=== PATIENT | female | born 2000 | race Caucasian/White ===

== ENCOUNTER 2023-01-28 14:55 | Emergency (ER) | payer OTHER, SELFPAY ==
[2023-01-28 15:02] VITALS: BP 138/78; PULSE 78; RESP 18; TEMP 36.6; O2SAT 99; BMI 38.5
--- NOTE | 2023-01-28 15:10 | ED.FEMALEGU1 ---
HPI - Female Genitourinary General Chief complaint: Urogenital-Female Stated complaint: UTI Time Seen by Provider: 01/28/23 14:59 Source: patient Mode of arrival: walk-in Limitations: no limitations History of Present Illness HPI Narrative: 22-year-old female presents with a possible UTI. She states that for the past 4 days she is experienced lower abdominal pain, dysuria, urinary frequency. Denies abnormal vaginal discharge. Denies fever, back pain, dysuria, n/v/d Related Data Home Medications Medication Instructions Recorded Confirmed No Known Home Medications 01/28/23 01/28/23 Allergies Allergy/AdvReac Type Severity Reaction Status Date / Time No Known Drug Allergies Allergy Verified 01/28/23 15:01 Review of Systems ROS Status of ROS 10 or more systems reviewed and unremarkable except as noted in history and below PFSH PFS Social History Smoking status: Current every day smoker Exam Narrative Exam Narrative: General: A&Ox3, no distress, talking in full an complete sentences skin: warm, dry, intact head: normocephalic, atraumatic eyes: EOMI nose: nares patent neck: supple, trachea midline respiratory: non-labored extremities: FROM x 4, strength +5/5 abd: soft, suprapubic tenderness spine: No CVA tenderness neuro: A&Ox3 psych: appropriate mood and affect, cooperative Constitutional Vital Signs, click to edit/add: Last Vital Signs Temp 97.8 F 01/28/23 15:02 Pulse 78 01/28/23 15:02 Resp 18 01/28/23 15:02 BP 138/78 01/28/23 15:02 Pulse Ox 99 01/28/23 15:02 Course Vital Signs Vital signs: Vital Signs Temperature 97.8 F 01/28/23 15:02 Pulse Rate 78 01/28/23 15:02 Respiratory Rate 18 01/28/23 15:02 Blood Pressure 138/78 01/28/23 15:02 Pulse Oximetry 99 01/28/23 15:02 Temperature 97.8 F 01/28/23 15:02 Pulse Rate 78 01/28/23 15:02 Respiratory Rate 18 01/28/23 15:02 Blood Pressure 138/78 01/28/23 15:02 Pulse Oximetry 99 01/28/23 15:02 MDM - Female Genitourinary MDM Narrative Medical decision making narrative: UA negative. Urine hCG negative. 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 She is instructed to follow-up with family doctor. afebrile, not tachypneic, not tachycardic, not hypoxic, non toxic appearing and ambulating at baseline and hemodynamically stable to be d/c. answered all questions. pt in agreement with tx. educated when to return to ER. Lab Data Attestation: I reviewed the patient's lab results. Labs: Lab Results 01/28/23 Range/Units 15:15 Urine Color Lt. yellow (YELLOW) Urine Clarity Clear (CLEAR) Urine pH 7.5 (5.0-9.0) Ur Specific [place] 1.025 (1.005-1.025) Urine Protein Negative (NEG/TRACE) mg/dL Urine Glucose (UA) Negative (NEGATIVE) mg/dL Urine Ketones Negative (NEGATIVE) mg/dL Urine Occult Blood Negative (NEGATIVE) Urine Nitrite Negative (NEGATIVE) Urine Bilirubin Negative (NEGATIVE) Urine Urobilinogen 0.2 (0.2-1.0) EU/dL Ur Leukocyte Esterase Negative (NEGATIVE) Urine RBC None seen (0-2) #/HPF Urine WBC None seen (NONE SEEN) #/HPF Ur Squamous Epith Cells Few A (NONE/RARE) #/LPF Urine Crystals None seen (None Seen) #/HPF Urine Bacteria None seen (NONE SEEN) #/HPF Urine Casts None seen (NONE SEEN) #/LPF Urine Mucus Trace A (NONE SEEN) Ur Culture Indicated? No Urine HCG, Qual Negative (NEGATIVE) Discharge Plan Discharge Chief Complaint: Urogenital-Female Clinical Impression: Dysuria Patient Disposition: Home, Self-Care Time of Disposition Decision: 15:55 Condition: Good Mode of Transportation: Private Vehicle Prescriptions / Home Meds: No Action No Known Home Medications Instructions: Dysuria (ED) Stand Alone Forms: Portal Instructions Referrals: LAMBERT RAMEY [Primary Care Provider] - 1 week
[2023-01-28 15:24] LABS: Bilirubin Urine NEGATIVE (NEGATIVE); Blood Urine NEGATIVE (NEGATIVE); Clarity Urine CLEAR (CLEAR); Color Urine LT. YELLOW (YELLOW); Glucose Urine UA NEGATIVE (NEGATIVE); Ketones Urine NEGATIVE (NEGATIVE); Leukocyte Esterase Urine NEGATIVE (NEGATIVE); Nitrite Urine NEGATIVE (NEGATIVE); Protein Urine NEGATIVE (NEG/TRACE); Specific Gravity Urine 1.025 (1.005-1.025); Urobilinogen Urine 0.2 EU/dL (0.2-1.0); pH Urine 7.5 (5.0-9.0)
[2023-01-28 15:34] LABS: Bacteria Urine NONE SEEN #/HPF (NONE SEEN); RBC Urine NONE SEEN #/HPF (0-2); WBC Urine NONE SEEN #/HPF (NONE SEEN)
[2023-01-28 15:35] LABS: Cast Seen? NONE SEEN #/LPF (NONE SEEN); Crystals Seen? None Seen #/HPF (None Seen); Mucus Urine TRACE (NONE SEEN); Squamous Epithelial Cell Urine FEW #/LPF (NONE/RARE); Urine Culture Indicated NO
[2023-01-28 15:45] LABS: HCG Qualitative Urine* NEGATIVE (NEGATIVE)
== END 2023-01-28 16:02 | disposition home or self-care (01) ==
PROVIDERS: Physician Assistant; Emergency Provider Student in an Organized Health Care Education/Training Program; PCP Family Medicine
DX: R30.0 Dysuria (principal); F17.210 Nicotine dependence, cigarettes, uncomplicated
CPT/HCPCS: 81001; 84703; 99283

== ENCOUNTER 2023-01-30 17:58 | Emergency (ER) | payer OTHER, SELFPAY ==
[2023-01-30 18:02] VITALS: BP 136/76; PULSE 93; RESP 18; TEMP 36.6; O2SAT 99; BMI 39.6
--- NOTE | 2023-01-30 18:11 | ED.FEMALEGU1 ---
HPI - Female Genitourinary General Chief complaint: Urogenital-Female Stated complaint: UTI Time Seen by Provider: 01/30/23 18:06 Source: patient Mode of arrival: walk-in History of Present Illness HPI Narrative: patient is a 22-year-old female who returns to the emergency department for continued pelvic pain, dysuria, right flank pain. Patient was seen in this emergency department two days ago, she has a history of frequent urinary tract infection and states typically her urine specimens are normal but cultures come back positive. She was not noted to have a urine culture from two days ago. Her urine specimen in the Emergency Room was negative. She had a negative test as well. She reports pain in the pelvis as well as burning with urination and has developed right flank pain in the last day. She has no history of kidney stones. She is currently being referred to a urologist as she has such an extensive history of urinary tract infection. She has had no fevers or vomiting but states she has had hot and cold chills. No other medications taken prior to arrival, although she has been taking Azo for the last several days without improvement. Related Data Home Medications Medication Instructions Recorded Confirmed No Known Home Medications 01/28/23 01/28/23 Previous Rx's Medication Instructions Recorded ketorolac 10 mg tablet 10 mg PO TID PRN pain #10 tabs 01/30/23 levofloxacin 750 mg tablet 750 mg PO DAILY 5 days #5 tabs 01/30/23 ondansetron 4 mg disintegrating 4 mg PO Q6H PRN nausea and 01/30/23 tablet vomiting #12 tabs phenazopyridine 200 mg tablet 200 mg PO Q8H 6 doses #6 tabs 01/30/23 (Pyridium) Allergies Allergy/AdvReac Type Severity Reaction Status Date / Time No Known Drug Allergies Allergy Verified 01/28/23 15:01 Review of Systems ROS Constitutional Denies: fever or chills Ears, nose, mouth, and throat Denies: throat pain or neck pain Cardiovascular Denies: chest pain Respiratory Denies: shortness of breath Gastrointestinal Denies: nausea or vomiting Musculoskeletal Denies: back pain or neck pain Integumentary/Breast Denies: rash Neurological Denies: headache Hematologic/Lymphatic Denies: easy bruising Allergic/Immunologic Denies: hives PFSH PFSH Social History Smoking status: Current every day smoker Exam Narrative Exam Narrative: Gen.: Awake, alert, in no distress Head: Normocephalic, atraumatic ENT: Moist mucous membranes Respiratory: No respiratory distress Gastrointestinal: Abdomen is soft, nondistended and nontender to palpation; no focal areas of tenderness, no guarding or rebound Back: no CVA tenderness Extremities: Moves extremities equally Psych: Normal mood and affect Neuro: No focal neuro deficit Skin: Warm, dry, intact Constitutional Vital Signs, click to edit/add: Last Vital Signs Temp 97.9 F 01/30/23 18:02 Pulse 76 01/30/23 19:23 Resp 16 01/30/23 19:23 BP 109/55 01/30/23 19:23 Pulse Ox 100 01/30/23 19:23 O2 Del Method Room Air 01/30/23 19:23 Course Vital Signs Vital signs: Vital Signs Temperature 97.9 F 01/30/23 18:02 Pulse Rate 93 H 01/30/23 18:02 Respiratory Rate 18 01/30/23 18:02 Blood Pressure 136/76 01/30/23 18:02 Pulse Oximetry 99 01/30/23 18:02 Oxygen Delivery Method Room Air 01/30/23 18:02 Temperature 97.9 F 01/30/23 18:02 Pulse Rate 76 01/30/23 19:23 Respiratory Rate 16 01/30/23 19:23 Blood Pressure 109/55 01/30/23 19:23 Pulse Oximetry 100 01/30/23 19:23 Oxygen Delivery Method Room Air 01/30/23 19:23 MDM - Female Genitourinary MDM Narrative Medical decision making narrative: patient was treated with IV fluids, Toradol, Zofran. She is resting comfortable on reevaluation. CBC and CMP are unremarkable, patient does have a nitrite positive urinary tract infection and culture will reflux. CT does not show any evidence of other acute abnormalities. Patient treated for urinary tract infection with Levaquin, 1st dose is given in the Emergency Room she was recently on amoxicillin two weeks ago for urinary tract infection. She is referred to local urologist as she has frequent urinary tract infection and is frequently on antibiotics. She is treated with NSAIDs, Zofran, Pyridium in addition to Levaquin, return to the Emergency Room if symptoms change or worsen. Medical Records Attestation: I reviewed the patient's medical records. Lab Data Attestation: I reviewed the patient's lab results. Labs: Lab Results 01/30/23 01/30/23 Range/Units 18:23 18:30 WBC 7.5 (4.0-11.0) 10^3/uL RBC 4.73 (4.20-5.40) 10^6/uL Hgb 13.5 (12.0-16.0) g/dL Hct 40.3 (36.0-48.0) % MCV 85.2 (81.0-99.0) fL MCH 28.5 (26.7-34.0) pg MCHC 33.5 (29.9-35.2) g/dL RDW 11.9 (11.0-15.0) % Plt Count 240 (150-450) 10^3/uL MPV 10.8 (9.5-13.5) fL Neut % (Auto) 53.4 (43.0-75.0) % Lymph % (Auto) 39.1 (20.5-60.0) % [place] % (Auto) 5.6 (1.7-12.0) % Eos % (Auto) 1.1 (0.9-7.0) % Baso % (Auto) 0.4 (0.2-2.0) % Neut # (Auto) 4.0 (1.4-6.5) 10^3/uL Lymph # (Auto) 2.9 (1.2-3.8) 10^3/uL [place] # (Auto) 0.4 (0.3-0.8) 10^3/uL Eos # (Auto) 0.1 (0.0-0.7) 10^3/uL Baso # (Auto) 0.0 (0.0-0.1) 10^3/uL Abs Immat Gran (auto) 0.03 (0.00-0.03) 10^3/uL Imm/Tot Granulo (auto) 0.4 (0.0-0.5) % Sodium 135 L (136-145) mmol/L Potassium 3.8 (3.5-5.1) mmol/L Chloride 101 (98-107) mmol/L Carbon Dioxide 25.4 (21.0-32.0) mmol/L Anion Gap 12.4 BUN 12.0 (7.0-18.0) mg/dL Creatinine 0.77 (0.55-1.02) mg/dL Est GFR ( Amer) >60 (>=60) Est GFR (Non-Af Amer) >60 (>=60) BUN/Creatinine Ratio 15.6 Glucose 86 (74-106) mg/dL Calcium 8.7 (8.5-10.1) mg/dL Total Bilirubin 1.7 H (0.2-1.0) mg/dL AST 17 (15-37) U/L ALT 20 (14-59) U/L Alkaline Phosphatase 46 (46-116) U/L Total Protein 7.6 (6.4-8.2) g/dL Albumin 4.3 (3.4-5.0) g/dL Globulin 3.3 g/dL Albumin/Globulin Ratio 1.3 Urine Color Dk. orange (YELLOW) Urine Clarity Clear (CLEAR) Urine pH 7.0 (5.0-9.0) Ur Specific [place] 1.025 (1.005-1.025) Urine Protein 100 A (NEG/TRACE) mg/dL Urine Glucose (UA) Negative (NEGATIVE) mg/dL Urine Ketones Negative (NEGATIVE) mg/dL Urine Occult Blood Small A (NEGATIVE) Urine Nitrite Positive A (NEGATIVE) Urine Bilirubin Negative (NEGATIVE) Urine Urobilinogen 1.0 (0.2-1.0) EU/dL Ur Leukocyte Esterase Trace A (NEGATIVE) Urine RBC 5-10 A (0-2) #/HPF Urine WBC 2-5 A (NONE SEEN) #/HPF Ur Squamous Epith Cells Few A (NONE/RARE) #/LPF Urine Crystals None seen (None Seen) #/HPF Urine Bacteria Moderate A (NONE SEEN) #/HPF Urine Casts None seen (NONE SEEN) #/LPF Urine Mucus Small A (NONE SEEN) Ur Culture Indicated? Yes Imaging Data CT scan - abdomen: Attestation: I have reviewed the pertinent imaging results. Radiologist's impression: Procedure: CT abdomen pelvis wo con EXAM: CT scan of the abdomen and pelvis without contrast. Dose reduction technique used: Automated exposure control and/or adjustment of the mA and/or kV according to patient size and/or use of iterative reconstruction technique. REASON FOR EXAM: flank pain COMPARISON: CT scan dated 08/14/2020 FINDINGS: Cholecystectomy. No renal, ureteral or bladder calculi. No hydronephrosis. Negative appendix. No free fluid in the abdomen or pelvis. No free intraperitoneal air. No dilated or thickened loops of small bowel or colon. Liver, pancreas, spleen, bilateral kidneys, and bilateral adrenal glands are otherwise unremarkable within the limitations of noncontrast CT. No lymphadenopathy in the abdomen or pelvis. Remainder unremarkable. IMPRESSION: No acute abnormalities in the abdomen or pelvis. Electronically authenticated by: LEVON RIOS Date: 01/30/2023 19:26 Discharge Plan Discharge Chief Complaint: Urogenital-Female Clinical Impression: Urinary tract infection Patient Disposition: Home, Self-Care Time of Disposition Decision: 19:36 Condition: Good Prescriptions / Home Meds: New ketorolac 10 mg tablet 10 mg PO TID PRN (Reason: pain) Qty: 10 0RF levofloxacin 750 mg tablet 750 mg PO DAILY 5 Days Qty: 5 0RF ondansetron 4 mg tablet,disintegrating 4 mg PO Q6H PRN (Reason: nausea and vomiting) Qty: 12 0RF phenazopyridine [Pyridium] 200 mg tablet 200 mg PO Q8H Qty: 6 0RF No Action No Known Home Medications Instructions: Urinary Tract Infection in Women (ED) Stand Alone Forms: Portal Instructions Referrals: Carmelina Veliz MD [Physician] - 1 week
--- NOTE | 2023-01-30 18:22 | CT_ITS ---
The [address] [address] Patient Name: ELISABET TORRES MRN: [id number] date: 2000 Sex: F Assigned Patient Location: ER Current Patient Location: ED.MAIN Accession/Order Number: [id number] Exam Date: 01/30/2023 18:40 Report Date: 01/30/2023 19:26 At the request of: LYNN HUNT Procedure: CT abdomen pelvis wo con EXAM: CT scan of the abdomen and pelvis without contrast. Dose reduction technique used: Automated exposure control and/or adjustment of the mA and/or kV according to patient size and/or use of iterative reconstruction technique. REASON FOR EXAM: flank pain COMPARISON: CT scan dated 08/14/2020 FINDINGS: Cholecystectomy. No renal, ureteral or bladder calculi. No hydronephrosis. Negative appendix. No free fluid in the abdomen or pelvis. No free intraperitoneal air. No dilated or thickened loops of small bowel or colon. Liver, pancreas, spleen, bilateral kidneys, and bilateral adrenal glands are otherwise unremarkable within the limitations of noncontrast CT. No lymphadenopathy in the abdomen or pelvis. Remainder unremarkable. CT/CT abdomen pelvis wo con IMPRESSION: No acute abnormalities in the abdomen or pelvis. Electronically authenticated by: LEVON RIOS Date: 01/30/2023 19:26
[2023-01-30 18:29] LABS: Bilirubin Urine NEGATIVE (NEGATIVE); Blood Urine SMALL (NEGATIVE); Clarity Urine CLEAR (CLEAR); Color Urine DK. ORANGE (YELLOW); Glucose Urine UA NEGATIVE (NEGATIVE); Ketones Urine NEGATIVE (NEGATIVE); Leukocyte Esterase Urine TRACE (NEGATIVE); Nitrite Urine POSITIVE (NEGATIVE); Protein Urine 100 mg/dL (NEG/TRACE); Specific Gravity Urine 1.025 (1.005-1.025)
[2023-01-30 18:31] LABS: Urine Microscopic Indicated YES
[2023-01-30] MEDS: KETOROLAC TROMETHAMINE 30 MG/ML VIAL IVP (18:35)
[2023-01-30] MEDS: 0.9 % SODIUM CHLORIDE 1,000 ML 999 ML IV (18:35)
[2023-01-30] MEDS: ONDANSETRON PF 4 MG/2 ML VIAL IV (18:35)
[2023-01-30 18:39] LABS: Bacteria Urine MODERATE #/HPF (NONE SEEN); Cast Seen? NONE SEEN #/LPF (NONE SEEN); Crystals Seen? None Seen #/HPF (None Seen); Mucus Urine SMALL (NONE SEEN); Squamous Epithelial Cell Urine FEW #/LPF (NONE/RARE); Urine Culture Indicated YES
[2023-01-30 18:59] LABS: Basophils Percent Auto 0.4 % (0.2-2.0); Eosinophils Absolute Auto 0.1 10^3/uL (0.0-0.7); Eosinophils Percent Auto 1.1 % (0.9-7.0); Hematocrit 40.3 % (36.0-48.0); Hemoglobin 13.5 g/dL (12.0-16.0); Immature Granulocytes Abs Auto 0.03 10^3/uL (0.00-0.03); Immature Granulocytes Pct Auto 0.4 % (0.0-0.5); Lymphocytes Absolute Auto 2.9 10^3/uL (1.2-3.8); Lymphocytes Percent Auto 39.1 % (20.5-60.0); Mean Corpuscular HGB Conc 33.5 g/dL (29.9-35.2); Mean Corpuscular Hemoglobin 28.5 pg (26.7-34.0); Mean Corpuscular Volume 85.2 fL (81.0-99.0); Mean Platelet Volume 10.8 fL (9.5-13.5); Monocytes Absolute Auto 0.4 10^3/uL (0.3-0.8); Monocytes Percent Auto 5.6 % (1.7-12.0); Neutrophils Percent Auto 53.4 % (43.0-75.0); Platelet Count 240 10^3/uL (150-450); Red Blood Count 4.73 10^6/uL (4.20-5.40); Red Cell Distribution Width 11.9 % (11.0-15.0); White Blood Count 7.5 10^3/uL (4.0-11.0)
[2023-01-30 19:15] LABS: Alanine Aminotransferase 20 U/L (14-59); Albumin Globulin Ratio 1.3; Albumin Level 4.3 g/dL (3.4-5.0); Alkaline Phosphatase 46 U/L (46-116); Anion Gap 12.4; Aspartate Amino Transferase 17 U/L (15-37); BUN Creatinine Ratio 15.6; Bilirubin Total 1.7 mg/dL (0.2-1.0); Calcium 8.7 mg/dL (8.5-10.1); Carbon Dioxide 25.4 mmol/L (21.0-32.0); Chloride 101 mmol/L (98-107); Estimated GFR (African America >60 (>=60); Estimated GFR (Non-African Ame >60 (>=60); Globulin 3.3 g/dL; Glucose 86 mg/dL (74-106); Potassium 3.8 mmol/L (3.5-5.1); Sodium 135 mmol/L (136-145); Total Protein 7.6 g/dL (6.4-8.2)
[2023-01-30 19:23] VITALS: BP 109/55; PULSE 76; RESP 16; O2SAT 100
[2023-01-30] MEDS: LEVOFLOXACIN IN DEXTROSE 5 % 750 MG/150 ML IV.SOLN 100 MG IV (19:45)
== END 2023-01-30 20:51 | disposition home or self-care (01) ==
PROVIDERS: Physician Assistant; Emergency Provider Emergency Medicine; PCP Family Medicine
DX: N39.0 Urinary tract infection, site not specified (principal); F17.210 Nicotine dependence, cigarettes, uncomplicated
CPT/HCPCS: 36415; 74176; 80053; 81001; 85025; 87086; 87150; 87186; 96374; 96375; 99285

== ENCOUNTER 2023-12-29 10:57 | Outpatient (OUT) | payer OTHER, SELFPAY ==
[2023-12-29 11:31] LABS: Basophils Percent Auto 0.6 % (0.2-2.0); Eosinophils Absolute Auto 0.1 10^3/uL (0.0-0.7); Hematocrit 39.9 % (36.0-48.0); Hemoglobin 13.4 g/dL (12.0-16.0); Immature Granulocytes Abs Auto 0.02 10^3/uL (0.00-0.03); Immature Granulocytes Pct Auto 0.4 % (0.0-0.5); Lymphocytes Absolute Auto 2.1 10^3/uL (1.2-3.8); Lymphocytes Percent Auto 40.4 % (20.5-60.0); Mean Corpuscular HGB Conc 33.6 g/dL (29.9-35.2); Mean Corpuscular Hemoglobin 28.9 pg (26.7-34.0); Mean Corpuscular Volume 86.2 fL (81.0-99.0); Mean Platelet Volume 10.5 fL (9.5-13.5); Monocytes Absolute Auto 0.4 10^3/uL (0.3-0.8); Neutrophils Absolute Auto 2.7 10^3/uL (1.4-6.5); Neutrophils Percent Auto 50.6 % (43.0-75.0); Platelet Count 227 10^3/uL (150-450); Red Blood Count 4.63 10^6/uL (4.20-5.40); Red Cell Distribution Width 11.6 % (11.0-15.0); White Blood Count 5.3 10^3/uL (4.0-11.0)
[2023-12-29 11:48] LABS: Free T4 1.07 ng/dL (0.76-1.46)
[2023-12-29 11:53] LABS: Alanine Aminotransferase 15 U/L (14-59); Albumin Globulin Ratio 1.3; Albumin Level 4.1 g/dL (3.4-5.0); Alkaline Phosphatase 42 U/L (46-116); Anion Gap 15.9; Aspartate Amino Transferase 9 U/L (15-37); BUN Creatinine Ratio 18.8; Bilirubin Total 1.2 mg/dL (0.2-1.0); Calcium 9.1 mg/dL (8.5-10.1); Carbon Dioxide 23.8 mmol/L (21.0-32.0); Chloride 104 mmol/L (98-107); Estimated GFR (African America >60 (>=60); Estimated GFR (Non-African Ame >60 (>=60); Globulin 3.2 g/dL; Glucose 99 mg/dL (74-106); Potassium 3.7 mmol/L (3.5-5.1); Sodium 140 mmol/L (136-145); Thyroid Stimulating Hormone 0.887 uIU/mL (0.358-3.740); Total Protein 7.3 g/dL (6.4-8.2)
== END 2023-12-29 10:58 | disposition home or self-care (01) ==
LOC: LAB 10:58
PROVIDERS: PCP Family Medicine; Visit Provider Psychiatry & Neurology Psychiatry
DX: F31.62 Bipolar disorder, current episode mixed, moderate (principal); Z79.899 Other long term (current) drug therapy
CPT/HCPCS: 36415; 80053; 84439; 84443; 85025

== ENCOUNTER 2024-03-19 14:18 | Emergency (ER) | payer OTHER, SELFPAY ==
[2024-03-19 14:23] VITALS: BP 125/77; PULSE 70; TEMP 36.6; O2SAT 98; BMI 35.0
--- NOTE | 2024-03-19 14:36 | ED_ITS ---
HPI HPI - General Adult General Chief complaint: Urogenital-Female Stated complaint: UTI COMPLAINTS Time Seen by Provider: 03/19/24 14:23 Source: patient Mode of arrival: walk-in History of Present Illness HPI narrative: 24-year-old female to the emergency department with chief complaint of dysuria, urgency, frequency, suprapubic discomfort as well as some mild flank tenderness. Patient reports the symptoms began 3 days ago. She reports she has a history of UTIs with similar symptoms. She denies any fever, sweats, chills. Denies any nausea or vomiting. No blood in the urine. She denies . Related Data Previous Rx's ?Medication ?Instructions ?Recorded ketorolac 10 mg tablet 10 mg PO TID PRN pain #10 tabs 01/30/23 levofloxacin 750 mg tablet 750 mg PO DAILY 5 days #5 tabs 01/30/23 ondansetron 4 mg disintegrating 4 mg PO Q6H PRN nausea and 01/30/23 tablet vomiting #12 tabs phenazopyridine 200 mg tablet 200 mg PO Q8H 6 doses #6 tabs 01/30/23 (Pyridium) cephalexin 500 mg capsule 500 mg PO BID 5 days #10 caps 03/19/24 Allergies Allergy/AdvReac Type Severity Reaction Status Date / Time No Known Drug Allergies Allergy Verified 01/28/23 15:01 Opioid HPI Opioid Management Most Recent Opioid Data: No Data to Display Review of Systems ROS Status of ROS 10 or more systems reviewed and unremark able except as noted in history and below PFSH PFSH Social History Smoking status: Current every day smoker Exam Narrative Exam Narrative: VITALS: I have reviewed the triage vital signs. GENERAL: Well developed, well appearing adult in no acute distress. NEURO: Alert and oriented. Moves all extremities. Face is symmetric and expressive. EYES: PERRL. No scleral icterus or conjunctival injection. No discharge. HENT: Normocephalic, atraumatic. Hearing is grossly intact. Nares grossly patent and without discharge. Mucous membranes moist. NECK: No JVD. Patient moves neck without restriction. GI/: Abdomen is soft and non-tender. Normoactive bowel sounds. EXTREMITIES: Symmetric muscle bulk. No joint swelling. No clubbing, cyanosis, or deformity. SKIN: Warm and dry. Normal turgor. No rash or lesions appreciated. PSYCH: Mood, affect, and interaction is appropriate to the setting. Constitutional Vital Signs, click to edit/add: Last Vital Signs Temp 97.8 F 03/19/24 14:23 Pulse 70 03/19/24 14:23 Resp 16 03/19/24 14:23 BP 125/77 03/19/24 14:23 Pulse Ox 99 03/19/24 14:44 O2 Del Method Room Air 03/19/24 14:44 Course Vital Signs Vital signs: Vital Signs Temperature 97.8 F 03/19/24 14:23 Pulse Rate 70 03/19/24 14:23 Respiratory Rate 16 03/19/24 14:23 Blood Pressure 125/77 03/19/24 14:23 Pulse Oximetry 98 03/19/24 14:23 Oxygen Delivery Method Room Air 03/19/24 14:23 Temperature 97.8 F 03/19/24 14:23 Pulse Rate 70 03/19/24 14:23 Respiratory Rate 16 03/19/24 14:23 Blood Pressure 125/77 03/19/24 14:23 Pulse Oximetry 99 03/19/24 14:44 Oxygen Delivery Method Room Air 03/19/24 14:44 Medical Decision Making MDM Narrative Medical decision making narrative: 24-year-old female to the emergency department with chief complaint of UTI-like symptoms. Vital stable, the patient is afebrile. Her abdominal examination is benign. Urinalysis and urine test are ordered. Patient agrees with this plan. She declines any symptomatic medications. hCG negative. Urinalysis concerning for UTI given her symptoms. Keflex as prescribed. Return precautions were discussed. All questions were answered. The patient is discharged home. Medical Records Medical records reviewed: Yes I reviewed the patient's medical records Lab Data Lab results reviewed: Yes I reviewed the patient's lab results Labs: Lab Results 03/19/24 Range/Units 14:32 Urine Color Yellow (YELLOW) Urine Clarity Clear (CLEAR) Urine pH 6.0 (5.0-9.0) Ur Specific [place] >=1.030 A (1.005-1.025) Urine Protein Negative (NEG/TRACE) mg/dL Urine Glucose (UA) Negative (NEGATIVE) mg/dL Urine Ketones Negative (NEGATIVE) mg/dL Urine Occult Blood Moderate A (NEGATIVE) Urine Nitrite Negative (NEGATIVE) Urine Bilirubin Negative (NEGATIVE) Urine Urobilinogen 0.2 (0.2-1.0) EU/dL Ur Leukocyte Esterase Negative (NEGATIVE) Urine RBC 0-2 (0-2) #/HPF Urine WBC 5-10 A (NONE SEEN) #/HPF Ur Squamous Epith Cells Moderate A (NONE/RARE) #/LPF Urine Crystals None seen (None Seen) #/HPF Urine Bacteria Small A (NONE SEEN) #/HPF Urine Casts None seen (NONE SEEN) #/LPF Urine Mucus Small A (NONE SEEN) Ur Culture Indicated? Yes Urine HCG, Qual Negative (NEGATIVE) Discharge Plan Discharge Chief Complaint: Urogenital-Female Clinical Impression: Dysuria Patient Disposition: Home, Self-Care Time of Disposition Decision: 14:59 Condition: Good Mode of Transportation: Private Vehicle Prescriptions / Home Meds: New cephalexin 500 mg capsule 500 mg PO BID 5 Days Qty: 10 0RF No Action ketorolac 10 mg tablet 10 mg PO TID PRN (Reason: pain) Qty: 10 0RF levofloxacin 750 mg tablet 750 mg PO DAILY 5 Days Qty: 5 0RF ondansetron 4 mg tablet,disintegrating 4 mg PO Q6H PRN (Reason: nausea and vomiting) Qty: 12 0RF phenazopyridine [Pyridium] 200 mg tablet 200 mg PO Q8H Qty: 6 0RF Print Language: Serbian Instructions: Urinary Tract Infection in Women (ED) Additional Instructions: Call the office of your primary care doctor to arrange for follow-up within the above-stated timeframe. Your ED visit was focused on your acute issue and does not replace primary care. You should review your labs, imaging, and diagnoses from this ED visit with your primary care physician. There may be non-emergent/ incidental findings that need further evaluation. You should review your vital signs including blood pressure with your PCP. If you were prescribed medications you should discuss possible side-effects and drug interactions with your pharmacist. Call 911 or go to the nearest Emergency Department if you develop any new or worsening symptoms. Seek immediate medical attention if you develop: worsening abdominal pain, new or worsening nausea, new or worsening vomiting, new or worsening diarrhea, chest pain, shortness of breath, pain with urination, problems urinating, fever, chills, weakness, or any new or worsening symptoms. Referrals: LAMBERT RAMEY [Primary Care Provider] - 1 week
[2024-03-19 14:41] LABS: Bilirubin Urine NEGATIVE (NEGATIVE); Blood Urine MODERATE (NEGATIVE); Clarity Urine CLEAR (CLEAR); Color Urine YELLOW (YELLOW); Glucose Urine UA NEGATIVE (NEGATIVE); Ketones Urine NEGATIVE (NEGATIVE); Leukocyte Esterase Urine NEGATIVE (NEGATIVE); Nitrite Urine NEGATIVE (NEGATIVE); Protein Urine NEGATIVE (NEG/TRACE); Specific Gravity Urine >=1.030 (1.005-1.025); Urobilinogen Urine 0.2 EU/dL (0.2-1.0)
[2024-03-19 14:43] LABS: Urine Microscopic Indicated YES
[2024-03-19 14:44] VITALS: O2SAT 99
[2024-03-19 14:44] LABS: HCG Qualitative Urine* NEGATIVE (NEGATIVE); Internal Control Within Normal Limits
[2024-03-19 14:54] LABS: Bacteria Urine SMALL #/HPF (NONE SEEN); Cast Seen? NONE SEEN #/LPF (NONE SEEN); Crystals Seen? None Seen #/HPF (None Seen); Mucus Urine SMALL (NONE SEEN); RBC Urine 0-2 #/HPF (0-2); Squamous Epithelial Cell Urine MODERATE #/LPF (NONE/RARE); Urine Culture Indicated YES
== END 2024-03-19 15:03 | disposition home or self-care (01) ==
PROVIDERS: Emergency Provider Student in an Organized Health Care Education/Training Program; PCP Family Medicine
DX: R30.0 Dysuria (principal); Z87.440 Personal history of urinary (tract) infections; F17.200 Nicotine dependence, unspecified, uncomplicated
CPT/HCPCS: 81001; 84703; 87086; 99283

== ENCOUNTER 2024-04-21 15:17 | Emergency (ER) | payer OTHER, SELFPAY ==
[2024-04-21 15:20] VITALS: BP 118/68; PULSE 89; TEMP 36.5; O2SAT 100; BMI 35.7
[2024-04-21 15:38] LABS: Bilirubin Urine NEGATIVE (NEGATIVE); Blood Urine SMALL (NEGATIVE); Clarity Urine SL CLOUDY (CLEAR); Color Urine LT. YELLOW (YELLOW); Glucose Urine UA NEGATIVE (NEGATIVE); Ketones Urine NEGATIVE (NEGATIVE); Leukocyte Esterase Urine SMALL (NEGATIVE); Nitrite Urine NEGATIVE (NEGATIVE); Protein Urine 30 mg/dL (NEG/TRACE); Specific Gravity Urine 1.025 (1.005-1.025); Urobilinogen Urine 0.2 EU/dL (0.2-1.0)
[2024-04-21 15:41] LABS: Urine Microscopic Indicated YES
[2024-04-21 15:46] LABS: Bacteria Urine SMALL #/HPF (NONE SEEN); Mucus Urine SMALL (NONE SEEN); Squamous Epithelial Cell Urine FEW #/LPF (NONE/RARE); WBC Urine 75-100 #/HPF (NONE SEEN)
[2024-04-21 15:48] LABS: Cast Seen? NONE SEEN #/LPF (NONE SEEN); Crystals Seen? None Seen #/HPF (None Seen); Transitional Epi Cells Urine FEW #/LPF (NONE SEEN)
[2024-04-21 15:49] LABS: Urine Culture Indicated YES
--- NOTE | 2024-04-21 16:00 | ED_ITS ---
<Statement entered by Henry Cueto MD - 04/22/24 12:09> Chart was sent to my inbox for administrative and group management purposes. I was the attending physicians working during the patients hospital course. The patient was seen and managed independently by the MLP. I did not personally see or evaluate this patient, nor was I involved in the patient medical decision making process or plans of care. Pt was dispositioned by the MLP with complete independence. I was available for consultation should the MLP request during this patients ED stay. This documentation has been reviewed and approved. HPI - Female Genitourinary General Chief complaint: Urogenital-Female Stated complaint: poss uti Time Seen by Provider: 04/21/24 15:18 Source: patient Mode of arrival: walk-in Limitations: no limitations History of Present Illness HPI Narrative: Patient is a 24-year-old female who presents to the emergency department for urinary frequency and dysuria for the last 2 days. She has a history of frequent urinary tract infections. She was last treated for UTI about 1 month ago from this emergency department. She states she has seen urology before further frequent UTIs and states no one is able to tell her why she has them so often. She has had no fevers, chills, nausea, vomiting. She denies any flank or back pain. She has not had any vaginal bleeding or discharge, no concern for STD exposure. She does not have any concern for . Related Data Previous Rx's ?Medication ?Instructions ?Recorded ketorolac 10 mg tablet 10 mg PO TID PRN pain #10 tabs 01/30/23 levofloxacin 750 mg tablet 750 mg PO DAILY 5 days #5 tabs 01/30/23 ondansetron 4 mg disintegrating 4 mg PO Q6H PRN nausea and 01/30/23 tablet vomiting #12 tabs phenazopyridine 200 mg tablet 200 mg PO Q8H 6 doses #6 tabs 01/30/23 (Pyridium) cephalexin 500 mg capsule 500 mg PO BID 5 days #10 caps 03/19/24 ondansetron 4 mg disintegrating 4 mg PO Q6H PRN nausea and 04/21/24 tablet vomiting #12 tabs phenazopyridine 200 mg tablet 200 mg PO Q8H 2 days #6 tabs 04/21/24 (Pyridium) sulfamethoxazole 800 1 tab PO BID 7 days #14 tabs 04/21/24 mg-trimethoprim 160 mg tablet (Bactrim DS) Allergies Allergy/AdvReac Type Severity Reaction Status Date / Time No Known Drug Allergies Allergy Verified 04/21/24 15:24 Review of Systems ROS Constitutional Denies: fever or chills Ears, nose, mouth, and throat Denies: throat pain or nasal congestion Cardiovascular Denies: chest pain Respiratory Denies: shortness of breath Gastrointestinal Denies: abdominal pain, nausea or vomiting Genitourinary Reports: painful urination and urinary frequency Musculoskeletal Denies: back pain Integumentary/Breast Denies: rash Neurological Denies: numbness in extremities or weakness in extremities Hematologic/Lymphatic Denies: easy bruising or easy bleeding PFSH PFSH Social History Smoking status: Current every day smoker Little interest or pleasure in doing things: not at all Feeling down, depressed, or hopeless: not at all Exam Narrative Exam Narrative: Gen.: Awake, alert, in no distress Head: Normocephalic, atraumatic ENT: Moist mucous membranes Respiratory: No respiratory distress, lungs clear bilaterally Cardio: Regular rate and rhythm Gastrointestinal: Abdomen is soft, nondistended and nontender to palpation, no CVA tenderness Extremities: Moves extremities equally Psych: Normal mood and affect Neuro: No focal neuro deficit Skin: Warm, dry, intact Constitutional Vital Signs, click to edit/add: Last Vital Signs Temp 97.7 F 04/21/24 15:20 Pulse 89 04/21/24 15:20 Resp 16 04/21/24 15:20 BP 118/68 04/21/24 15:20 Pulse Ox 100 04/21/24 15:20 O2 Del Method Room Air 04/21/24 15:20 Course Vital Signs Vital signs: Vital Signs Temperature 97.7 F 04/21/24 15:20 Pulse Rate 89 04/21/24 15:20 Respiratory Rate 16 04/21/24 15:20 Blood Pressure 118/68 04/21/24 15:20 Pulse Oximetry 100 04/21/24 15:20 Oxygen Delivery Method Room Air 04/21/24 15:20 Temperature 97.7 F 04/21/24 15:20 Pulse Rate 89 04/21/24 15:20 Respiratory Rate 16 11/13/24 15:20 Blood Pressure 118/68 04/21/24 15:20 Pulse Oximetry 100 04/21/24 15:20 Oxygen Delivery Method Room Air 04/21/24 15:20 MDM - Female Genitourinary MDM Narrative Medical decision making narrative: Urine specimen shows urinary tract infection. Patient is hemodynamically stable, benign exam. Her most recent urinary culture was positive for E. coli and susceptible to all antibiotics. She was most recently on Keflex. She was given Bactrim, Pyridium, Zofran for home. Return to the ER if symptoms change or worsen SUPERVISED APC VISIT, PHYSICIAN ATTESTATION: Based on the medical record the care appears appropriate. ? Medical Records Attestation: I reviewed the patient's medical records. Lab Data Attestation: I reviewed the patient's lab results. Labs: Lab Results 04/21/24 Range/Units 15:28 Urine Color Lt. yellow (YELLOW) Urine Clarity Sl cloudy (CLEAR) Urine pH 7.0 (5.0-9.0) Ur Specific [place] 1.025 (1.005-1.025) Urine Protein 30 A (NEG/TRACE) mg/dL Urine Glucose (UA) Negative (NEGATIVE) mg/dL Urine Ketones Negative (NEGATIVE) mg/dL Urine Occult Blood Small A (NEGATIVE) Urine Nitrite Negative (NEGATIVE) Urine Bilirubin Negative (NEGATIVE) Urine Urobilinogen 0.2 (0.2-1.0) EU/dL Ur Leukocyte Esterase Small A (NEGATIVE) Urine RBC 5-10 A (0-2) #/HPF Urine WBC 75-100 A (NONE SEEN) #/HPF Ur Squamous Epith Cells Few A (NONE/RARE) #/LPF Ur Transition Epith Cell Few A (NONE SEEN) #/LPF Urine Crystals None seen (None Seen) #/HPF Urine Bacteria Small A (NONE SEEN) #/HPF Urine Casts None seen (NONE SEEN) #/LPF Urine Mucus Small A (NONE SEEN) Ur Culture Indicated? Yes Discharge Plan Discharge Chief Complaint: Urogenital-Female Clinical Impression: Urinary tract infection Patient Disposition: Home, Self-Care Time of Disposition Decision: 15:59 Condition: Good Prescriptions / Home Meds: New phenazopyridine [Pyridium] 200 mg tablet 200 mg PO Q8H 2 Days Qty: 6 0RF sulfamethoxazole-trimethoprim [Bactrim DS] 800-160 mg tablet 1 tab PO BID 7 Days Qty: 14 0RF ondansetron 4 mg tablet,disintegrating 4 mg PO Q6H PRN (Reason: nausea and vomiting) Qty: 12 0RF No Action ketorolac 10 mg tablet 10 mg PO TID PRN (Reason: pain) Qty: 10 0RF levofloxacin 750 mg tablet 750 mg PO DAILY 5 Days Qty: 5 0RF ondansetron 4 mg tablet,disintegrating 4 mg PO Q6H PRN (Reason: nausea and vomiting) Qty: 12 0RF phenazopyridine [Pyridium] 200 mg tablet 200 mg PO Q8H Qty: 6 0RF cephalexin 500 mg capsule 500 mg PO BID 5 Days Qty: 10 0RF Print Language: Yi Instructions: Urinary Tract Infection in Women (ED) Referrals: LAMBERT RAMEY [Primary Care Provider] - 1 week
== END 2024-04-21 15:55 | disposition home or self-care (01) ==
PROVIDERS: Physician Assistant; Emergency Provider Emergency Medicine; PCP Family Medicine
DX: N39.0 Urinary tract infection, site not specified (principal); F17.200 Nicotine dependence, unspecified, uncomplicated
CPT/HCPCS: 81001; 87086; 99283

== ENCOUNTER 2024-05-11 19:56 | Outpatient (REF) | payer OTHER, SELFPAY ==
--- OUTSIDE RECORDS SUMMARY | 2024-05-11 20:14 | XMS_ITS | CCD ---
Author Organization [facility] Inform ion Partnership [facility] Care Team Providers Care Ginseng Farmer Name Role Phone Gregg London Attending Provider [phone] Mook Wang Primary Care Provider MARKER, DR RED Admitting Unavailable MARKER, DR RED Attending Unavailable FURLONG, DR MOOK Ruiz Primary Care Unavailable MARKER, DR RED Consulting Unavailable ADONIS, PABLO Admitting Unavailable ADONIS, PABLO Attending Unavailable MISC, DR BARTLETT Primary Care Unavailable ADONIS, PABLO Consulting Unavailable PrestonloMook matthews DO Primary Care Provider YORDAN LOMBARDI Admitting Unavailable YORDAN LOMBARDI Attending Unavailable MOOK WANG Primary Care Unavailable NIRU THOMASON Attending Unavailable MOOK WANG Primary Care Unavailable YORDAN LOMBARDI Attending Unavailable YORDAN LOMBARDI Referring Unavailable TANVIR, MOOK Ruiz Primary Care Unavailable YORDAN LOMBARDI Attending Unavailable YORDAN LOMBARDI Referring Unavailable TANVIR, MOOK Ruiz Primary Care Unavailable MOOK WANG Referring Unavailable TANVIR, MOOK Ruiz Primary Care Unavailable ELVIRA ZUNIGA Attending Unavailable ELVIRA ZUNIGA Referring Unavailable TANVIR, MOOK Ruiz Primary Care Unavailable YORDAN LOMBARDI Referring Unavailable MOOK WANG Primary Care Unavailable DATYON RUBIN Attending Unavailable MOOK WANG Referring Unavailable TANVIR, MOOK Ruiz Primary Care Unavailable DAYTON RUBIN Referring Unavailable TANVIR, MOOK Ruiz Primary Care Unavailable DAMIAN NICHOLSON Attending Unavailable Mook Wang MD Primary Care Provider [phone] Unavailable Unavailable Unavailable Medications Current Medications Medication Drug Class(es) Dates Sig (Normalized) Sig (Original) acetaminophen 500 mg oral tablet (1 source) take 1 tablet by mouth every six hours as needed for pain acetaminophen (TYLENOL) 500 mg tablet Take 1 tablet (500 mg total) by mouth every 6 (six) hours as needed for pain (1-2 ORAL NEEDED). 0 Active ARIPiprazole 10 mg oral tablet (1 source) Atypical Antipsychotic Start: 01-24-2024 ARIPiprazole (Abilify) 10 MG tablet 01/24/2024 Active 21 day ethinyl estradiol 0.661941 mg/hr / etonogestrel 0.005 mg/hr vaginal system (1 source) Progestin, Estrogen Start: 01-26-2024 etonogestrel-ethin yl estradiol (Nuvaring) 0.12-0.015 MG/24HR vaginal ring Indications: Irregular menstrual cycle , General counseling and advice on contraceptive management Insert 1 Ring into the vagina every 28 (twenty-eight) days for 28 days Insert vaginal ring for 3 weeks, then remove for 1 week. 1 each 11 01/26/2024 Active lamoTRIgine 100 mg oral tablet (1 source) Mood Stabilizer, Anti-epileptic Agent Start: 01-24-2024 lamoTRIgine (LaMICtal) 100 MG tablet 01/24/2024 Active traZODone hydrochloride 50 mg oral tablet (1 source) Serotonin Reuptake Inhibitor Start: 12-26-2023 traZODone (Desyrel) 50 MG tablet Take 50 mg by mouth as needed at bedtime 12/26/2023 Active Problems Active Problems Problem Classification Problem Date Documented Date Episodic/Chronic Anxiety disorders (1 source) Anxiety; Translations: [Anxiety disorder, unspecified] Onset: 03-22-2020 07-05-2022 Chronic Cardiac dysrhythmias (1 source) Supraventricular tachycardia; Translations: [Supraventricular tachycardia] Onset: 03-25-2020 04-17-2021 Chronic Conditions associated with dizziness or vertigo (3 sources) Dizziness and giddiness; Translations: [Lightheadedness] Onset: 10-20-2023 Episodic Joint disorders and dislocations; trauma-related (1 source) Derangement of right knee; Translations: [Unspecified internal derangement of right knee] Onset: 03-15-2022 03-15-2022 Chronic Menstrual disorders (2 sources) Irregular menstruation, unspecified; Translations: [Irregular menstruation, unspecified] Onset: 10-20-2023 Chronic Miscellaneous mental health disorders (1 source) Bulimia nervosa; Translations: [Bulimia nervosa] Onset: 08-18-2019 04-17-2021 Chronic Mood disorders (1 source) Bipolar disorder; Translations: [Bipolar disorder, unspecified] Onset: 02-07-2021 07-05-2022 Chronic Other circulatory disease (1 source) Personal history of other diseases of the circulatory system; Translations: [Personal history of other diseases of the circulatory system] Onset: 05-30-2023 Episodic Other complications of (1 source) Maternal obesity complicating , childbirth and the puerperium, antepartum; Translations: [Obesity complicating , unspecified trimester] Onset: 04-17-2021 04-17-2021 Chronic Other complications of (1 source) Bipolar disorder; Translations: [Other mental disorders complicating , unspecified trimester] 04-17-2021 Episodic Other ear and sense organ disorders (3 sources) Otalgia, right ear; Translations: [OTALGIA RIGHT EAR] Onset: 04-12-2022 Episodic Other nervous system disorders (1 source) Chronic pain; Translations: [Other chronic pain] Onset: 03-15-2022 03-15-2022 Chronic Other nutritional; endocrine; and metabolic disorders (1 source) Body mass index (BMI) 40.0-44.9, adult; Translations: [BODY MASS INDEX BMI 40.0-44.9 ADULT] Onset: 04-15-2022 Chronic Other nutritional; endocrine; and metabolic disorders (1 source) Morbid obesity; Translations: [Morbid (severe) obesity due to excess calories] Onset: 03-17-2023 03-17-2023 Chronic Other nutritional; endocrine; and metabolic disorders (1 source) Morbid (severe) obesity due to excess calories; Translations: [Morbid (severe) obesity due to excess calories] Onset: 03-17-2023 Chronic Other nutritional; endocrine; and metabolic disorders (1 source) Overweight; Translations: [OVERWEIGHT] Onset: 04-15-2022 Episodic Other upper respiratory infections (1 source) Acute upper respiratory infection, unspecified; Translations: [ACUTE UP RESPIRATORY INFECTION UNS] Onset: 04-15-2022 Episodic Otitis media and related conditions (1 source) Otitis media, unspecified, right ear; Translations: [OTITIS MEDIA UNSPECIFIED RIGHT EAR] Onset: 04-15-2022 Episodic Substance-related disorders (1 source) Nicotine dependence, cigarettes, uncomplicated; Translations: [NICOTINE DEPEND CIGARETTES UNCOMP] Onset: 04-15-2022 Chronic Unclassified (1 source) COUGH, UNSPECIFIED; Translations: [COUGH, UNSPECIFIED] Onset: 04-15-2022 Unclassified (1 source) CONTACT W/AND (SUSP) EXPOS COVID-19; Translations: [CONTACT W/AND (SUSP) EXPOS COVID-19] Onset: 04-15-2022 Urinary tract infections (3 sources) Recurrent urinary tract infection; Translations: [Urinary tract infection, site not specified] Onset: 04-21-2023 04-23-2023 Episodic Past or Other Problems Problem Classification Problem Date Documented Date Episodic/Chronic Biliary tract disease (1 source) Gallbladder calculus with acute cholecystitis and no obstruction; Translations: [Calculus of gallbladder with acute and chronic cholecystitis without obstruction] Onset: 03-15-2022 03-15-2022 Episodic Cardiac dysrhythmias (5 sources) Palpitations; Translations: [Palpitations] Onset: 01-23-2022 Episodic Genitourinary symptoms and ill-defined conditions (1 source) Urinary symptoms ; Translations: [Unspecified symptoms and signs involving the genitourinary system] Onset: 03-15-2022 03-15-2022 Episodic Mood disorders (1 source) Mood disorders Onset: 03-17-2023 03-17-2023 Other complications of (1 source) Anxiety in ; Translations: [Other mental disorders complicating , unspecified trimester] Onset: 04-17-2021 04-17-2021 Episodic Other complications of (1 source) Finding of pattern of ; Translations: [Supervision of other high risk pregnancies, unspecified trimester] Onset: 04-17-2021 04-17-2021 Episodic Other complications of (1 source) Disorder of cardiovascular system; Translations: [Diseases of the circulatory system complicating , unspecified trimester] Onset: 04-17-2021 04-17-2021 Episodic Other complications of (1 source) RhD negative; Translations: [Other specified related conditions, unspecified trimester] Onset: 04-17-2021 04-17-2021 Episodic Other female genital disorders (1 source) Vaginal odor; Translations: [Other specified noninflammatory disorders of vagina] Onset: 03-15-2022 03-15-2022 Episodic Previous (1 source) ; Translations: [Maternal care for unspecified type scar from previous delivery] Onset: 04-17-2021 04-17-2021 Episodic Results Test Name Value Interpretation Reference Range Facility CBC AND AUTO DIFFon 10-20-19 ABSOLUTE BASOPHIL 0.1 X10E9/L Normal 0.0-0.2 [facility] Comment on above: Performed By: #### C BCA, CMP, THYR #### [facility] ([id number]) [address], [address] [place] [address] ABSOLUTE NEUTROPHIL 2.0 X10E9/L Normal 1.5-6.6 [facility] Comment on above: Performed By: #### C BCA, CMP, THYR #### [facility] ([id number]) [address], [address] [place] [address] Basophils/100 WBC (Bld) 1.0 % Normal [facility] Comment on above: Performed By: #### C BCA, CMP, THYR #### [facility] ([id number]) [address], [address] [place] [address] Eosinophils (Bld) [#/Vol] 0.1 10*3/uL Normal 0.0-0.4 [facility] Comment on above: Performed By: #### C BCA, CMP, THYR #### [facility] ([id number]) [address], [address] [place] [address] Eosinophils/100 WBC (Bld) 2.3 % Normal [facility] Comment on above: Performed By: #### C BCA, CMP, THYR #### [facility] ([id number]) [address], [address] [place] [address] Erythrocyte distribution width (RBC) [Ratio] 12.6 % Normal 11.5-15.0 [facility] Comment on above: Performed By: #### C BCA, CMP, THYR #### [facility] ([id number]) [address], [address] [place] [address] Hematocrit (Bld) [Volume fraction] 40.5 % Normal 35-47 [facility] Comment on above: Performed By: #### C BCA, CMP, THYR #### [facility] ([id number]) [address] [place] [address] Hemoglobin (Bld) [Mass/Vol] 13.5 g/dL Normal 11.7-15.5 [facility] Comment on above: Performed By: #### C BCA, CMP, THYR #### [facility] ([id number]) [address] [place] [address] Lymphocytes (Bld) [#/Vol] 2.6 10*3/uL Normal 1.0-3.5 [facility] Comment on above: Performed By: #### C BCA, CMP, THYR #### [facility] ([id number]) [address], [facility] [address] [place] [address] Lymphocytes/100 WBC (Bld) 50.5 % Normal [facility] Comment on above: Performed By: #### C BCA, CMP, THYR #### [facility] ([id number]) [address] [address] [address] [place] [address] MCH (RBC) [Entitic mass] 29.1 pg Normal 27-34 [facility] Comment on above: Performed By: #### C BCA, CMP, THYR #### [facility] ([id number]) [address] [place] [address] MCHC (RBC) [Mass/Vol] 33.5 g/dL Normal 32-36 [facility] Comment on above: Performed By: #### C BCA, CMP, THYR #### [facility] ([id number]) [address], [address] [place] [address] MCV (RBC) [Entitic vol] 87 fL Normal 80-100 [facility] Comment on above: Performed By: #### C BCA, CMP, THYR #### [facility] ([id number]) [address], [address] [place] [address] Monocytes (Bld) [#/Vol] 0.3 10*3/uL Normal 0-0.9 [facility] Comment on above: Performed By: #### C BCA, CMP, THYR #### [facility] ([id number]) [address], [address] [place] [address] Monocytes/100 WBC (Bld) 6.6 % Normal [facility] Comment on above: Performed By: #### C BCA, CMP, THYR #### [facility] ([id number]) [address], [address] [place] [address] Neutrophils/100 WBC (Bld) 39.6 % Normal [facility] Comment on above: Performed By: #### C BCA, CMP, THYR #### [facility] ([id number]) [address], [address] [place] [address] Platelet mean volume (Bld) [Entitic vol] 9.7 fL Normal 7-12 [facility] Comment on above: Performed By: #### C BCA, CMP, THYR #### [facility] ([id number]) [address], [address] [place] [address] Platelets (Bld) [#/Vol] 234 10*3/uL Normal 150-450 [facility] Comment on above: Performed By: #### C BCA, CMP, THYR #### [facility] ([id number]) [address], [address] [place] [address] RBC COUNT 4.66 X10E12/L Normal 3.80-5.[address] [facility] Comment on above: Performed By: #### C BCA, CMP, THYR #### [facility] ([id number]) [address], [address] [place] [address] WBC (Bld) [#/Vol] 5.1 10*3/uL Normal 4.0-11.0 [facility] Comment on above: Performed By: #### C BCA, CMP, THYR #### [facility] ([id number]) [address], [address] [place] [address] COMPREHENSIVE METABOLIC PANE Dov 10-20-2023 Albumin [Mass/Vol] 4.6 g/dL Normal 3.2-5.3 [facility] Comment on above: Performed By: #### C BCA, CMP, THYR #### [facility] ([id number]) [address], [address] [place] [address] ALP [Catalytic activity/Vol] 40 U/L Normal 39-130 [facility] Comment on above: Performed By: #### C BCA, CMP, THYR #### [facility] ([id number]) [address], [address] [place] [address] ALT [Catalytic activity/Vol] 13 U/L Normal 0-31 [facility] Comment on above: Performed By: #### C BCA, CMP, THYR #### [facility] ([id number]) [address], [address] [place] [address] Anion gap [Moles/Vol] 8 mmol/L Normal 5-15 [facility] Comment on above: Performed By: #### C BCA, CMP, THYR #### [facility] ([id number]) [address], [address] [place] [address] AST [Catalytic activity/Vol] 14 U/L Normal 0-41 [facility] Comment on above: Performed By: #### C BCA, CMP, THYR #### [facility] ([id number]) [address], [facility] [address] [place] [address] Bilirubin [Mass/Vol] 0.7 mg/dL Normal 0.3-1.2 [facility] Comment on above: Performed By: #### C BCA, CMP, THYR #### [facility] ([id number]) [address] [address] [place] [address] Calcium [Mass/Vol] 9.5 mg/dL Normal 8.5-10.5 [facility] Comment on above: Performed By: #### C BCA, CMP, THYR #### [facility] ([id number]) [address] [facility] [address] [place] [address] Chloride [Moles/Vol] 107 mmol/L Normal 98-109 [facility] Comment on above: Performed By: #### C BCA, CMP, THYR #### [facility] ([id number]) [address] [address] CO2 [Moles/Vol] 26 mmol/L Normal 22-32 [facility] Comment on above: Performed By: #### C BCA, CMP, THYR #### [facility] ([id number]) [address] [address] [place] [address] Creatinine [Mass/Vol] 0.82 mg/dL Normal 0.40-1.00 [facility] Comment on above: Result Comment: METH OD TRACEABLE TO IDMS STANDARD Performed By: #### C BCA, CMP, THYR #### [facility] ([id number]) [address] [address] [place] [address] eGFR (CKD-EPI) NON-RACE DEPENDENT >90 Normal >59 [facility] Comment on above: Result Comment: Reported eGFR is based on the CKD-EPI 2020 equation that does not use a race coefficient. Performed By: #### C BCA, CMP, THYR #### [facility] ([id number]) [address], [address] [place] [address] Glucose [Mass/Vol] 91 mg/dL Normal 65-99 [facility] Comment on above: Performed By: #### C BCA, CMP, THYR #### [facility] ([id number]) [address], [address] [place] [address] Potassium [Moles/Vol] 4.4 mmol/L Normal 3.5-5.0 [facility] Comment on above: Performed By: #### C BCA, CMP, THYR #### [facility] ([id number]) [address], [address] [place] [address] Protein [Mass/Vol] 7.0 g/dL Normal 6.0-8.0 [facility] Comment on above: Performed By: #### C BCA, CMP, THYR #### [facility] ([id number]) [address], [address] [place] [address] Sodium [Moles/Vol] 141 mmol/L Normal 134-146 [facility] Comment on above: Performed By: #### C BCA, CMP, THYR #### [facility] ([id number]) [address], [address] [place] [address] Urea nitrogen [Mass/Vol] 15 mg/dL Normal 5-23 [facility] Comment on above: Performed By: #### C BCA, CMP, THYR #### [facility] ([id number]) [address], [address] [place] [address] THYROID PROFILEon 10-20-2023 Free T4 [Mass/Vol] 0.83 ng/dL Normal 0.61-1.60 [facility] Comment on above: Performed By: #### C BCA, CMP, THYR #### [facility] ([id number]) [address], [address] [place] [address] TSH 0.80 uIU/mL Normal 0.49-4.67 [facility] Comment on above: Performed By: #### C BCA, CMP, THYR #### [facility] ([id number]) [address], [address] [place] [address] HCG ( test) Ql (U)o n 06-11-2023 Beta HCG ( test) Ql (U) Negative Normal NEG [facility] Comment on above: Performed By: #### 2 106-3 #### [facility] ([id number]) [address] [place] [address], [place] [address] BASIC METABOLIC PANLon 05-30 Anion gap [Moles/Vol] 8 mmol/L Normal 5-15 [facility] Comment on above: Performed By: #### B MP #### [facility] ([id number]) [address], [address] [place] [address] Calcium [Mass/Vol] 9.1 mg/dL Normal 8.5-10.5 [facility] Comment on above: Performed By: #### B MP #### [facility] ([id number]) [address], [address] [place] [address] Chloride [Moles/Vol] 105 mmol/L Normal 98-109 [facility] Comment on above: Performed By: #### B MP #### [facility] ([id number]) [address], [address] [place] [address] CO2 [Moles/Vol] 24 mmol/L Normal 22-32 [facility] Comment on above: Performed By: #### B MP #### [facility] ([id number]) [address], [address] [place] [address] Creatinine [Mass/Vol] 0.79 mg/dL Normal 0.40-1.00 [facility] Comment on above: Result Comment: METH OD TRACEABLE TO IDMS STANDARD Performed By: #### B MP #### [facility] ([id number]) [address], [address] [place] [address] eGFR (CKD-EPI) NON-RACE DEPENDENT >90 Normal >59 [facility] Comment on above: Result Comment: Reported eGFR is based on the CKD-EPI 2020 equation that does not use a race coefficient. Performed By: #### B MP #### [facility] ([id number]) [address], [address] [place] [address] Glucose [Mass/Vol] 91 mg/dL Normal 65-99 [facility] Comment on above: Performed By: #### B MP #### [facility] ([id number]) [address], [address] [place] [address] Potassium [Moles/Vol] 3.7 mmol/L Normal 3.5-5.0 [facility] Comment on above: Performed By: #### B MP #### [facility] ([id number]) [address], [address] [place] [address] Sodium [Moles/Vol] 137 mmol/L Normal 134-146 [facility] Comment on above: Performed By: #### B MP #### [facility] ([id number]) [address], [address] [place] [address] Urea nitrogen [Mass/Vol] 13 mg/dL Normal 5-23 [facility] Comment on above: Performed By: #### B MP #### [facility] ([id number]) [address], [address] [place] [address] URINALYSISon 05-30-2023 Bilirubin Ql (U) Negative Normal NEG [facility] BLOOD/HGB Negative Normal NEG [facility] Color (U) YELLOW Normal YELLOW [facility] Glucose Ql (U) Negative Normal NEG [facility] Ketones Ql (U) Negative Normal NEG [facility] Leukocyte esterase Test strip Ql (U) Negative Normal NEG [facility] Nitrite Ql (U) Negative Normal NEG [facility] pH (U) 5.5 [pH] Normal 5.0-8.5 [facility] Protein Ql (U) Negative Normal NEG [facility] Specific gravity (U) [Rel density] 1.026 Normal 1.003-1.035 [facility] TURBIDITY CLEAR Normal CLEAR [facility] Urobilinogen (U) [Mass/Vol] mg/dL Normal <1.1 [facility] URINE CULTUREon 05-30-2023 Bacteria identified Cx Nom (U) CULTURE RESULTS <10,000 ORGANISMS/ML NORMAL URO GENITAL JOEL Normal [facility] Comment on above: Performed By: #### 6 30-4 #### [facility] ([id number]) [address] [place] [address] [address] [place] [address] Covid-19 PCR (CVDTB)on SARS-CoV-2 (COVID-19) RNA ADELIA+probe Ql (Unsp spec) Not detected Normal NOT DETECTED [facility] Comment on above: Result Comment: When diagnostic testing is negative, the possibility of a false negative should be considered in the context of a patient's recent exposures and the presence of clinical signs and symptoms consistent with SARS-CoV-2. This test is not yet approved or cleared by the [place] FDA. When there are no FDA-approved or cleared tests available, and other criteria are met, FDA can make tests available under an emergency access mechanism called an Emergency Use Authorization (EUA). The EUA for this test is supported by the [place] of Health and Human Service's declaration that circumstances exist to justify the emergency use of in vitro diagnostics for the detection and/or diagnosis of the virus that causes COVID-19. This EUA will remain in effect for the duration of the COVID-19 declaration justifying emergency of IVDs, unless it is terminated or revoked by the FDA (after which the test may no longer be used). Performed By: #### C VDTB #### [facility] [address] [address] [address] Bony Kam GROUP A STREP CULTUREon S. pyogenes Ag Ql (Unsp spec) Culture Observations: Negative for Group A Streptococcus Normal [facility] Comment on above: Performed By: #### S UVALDO, GRASTCX #### [facility] [address] [address] [address] Bony Kam STREPT SCREENon 04-12-2022 STREP SCREEN A Negative Normal NEGATIVE [facility] Comment on above: Performed By: #### S UVALDO, GRASTCX #### [facility] [address] [address] [address] Bony Kam COMPREHENSIVE METABOLIC PANE Dov 01-20-2022 Albumin [Mass/Vol] 4.6 g/dL Normal 3.6-5.1 [facility] Comment on above: Performed By: #### 5 8984, [id number], 0 #### [facility] [address] [place] [address] Founder Chairman And Chief Creative Officer: Luiz Brink MD Albumin/Globulin [Mass ratio] 1.9 {ratio} Normal 1.0-2.5 [facility] Comment on above: Performed By: #### 5 8984, 09234, 0 #### [facility] [address] [place] [address] Founder Chairman And Chief Creative Officer: Luiz Brink MD ALP [Catalytic activity/Vol] 41 U/L Normal 31-125 [facility] Comment on above: Performed By: #### 5 8984, 52027, 0 #### [facility] [address] [place] [address] Founder Chairman And Chief Creative Officer: Luiz Brink MD ALT [Catalytic activity/Vol] 16 U/L Normal 6-29 [facility] Diagnostics Comment on above: Performed By: #### 5 8984, 82114, 7600 #### [facility] [place] [address] Founder Chairman And Chief Creative Officer: Luiz Brink MD AST [Catalytic activity/Vol] 12 U/L Normal 10-30 [facility] Comment on above: Performed By: #### 5 8984, 06473, 7600 #### [facility] of [address], [address] [place] [address] Founder Chairman And Chief Creative Officer: Luiz Brink MD Bilirubin [Mass/Vol] 0.9 mg/dL Normal 0.2-1.2 Ques t [facility] Comment on above: Performed By: #### 5 8984, 09808, 7600 #### [facility] of [address], [address] [place] [address] Founder Chairman And Chief Creative Officer: Luiz Brink MD BUN/CREATININE RATIO NOT APPLICABLE Normal 6-22 [facility] Comment on above: Performed By: #### 5 8984, 17107, 0 #### [facility] of [place] [address] Founder Chairman And Chief Creative Officer: Luiz Brink MD Calcium [Mass/Vol] 9.4 mg/dL Normal 8.6-10.2 [facility] Comment on above: Performed By: #### 5 8984, 65537, 7600 #### [facility] of [address], [address] [place] [address] Founder Chairman And Chief Creative Officer: Luiz Brink MD Chloride [Moles/Vol] 107 mmol/L Normal 98-110 [facility] Comment on above: Performed By: #### 5 8984, 32387, 7600 #### [facility] of [address], [address] [place] [address] Founder Chairman And Chief Creative Officer: Luiz Brink MD CO2 [Moles/Vol] 22 mmol/L Normal 20-32 [facility] Comment on above: Performed By: #### 5 8984, 70394, 7600 #### [facility] of [place] [address] Founder Chairman And Chief Creative Officer: Luiz Brink MD Creatinine [Mass/Vol] 0.87 mg/dL Normal 0.50-0.96 [facility] Comment on above: Performed By: #### 5 8984, 22638, 7600 #### [facility] of [address], [address] [place], [place] [address] Founder Chairman And Chief Creative Officer: Luiz Brink MD GFR/1.73 sq M.predicted among non-blacks MDRD (S/P/Bld) [Vol rate/Area] 97 mL/min/{1.73_m2} Normal > OR = 60 [facility] Comment on above: Result Comment: The eGFR is based on the CKD-EPI 2020 equation. To calculate the new eGFR from a previous Creatinine or Cystatin C result, go to https://www.kidney.org/professionals/ kdoqi/gfr%5Fcalculator Performed By: #### 5 8984, 59632, 7600 #### [facility] [place] [address] Founder Chairman And Chief Creative Officer: Luiz Brink MD Globulin (S) [Mass/Vol] 2.4 g/dL Normal 1.9-3.7 [facility] Comment on above: Performed By: #### 5 8984, , 0 #### [facility] [place] [address] Founder Chairman And Chief Creative Officer: Luiz Brink MD Glucose [Mass/Vol] 96 mg/dL Normal 65-99 [facility] Comment on above: Result Comment: Fasting reference interval Performed By: #### 5 89, 31597, 7600 #### [facility] [place] [address] Founder Chairman And Chief Creative Officer: Luiz Brink MD Potassium [Moles/Vol] 4.0 mmol/L Normal 3.5-5.3 [facility] Comment on above: Performed By: #### 5 8984, 49229, 7600 #### [facility] [place] [address] Founder Chairman And Chief Creative Officer: Luiz Brink MD Protein [Mass/Vol] 7.0 g/dL Normal 6.1-8.1 [facility] Comment on above: Performed By: #### 5 8984, 21133, 7600 #### [facility] [place] [address] Founder Chairman And Chief Creative Officer: Luiz Brink MD Sodium [Moles/Vol] 140 mmol/L Normal 135-146 [facility] Comment on above: Performed By: #### 5 8984, 29235, 7600 #### [facility] [address], [address] [place] [address] Founder Chairman And Chief Creative Officer: Luiz Brink MD Urea nitrogen [Mass/Vol] 14 mg/dL Normal 7-25 [facility] Comment on above: Performed By: #### 5 8984, 36308, 7600 #### [facility] [address], [address] [place] [address] Founder Chairman And Chief Creative Officer: Luiz Brink MD LIPID PANEL, [facility] 01-07 Cholesterol [Mass/Vol] 171 mg/dL Normal <200 [facility] Comment on above: Performed By: #### 5 8984, 18077, 7600 #### [facility] [address], [address] [place] [address] Founder Chairman And Chief Creative Officer: Luiz Brink MD Cholesterol in HDL [Mass/Vol] 45 mg/dL Low > OR = 50 [facility] Comment on above: Performed By: #### 5 8984, 96340, 7600 #### [facility] [place] [address] Founder Chairman And Chief Creative Officer: Luiz Brink MD Cholesterol in LDL [Mass/Vol] 104 mg/dL High [facility] Comment on above: Result Comment: Refe rence range: <100 Desirable range <100 mg/dL for primary prevention; <70 mg/dL for patients with CHD or diabetic patients with > or = 2 CHD risk factors. LDL-C is now calculated using the Elie-Luke calculation, which is a validated novel method providing better accuracy than the Friedewald equation in the estimation of LDL-C. Elie SS et al. FLORI. 2013;310(19): 6482-4363 (http://education.Parallocity.Fiksu/faq/YJL271) Performed By: #### 5 8984, 41319, 7600 #### [facility] [address], [address] [place] [address] Founder Chairman And Chief Creative Officer: Luiz Brink MD Cholesterol.total/Ch olesterol in HDL [Mass ratio] 3.8 {ratio} Normal <5.0 [facility] Comment on above: Performed By: #### 5 8984, , 0 #### [facility] [address], [address] [place] [address] Founder Chairman And Chief Creative Officer: Luiz Brink MD NON HDL CHOLESTEROL 126 mg/dL (calc) Normal <130 [facility] Comment on above: Result Comment: For patients with diabetes plus 1 major ASCVD risk factor, treating to a non-HDL-C goal of <100 mg/dL (LDL-C of <70 mg/dL) is considered a therapeutic option. Performed By: #### 5 8984, , 0 #### [facility] [place] [address] Founder Chairman And Chief Creative Officer: Luiz Brink MD Triglyceride [Mass/Vol] 121 mg/dL Normal <150 [facility] Comment on above: Performed By: #### 5 8984, , 0 #### [facility] [place] [address] Founder Chairman And Chief Creative Officer: Luiz Brink MD TSH+FREE T4on 01-20-2022 Free T4 [Mass/Vol] 1.1 ng/dL Normal 0.8-1.8 [facility] Comment on above: Performed By: #### 5 8984, , 0 #### [facility] [place] [address] Founder Chairman And Chief Creative Officer: Luiz Brink MD TSH Qn 1.05 m[IU]/L Normal [facility] Comment on above: Result Comment: Refe rence Range > or = 20 Years 0.40-4.50 Ranges First trimester 0.26-2.66 Second trimester 0.55-2.73 Third trimester 0.43-2.91 Performed By: #### 5 8984, 33607, 0 #### [facility] [place] [address] Founder Chairman And Chief Creative Officer: Luiz Brink MD Complete Blood Count Auto Di ffon 08-30-2021 Basophils (Bld) [#/Vol] 0.0 10*3/uL Normal 0.0-0.2 [facility] Comment on above: Result Comment: PERF ORMED BY: [place] [address] PATHOLOGIST DIRECTOR INSTRUMENTATION KAMLESH DENNISON M.D. Performed By: #### H H, [id number] #### [address] Basophils/100 WBC (Bld) 0.2 % Normal . [facility] Comment on above: Performed By: #### H H, [id number] #### [address] Eosinophils (Bld) [#/Vol] 0.0 10*3/uL Normal 0.0-0.45 [facility] Comment on above: Performed By: #### H H, [id number] #### [address] Eosinophils/100 WBC (Bld) 0.5 % Normal . [facility] Comment on above: Performed By: #### H H, [id number] #### [address] Erythrocyte distribution width (RBC) [Ratio] 13.1 % Normal 11.9-15.3 [facility] Comment on above: Performed By: #### H H, [id number] #### [address] Hematocrit (Bld) [Volume fraction] 28.2 % Low 34.0-46.4 [facility] Comment on above: Performed By: #### H H, [id number] #### [address] Hemoglobin (Bld) [Mass/Vol] 9.6 g/dL Low 11.8-15.4 [facility] Comment on above: Performed By: #### H H, [id number] #### [place] [address] [place] Lymphocytes (Bld) [#/Vol] 2.3 10*3/uL Normal 1.00-4.8 [facility] Comment on above: Performed By: #### H H, [id number] #### [address] Lymphocytes/100 WBC (Bld) 24.1 % Normal . [facility] Comment on above: Performed By: #### H H, [id number] #### [address] MCH (RBC) [Entitic mass] 30.1 pg Normal 24.7-34.3 [facility] Comment on above: Performed By: #### H H, [id number] #### [address] MCV (RBC) [Entitic vol] 88.8 fL Normal 80-100 [facility] Comment on above: Performed By: #### H H, [id number] #### [address] Mean Corpuscular HGB Conc 34.0 g/dL Normal 32.0-35.0 [facility] Comment on above: Performed By: #### H H, [id number] #### [address] Monocytes (Bld) [#/Vol] 0.7 10*3/uL Normal 0.0-0.8 [facility] Comment on above: Performed By: #### H H, [id number] #### [place] [address] [place] Monocytes/100 WBC (Bld) 7.2 % Normal . [facility] Comment on above: Performed By: #### H H, [id number] #### [address] Neutrophils (Bld) [#/Vol] 6.3 10*3/uL Normal 1.8-7.7 [facility] Comment on above: Performed By: #### H H, [id number] #### [address] Neutrophils/100 WBC (Bld) 68.0 % Normal . [facility] Comment on above: Performed By: #### H H, [id number] #### [address] Nucleated RBC/100 WBC (Bld) [Ratio] 0.1 % Normal 0-0.5 [facility] Comment on above: Performed By: #### H H, [id number] #### [address] Platelet mean volume (Bld) [Entitic vol] 9.5 fL Normal 6.3-10.7 [facility] Comment on above: Performed By: #### H H, [id number] #### [address] Platelets (Bld) [#/Vol] 163 10*3/uL Normal 150-450 [facility] Comment on above: Performed By: #### H H, [id number] #### [address] RBC (Bld) [#/Vol] 3.18 10*6/uL Low 3.60-5.00 [facility] Comment on above: Performed By: #### H H, [id number] #### [address] WBC (Bld) [#/Vol] 9.3 10*3/uL Normal 4.5-11.0 [facility] Comment on above: Performed By: #### H H, [id number] #### [address] COVID-19 Antigenon 2 COVID-19 Antigen Healthcare Worker?: N Isabell Reference Isabell Reference Negative SARS-CoV+SARS-CoV-2 (COVID-19) Ag [Presence] in Respiratory specimen by Rapid immunoassay Negative for SARS Antigen by CLAUDIA COVID19 Blank Space Isabell Disclaimer Negative results, from patients with symptom Isabell Disclaimer onset beyond five days, should be treated as Isabell Disclaimer presumptive and confirmation with a molecular Isabell Disclaimer assay, if necessary, for patient management, Isabell Disclaimer may be performed. Negative results do not rule Isabell Disclaimer out COVID-19 and should not be used as the sole Isabell Disclaimer basis for treatment or patient management Isabell Disclaimer decisions, including infection control decisions. Isabell Disclaimer Negative results should be considered in the Isabell Disclaimer context of a patient's recent exposures, history Isabell Disclaimer and the presence of clinical signs and symptoms Isabell Disclaimer consistent with COVID-19. COVID19 Blank Space Isabell Disclaimer The Isabell SARS Antigen CLAUDIA does not differentiate Isabell Disclaimer between SARS-CoV and SARS-CoV-2. COVID19 Blank Space Isabell Disclaimer This test was developed and its performance Isabell Disclaimer characteristic determined by [employer] and Isabell Disclaimer validated at [facility]. This Isabell Disclaimer test has not been FDA cleared or approved. This Isabell Disclaimer test has been authorized by FDA under an Emergency Use Isabell Disclaimer Authorization (EUA). This test has been validated Isabell Disclaimer in accordance with the FDA's Guidance Document (Policy Isabell Disclaimer for Diagnostics Testing in Laboratories Certified to [employer] Perform High Complexity Testing under CLIA prior to Isabell Disclaimer Emergency Use Authorization for Coronavirus Isabell Disclaimer iseas during the Public Health Emergency) Isabell Disclaimer issued on September 09, 2019. This test is only authorized Isabell Disclaimer for the duration of time the declaration that Isabell Disclaimer circumstances exist justifying the authorization of Isabell Disclaimer the emergency use of in vitro diagnostic tests for Isabell Disclaimer detection of SARS-CoV-2 virus and/or diagnosis of Isabell Disclaimer COVID-19 infection under section 564(b)(1) of the Isabell Disclaimer Act, 21 U.S.C. 360bbb-3(b)(1), unless the Isabell Disclaimer authorization is terminated or revoked sooner. PERFORMED BY: [place] [address] PATHOLOGIST DIRECTOR INSTRUMENTATION KAMLESH DENNISON M.D. Normal [facility] Comment on above: Performed By: #### C OVID-19 ISABELL, SOFIANEG #### [address] Complete Blood Count Auto Di ffon 08-29-2021 Basophils (Bld) [#/Vol] 0.0 10*3/uL Normal 0.0-0.2 [facility] Comment on above: Result Comment: PERF ORMED BY: [place] [address] PATHOLOGIST DIRECTOR INSTRUMENTATION KAMLESH DENNISON M.D. Performed By: #### C BC #### [address] Basophils/100 WBC (Bld) 0.3 % Normal . [facility] Comment on above: Performed By: #### C BC #### [place] [address] [place] Eosinophils (Bld) [#/Vol] 0.1 10*3/uL Normal 0.0-0.45 [facility] Comment on above: Performed By: #### C BC #### [address] Eosinophils/100 WBC (Bld) 0.6 % Normal . [facility] Comment on above: Performed By: #### C BC #### [facility] [address] Erythrocyte distribution width (RBC) [Ratio] 12.8 % Normal 11.9-15.3 [facility] Comment on above: Performed By: #### C BC #### [facility] [address] Hematocrit (Bld) [Volume fraction] 35.2 % Normal 34.0-46.4 [facility] Comment on above: Performed By: #### C BC #### [address] Hemoglobin (Bld) [Mass/Vol] 11.8 g/dL Normal 11.8-15.4 [facility] Comment on above: Performed By: #### C BC #### [address] Lymphocytes (Bld) [#/Vol] 2.8 10*3/uL Normal 1.00-4.8 [facility] Comment on above: Performed By: #### C BC #### [place] [address] [place] Lymphocytes/100 WBC (Bld) 27.4 % Normal . [facility] Comment on above: Performed By: #### C BC #### [address] MCH (RBC) [Entitic mass] 29.5 pg Normal 24.7-34.3 [facility] Comment on above: Performed By: #### C BC #### [address] MCV (RBC) [Entitic vol] 87.8 fL Normal 80-100 [facility] Comment on above: Performed By: #### C BC #### [address] Mean Corpuscular HGB Conc 33.6 g/dL Normal 32.0-35.0 [facility] Comment on above: Performed By: #### C BC #### [place] [address] [place] Monocytes (Bld) [#/Vol] 0.8 10*3/uL Normal 0.0-0.8 [facility] Comment on above: Performed By: #### C BC #### [facility] [address] Monocytes/100 WBC (Bld) 7.5 % Normal . [facility] Comment on above: Performed By: #### C BC #### [address] Neutrophils (Bld) [#/Vol] 6.6 10*3/uL Normal 1.8-7.7 [facility] Comment on above: Performed By: #### C BC #### [address] Neutrophils/100 WBC (Bld) 64.2 % Normal . [facility] Comment on above: Performed By: #### C BC #### [address] Nucleated RBC/100 WBC (Bld) [Ratio] 0.0 % Normal 0-0.5 [facility] Comment on above: Performed By: #### C BC #### [address] Platelet mean volume (Bld) [Entitic vol] 9.4 fL Normal 6.3-10.7 [facility] Comment on above: Performed By: #### C BC #### [place] [address] [place] Platelets (Bld) [#/Vol] 203 10*3/uL Normal 150-450 [facility] Comment on above: Performed By: #### C BC #### [place] [address] [place] RBC (Bld) [#/Vol] 4.01 10*6/uL Normal 3.60-5.00 [facility] Comment on above: Performed By: #### C BC #### [place] [address] [place] WBC (Bld) [#/Vol] 10.2 10*3/uL Normal 4.5-11.0 [facility] Comment on above: Performed By: #### C BC #### [place] [address] [place] Dipstick and Microscopicon 0 08-29-2021 Appearance (U) Clear Normal Clear [facility] Comment on above: Order Comment: Name Collection Type:: Voided Performed By: #### A DDONUAPLUS #### [address] Bacteria,Urine None Seen Normal None Seen [facility] Comment on above: Order Comment: Name Collection Type:: Voided Performed By: #### A DDONUAPLUS #### [address] Bilirubin,Urine Negative Normal Negative [facility] Comment on above: Order Comment: Name Collection Type:: Voided Performed By: #### A DDONUAPLUS #### [address] Color (U) Yellow Normal Yellow [facility] Comment on above: Order Comment: Name Collection Type:: Voided Performed By: #### A DDONUAPLUS #### [address] Glucose Ql (U) Normal Normal Normal [facility] Comment on above: Order Comment: Name Collection Type:: Voided Performed By: #### A DDONUAPLUS #### [place] [address] [place] Hyaline Casts,Urine 0-8 Normal 0-1 [facility] Comment on above: Order Comment: Name Collection Type:: Voided Result Comment: PERF ORMED BY: [place] [address] PATHOLOGIST DIRECTOR INSTRUMENTATION KAMLESH DENNISON M.D. Performed By: #### A DDONUAPLUS #### [place] [address] [place] Ketones Ql (U) Trace High Negative [facility] Comment on above: Order Comment: Name Collection Type:: Voided Performed By: #### A DDONUAPLUS #### [facility] [address] [place] [address] Leukocyte esterase Test strip Ql (U) Negative Normal Negative [facility] Comment on above: Order Comment: Name Collection Type:: Voided Performed By: #### A DDONUAPLUS #### [address] Nitrite,Urine Negative Normal Negative [facility] Comment on above: Order Comment: Name Collection Type:: Voided Performed By: #### A DDONUAPLUS #### [address] Occult Blood,Urine Negative Normal Negative [facility] Comment on above: Order Comment: Name Collection Type:: Voided Result Comment: PERF ORMED BY: [place] [address] PATHOLOGIST DIRECTOR INSTRUMENTATION KAMLESH DENNISON M.D. Performed By: #### A DDONUAPLUS #### [address] pH (U) 6.5 [pH] Normal 5.0-9.0 [facility] Comment on above: Order Comment: Name Collection Type:: Voided Performed By: #### A DDONUAPLUS #### [address] Protein,Urine Trace High Negative [facility] Comment on above: Order Comment: Name Collection Type:: Voided Performed By: #### A DDONUAPLUS #### [address] RBC LM.HPF (Urine sed) [#/Area] 0 /[HPF] Normal 0-4 [facility] Comment on above: Order Comment: Name Collection Type:: Voided Performed By: #### A DDONUAPLUS #### [address] Specificy [place],Urine 1.031 High 1.001-1.030 [facility] Comment on above: Order Comment: Name Collection Type:: Voided Performed By: #### A DDONUAPLUS #### [facility] [address] Squamous Epithelial Cell,Urine 10-19 High 0-2 [facility] Comment on above: Order Comment: Name Collection Type:: Voided Performed By: #### A DDONUAPLUS #### [address] Urobilinogen,Urine Normal Normal Normal [facility] Comment on above: Order Comment: Name Collection Type:: Voided Performed By: #### A DDONUAPLUS #### [address] WBC,Urine 5-9 High 0-4 [facility] Comment on above: Order Comment: Name Collection Type:: Voided Performed By: #### A DDONUAPLUS #### [address] OB Urine Drug Screen (NO THC )on 08-29-2021 Amphetamine Screen,Urine Negative Normal Negative [facility] Comment on above: Performed By: #### R TN W RFX #### [facility] , #### OBUDS #### [address] Barbiturate Screen,Urine Negative Normal Negative [facility] Comment on above: Performed By: #### R TN W RFX #### [facility] , #### OBUDS #### [facility] [address] [place] [address] Benzodiazepines Screen,Urine Negative Normal Negative [facility] Comment on above: Performed By: #### R TN W RFX #### [facility] , #### OBUDS #### [facility] [address] [place] [address] Cocaine Screen,Urine Negative Normal Negative [facility] Comment on above: Performed By: #### R TN W RFX #### [facility] , #### OBUDS #### [address] Opiate Screen,Urine Negative Normal Negative [facility] Comment on above: Performed By: #### R TN W RFX #### [facility] , #### OBUDS #### [address] Phencyclidine Screen, Urine Negative Normal Negative [facility] Comment on above: Result Comment: Thes e are unconfirmed results and should not be used for legal purposes. Drug Cut-Off Concentration: AMPH 1000 ng/mL NATANAEL 200 ng/mL RYLEY 200 ng/mL COCM 300 ng/mL OP 300 ng/mL PCP 25 ng/mL PERFORMED BY: [place] [address] PATHOLOGIST DIRECTOR INSTRUMENTATION KAMLESH DENNISON M.D. Performed By: #### R TN W RFX #### [facility] , #### OBUDS #### [address] RPR w/rfx to Quant TP Abson 08-29-2021 RPR, Rfx Quant RPR Non-Reactive Normal Non Reactive [facility] Comment on above: Result Comment: Perf ormed at: - [facility] [address] [id number] Enterostomal Therapy Nurse: Jose Ramon Maxwell PhD, Phone: [phone] PERFORMED BY: [place] [address] PATHOLOGIST DIRECTOR INSTRUMENTATION KAMLESH DENNISON M.D. Performed By: #### R TN W RFX #### [facility] , #### OBUDS #### [address] Isabell Ag Negativeon 08-30-19 Isabell Ag Negative Negative Normal Negative [facility] Comment on above: Result Comment: This is a duplicate Isabell SARS Antigen (CLAUDIA) result to be used for statistical tracking purpose only. PERFORMED BY: [place] [address] PATHOLOGIST DIRECTOR INSTRUMENTATION KAMLESH DENNISON M.D. Performed By: #### C OVID-19 ISABELL, SOFIANEG #### [facility] [address] [place] [address] [place] Type and Screenon 08-29-2021 ABO and Rh group Nom (Bld) Blood group A Rh(D) negative Normal [facility] Comment on above: Result Comment: PERF ORMED BY: [place] [address] PATHOLOGIST DIRECTOR INSTRUMENTATION KAMLESH DENNIOSN M.D. Strep B Cultureon 08-01-2021 Strep B Culture Reason for Exam 35 weeks gestation of ; screening for stre Vaginal/Rectal No Group B Beta Streptococcus Isolated 3 Days PERFORMED BY: [place] [address] PATHOLOGIST DIRECTOR INSTRUMENTATION KAMLESH DENNISON M.D. Normal [facility] Comment on above: Performed By: #### C USTB #### [facility] [address] [place], [place] [id number] [place] Glucose,1 Hour PP 50gm Doseo n 06-12-2021 Glucose [Mass/Vol] 102 mg/dL Normal 60-140 [facility] Comment on above: Order Comment: Reaso n for Exam 25 weeks gestation of ;Diabetes mellitus screening Comment needs rhogam Result Comment: PERF ORMED BY: [place] [address] PATHOLOGIST DIRECTOR INSTRUMENTATION KAMLESH DENNISON M.D. Performed By: #### H H, [id number] #### [facility] [address] [place], [place] [id number] [place] Hemoglobin and Hematocriton 06-12-2021 Hematocrit (Bld) [Volume fraction] 32.4 % Low 34.0-46.4 [facility] Comment on above: Order Comment: Reaso n for Exam 25 weeks gestation of ;Diabetes mellitus screening Comment needs rhogam Result Comment: PERF ORMED BY: [place] [phone] PATHOLOGIST DIRECTOR INSTRUMENTATION KAMLESH DENNISON M.D. Performed By: #### H H, [id number] #### [facility] [address] [place] [address] Hemoglobin (Bld) [Mass/Vol] 11.2 g/dL Low 11.8-15.4 [facility] Comment on above: Order Comment: Reaso n for Exam 25 weeks gestation of ;Diabetes mellitus screening Comment needs rhogam Performed By: #### H H, [id number] #### [facility] [address] [place] [address] Rhogam Workupon 06-12-2021 Rhogam Candidate Yes Normal [facility] Comment on above: Order Comment: Reaso n for Exam 25 weeks gestation of ;Blood typing encounter Comment needs rhogam Performed By: #### H H, [id number] #### [address] RHOGAM DOSE Normal [facility] Comment on above: Order Comment: Reaso n for Exam 25 weeks gestation of ;Blood typing encounter Comment needs rhogam Result Comment: 1 do se(300mcg)of RhoGAM indicated PERFORMED BY: [place] [address] PATHOLOGIST DIRECTOR INSTRUMENTATION KAMLESH DENNISON M.D. Performed By: #### H H, [id number] #### [facility] [address] [place] [address] ABO and Rh group Nom (Bld) Blood group A Rh(D) negative [facility] Comment on above: Order Comment: Reaso n for Exam 25 weeks gestation of ;Blood typing encounter Comment needs rhogam Result Comment: PERF ORMED BY: [place] [address] PATHOLOGIST DIRECTOR INSTRUMENTATION KAMLESH DENNISON M.D. Performed By: #### H H, [id number] #### [facility] [address] [place] [address] COVID-19 Positive/Negativeon 09-07-2020 COVID-19 Positive/Negative Negative Negative [facility] Comment on above: Reference: NegativeT esting for SARS-CoV-2 by RT-PCRThis test was developed and its performance characteristics determined by [employer]) and validated at the [facility]. This test has not been FDA cleared or approved. This test has been authorized by FDA under an Emergency Use Authorization (EUA). This test has been validated in accordance with the FDA's Guidance Document (Policy for Diagnostics Testing in Laboratories Certified to Perform High Complexity Testing under CLIA prior to Emergency Use Authorization for Coronavirus Disease-2019 during the Public Health Emergency) issued on September 09, 2019. This test is only authorized for the duration of time the declaration that circumstances exist justifying the authorization of the emergency use of in vitro diagnostic tests for detection of SARS-CoV-2 virus and/or diagnosis of COVID-19 infection under section 564(b)(1) of the Act, 21 U.S.C. 360bbb-3(b)(1), unless the authorization is terminated or revoked sooner. Otheron 09-07-2020 Coronavirus 2019 PCR Interp N/A [facility] Coding Summary.on 08-28-2018 Coding Summary. 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 However, the narrative phrase printed from the coding software may appear abbreviated, or result in slightly different terminology. Coded By: Martha Patel Date Saved: 08/28/2018 03:28 pm Normal [facility] Main OR Intraoperative Recor don 08-27-2018 Main OR Intraoperative Record IntraOp Document Type FTURO Summary Primary Physician: Jeff De La O Jr., MD Finalized Date/Time: 08/27/18 15:42:01 Pt. Name: ELISABET MARTINEZ Gabby/Sex: 2000 Female Med Rec #: [id number] Physician: Jeff De La O Jr., MD Financial #: [id number] Pt. Type: O Room/Bed: / Admit/Disch: 08/27/18 15:26:03 - Institution: Case Times FTURO Entry 1 Patient Times In Room 08/27/18 15:33:00 Out Room 08/27/18 15:44:00 Procedure Times Start 08/27/18 15:37:00 Stop 08/27/18 15:40:00 Anesthesia Times Last Modified By: Kandy DUFF, DAVIDOR, Rosemarie 08/27/18 15:40:25 Case Attendance FTURO Entry 1 Entry 2 Entry 3 Case Attendee Jeff De La O Jr., MD RN, CNOR, Marvin NICK, Alana Houston Role Performed Surgeon - Primary Switchbox Assembler - Primary Scrub - Primary Time In 08/27/18 15:33:00 08/27/18 15:33:00 08/27/18 15:33:00 Time Out 08/27/18 15:44:00 08/27/18 15:44:00 08/27/18 15:44:00 Procedure CYSTOSCOPY LOCAL WITH CYSTOSCOPY LOCAL WITH CYSTOSCOPY LOCAL WITH URETHRAL DILATION(.) URETHRAL DILATION(.) URETHRAL DILATION(.) Comments Last Modified By: Kandy DUFF, DAVIDOR, Kandy DUFF, DAVIDOR, Kandy DUFF, DAVIDOR, Rosemarie 08/27/18 Rosemarie 08/27/18 Rosemarie 08/27/18 15:40:27 15:40:27 15:40:27 Surgical Procedures FTURO Entry 1 Procedure Description Procedure CYSTOSCOPY LOCAL WITH Modifiers . URETHRAL DILATION Surgeon Description CYSTO UD Primary Procedure Yes Primary Surgeon Jeff De La O Jr., MD Start 08/27/18 15:37:00 Stop 08/27/18 15:40:00 Anesthesia Type Local Surgical Service Urology Wound Class 2 - Clean-Contaminated Last Modified By: Kandy DUFF, DAVIDOR, Rosemarie 08/27/18 15:40:28 General Case Data FTURO Pre-Care Text: Classifies surgical wound, implements aseptic technique, initiates traffic control Entry 1 Case Information OR URO 1 FT Case Level None Wound Class 2 - Clean-Contaminated Specialty Urology Preop Diagnosis DYSURIA , HEMATURIA Postop Same As Preop No Postop Diagnosis urethral stricture Outcomes Met? Yes Last Modified By: CLYDE Gaitan RN, Ruthann 08/27/18 15:39:53 Post-Care Text: The patient is free from signs and symptoms of infection EU IntraOp - FTURO Pre-Care Text: Implements protective measures prior to operative or invasive procedure, confirms identity before the operative or invasive procedure, verifies operative procedure, surgical site, and laterality Entry 1 EU Perioperative Protocols Procedure(s) CYSTOSCOPY LOCAL WITH Patient Identity Birthday, ID Band URETHRAL DILATION(.) Verified (select at Check, Patient least 2): Participation Consents / H and P HandP, Surgery/Procedure Operative Site N/A Verified Consent Marking Verified Surgical Site Yes Laterality Verified n/a Verified Procedure Verified Yes Correct Patient Yes Position Verified Availability Equipment, Medication Time Out Jeff De La O Jr., MD, Verified (If Participants CLYDE Gaitan RN, Applicable) Marvin Houston CIRCULAR RIPSAW OPERATOR, Alana Time Out Complete 08/27/18 15:35:00 Allergies Reviewed? Yes Allergies Reviewed Self/Patient With Body Position Frog Legged Prep Area perineal area Prep Agents Betadine Solution Skin. Condition Unable to Visualize Additional None Specimens Collected Vitals - EU Blood Pressure 115/63 Pulse 86 bpm Respirations SPO2 EBL 0 IandO - EU Total Intake 0 mL Total Output 0 mL Outcomes Met? Yes Last Modified By: CLYDE Gaitan RN, Ruthann 08/27/18 15:36:38 Post-Care Text: The patient is free from signs and symptoms of injury caused by extraneous objects Case Comments Finalized By: CLYDE Gaitan RN, Ruthann Document Signatures Signed By: CLYDE Gaitan RN, Ruthann 08/27/18 15:40 CLYDE Gaitan RN, Ruthann 08/27/18 15:42 Normal [facility] Main OR Preoperative Recordo n 08-27-2018 Main OR Preoperative Record Holding Area Document Type FTURO Summary Primary Physician: Jeff De La O Jr., MD Finalized Date/Time: 08/27/18 15:35:34 Pt. Name: ELISABET MARTINEZ /Sex: 2000 Female Med Rec #: [id number] Physician: Jeff De La O Jr., MD Financial #: [id number] Pt. Type: O Room/Bed: / Admit/Disch: 08/27/18 15:26:03 - Institution: Case Times Holding FTURO Pre-Care Text: Verifies consent for planned procedure, identifies individual values and wishes concerning care, includes family members in perioperative teaching Secures patient's records' belongings, and valuables, maintains patient's dignity and privacy, and maintains patient confidentiality Entry 1 In Holding 08/27/18 15:29:00 Outcomes Met? Yes Last Modified By: Melody Liao LPN 08/27/18 15:29:03 Post-Care Text: The patient participates in decisions affecting his or her perioperative plan of care The patient's right to privacy is maintained Surgery Checklist FTURO Entry 1 Patient Birthday, ID Band Procedure History and Physical, Identification: Check, Patient Verification: Surgical Consent, With Participation Patient NPO after Midnight: n/a Personal Items: Jewelry Personal Items earrings, lip ring, Complaints of Pain: No Comment: nose ring, belly button ring, ring Skin Integrity Intact, Virgie, Warm, & Dry Vitals - EU Blood Pressure 112/63 Pulse 85 bpm Respirations 18 br/min SPO2 RN Reviewed Yes Last Modified By: CLYDE Gaitan RN, Ruthann 08/27/18 15:35:32 Finalized By: CLYDE Gaitan RN, Ruthann Document Signatures Signed By: Melody Liao LPN 08/27/18 15:31 CLYDE Gaitan RN, Ruthann 08/27/18 15:35 Normal [facility] Operative Reporton 9 Operative Report Patient: ELISABET MARTINEZ Age: 18 years Sex: Female : 2000 Associated Diagnoses: None Author: Jeff De La O Jr., MD Procedure Operative Information Details: Date/ Time: 08/27/18 15:41:00. Pre-Op Dx: Urgency Incontinence - N39.41, Frequency - R35.0, Urgency - R39.15, Urethral Stricture - Female Post Trauma Urethral Stricture Female - N35.028. Post-Op Dx: Same. Anesthesia Type: Local. Procedure: Local Cystoscopy with Urethral Dilation. Complications: None. Risks/Benefits/Infor med Consent: Surgical risks, benefits, details of the procedure have been explained to the patient, Full informed consent has been obtained. Intraoperative Information Prepped: Patient is brought back to the endoscopy suite, Patient is placed in modified dorso/lithotomy position, Patient prepped in the usual fashion with Betadine solution, 2% Xylocaine Jelly is placed per Urethra, After waiting several minutes the Cystoscope is introduced. The Urethra is: Tight. The Bladder is: Normal, Trabeculated None (0). The ureteral orifices: Show efflux of clear urine. The Urethra was dilated to: 28 Indonesian w/ sounds. Devices Implanted: None. Removal: Cystoscope is removed, The patient tolerated it well. Postoperative Information Discharge: Patient is discharged home with antibiotic coverage, Follow up arranged. Normal [facility] Comment on above: Result Comment: Elec tronically Signed By: Jairon Rutledge MD, Jeff Bansal\.br\Date and Time Signed: 08/27/18 15:42 EDT Vital Signs Date Time Vital Sign Value Performing Clinician Faci caleb 05-30-2023 13:52-0500 Body height 172.7 cm Pmh 1 [facility] 05-30-2023 13:52-0500 Body mass index (BMI) [Ratio] 40.45 kg/m2 Pmh 1 [facility] 05-30-2023 13:52-0500 Body weight 120.66 kg Pm 1 [facility] Encounters Encounter Date Encounter Type Care Provider Facility Start: 05-11-2024 End: 05-11-2024 Bamboo flowsheet Damian Lyn DO Work Phone: [facility] Start: 05-11-2024 End: 05-11-2024 Bamboo flowsheet Damian Lyn DO Work Phone: [facility] Start: 01-26-2024 End: 01-26-2024 ambulatory DAMIAN LYN Not Available Start: 10-21-2023 End: 10-21-2023 [facility]: 10-20-2023 End: 10-20-2023 ambulatory DAYTON RUBIN [facility] Start: 06-12-2023 End: 06-12-2023 Evaluation and management of inpatient NIRU THOMASON [facility] Start: 06-11-2023 End: 06-12-2023 Evaluation and management of inpatient YORDAN LOMBARDI [facility] Start: 06-11-2023 End: 06-11-2023 Evaluation and management of inpatient YORDAN LOMBARDI [facility] Start: 05-30-2023 Encounter for other preprocedural examination ELVIRA ZUNIGA [facility] Start: 05-30-2023 End: 05-31-2023 ambulatory YORDAN LOMBARDI [facility] Start: 05-30-2023 End: 05-30-2023 Patient encounter procedure Pmh Pre-Admission Testing 1 [facility] - Pre Admit Start: 04-12-2022 End: 04-12-[address] TEOFILO KEYS Facility:[facility] Start: 01-23-2022 End: 01-24-2022 ambulatory PABLO LAMB Facility:[facility] Start: 09-07-2020 End: 09-07-2020 Patient encounter procedure Gregg [place] -Pre-Surgical Testing Procedures Date Procedure Procedure Detail Performing Clinician Start: 03-17-2023 Adult depression scr eening assessment Pmh 1 Start: 08-29-2021 Antibody screen Comment on above: Result Comment: PERF ORMED BY: [address] [id number] PATHOLOGIST DIRECTOR INSTRUMENTATION KAMLESH DENNISON M.D. Start: 06-12-2021 Antibody screen Comment on above: Order Comment: Reaso n for Exam 25 weeks gestation of ;Blood typing encounter Comment needs rhogam Result Comment: PERF ORMED BY: [address] [address] PATHOLOGIST DIRECTOR INSTRUMENTATION KAMLESH DENNISON M.D. Performed By: #### H H, [id number] #### [address] Plan of Treatment Date Care Activity Detail Author Start: 05-30-2024 Adult BMI Screening Adult BMI Screen ing [facility] Start: 05-30-2024 Tobacco Screening Tobacco Screening [facility] Start: 05-11-2024 End: 05-11-2024 Patient encounter procedure 05/11/2024 10:20 AM EST Office Visit [facility] [address] [place] [id number] Damain Nicholson DO [address] [place] [address] Arrived [facility] Comment on above: Arrived Start: 03-17-2024 Depression Screening Depression Scre ening [facility] Start: 12-24-2023 Screening for Chlamy kendrick trachomatis Chlamydia Screening [facility] Start: 06-11-2023 End: 06-11-2023 Admission to same day surgery center 06/11/2023 9:15 AM EST - 06/11/2023 10:00 AM EST Surgery [facility] [address] [place] [id number] Yordan Lombardi MD [address] [place] [address] CYSTOSCOPY RETROGRADE PYELOGRAM WITH [facility] BLADDER SOLUTION AND BLADDER IRRIGATION [10615 (CPT )] [facility] Comment on above: CYSTOSCOPY RETROGRAD E PYELOGRAM WITH [facility] BLADDER SOLUTION AND BLADDER IRRIGATION [62030 (CPT )] Start: 06-11-2023 End: 06-11-2023 Anesthesia consultation 06/11/2023 9:15 AM EST Anesthesia Event [facility] [address] [place] [phone] Niru Thomason, DO [address] [facility] [place] [address] [facility] Start: 06-11-2023 End: 06-11-2023 Cysto bladder w/ureteral catheterization CYSTOSCOPY RETROGRADE PYELOGRAM Recurrent urinary tract infection 06/11/2023 9:15 AM EST [facility] Start: 06-11-2023 Subsequent hospital visit by physician 06/11/2023 9:15 AM EST Hospital Encounter [facility] [address] [place] [id number] Yordan Lombardi MD [facility] [place] [address] [facility] Start: 02-07-2023 Influenza vaccination Influenza Vacc ine [facility] Start: 02-18-2021 DTaP,Tdap and Td Vac cines (8 - Td or Tdap) DTaP,Tdap and Td Vaccines (8 - Td or Tdap) [facility] Start: 02-09-2020 Screening for malign ant neoplasm of cervix Pap Smear [facility] Start: 2017 Adult BMI Follow Up Plan Adult BMI Follow Up Plan [facility] Immunizations Immunization Date Immunization Notes Care Provider Fa cility 09-08-2017 influenza, injectabl e, quadrivalent, preservative free Pm 1 [facility] 09-08-2017 influenza virus vacc ine, unspecified formulation Pm 1 [facility] 03-13-2016 influenza, injectabl e, quadrivalent, preservative free Pm 1 [facility] 03-13-2016 meningococcal oligosaccharide (groups A, C, Y and W-135) diphtheria toxoid conjugate vaccine (MCV4O) [facility] 1 [facility] 02-13-2016 tuberculin skin test ; purified protein derivative solution, intradermal Pmh 1 [facility] 05-12-2015 human papilloma viru s vaccine, quadrivalent Pm 1 [facility] 02-07-2015 influenza, injectabl e, madin giovanny canine kidney, preservative free Pm 1 [facility] 02-07-2015 influenza, seasonal, injectable, preservative free Pm 1 [facility] 01-13-2015 tuberculin skin test ; purified protein derivative solution, intradermal Pm 1 [facility] 11-01-2014 HPV, unspecified formulation Pmh 1 [facility] 09-01-2014 HPV, unspecified formulation Pmh 1 [facility] 02-15-2014 influenza, seasonal, injectable Pmh 1 [facility] 02-18-2011 diphtheria, tetanus toxoids and pertussis vaccine Pmh 1 [facility] 02-18-2011 meningococcal polysaccharide (groups A, C, Y and W-135) diphtheria toxoid conjugate vaccine (MCV4P) Pm 1 [facility] 02-18-2011 tetanus toxoid, redu wilton diphtheria toxoid, and acellular pertussis vaccine, adsorbed Pmh 1 [facility] 02-15-2004 diphtheria, tetanus toxoids and acellular pertussis vaccine Pmh 1 [facility] 10-31-2003 measles, mumps and r ubella virus vaccine Pmh 1 [facility] 10-31-2003 poliovirus vaccine, inactivated Pmh 1 [facility] 01-20-2002 hepatitis B vaccine, pediatric or pediatric/adolescent dosage Pmh 1 [facility] 11-04-2001 hepatitis B vaccine, pediatric or pediatric/adolescent dosage Pmh 1 [facility] 06-06-2000 diphtheria, tetanus toxoids and pertussis vaccine Pmh 1 [facility] 06-06-2000 haemophilus influenz ae type b vaccine, conjugate unspecified formulation [facility] 1 [facility] 06-06-2000 hepatitis B vaccine, pediatric or pediatric/adolescent dosage Pmh 1 [facility] 06-06-2000 measles, mumps and r ubella virus vaccine Pmh 1 [facility] 2000 diphtheria, tetanus toxoids and pertussis vaccine Pmh 1 [facility] 1999 haemophilus influenz ae type b vaccine, conjugate unspecified formulation Pmh 1 [facility] 1999 poliovirus vaccine, inactivated Pmh 1 [facility] 1999 diphtheria, tetanus toxoids and pertussis vaccine Pmh 1 [facility] 1999 haemophilus influenz ae type b vaccine, conjugate unspecified formulation Pmh 1 [facility] 1999 poliovirus vaccine, inactivated Pmh 1 [facility] 1999 diphtheria, tetanus toxoids and pertussis vaccine Pmh 1 [facility] 1999 haemophilus influenz ae type b vaccine, conjugate unspecified formulation Pm 1 [facility] 1999 poliovirus vaccine, inactivated [facility] 1 [facility] 1999 hepatitis B vaccine, adult dosage [facility] 1 [facility] Payers Date Payer Category Payer Medicaid (Managed Care) [employer] [id number] 2020 Medicaid [employer] [id number] 2020-Present [phone] [address] [place] [id number] 2000 Unknown [id number] 2.16.840.1.101549.3.579.2. 593 1999 Unknown [id number] 2.16.840.1.470084.3.579.2. 593 1999 Unknown [id number] 2.16.840.1.617422.3.579.2. 1286 1999 Unknown [id number] 2.16.840.1.072924.3.579.2. 1286 1999 Unknown [id number] 2.16.840.1.915413.3.579.2. 1286 1999 Unknown [id number] 2.16.840.1.395827.3.579.2. 1286 1999 Unknown [id number] 2.16.840.1.251419.3.579.2. 1286 1999 Unknown [id number] 2.16.840.1.954121.3.579.2. 1286 1999 Unknown [id number] 2.16.840.1.058462.3.579.2. 1286 1999 Unknown [id number] 2.16.840.1.355388.3.579.2. 1286 1999 Unknown [id number] 2.16.840.1.022991.3.579.2. 1286 1999 Unknown [id number] 2.16.840.1.167361.3.579.2. 1286 1999 Unknown [id number] 2.16.840.1.821728.3.579.2. 1259 1959 Unknown [id number] Self-pay Self Pay [id number] Unknown Self Pay [id number] Social History Date Type Detail Facility Tobacco smoking stat [facility] Unknown if ever smoked [facility] Start: 2000 Sex Assigned At Female [facility] Start: 04-08-2022 Tobacco smoking status [facility] Ex-smoker [facility] History of tobacco use Current smoker [facility] Start: 04-08-2022 Tobacco use and exposure Smokeless tobacco non-user [facility] Start: 05-30-2023 Alcohol intake Current non-drinker of [facility] (finding[facility] Start: 03-17-2023 End: 04-21-2023 History of Social function [facility] Start: 03-17-2023 End: 04-21-2023 Social connection and isolation panel [facility] Do you belong to any clubs or organizations such as congregation groups, unions, fraternal or athletic groups, or school groups? No [facility] Are you now , , , , never or living with a partner? Never [facility] Frequency of Alcohol Consumption Never [facility] How hard is it for y ou to pay for the very basics like food, housing, medical care, and heating Not very hard [facility] Do you feel stress - tense, restless, nervous, or anxious, or unable to sleep at night because your mind is troubled all the time - these days [OSQ] To some extent [facility] Start: 04-27-2021 Gender identity Identifies as female gender (finding) [facility] Start: 04-27-2021 Sexual orientation Heterosexual (finding) [facility] Tobacco smoking stat [facility] Tobacco smoking consumption unknown [facility] Start: 2000 Sex assigned at Not on file [facility] Healthcare Goals Date Patient Goal Desired Activity /State Instructions 05-30-2023 Patient Instructions Note Date & Type Note Facility 05-30-2023 Instructions Miriam Cool RN - 05/30/2023 2:15 PM EST Preoperative Education Checklist- General Surgery date: 06/11/23 Surgery time: 915a Arrival time: 715a 1. Bring a photo ID and your insurance card with you the day of surgery. You will check in at the main lobby of the [facility]- registration desk is straight ahead as soon as you walk in. Tell them you are here for surgery. 2. If you have a Living Will/Durable Power of Tube Mounter for Health Care that is not on file here, please bring a copy the day of surgery. 3. Please shower/bathe the night before surgery with the provided soap or wipes. Do not shower the morning of surgery- you will do use wipes when you arrive here at the hospital before getting into your surgical gown. Do not shave the area of your procedure for 2 days prior to your surgery. 4. NO powder, lotion, perfume/cologne, aftershave, make-up, deodorant, or hair products after you have bathed. 5. NO nail cymro/acrylic on at least one finger. If you are having a hand, wrist or foot surgery then all nail cymro and artificial/acrylic nails must be removed from that hand or foot. 6. Avoid ALL Aspirin and non-steroidal anti-inflammatory drugs and certain vitamins (Ibuprofen, Advil, Aleve, Excedrin, Meloxicam, Celebrex, fish/krill oil, etc.) for 7 days prior to surgery as instructed by your surgeon and/or your prescribing doctor. Tylenol IS ALLOWED. If you are on Ticlid, Xarelto, Eliquis, Pradaxa, Plavix or Coumadin, please check with your prescribing doctor for instructions for when to stop them. 7. If you use an inhaler, continue to use it routinely. 8. Nothing to eat or drink (not even water, gum, mints, or hard candy!) AFTER midnight prior to your surgery. 9. Take only medications that you are instructed to on the morning of surgery with a TINY SIP OF WATER. 10. Choose a responsible adult that will be able to drive you home when you are discharged from your hospital stay for your surgery and can stay with you in your home for 24 hours after your procedure. You must NOT drive any vehicle or operate any machinery for 24 hours after surgery. 11. When you dress for your appointment, please wear loose fitting clothing that is appropriate to accommodate your surgical area procedure. BRING WITH YOU ANY DEVICES YOU MAY NEED: NORMAN hose, ice machine, sling/swath, brace or special shoe, oversized zip-up or button up shirt, CPAP machine if staying overnight. 12. Do NOT wear jewelry, watches, or any piercings or metal for surgery- leave these valuables and money at home. 13. Do NOT wear contact lenses for surgery- glasses are okay if needed. 14. The anesthesiologist will talk with you the day of surgery and will ask you to sign a Consent Form. 15. Refrain from smoking or any type of tobacco use for at least 8 hours and marijuana for 24 hours prior to arrival for your surgery. 16. If a GREEN BLOOD band is given to you, please bring it with you for the day of surgery. 17. Notify your surgeon if you develop any illness before your surgery. 18. If you are staying overnight, please DO NOT BRING your home medications with you. 19. If you have any questions prior to surgery, please call the [facility] office at [phone], Mon.-Fri. 7 a.m.-3 p.m. Leave a voicemail if needed. Pre-Surgery Instructions: Medication Instructions acetaminophen (TYLENOL) 500 mg tablet Stop taking 0 days prior to procedure documented in this encounter [facility] Summary Purpose Family History No Family History Records FoundNo Family History Records FoundNo Family History Records FoundNo Family History Records FoundNo Family History Records FoundNo Family History Records FoundNo Family History Records FoundNo Family History Records Found Advance Directives No Advanced Directives Records FoundNo Advanced Directives Records FoundNo Advanced Directives Records FoundNo Advanced Directives Records FoundNo Advanced Directives Records FoundNo Advanced Directives Records FoundNo Advanced Directives Records FoundNo Advanced Directives Records Found Chief Complaint and Reason for Visit Chief Complaint Cholelithiasis Assessments No Assessments Information Available Additional Source Comments INFORMATION SOURCE (unrecogn ized section and content) DATE CREATED AUTHOR 05/14/2019 [facility] DATE CREATED AUTHOR AUTHOR'S ORGANIZ ATION 09/19/2021 [facility] DATE CREATED AUTHOR AUTHOR'S ORGANIZ ATION 01/19/2022 [facility] DATE CREATED AUTHOR AUTHOR'S ORGANIZ ATION 04/15/2022 [facility] DATE CREATED AUTHOR AUTHOR'S ORGANIZ ATION 06/15/2023 [facility] DATE CREATED AUTHOR AUTHOR'S ORGANIZ ATION 10/22/2023 [facility] DATE CREATED AUTHOR AUTHOR'S ORGANIZ ATION 10/22/2023 [facility] DATE CREATED AUTHOR AUTHOR'S ORGANIZ ATION 01/27/2024 [facility] EPIC Care Teams (unrecognized sec tion and content) Ginseng Farmer Relationship Specialty Start Date End Date Mook Wang DO [address] [address] PCP - General Family Medicine 04/17/21 Ginseng Farmer Relationship Specialty Start Date End Date Mook Wang MD [address] [place] [address] PCP - General Family Medicine 10/28/22 FOR RECORDS PERTAINING TO PATIENTS WHO ARE OR HAVE BEEN ENROLLED IN A CHEMICAL DEPENDENCY/SUBSTANCEABUSE PROGRAM, SOME INFORMATION MAY BE OMITTED. This clinical summary was aggregated from multiple sources. Caution should be exercised in using it in the provision of clinical care. This summary normalizes information from multiple sources, and as a consequence, information in this document may materially change the coding, format and clinical context of patient data. In addition, data may be omitted in some cases. CLINICAL DECISIONS SHOULD BE BASED ON THE PRIMARY CLINICAL RECORDS. [facility]. provides no warranty or guarantee of the accuracy or completeness of information in this document.
[2024-05-18 12:09] LABS: Age Gdln ACOG Testing Note (.); IGP, rfx Aptima HPV ASCU Note (.)
== END 2024-05-11 19:57 | disposition home or self-care (01) ==
LOC: LAB 19:56
PROVIDERS: PCP Family Medicine; Visit Provider Obstetrics & Gynecology
DX: Z01.419 Encounter for gynecological examination (general) (routine) without abnormal findings (principal)
CPT/HCPCS: 88175

== ENCOUNTER 2025-03-13 13:18 | Emergency (ER) | payer OTHER, SELFPAY ==
--- OUTSIDE RECORDS SUMMARY | 2024-08-23 07:00 | XMS_ITS ---
Author Organization [facility] Address [address] [place] [address] Care Team Providers Care Claims Manager Name Role Phone Maria Isabel Kilgore Primary Care Provider [phone] Ellen Parker Unavailable [phone] Martha Gillette Unavailable [phone] REASON FOR VISIT BH F/U Encounters Encounter Location Date Provider Diagnosis [facility] [address] [place] [address] 08/23/2024 Martha Gillette Plan Of Treatment No Information Progress Notes * ELISABET MARTINEZ LDOB:[birth year] (25 yo F)Acc No.[id number]:08/23/2024 BH F/U - Patient Patient: ELISABET OLMEDO Provider: Manny Baker :2000 A ge:24 Y S ex:Female Date:08/23/2024 Address:[address] [place], [place] [address] [id number] Pcp:Maria Isabel Kilgore Subjective: * Chief Complaints: * 1 . BH F/U. Objective: Therapeutic Interventions: Assessment: Plan: * Images: Care Plan Details* * Electronic signature of Maurice Gillette on 03/13/2025 at 02:00 PM EDT Sign off status: Pending * Provider: Manny Baker Date: 0 08/23/2024 Generated for Odalys matthews/Michael/Mansi on: 1 02:00 PM EDT
--- OUTSIDE RECORDS SUMMARY | 2024-09-20 05:00 | XMS_ITS ---
Author Organization [facility] Address [address] [place] [address] Care Team Providers Care Disability Representative Name Role Phone Maria Isabel Kilgore Primary Care Provider Ellen Parker [phone] REASON FOR VISIT transfer from [place]. Encounters Encounter Location Date Provider Diagnosis [facility] [address] [place] [address] 09/20/2024 Maria Isabel Kilgore Plan Of Treatment No Information Progress Notes * KAILEY TORRESHELLEN LDOB:[birth year] (25 yo F)Acc No.[id number]:09/20/2024 BH F/U - Patient Patient: ELISABET OLMEDO Provider: STEPHEN Hood :2000 A ge:24 Y S ex:Female Date:09/20/2024 Address:[address] [place] [address], [address] [place], [id number] Subjective: * Chief Complaints: * 1 . transfer from [place].. Objective: Therapeutic Interventions: Assessment: Plan: * Images: Care Plan Details* * Electronic signature of STEPHEN Brink on 03/13/2025 at 02:00 PM EDT Sign off status: Pending * Provider: STEPHEN Hood Date: 0 09/20/2024 Generated for Odalys matthews/Michael/eTransmitting on: 1 02:00 PM EDT
[2025-03-13 13:29] VITALS: BP 110/60; PULSE 71; TEMP 37.1; O2SAT 98; BMI 36.8
--- OUTSIDE RECORDS SUMMARY | 2025-03-13 14:00 | XMS_ITS | CCD ---
Author Organization [facility] Care Team Providers Care Early Childhood Lead Teacher Name Role Phone Gregg London Attending Provider Mook Wang Primary Care Provider [phone] MARKER, DR RED Admitting Unavailable MARKER, DR RED Attending Unavailable FURLONG, DR MOOK Ruiz Primary Care Unavailable MARKER, DR RED Consulting Unavailable ADONIS, PABLO Admitting Unavailable ADONIS, PABLO Attending Unavailable MISC, DR BARTLETT Primary Care Unavailable ADONIS, PABLO Consulting Unavailable YORDAN LOMBARDI Admitting Unavailable YORDAN LOMBARDI Attending Unavailable MOOK WANG Primary Care Unavailable NIRU THOMASON Attending Unavailable MOOK WANG Primary Care Unavailable YORDAN LOMBARDI Attending Unavailable YORDAN LOMBARDI Referring Unavailable TANVIR, MOOK Ruiz Primary Care Unavailable YORDAN LOMBARDI Attending Unavailable YORDAN LOMBARDI Referring Unavailable PRESTONLONG, MOOK Ruiz Primary Care Unavailable MOOK WANG Referring Unavailable PRESTONLONG, MOOK Ruiz Primary Care Unavailable ELVIRA ZUNIGA Attending Unavailable ELVIRA ZUNIGA Referring Unavailable CORANG, MOOK Ruiz Primary Care Unavailable YORDAN LOMBARDI Referring Unavailable TANVIR, MOOK Ruiz Primary Care Unavailable ROXANNA MARSH Attending Unavailable MOOK WANG Referring Unavailable PRESTONLONG, MOOK Ruiz Primary Care Unavailable ROXANNA MARSH Referring Unavailable PRESTONLOKULDEEP, MOOK Ruiz Primary Care Unavailable Mook Wang MD Primary Care Provider [phone] DAMIAN NICHOLSON Attending Unavailable DAMIAN NICHOLSON Attending Unavailable PrestonloMook matthews DO Primary Care Provider Mook Wang DO Primary Care Provider Unavailable Unavailable Unavailable Medications Current Medications Medication Drug Class(es) Dates Sig (Normalized) Sig (Original) acetaminophen 500 mg oral tablet (6 sources) take 1 tablet by mouth every six hours as needed for pain acetaminophen (TYLENOL) 500 mg tablet Take 1 tablet (500 mg total) by mouth every 6 (six) hours as needed for pain (1-2 ORAL NEEDED). Active ARIPiprazole 10 mg oral tablet (6 sources) Atypical Antipsychotic Start: 01-24-2024 ARIPiprazole (Abilify) 10 MG tablet 01/24/2024 Active doxycycline hyclate 100 mg oral capsule (3 sources) Tetracycline-class Drug Start: 05-11-2024 End: 06-10-2024 doxycycline (Vibramycin) 100 MG capsule Indications: Cervicitis and endocervicitis Take 1 capsule (100 mg) by mouth in the morning and 1 capsule (100 mg) before bedtime. Take with at least 8 ounces (large glass) of water, do not lie down for 30 minutes after. 60 capsule 05/11/2024 06/10/2024 Active 21 day ethinyl estradiol 0.102395 mg/hr / etonogestrel 0.005 mg/hr vaginal system (8 sources) Progestin, Estrogen Start: 01-26-2024 End: 05-11-2025 etonogestrel-ethinyl estradiol (Nuvaring) 0.12-0.015 MG/24HR vaginal ring Indications: Irregular menstrual cycle , General counseling and advice on contraceptive management Insert 1 Ring into the vagina every 28 (twenty-eight) days Insert vaginal ring for 3 weeks, then remove for 1 week. 1 each 05/11/2024 05/11/2025 Active lamoTRIgine 100 mg oral tablet (6 sources) Mood Stabilizer, Anti-epileptic Agent Start: 01-24-2024 lamoTRIgine (LaMICtal) 100 MG tablet 01/24/2024 Active phenazopyridine hydrochloride 100 mg oral tablet (1 source) Start: 06-11-2023 End: 06-13-2023 take 1 tablet by mouth three times daily phenazopyridine (PYRIDIUM) 100 mg tablet Take 1 tablet (100 mg total) by mouth 3 (three) times a day for 6 doses. 6 tablet 0 06/11/2023 06/13/2023 Active [id number] acid () 29 mg iron- 1 mg tablet,chewable (3 sources) [id number] acid () 29 mg iron- 1 mg tablet,chewable Chew 1 tablet and swallow in the morning. Active traZODone hydrochloride 50 mg oral tablet (6 sources) Serotonin Reuptake Inhibitor Start: 12-26-2023 traZODone (Desyrel) 50 MG tablet Take 50 mg by mouth as needed at bedtime 12/26/2023 Active Problems Active Problems Problem Classification Problem Date Documented Date Episodic/Chronic Anxiety disorders (6 sources) Anxiety; Translations: [Anxiety disorder, unspecified] Onset: 03-22-2020 07-05-2022 Chronic Cardiac dysrhythmias (6 sources) Supraventricular tachycardia; Translations: [Supraventricular tachycardia] Onset: 03-25-2020 04-17-2021 Chronic Conditions associated with dizziness or vertigo (4 sources) Dizziness and giddiness; Translations: [Lightheadedness] Onset: 10-20-2023 10-20-2023 Episodic Contraceptive and procreative management (4 sources) Patient encounter status; Translations: [Encounter for other general counseling and advice on contraception] 05-11-2024 Episodic Inflammatory diseases of female pelvic organs (2 sources) Cervicitis and endocervicitis; Translations: [Inflammatory disease of cervix uteri] 05-11-2024 Episodic Joint disorders and dislocations; trauma-related (6 sources) Derangement of right knee; Translations: [Unspecified internal derangement of right knee] Onset: 03-15-2022 03-15-2022 Chronic Menstrual disorders (7 sources) Irregular menstruation, unspecified; Translations: [Irregular periods] Onset: 10-20-2023 05-11-2024 Chronic Miscellaneous mental health disorders (6 sources) Bulimia nervosa; Translations: [Bulimia nervosa] Onset: 08-18-2019 04-17-2021 Chronic Mood disorders (6 sources) Bipolar disorder; Translations: [Bipolar disorder, unspecified] Onset: 02-07-2021 07-05-2022 Chronic Other circulatory disease (1 source) Personal history of other diseases of the circulatory system; Translations: [Personal history of other diseases of the circulatory system] Onset: 05-30-2023 Episodic Other complications of (6 sources) Maternal obesity complicating , childbirth and the puerperium, antepartum; Translations: [Obesity complicating , unspecified trimester] Onset: 04-17-2021 04-17-2021 Chronic Other complications of (6 sources) Bipolar disorder; Translations: [Other mental disorders complicating , unspecified trimester] 04-17-2021 Episodic Other ear and sense organ disorders (3 sources) Otalgia, right ear; Translations: [OTALGIA RIGHT EAR] Onset: 04-12-2022 Episodic Other nervous system disorders (6 sources) Chronic pain; Translations: [Other chronic pain] Onset: [...] Chronic Other nutritional; endocrine; and metabolic disorders (6 sources) Morbid obesity; Translations: [Morbid (severe) obesity due [...] [CONTACT W/AND (SUSP) EXPOS COVID-19] Onset: 04-15-2022 Past or Other Problems Problem Classification Problem Date Documented Date Episodic/Chronic Biliary tract disease (6 sources) Gallbladder calculus with acute cholecystitis and no obstruction; Translations: [Calculus of gallbladder with acute and chronic cholecystitis without obstruction] Onset: 03-15-2022 03-15-2022 Episodic Cardiac dysrhythmias (10 sources) Palpitations; Translations: [Palpitations] Onset: 01-23-2022 Episodic Genitourinary symptoms and ill-defined conditions (6 sources) Urinary symptoms ; Translations: [Unspecified symptoms and signs involving the genitourinary system] Onset: 03-15-2022 03-15-2022 Episodic Mood disorders (6 sources) Mood disorders Onset: 03-17-2023 03-17-2023 Other complications of (5 sources) Anxiety in ; Translations: [Other mental disorders complicating , unspecified trimester] Onset: 04-17-2021 04-17-2021 Episodic Other complications of (6 sources) Finding of pattern of ; Translations: [Supervision of other high risk pregnancies, unspecified trimester] Onset: 04-17-2021 04-17-2021 Episodic Other complications of (6 sources) Disorder of cardiovascular system; Translations: [Diseases of the circulatory system complicating , unspecified trimester] Onset: 04-17-2021 04-17-2021 Episodic Other complications of (6 sources) RhD negative; Translations: [Other specified related conditions, unspecified trimester] Onset: 04-17-2021 04-17-2021 Episodic Other complications of (1 source) Other mental disorders complicating , unspecified trimester; Translations: [Mental disorders of mother, antepartum condition or complication] Onset: 04-17-2021 04-17-2021 Episodic Other female genital disorders (6 sources) Vaginal odor; Translations: [Other specified noninflammatory disorders of vagina] Onset: 03-15-2022 Resolved: 10-20-2023 03-15-2022 Episodic Previous (6 sources) ; Translations: [Maternal care for unspecified type scar from previous delivery] Onset: 04-17-2021 04-17-2021 Episodic Urinary tract infections (8 sources) Recurrent urinary tract infection; Translations: [Urinary tract infection, site not specified] Onset: 04-21-2023 04-23-2023 Episodic Results Test Name Value Interpretation Reference Range Facility IGP,APTIMA HPV,AGE GDLNon AGE GDLN ACOG TESTING Note . [facility] Comment on above: TESTS RESULT FLAG [facility] REF RANGE LAB Clinician Provided Cytology Information Source.............Cervix;Endocervix No. of containers..01 ThinPrep Vial Age Algo ACOG Ni... FLAG LEGEND: L-Low Normal,H-High Normal,LL-Alert Low,HH-Alert High <-Panic Low,>-Panic High,A-Abnormal,AA-Critical Abnormal Performed at: 01 =G [address] [address] Billie Hearn MD, IGP, RFX APTIMA HPV ASCU Note . [facility] Comment on above: TESTS RESULT FLAG [facility] REF RANGE LAB DIAGNOSIS: 02 NEGATIVE FOR INTRAEPITHELIAL LESION OR MALIGNANCY. Specimen adequacy: 02 Satisfactory for evaluation. Endocervical and/or squamous metaplastic cells (endocervical component) are present. Performed by: 02 Darcy West, Plant Inspector (ASCP) . 02 Note: Note 02 The Pap smear is a screening test designed to aid in the detection of premalignant and malignant conditions of the uterine cervix. It is not a diagnostic procedure and should not be used as the sole means of detecting cervical cancer. Both false-positive and false-negative reports do occur. Test Methodology: Note 02 This liquid based ThinPrep(R) pap test was screened with the use of an image guided system. . 02 The HPV DNA reflex criteria were not met with this specimen result therefore, no HPV testing was performed. FLAG LEGEND: L-Low Normal,H-High Normal,LL-Alert Low,HH-Alert High <-Panic Low,>-Panic High,A-Abnormal,AA-Critical Abnormal Performed at: [address] [address] Billie Hearn MD, Performed at: = - [address] [id number] Home Health Specialist: Billie Hearn MD, Phone: [phone] Performed at: [address] [id number] Home Health Specialist: Billie Hearn MD, Phone: [phone] [facility] No Panel Informationon 01-25 Alma Dominique LPN 01/28/2024 11:07 AM Insertion/Removal of Contraceptive Capsule Date/Time: 01/26/2024 2:48 PM Performed by: Damian Nicholson DO Authorized by: Damian Nicholson DO Consent: Consent obtained: Written Consent given by: Patient Patient questions answered: yes Patient agrees, verbalizes understanding, and wants to proceed: yes Educational handouts given: yes Instructions and paperwork completed: yes Indication: Indication: Presence of non-biodegradable drug delivery implant Pre-procedure: Pre-procedure timeout performed: yes Prepped with: alcohol 70% Local anesthetic: Lidocaine without epinephrine The site was cleaned and prepped in a sterile fashion: yes Procedure: Procedure: Removal Small stab incision was made in arm: yes Left/right: Left Preloaded contraceptive capsule trocar was placed subdermally: no Visualization of implant was obtained: yes Contraceptive capsule was inserted and trocar removed: no Visualization of notch in stylet and palpation of device: no Palpation confirms placement by provider and patient: no Site was closed with steri-strips and pressure bandage applied: no [facility] auto differentialon 10-07 Basophils (Bld) [#/Vol] 0.1 10*3/uL [facility] Basophils/100 WBC (Bld) 1.0 % [facility] Eosinophils (Bld) [#/Vol] 0.1 10*3/uL [facility] Eosinophils/100 WBC (Bld) 2.3 % [facility] Erythrocyte distribution width (RBC) [Ratio] 12.6 % 11.5 - 15.0 % [facility] Hematocrit (Bld) [Volume fraction] 40.5 % 35 - 47 % [facility] Hemoglobin (Bld) [Mass/Vol] 13.5 g/dL 11.7 - 15.5 g/dL [facility] Lymphocytes (Bld) [#/Vol] 2.6 10*3/uL [facility] Lymphocytes/100 WBC (Bld) 50.5 % [facility] MCH (RBC) [Entitic mass] 29.1 pg 27 - 34 pg [facility] MCHC (RBC) [Mass/Vol] 33.5 g/dL 32 - 36 g/dL [facility] MCV (RBC) [Entitic vol] 87 fL 80 - 100 fL [facility] Monocytes (Bld) [#/Vol] 0.3 10*3/uL [facility] Monocytes/100 WBC (Bld) 6.6 % [facility] Neutrophils (Bld) [#/Vol] 2.0 10*3/uL [facility] Neutrophils/100 WBC (Bld) 39.6 % [facility] Platelet mean volume (Bld) [Entitic vol] 9.7 fL 7 - 12 fL [facility] Platelets (Bld) [#/Vol] 234 10*3/uL [facility] RBC (Bld) [#/Vol] 4.66 10*6/uL [facility] WBC corrected for nucl RBC Auto (Bld) [#/Vol] 5.1 [facility] Comprehensive metabolic pane dov 10-21-2023 Albumin [Mass/Vol] 4.6 g/dL 3.2 - 5.3 g/dL [facility] ALP [Catalytic activity/Vol] 40 U/L 39 - 130 U/L [facility] ALT No additional P-5'-P [Catalytic activity/Vol] 13 U/L 0 - 31 U/L [facility] Anion gap [Moles/Vol] 8 mmol/L 5 - 15 mmol/L [facility] AST [Catalytic activity/Vol] 14 U/L 0 - 41 U/L [facility] Bilirubin [Mass/Vol] 0.7 mg/dL 0.3 - 1 .2 mg/dL [facility] Calcium [Mass/Vol] 9.5 mg/dL 8.5 - 10. 5 mg/dL [facility] Chloride [Moles/Vol] 107 mmol/L 98 - 10 9 mmol/L [facility] CO2 [Moles/Vol] 26 mmol/L 22 - 32 mmol/L [facility] Creatinine [Mass/Vol] 0.82 mg/dL 0.40 - 1.00 mg/dL [facility] Comment on above: METHOD TRACEABLE TO IDMS STANDARD eGFR (CKD-EPI)non-race dependent - PINF [facility] Comment on above: Reported eGFR is based on the CKD-EPI 2020 equation that does not use a race coefficient. Glucose [Mass/Vol] 91 mg/dL 65 - 99 mg/dL [facility] Potassium [Moles/Vol] 4.4 mmol/L 3.5 - 5.0 mmol/L [facility] Protein [Mass/Vol] 7.0 g/dL 6.0 - 8.0 g/dL [facility] Sodium [Moles/Vol] 141 mmol/L 134 - 146 mmol/L [facility] Urea nitrogen [Mass/Vol] 15 mg/dL 5 - 23 mg/dL [facility] Thyroid profile includes TSH FT4on 10-21-2023 Free T4 [Mass/Vol] 0.83 ng/dL 0.61 - 1. 60 ng/dL [facility] TSH Qn 0.80 m[IU]/L [facility] CBC AND AUTO DIFFon 10-20-19 ABSOLUTE BASOPHIL 0.1 X10E9/L Normal 0.0-0.2 [facility] Comment on above: Performed By: #### C BCA, CMP, THYR #### [facility] ([id number]) [address] [place] [address] ABSOLUTE NEUTROPHIL 2.0 X10E9/L Normal 1.5-6.6 [facility] Comment on above: Performed By: #### C BCA, CMP, THYR #### [facility] ([id number]) [address], [address] [place] [address] Basophils/100 WBC (Bld) 1.0 % Normal [facility] Comment on above: Performed By: #### C BCA, CMP, THYR #### [facility] ([id number]) [address] [place] [address] Eosinophils (Bld) [#/Vol] 0.1 10*3/uL Normal 0.0-0.4 [facility] Comment on above: Performed By: #### C BCA, CMP, THYR #### [facility] ([id number]) [address], [address] [place] [address] Eosinophils/100 WBC (Bld) 2.3 % Normal [facility] Comment on above: Performed By: #### C BCA, CMP, THYR #### [facility] ([id number]) [address] [address] [place] [address] Erythrocyte distribution width (RBC) [Ratio] 12.6 % Normal 11.5-15.0 [facility] Comment on above: Performed By: #### C BCA, CMP, THYR #### [facility] ([id number]) [address] [address] [place] [address] Hematocrit (Bld) [Volume fraction] 40.5 % Normal 35-47 [facility] Comment on above: Performed By: #### C BCA, CMP, THYR #### [facility] ([id number]) [address] [address] Hemoglobin (Bld) [Mass/Vol] 13.5 g/dL Normal 11.7-15.5 [facility] Comment on above: Performed By: #### C BCA, CMP, THYR #### [facility] ([id number]) [address] [address] Lymphocytes (Bld) [#/Vol] 2.6 10*3/uL Normal 1.0-3.5 [facility] Comment on above: Performed By: #### C BCA, CMP, THYR #### [facility] ([id number]) [address] [address] Lymphocytes/100 WBC (Bld) 50.5 % Normal [facility] Comment on above: Performed By: #### C BCA, CMP, THYR #### [facility] ([id number]) [address] [address] MCH (RBC) [Entitic mass] 29.1 pg Normal 27-34 [facility] Comment on above: Performed By: #### C BCA, CMP, THYR #### [facility] ([id number]) [address] [place] [address] MCHC (RBC) [Mass/Vol] 33.5 g/dL Normal 32-36 [facility] Comment on above: Performed By: #### C BCA, CMP, THYR #### [facility] ([id number]) [address] [place] [address] MCV (RBC) [Entitic vol] 87 fL Normal 80-100 [facility] Comment on above: Performed By: #### C BCA, CMP, THYR #### [facility] ([id number]) [address] [place] [address] Monocytes (Bld) [#/Vol] 0.3 10*3/uL Normal 0-0.9 [facility] Comment on above: Performed By: #### C BCA, CMP, THYR #### [facility] ([id number]) [address] [place] [address] Monocytes/100 WBC (Bld) 6.6 % Normal [facility] Comment on above: Performed By: #### C BCA, CMP, THYR #### [facility] ([id number]) [address] [place] [address] Neutrophils/100 WBC (Bld) 39.6 % Normal [facility] Comment on above: Performed By: #### C BCA, CMP, THYR #### [facility] ([id number]) [address] [place] [address] Platelet mean volume (Bld) [Entitic vol] 9.7 fL Normal 7-12 [facility] Comment on above: Performed By: #### C BCA, CMP, THYR #### [facility] ([id number]) [address] [place] [address] Platelets (Bld) [#/Vol] 234 10*3/uL Normal 150-450 [facility] Comment on above: Performed By: #### C BCA, CMP, THYR #### [facility] ([id number]) [address] [place] [address] RBC COUNT 4.66 X10E12/L Normal 3.80-5.20 [facility] Comment on above: Performed By: #### C BCA, CMP, THYR #### [facility] ([id number]) [address] [place] [address] WBC (Bld) [#/Vol] 5.1 10*3/uL Normal 4.0-11.0 [facility] Comment on above: Performed By: #### C BCA, CMP, THYR #### [facility] ([id number]) [address] [place] [address] COMPREHENSIVE METABOLIC PANE Dov 10-20-2023 Albumin [Mass/Vol] 4.6 g/dL Normal 3.2-5.3 [facility] Comment on above: Performed By: #### C BCA, CMP, THYR #### [facility] ([id number]) [address] [place] [address] ALP [Catalytic activity/Vol] 40 U/L Normal 39-130 [facility] Comment on above: Performed By: #### C BCA, CMP, THYR #### [facility] ([id number]) [address] [place] [address] ALT [Catalytic activity/Vol] 13 U/L Normal 0-31 [facility] Comment on above: Performed By: #### C BCA, CMP, THYR #### [facility] ([id number]) [address] [place] [address] Anion gap [Moles/Vol] 8 mmol/L Normal 5-15 [facility] Comment on above: Performed By: #### C BCA, CMP, THYR #### [facility] ([id number]) [address] [place] [address] AST [Catalytic activity/Vol] 14 U/L Normal 0-41 [facility] Comment on above: Performed By: #### C BCA, CMP, THYR #### [facility] ([id number]) [address] [place] [address] Bilirubin [Mass/Vol] 0.7 mg/dL Normal 0.3-1.2 [facility] Comment on above: Performed By: #### C BCA, CMP, THYR #### [facility] ([id number]) [address] [place] [address] Calcium [Mass/Vol] 9.5 mg/dL Normal 8.5-10.5 [facility] Comment on above: Performed By: #### C BCA, CMP, THYR #### [facility] ([id number]) [address] [place] [address] Chloride [Moles/Vol] 107 mmol/L Normal 98-109 [facility] Comment on above: Performed By: #### C BCA, CMP, THYR #### [facility] ([id number]) [address] [place] [address] CO2 [Moles/Vol] 26 mmol/L Normal 22-32 [facility] Comment on above: Performed By: #### C BCA, CMP, THYR #### [facility] ([id number]) [address] [place] [address] Creatinine [Mass/Vol] 0.82 mg/dL Normal 0.40-1.00 [facility] Comment on above: Result Comment: METH OD TRACEABLE TO IDMS STANDARD Performed By: #### C BCA, CMP, THYR #### [facility] ([id number]) [address] [place] [address] eGFR (CKD-EPI) NON-RACE DEPENDENT >90 Normal >59 [facility] Comment on above: Result Comment: Reported eGFR is based on the CKD-EPI 2020 equation that does not use a race coefficient. Performed By: #### C BCA, CMP, THYR #### [facility] ([id number]) [address] [place] [address] Glucose [Mass/Vol] 91 mg/dL Normal 65-99 [facility] Comment on above: Performed By: #### C BCA, CMP, THYR #### [facility] ([id number]) [address] [address] [place] [address] Potassium [Moles/Vol] 4.4 mmol/L Normal 3.5-5.0 [facility] Comment on above: Performed By: #### C BCA, CMP, THYR #### [facility] ([id number]) [address] [place] [address] Protein [Mass/Vol] 7.0 g/dL Normal 6.0-8.0 [facility] Comment on above: Performed By: #### C BCA, CMP, THYR #### [facility] ([id number]) [address] [place] [address] Sodium [Moles/Vol] 141 mmol/L Normal 134-146 [facility] Comment on above: Performed By: #### C BCA, CMP, THYR #### [facility] ([id number]) [address] [address] [place] [address] Urea nitrogen [Mass/Vol] 15 mg/dL Normal 5-23 [facility] Comment on above: Performed By: #### C BCA, CMP, THYR #### [facility] ([id number]) [address] [place] [address] THYROID PROFILEon 10-20-2023 Free T4 [Mass/Vol] 0.83 ng/dL Normal 0.61-1.60 [facility] Comment on above: Performed By: #### C BCA, CMP, THYR #### [facility] ([id number]) [address] [place] [address] TSH 0.80 uIU/mL Normal 0.49-4.67 [facility] Comment on above: Performed By: #### C BCA, CMP, THYR #### [facility] ([id number]) [address] [place] [address] HCG ( test) Ql (U)o n 06-11-2023 Beta HCG ( test) Ql (U) Negative Normal NEG [facility] Comment on above: Performed By: #### 2 106-3 #### [facility] ([id number]) [address] [place] [address], [place] [address] BASIC METABOLIC PANLon 05-30 Anion gap [Moles/Vol] 8 mmol/L Normal 5-15 [facility] Comment on above: Performed By: #### B MP #### [facility] ([id number]) [address] [place] [address] Calcium [Mass/Vol] 9.1 mg/dL Normal 8.5-10.5 [facility] [place] Comment on above: Performed By: #### B MP #### [facility] ([id number]) [address], [address] [place] [address] Chloride [Moles/Vol] 105 mmol/L Normal 98-109 [facility] Comment on above: Performed By: #### B MP #### [facility] ([id number]) [address], [address] [place] [address] CO2 [Moles/Vol] 24 mmol/L Normal 22-32 [facility] Comment on above: Performed By: #### B MP #### [facility] ([id number]) [address], [address] [place] [address] Creatinine [Mass/Vol] 0.79 mg/dL Normal 0.40-1.00 [facility] Comment on above: Result Comment: METH OD TRACEABLE TO IDMS STANDARD Performed By: #### B MP #### [facility] ([id number]) [address], [address] [place] [address] eGFR (CKD-EPI) NON-RACE DEPENDENT >90 Normal >59 [facility] Comment on above: Result Comment: Reported eGFR is based on the CKD-EPI 2020 equation that does not use a race coefficient. Performed By: #### B MP #### [facility] ([id number]) [address], [address] [place] [address] Glucose [Mass/Vol] 91 mg/dL Normal 65-99 [facility] [place] Comment on above: Performed By: #### B MP #### [facility] ([id number]) [address] [address] [place] [address] Potassium [Moles/Vol] 3.7 mmol/L Normal 3.5-5.0 [facility] Comment on above: Performed By: #### B MP #### [facility] ([id number]) [address], [address] [place] [address] Sodium [Moles/Vol] 137 mmol/L Normal 134-146 [facility] [place] Comment on above: Performed By: #### B MP #### [facility] ([id number]) [address] [address] [place] [address] Urea nitrogen [Mass/Vol] 13 mg/dL Normal 5-23 [facility] Comment on above: Performed By: #### B MP #### [facility] ([id number]) [address] [place] [address] URINALYSISon 05-30-2023 Bilirubin Ql (U) Negative Normal NEG [facility] BLOOD/HGB Negative Normal NEG [facility] Color (U) YELLOW Normal YELLOW [facility] Glucose Ql (U) Negative Normal NEG [facility] Ketones Ql (U) Negative Normal NEG [facility] Leukocyte esterase Test strip Ql (U) Negative Normal NEG [facility] Nitrite Ql (U) Negative Normal NEG [facility] pH (U) 5.5 [pH] Normal 5.0-8.5 [facility] Protein Ql (U) Negative Normal NEG [facility] Specific gravity (U) [Rel density] 1.026 Normal 1.003-1.035 [facility] TURBIDITY CLEAR Normal CLEAR [facility] Urobilinogen (U) [Mass/Vol] mg/dL Normal <1.1 [facility] URINE CULTUREon 05-30-2023 Bacteria identified Cx Nom (U) CULTURE RESULTS <10,000 ORGANISMS/ML NORMAL URO GENITAL JOEL Normal [facility] Comment on above: Performed By: #### 6 30-4 #### [facility] ([id number]) [address] [place] [address], [address] [place] [address] Covid-19 PCR ([facility])on SARS-CoV-2 (COVID-19) RNA ADELIA+probe Ql (Unsp spec) Not detected Normal NOT DETECTED [facility] Comment on above: Result Comment: [...] for this test is supported by the [employer] Demonstrator of Health and Human Service's declaration that [...] used). Performed By: #### C VDTB #### [facility] [address] [place] [address] Dr. Bony Kam GROUP A STREP CULTUREon S. pyogenes Ag Ql (Unsp spec) Culture Observations: Negative for Group A Streptococcus Normal [facility] Comment on above: Performed By: #### S SCRN, GRASTCX #### [facility] [address] [place] [address] Dr. Bony Kam STREPT SCREENon 04-12-2022 STREP SCREEN A Negative Normal NEGATIVE [facility] Comment on above: Performed By: #### S SCRN, GRASTCX #### [facility] [address] [place] [address] Dr. Bony Kam COMPREHENSIVE METABOLIC PANE Dov 01-20-2022 Albumin [Mass/Vol] 4.6 g/dL Normal 3.6-5.1 [facility] Comment on above: Performed By: #### 5 8984, 01247, 7600 #### [facility] [place] [address] Casing Tier: Luiz Brink MD Albumin/Globulin [Mass ratio] 1.9 {ratio} Normal 1.0-2.5 [facility] Comment on above: Performed By: #### 5 8984, 06090, 7600 #### [facility] [place] [address] Casing Tier: Luiz Brink MD ALP [Catalytic activity/Vol] 41 U/L Normal 31-125 [facility] Comment on above: Performed By: #### 5 8984, 86672, 7600 #### [facility] [place] [address] Casing Tier: Luiz Brink MD ALT [Catalytic activity/Vol] 16 U/L Normal 6-29 [facility] Comment on above: Performed By: #### 5 8984, 22604, 7600 #### [facility] [place] [address] [place] [address] Casing Tier: Luiz Brink MD AST [Catalytic activity/Vol] 12 U/L Normal 10-30 [facility] Comment on above: Performed By: #### 5 8984, 47346, 7600 #### [facility] of [address], [address] [place] [address] Casing Tier: Luiz Brink MD Bilirubin [Mass/Vol] 0.9 mg/dL Normal 0.2-1.2 [facility] Comment on above: Performed By: #### 5 8984, , 0 #### [facility] of [address], [address] [place] [address] Casing Tier: Luiz Brink MD BUN/CREATININE RATIO NOT APPLICABLE Normal 6-22 [facility] Comment on above: Performed By: #### 5 8984, , 0 #### [facility] of [address], [address] [place] [address] Casing Tier: Luiz Brink MD Calcium [Mass/Vol] 9.4 mg/dL Normal 8.6-10.2 [facility] Comment on above: Performed By: #### 5 8984, 94665, 0 #### [facility] of [address], [address] [place] [address] Casing Tier: Luiz Brink MD Chloride [Moles/Vol] 107 mmol/L Normal 98-110 [facility] Comment on above: Performed By: #### 5 8984, 27160, 0 #### [facility] of [address], [address] [place] [address] Casing Tier: Luiz Brink MD CO2 [Moles/Vol] 22 mmol/L Normal 20-32 [facility] Comment on above: Performed By: #### 5 8984, 84301, 7600 #### [facility] of [address], [address] [place] [address] Casing Tier: Luiz Brink MD Creatinine [Mass/Vol] 0.87 mg/dL Normal 0.50-0.96 [facility] Comment on above: Performed By: #### 5 8984, 08622, 0 #### [facility] [place] [address] Casing Tier: Luiz Brink MD GFR/1.73 sq M.predicted among non-blacks MDRD (S/P/Bld) [Vol rate/Area] 97 mL/min/{1.73_m2} Normal > OR = 60 [facility] Comment on above: Result Comment: The eGFR is based on the CKD-EPI 2020 equation. To calculate the new eGFR from a previous Creatinine or Cystatin C result, go to https://www.kidney.org/professionals/ kdoqi/gfr%5Fcalculator Performed By: #### 5 8984, 49468, 0 #### [facility] [place] [address] Casing Tier: Luiz Brink MD Globulin (S) [Mass/Vol] 2.4 g/dL Normal 1.9-3.7 [facility] Comment on above: Performed By: #### 5 8984, 49880, 0 #### [facility] [place] [address] Casing Tier: Luiz Brink MD Glucose [Mass/Vol] 96 mg/dL Normal 65-99 [facility] Comment on above: Result Comment: Fasting reference interval Performed By: #### 5 8984, 57455, 0 #### [facility] [place] [address] Casing Tier: Luiz Brink MD Potassium [Moles/Vol] 4.0 mmol/L Normal 3.5-5.3 [facility] Comment on above: Performed By: #### 5 8984, 61618, 7600 #### [facility] [place] [address] Casing Tier: Luiz Brink MD Protein [Mass/Vol] 7.0 g/dL Normal 6.1-8.1 [facility] Comment on above: Performed By: #### 5 8984, 57291, 7600 #### [facility] of [address], [address] [place] [address] Casing Tier: Luiz Brink MD Sodium [Moles/Vol] 140 mmol/L Normal 135-146 [facility] Comment on above: Performed By: #### 5 8984, 57881, 7600 #### [facility] of [address], [address] [place] [address] Casing Tier: Luiz Brink MD Urea nitrogen [Mass/Vol] 14 mg/dL Normal 7-25 [facility] Comment on above: Performed By: #### 5 8984, 59012, 7600 #### [facility] [place] [address] Casing Tier: Luiz Brink MD LIPID PANEL, [facility] [place] 08- Cholesterol [Mass/Vol] 171 mg/dL Normal <200 [facility] Comment on above: Performed By: #### 5 8984, 18889, 7600 #### [facility] of [address], [address] [place] [address] Casing Tier: Luiz Brink MD Cholesterol in HDL [Mass/Vol] 45 mg/dL Low > OR = 50 [facility] Comment on above: Performed By: #### 5 8984, 04063, 7600 #### [facility] [place] [address] Casing Tier: Luiz Brink MD Cholesterol in LDL [Mass/Vol] 104 mg/dL High [facility] Comment on above: Result Comment: Refe rence range: <100 Desirable range <100 mg/dL for primary prevention; <70 mg/dL for patients with CHD or diabetic patients with > or = 2 CHD risk factors. LDL-C is now calculated using the Sherley calculation, which is a validated novel method providing better accuracy than the Friedewald equation in the estimation of LDL-C. Elie PANCHAL et al. FLORI. 2013;310(19): 4927-8473 (http://education.ScheduleSoft.cloud.IQ/faq/RAK198) Performed By: #### 5 8984, , 0 #### [facility] [place] [address] Casing Tier: Luiz Brink MD Cholesterol.total/Ch olesterol in HDL [Mass ratio] 3.8 {ratio} Normal <5.0 [facility] Comment on above: Performed By: #### 5 8984, , 0 #### [facility] [place] [address] Casing Tier: Luiz Brink MD NON HDL CHOLESTEROL 126 mg/dL (calc) Normal <130 [facility] Comment on above: Result Comment: For patients with diabetes plus 1 major ASCVD risk factor, treating to a non-HDL-C goal of <100 mg/dL (LDL-C of <70 mg/dL) is considered a therapeutic option. Performed By: #### 5 8984, , 0 #### [facility] [place] [address] Casing Tier: Luiz Brink MD Triglyceride [Mass/Vol] 121 mg/dL Normal <150 [facility] Comment on above: Performed By: #### 5 8984, , 0 #### [facility] [place] [address] Casing Tier: Luiz Brink MD TSH+FREE T4on 01-20-2022 Free T4 [Mass/Vol] 1.1 ng/dL Normal 0.8-1.8 [facility] Comment on above: Performed By: #### 5 8984, , 0 #### [facility] [place] [address] Casing Tier: Luiz Brink MD TSH Qn 1.05 m[IU]/L Normal [facility] Comment on above: Result Comment: Refe rence Range > or = 20 Years 0.40-4.50 Ranges First trimester 0.26-2.66 Second trimester 0.55-2.73 Third trimester 0.43-2.91 Performed By: #### 5 3784, 87830, 3590 #### [facility] [address], [address] [place] [address] Casing Tier: Luiz Brink MD Complete Blood Count Auto Di ffon 08-30-2021 Basophils (Bld) [#/Vol] 0.0 10*3/uL Normal 0.0-0.2 [facility] Comment on above: Result Comment: PERF ORMED BY: [place] [address] PATHOLOGIST BELT CHANGER KAMLESH DENNISON M.D. Performed By: #### H H, [id number] #### [address] Basophils/100 WBC (Bld) 0.2 % Normal . [facility] Comment on above: Performed By: #### H H, [id number] #### [address] Eosinophils (Bld) [#/Vol] 0.0 10*3/uL Normal 0.0-0.45 [facility] Comment on above: Performed By: #### H H, [id number] #### [address] Eosinophils/100 WBC (Bld) 0.5 % Normal . [facility] Comment on above: Performed By: #### H H, [id number] #### [address] Erythrocyte distribution width (RBC) [Ratio] 13.1 % Normal 11.9-15.3 [facility] Comment on above: Performed By: #### H H, [id number] #### [facility] [address] [place] [address] Hematocrit (Bld) [Volume fraction] 28.2 % Low 34.0-46.4 [facility] Comment on above: Performed By: #### H H, [id number] #### [address] Hemoglobin (Bld) [Mass/Vol] 9.6 g/dL Low 11.8-15.4 [facility] Comment on above: Performed By: #### H H, [id number] #### [address] Lymphocytes (Bld) [#/Vol] 2.3 10*3/uL Normal 1.00-4.8 [facility] Comment on above: Performed By: #### H H, [id number] #### [address] Lymphocytes/100 WBC (Bld) 24.1 % Normal . [facility] Comment on above: Performed By: #### H H, [id number] #### [address] MCH (RBC) [Entitic mass] 30.1 pg Normal 24.7-34.3 [facility] Comment on above: Performed By: #### H H, [id number] #### [address] MCV (RBC) [Entitic vol] 88.8 fL Normal 80-100 [facility] Comment on above: Performed By: #### H H, [id number] #### [address] Mean Corpuscular HGB Conc 34.0 g/dL Normal 32.0-35.0 [facility] Comment on above: Performed By: #### H H, [id number] #### [address] Monocytes (Bld) [#/Vol] 0.7 10*3/uL Normal 0.0-0.8 [facility] Comment on above: Performed By: #### H H, [id number] #### [address] Monocytes/100 WBC (Bld) 7.2 % Normal . [facility] Comment on above: Performed By: #### H H, [id number] #### [place] [address] [place] Neutrophils (Bld) [#/Vol] 6.3 10*3/uL Normal 1.8-7.7 [facility] Comment on above: Performed By: #### H H, [id number] #### [address] Neutrophils/100 WBC (Bld) 68.0 % Normal . [facility] Comment on above: Performed By: #### H H, [id number] #### [address] Nucleated RBC/100 WBC (Bld) [Ratio] 0.1 % Normal 0-0.5 [facility] Comment on above: Performed By: #### H H, [id number] #### [address] Platelet mean volume (Bld) [Entitic vol] 9.5 fL Normal 6.3-10.7 [facility] Comment on above: Performed By: #### H H, [id number] #### [address] Platelets (Bld) [#/Vol] 163 10*3/uL Normal 150-450 [facility] Comment on above: Performed By: #### H H, [id number] #### [address] RBC (Bld) [#/Vol] 3.18 10*6/uL Low 3.60-5.[address] [facility] Comment on above: Performed By: #### H H, [id number] #### [address] WBC (Bld) [#/Vol] 9.3 10*3/uL Normal 4.5-11.0 [facility] Comment on above: Performed By: #### H H, [id number] #### [address] COVID-19 Antigenon 2 COVID-19 Antigen Healthcare [...] its performance Isabell Disclaimer characteristic determined by [employer] and Isabell Disclaimer validated at [facility]. This Isabell Disclaimer test has not been FDA cleared or approved. This Isabell Disclaimer test has been authorized by FDA under an Emergency Use Isabell Disclaimer Authorization (EUA). This test has been validated Isabell Disclaimer in accordance with the FDA's Guidance Document (Policy Isabell Disclaimer for Diagnostics Testing in Laboratories Certified to Isabell Disclaimer Perform High Complexity Testing under CLIA prior [...] detection of SARS-CoV-2 virus and/or diagnosis of Siabell Disclaimer COVID-19 infection under section 564(b)(1) of the Isabell Disclaimer Act, 21 U.S.C. 360bbb-3(b)(1), unless the Isabell Disclaimer authorization is terminated or revoked sooner. PERFORMED BY: [place] [address] PATHOLOGIST BELT CHANGER KAMLESH DENNISON M.D. Normal [facility] Comment on above: Performed By: #### C OVID-19 ISABELL, SOFIANEG #### [address] Complete Blood Count Auto Di ffon 08-29-2021 Basophils (Bld) [#/Vol] 0.0 10*3/uL Normal 0.0-0.2 [facility] Comment on above: Result Comment: PERF ORMED BY: [place] [address] PATHOLOGIST BELT CHANGER KAMLESH DENNISON M.D. Performed By: #### C BC #### [address] Basophils/100 WBC (Bld) 0.3 % Normal . [facility] Comment on above: Performed By: #### C BC #### [address] Eosinophils (Bld) [#/Vol] 0.1 10*3/uL Normal 0.0-0.45 [facility] Comment on above: Performed By: #### C BC #### [address] Eosinophils/100 WBC (Bld) 0.6 % Normal . [facility] Comment on above: Performed By: #### C BC #### [address] Erythrocyte distribution width (RBC) [Ratio] 12.8 % Normal 11.9-15.3 [facility] Comment on above: Performed By: #### C BC #### [address] Hematocrit (Bld) [Volume fraction] 35.2 % Normal 34.0-46.4 [facility] Comment on above: Performed By: #### C BC #### [address] Hemoglobin (Bld) [Mass/Vol] 11.8 g/dL Normal 11.8-15.4 [facility] Comment on above: Performed By: #### C BC #### [address] Lymphocytes (Bld) [#/Vol] 2.8 10*3/uL Normal 1.00-4.8 [facility] Comment on above: Performed By: #### C BC #### [address] Lymphocytes/100 WBC (Bld) 27.4 % Normal . [facility] Comment on above: Performed By: #### C BC #### [address] MCH (RBC) [Entitic mass] 29.5 pg Normal 24.7-34.3 [facility] Comment on above: Performed By: #### C BC #### [address] MCV (RBC) [Entitic vol] 87.8 fL Normal 80-100 [facility] Comment on above: Performed By: #### C BC #### [address] Mean Corpuscular HGB Conc 33.6 g/dL Normal 32.0-35.0 [facility] Comment on above: Performed By: #### C BC #### [facility] [address] Monocytes (Bld) [#/Vol] 0.8 10*3/uL Normal 0.0-0.8 [facility] Comment on above: Performed By: #### C BC #### [facility] [address] Monocytes/100 WBC (Bld) 7.5 % Normal . [facility] Comment on above: Performed By: #### C BC #### [facility] [address] Neutrophils (Bld) [#/Vol] 6.6 10*3/uL Normal 1.8-7.7 [facility] Comment on above: Performed By: #### C BC #### [address] Neutrophils/100 WBC (Bld) 64.2 % Normal . [facility] Comment on above: Performed By: #### C BC #### [place] [address] [place] Nucleated RBC/100 WBC (Bld) [Ratio] 0.0 % Normal 0-0.5 [facility] Comment on above: Performed By: #### C BC #### [address] Platelet mean volume (Bld) [Entitic vol] 9.4 fL Normal 6.3-10.7 [facility] Comment on above: Performed By: #### C BC #### [facility] [address] [place] [address] [place] Platelets (Bld) [#/Vol] 203 10*3/uL Normal 150-450 [facility] Comment on above: Performed By: #### C BC #### [place] [address] [place] RBC (Bld) [#/Vol] 4.01 10*6/uL Normal 3.60-5.[address] [facility] Comment on above: Performed By: #### C BC #### [facility] [address] [place] [address] WBC (Bld) [#/Vol] 10.2 10*3/uL Normal 4.5-11.[address] [facility] Comment on above: Performed By: #### C BC #### [place] [address] [place] Dipstick and Microscopicon 0 08-29-2021 Appearance (U) Clear Normal Clear [facility] Comment on above: Order Comment: Name Collection Type:: Voided Performed By: #### A DDONUAPLUS #### [address] Bacteria,Urine None Seen Normal None Seen [facility] Comment on above: Order Comment: Name Collection Type:: Voided Performed By: #### A DDONUAPLUS #### [address] Bilirubin,Urine Negative Normal Negative [facility] Comment on above: Order Comment: Name Collection Type:: Voided Performed By: #### A DDONUAPLUS #### [address] Color (U) Yellow Normal Yellow [facility] Comment on above: Order Comment: Name Collection Type:: Voided Performed By: #### A DDONUAPLUS #### [facility] [address] [place] [address] Glucose Ql (U) Normal Normal Normal [facility] Comment on above: Order Comment: Name Collection Type:: Voided Performed By: #### A DDONUAPLUS #### [facility] [address] [place] [address] [place] Hyaline Casts,Urine 0-8 Normal 0-[address] [facility] Comment on above: Order Comment: Name Collection Type:: Voided Result Comment: PERF ORMED BY: [place] [address] PATHOLOGIST BELT CHANGER KAMLESH DENNISON M.D. Performed By: #### A DDONUAPLUS #### [address] Ketones Ql (U) Trace High Negative [facility] Comment on above: Order Comment: Name Collection Type:: Voided Performed By: #### A DDONUAPLUS #### [address] Leukocyte esterase Test strip Ql (U) Negative Normal Negative [facility] Comment on above: Order Comment: Name Collection Type:: Voided Performed By: #### A DDONUAPLUS #### [address] Nitrite,Urine Negative Normal Negative [facility] Comment on above: Order Comment: Name Collection Type:: Voided Performed By: #### A DDONUAPLUS #### [address] Occult Blood,Urine Negative Normal Negative [facility] Comment on above: Order Comment: Name Collection Type:: Voided Result Comment: PERF ORMED BY: [place] [address] PATHOLOGIST BELT CHANGER KAMLESH DENNISON M.D. Performed By: #### A DDONUAPLUS #### [address] pH (U) 6.5 [pH] Normal 5.0-9.0 [facility] Comment on above: Order Comment: Name Collection Type:: Voided Performed By: #### A DDONUAPLUS #### [address] Protein,Urine Trace High Negative [facility] Comment on above: Order Comment: Name Collection Type:: Voided Performed By: #### A DDONUAPLUS #### [address] RBC LM.HPF (Urine sed) [#/Area] 0 /[HPF] Normal 0-4 [facility] Comment on above: Order Comment: Name Collection Type:: Voided Performed By: #### A DDONUAPLUS #### [facility] [address] [place] [address] Specificy Kyle,Urine 1.031 High 1.001-1.030 [facility] Comment on above: Order Comment: Name Collection Type:: Voided Performed By: #### A DDONUAPLUS #### [address] Squamous Epithelial Cell,Urine 10-19 High 0-2 [facility] Comment on above: Order Comment: Name Collection Type:: Voided Performed By: #### A DDONUAPLUS #### [address] Urobilinogen,Urine Normal Normal Normal [facility] Comment on above: Order Comment: Name Collection Type:: Voided Performed By: #### A DDONUAPLUS #### [address] WBC,Urine 5-9 High 0-4 [facility] Comment on above: Order Comment: Name Collection Type:: Voided Performed By: #### A DDONUAPLUS #### [address] OB Urine Drug Screen (NO THC )on 08-29-2021 Amphetamine Screen,Urine Negative Normal Negative [facility] Comment on above: Performed By: #### R ND W RFX #### [facility] , #### OBUDS #### [address] Barbiturate Screen,Urine Negative Normal Negative [facility] Comment on above: Performed By: #### R ND W RFX #### [facility] , #### OBUDS #### [place] [address] [place] Benzodiazepines Screen,Urine Negative Normal Negative [facility] Comment on above: Performed By: #### R ND W RFX #### [facility] , #### OBUDS #### [address] Cocaine Screen,Urine Negative Normal Negative [facility] Comment on above: Performed By: #### R ND W RFX #### [facility] , #### OBUDS #### [address] Opiate Screen,Urine Negative Normal Negative [facility] Comment on above: Performed By: #### R ND W RFX #### [facility] , #### OBUDS #### [address] Phencyclidine Screen, Urine Negative Normal Negative [facility] Comment on above: Result Comment: Thes e are unconfirmed results and should not be used for legal purposes. Drug Cut-Off Concentration: AMPH 1000 ng/mL NATANAEL 200 ng/mL RYLEY 200 ng/mL COCM 300 ng/mL OP 300 ng/mL PCP 25 ng/mL PERFORMED BY: [place] [address] PATHOLOGIST BELT CHANGER KAMLESH DENNISON M.D. Performed By: #### R ND W RFX #### [facility] , #### OBUDS #### [address] RPR w/rfx to Quant TP [place]son 08-29-2021 RPR, Rfx Quant RPR Non-Reactive Normal Non Reactive [facility] Comment on above: Result Comment: Perf ormed at: CB - [facility] [address] [id number] Home Health Specialist: Jose Ramon Maxwell PhD, Phone: [phone] PERFORMED BY: [place] [address] PATHOLOGIST BELT CHANGER KAMLESH DENNISON M.D. Performed By: #### R ND W RFX #### [facility] , #### OBUDS #### [address] Isabell Ag Negativeon 08-30-19 22 Isabell Ag Negative Negative Normal Negative [facility] Comment on above: Result Comment: This is a duplicate Isabell SARS Antigen (CLAUDIA) result to be used for statistical tracking purpose only. PERFORMED BY: [place] [address] PATHOLOGIST BELT CHANGER KAMLESH DENNISON M.D. Performed By: #### C OVID-19 ISABELL, SOFIANEG #### [facility] [address] [place] [address] Type and Screenon 08-29-2021 ABO and Rh group Nom (Bld) Blood group A Rh(D) negative Normal [facility] Comment on above: Result Comment: PERF ORMED BY: [place] [address] PATHOLOGIST BELT CHANGER KAMLESH DENNISON M.D. Strep B Cultureon 08-01-2021 Strep B Culture Reason for Exam 35 weeks gestation of ; screening for stre Vaginal/Rectal No Group B Beta Streptococcus Isolated 3 Days PERFORMED BY: [place] [address] PATHOLOGIST BELT CHANGER KAMLESH DENNISON M.D. Normal [facility] Comment on above: Performed By: #### C USTB #### [address] Glucose,1 Hour PP 50gm Doseo n 06-12-2021 Glucose [Mass/Vol] 102 mg/dL Normal 60-140 [facility] Comment on above: Order Comment: Reaso n for Exam 25 weeks gestation of ;Diabetes mellitus screening Comment needs rhogam Result Comment: PERF ORMED BY: [place] [address] PATHOLOGIST BELT CHANGER KAMLESH DENNISON M.D. Performed By: #### H H, [id number] #### [facility] [address] [place] [address] Hemoglobin and Hematocriton 06-12-2021 Hematocrit (Bld) [Volume fraction] 32.4 % Low 34.0-46.4 [facility] Comment on above: Order Comment: Reaso n for Exam 25 weeks gestation of ;Diabetes mellitus screening Comment needs rhogam Result Comment: PERF ORMED BY: [place] [address] PATHOLOGIST BELT CHANGER KAMLESH DENNISON M.D. Performed By: #### H H, [id number] #### [facility] [address] [place] [address] Hemoglobin (Bld) [Mass/Vol] 11.2 g/dL Low 11.8-15.4 [facility] Comment on above: Order Comment: Reaso n for Exam 25 weeks gestation of ;Diabetes mellitus screening Comment needs rhogam Performed By: #### H H, [id number] #### [facility] [address] [place] [address] Rhogam Workupon 06-12-2021 Rhogam Candidate Yes Normal [facility] Comment on above: Order Comment: Reaso n for Exam 25 weeks gestation of ;Blood typing encounter Comment needs rhogam Performed By: #### H H, [id number] #### [address] RHOGAM DOSE Normal [facility] Comment on above: Order Comment: Reaso n for Exam 25 weeks gestation of ;Blood typing encounter Comment needs rhogam Result Comment: 1 do se(300mcg)of RhoGAM indicated PERFORMED BY: [place] [address] PATHOLOGIST BELT CHANGER KAMLESH DENNISON M.D. Performed By: #### H H, [id number] #### [facility] [address] [place] [address] ABO and Rh group Nom (Bld) Blood group A Rh(D) negative Normal [facility] Comment on above: Order Comment: Reaso n for Exam 25 weeks gestation of ;Blood typing encounter Comment needs rhogam Result Comment: PERF ORMED BY: [place] [address] PATHOLOGIST BELT CHANGER KAMLESH DENNISON M.D. Performed By: #### H H, [id number] #### [facility] [address] [id number] [facility] COVID-19 Positive/Negativeon 09-07-2020 COVID-19 Positive/Negative Negative Negative [facility] Comment on above: Reference: NegativeT esting for SARS-CoV-2 by RT-PCRThis test was developed and its performance characteristics determined by [employer] and validated at the [facility]. This test has not been FDA cleared [...] Otheron 09-07-2020 Coronavirus 2019 PCR Interp N/A [facility] Coding Summary.on 08-28-2018 Coding Summary. CODING DATE: 08/28/2018 FINAL [facility] STATUS: Home (Routine DC) PAYOR: Commercial Insurance [...] Patel Date Saved: 08/28/2018 03:28 pm Normal [facility] Main OR Intraoperative Recor anika 08-27-2018 Main OR Intraoperative Record IntraOp Document Type FTURO Summary Primary Physician: Jeff De La O Jr., MD Finalized Date/Time: 08/27/18 15:42:01 Pt. Name: ELISABET MARTINEZ /Sex: 2000 Female Med Rec #: [id number] Physician: Jeff De La O Jr., MD Financial #: [id number] Pt. Type: O Room/Bed: / Admit/Disch: 08/27/18 [...] La O Jr., MD RN, CNOR, Marvin NIKC, Alana Houston Role Performed Surgeon - Primary Block Press Operator - Primary Scrub - Primary Time In 08/27/18 15:33:00 08/27/18 15:33:00 08/27/18 15:33:00 Time Out 08/27/18 15:44:00 08/27/18 15:44:00 08/27/18 15:44:00 Procedure CYSTOSCOPY LOCAL WITH CYSTOSCOPY LOCAL WITH CYSTOSCOPY LOCAL WITH URETHRAL DILATION(.) URETHRAL DILATION(.) URETHRAL DILATION(.) Comments Last Modified By: Kandy RN, CNOR, Kandy RN, DAVIDOR, Kandy DUFF, DAVIDOR, Rosemarie 08/27/18 Rosemarie 08/27/18 Rosemarie 08/27/18 15:40:27 15:40:27 15:40:27 Surgical Procedures FTURO Entry 1 Procedure Description Procedure CYSTOSCOPY LOCAL WITH Modifiers . URETHRAL DILATION Surgeon Description CYSTO UD Primary Procedure Yes Primary Surgeon Jeff De La O Jr., MD Start 08/27/18 15:37:00 Stop 08/27/18 15:40:00 Anesthesia Type Local Surgical Service Urology Wound Class 2 - Clean-Contaminated Last Modified By: CLYDE Gaitan RN, Ruthann 08/27/18 15:40:28 General Case Data FTURO Pre-Care [...] Position Verified Availability Equipment, Medication Time Out Jairon Rutledge MD, Jeff Bansal, Verified (If Participants CLYDE Gaitan RN, Applicable) Marvin Houston CST, Alana Time Out Complete 08/27/18 15:35:00 Allergies [...] CLYDE Gaitan RN, Ruthann 08/27/18 15:42 Normal [facility] Main OR Preoperative Recordo n 08-27-2018 Main OR Preoperative Record Holding Area Document Type FTURO Summary Primary Physician: Jeff De La O Jr., MD Finalized Date/Time: 08/27/18 15:35:34 Pt. Name: ELISABET MARTINEZ /Sex: 2000 Female Med Rec #: [id number] Physician: Jeff De La O Jr., MD Financial #: [id number] Pt. Type: O Room/Bed: / Admit/Disch: 08/27/18 [...] belly button ring, ring Skin Integrity Intact, [place], Warm, & Dry Vitals - EU Blood Pressure 112/63 Pulse 85 bpm Respirations 18 br/min SPO2 RN Reviewed Yes Last Modified By: CLYDE Gaitan RN, Ruthann 08/27/18 15:35:32 Finalized By: CLYDE Gaitan RN, Ruthann Document Signatures Signed By: Melody Liao LPN 08/27/18 15:31 CLYDE Gatian RN, Ruthann 08/27/18 15:35 Normal [facility] Operative Reporton 9 Operative Report Patient: ELISABET [...] Local Cystoscopy with Urethral Dilation. Complications: None. Risks/Benefits/Inform ed Consent: Surgical risks, benefits, details of the [...] urine. The Urethra was dilated to: 28 Spanish w/ sounds. Devices Implanted: None. Removal: Cystoscope is removed, The patient tolerated it well. Postoperative Information Discharge: Patient is discharged home with antibiotic coverage, Follow up arranged. Normal [facility] Comment on above: Result Comment: Elec tronically Signed By: Jairon Rutledge MD, Jeff Bansal\.br\Date and Time Signed: 08/27/18 15:42 EDT Vital Signs Date Time Vital Sign Value Performing Clinician Facility 05-11-2024 10:40-0500 Body mass index (BMI) [Ratio] 36.81 kg/m2 [employer] Work Phone: [facility] 05-11-2024 10:40-0500 Body weight 109.83 kg [employer] Work Phone: [facility] 05-11-2024 10:40-0500 Diastolic blood pressure 58 mm[Hg] [employer] Work Phone: [facility] 05-11-2024 10:40-0500 Systolic blood pressure 100 mm[Hg] [employer] Work Phone: [facility] 01-26-2024 14:34-0400 Body height 172.7 cm Damian Lyn DO Work Phone: [facility] 01-26-2024 14:34-0400 Body mass index (BMI) [Ratio] 36.95 kg/m2 Damian Lyn DO Work Phone: [facility] 01-26-2024 14:34-0400 Body weight 110.22 kg Damian Lyn DO Work Phone: [facility] 01-26-2024 14:34-0400 Diastolic blood pressure 72 mm[Hg] Damian Lyn DO Work Phone: [facility] 01-26-2024 14:34-0400 Systolic blood pressure 116 mm[Hg] Damian Lyn DO Work Phone: [facility] 10-20-2023 13:43-0400 Body height 170.2 cm Roxanna Marsh [employer] FABRICATOR-CORRUGATED SHEET MATERIAL SHEETER Work Phone: [facility] 10-20-2023 13:43-0400 Body mass index (BMI) [Ratio] 37.81 kg/m2 Roxanna Marsh [employer] FABRICATOR-CORRUGATED SHEET MATERIAL SHEETER Work Phone: [facility] 10-20-2023 13:43-0400 Body temperature 97.81 [degF] Roxanna Marsh APRN-CORRUGATED SHEET MATERIAL SHEETER Work Phone: [facility] 10-20-2023 13:43-0400 Body weight 109.5 kg Roxanna Marsh [employer] FABRICATOR-CORRUGATED SHEET MATERIAL SHEETER Work Phone: [facility] 10-20-2023 13:43-0400 Diastolic blood pressure 70 mm[Hg] Roxanna Marsh [employer] FABRICATOR-CORRUGATED SHEET MATERIAL SHEETER Work Phone: [facility] 10-20-2023 13:43-0400 Heart rate 81 /min Roxanna Marsh [employer] FABRICATOR-CORRUGATED SHEET MATERIAL SHEETER Work Phone: [facility] 10-20-2023 13:43-0400 SaO2% (BldA) [Mass fraction] 98 % Roxanna Marsh [employer] FABRICATOR-CORRUGATED SHEET MATERIAL SHEETER Work Phone: [facility] 10-20-2023 13:43-0400 Systolic blood pressure 122 mm[Hg] Roxanna Marsh [employer] FABRICATOR-CORRUGATED SHEET MATERIAL SHEETER Work Phone: [facility] 05-30-2023 13:52-0500 Body height 172.7 cm [facility] 1 [facility] 05-30-2023 13:52-0500 Body mass index (BMI) [Ratio] 40.45 kg/m2 [facility] 1 [facility] 05-30-2023 13:52-0500 Body weight 120.66 kg [facility] 1 [facility] Encounters Encounter Date Encounter Type Care Provider Facility Start: 03-03-2025 End: 03-03-2025 Telephone encounter Tish Regan CMA [facility] Comment on above: Appointment Start: 05-11-2024 End: 05-11-2024 Bamboo flowsheet Damian Lyn DO Work Phone: [facility] Start: 05-11-2024 End: 05-18-2024 Bamboo flowsheet Damian Lyn DO Work Phone: [facility] Start: 05-11-2024 End: 05-18-2024 Clinisync Result Encounter Damian Lyn DO Work Phone: [facility] Unsolicited Start: 05-11-2024 End: 05-11-2024 Patient encounter procedure Damian Lyn DO Work Phone: [facility] Work Phone: Start: 05-11-2024 End: 05-11-2024 Periodic preventive med est patient 18-39 yrs Damian Lyn DO Work Phone: [facility] Comment on above: Well woman exam with routine gynecological exam; Irregular menstrual cycle; General counseling and advice on contraceptive management; Cervicitis and endocervicitis Start: 05-11-2024 End: 05-11-2024 ambulatory DAMIAN LYN Not Available Start: 01-26-2024 End: 01-26-2024 Patient encounter procedure Damian Lyn DO Work Phone: [facility] Comment on above: Irregular menstrual cycle; General counseling and advice on contraceptive management Start: 01-26-2024 End: 01-26-2024 ambulatory DAMIAN NICHOLSON Not Available Start: 10-21-2023 End: 10-24-2023 Telephone encounter Lena Horta [facility] Start: 10-21-2023 End: 10-21-2023 ambulatory [facility] Start: 10-20-2023 End: 10-20-2023 ambulatory [facility] Start: 10-20-2023 End: 10-20-2023 Office outpatient visit 15 minutes [facility] T[employer] FABRICATOR-CORRUGATED SHEET MATERIAL SHEETER Work Phone: [facility] Comment on above: Episodic lightheaded ness (Primary Dx); Irregular bleeding Start: 10-01-2023 End: 10-01-2023 Telephone encounter Tish Regan [facility] Comment on above: Appointment Due Start: 06-12-2023 End: 06-12-2023 Evaluation and management of inpatient NIRU THOMASON [facility] Start: 06-11-2023 Telephone encounter Yordan Lombardi MD Work Phone: [facility] Start: 06-11-2023 End: 06-12-2023 Evaluation and management of inpatient YORDAN LOMBARDI [facility] Start: 06-11-2023 End: 06-11-2023 Evaluation and management of inpatient YORDAN LOMBARDI [facility] Start: 05-30-2023 Encounter for other preprocedural examination ELVIRA ZUNIGA [facility] Start: 05-30-2023 End: 05-31-[address] [facility] Start: 05-30-2023 End: 05-30-2023 Patient encounter procedure [facility] Pre-Admission Testing 1 [facility] - Pre Admit Start: 04-12-2022 End: 04-12-[address] TEOFILO KEYS Facility:[facility] Start: 01-23-2022 End: 01-24-2022 ambulatory PABLO LAMB Facility: Start: 09-07-2020 End: 09-07-2020 Patient encounter procedure Gregg [place] -Pre-Surgical Testing Procedures Date Procedure Procedure Detail Performing Clinician Start: 05-11-2024 IGP,APTIMA HPV,AGE GDLN Damian Nicholson DO Work Phone: Start: 01-26-2024 STRESS ENGINEER INSERTION/REMOVA L OF CONTRACEPTIVE CAPSULE Damian Nicholson DO Work Phone: Start: 03-17-2023 Adult depression scr eening assessment [facility] 1 Start: 08-29-2021 Antibody screen Comment on above: Result Comment: PERF ORMED BY: [place] [address] PATHOLOGIST BELT CHANGER KAMLESH DENNISON M.D. Start: 06-12-2021 Antibody screen Comment on above: Order Comment: Reaso n for Exam 25 weeks gestation of ;Blood typing encounter Comment needs rhogam Result Comment: PERF ORMED BY: [place] [address] PATHOLOGIST BELT CHANGER KAMLESH DENNISON M.D. Performed By: #### H H, [id number] #### [address] Plan of Treatment Date Care Activity Detail Author Start: 05-24-2025 End: 05-24-2025 Patient encounter procedure 05/24/2025 11:00 AM EST Office Visit [facility] [address] [place] [id number] Damian Nicholson, [address] [place] [address] [facility] Start: 04-11-2025 End: 04-11-2025 Patient encounter procedure 04/11/2025 11:15 AM EST Office Visit [facility] [address] [place] [id number] Mook Wang, DO [address] [place] [address] [facility] Start: 02-07-2025 Influenza vaccination Influenza Vacc ine [facility] Start: 10-19-2024 Adult BMI Screening Adult BMI Screen ing [facility] Start: 10-19-2024 Tobacco Screening Tobacco Screening [facility] Start: 06-11-2024 Adult BMI Screening Adult BMI Screen ing [facility] Start: 06-11-2024 Tobacco Screening Tobacco Screening [facility] Start: 05-30-2024 Adult BMI Screening Adult BMI Screen ing [facility] Start: 05-30-2024 Tobacco Screening Tobacco Screening [facility] Start: 05-11-2024 End: 05-11-2024 Patient encounter procedure [facility] Comment on above: Arrived Start: 03-17-2024 Depression Screening Depression Scre ening [facility] Start: 2024 Influenza vaccination Influenza Vacc ine [facility] Start: 12-24-2023 Screening for Chlamy kendrick trachomatis Chlamydia Screening [facility] Start: 06-11-2023 End: 06-11-2023 Admission to same day surgery center 06/11/2023 9:15 AM EST - 06/11/2023 10:00 AM EST Surgery [facility] - Surgery [address] [place] [phone] Yordan Lombardi MD [address] [place] [id number] CYSTOSCOPY RETROGRADE PYELOGRAM WITH [facility] BLADDER SOLUTION AND BLADDER IRRIGATION [91545 (CPT )] [facility] Surgery Comment on above: CYSTOSCOPY RETROGRAD E PYELOGRAM WITH [facility] BLADDER SOLUTION AND BLADDER IRRIGATION [39525 (CPT )] Start: 06-11-2023 End: 06-11-2023 Anesthesia consultation 06/11/2023 9:15 AM EST Anesthesia Event [facility] - Surgery [address] [place] [phone] Niru Thomason, DO [address] [place] [address] [facility] Start: 06-11-2023 End: 06-11-2023 Cysto bladder w/ureteral catheterization [facility] Start: 06-11-2023 Subsequent hospital visit by physician 06/11/2023 9:15 AM EST Hospital Encounter [facility] Surgery [address] [place] [address] Yordan Lombardi MD [address] [place] [address] [facility] Start: 02-07-2023 Influenza vaccination Influenza Vacc ine [facility] Start: 02-18-2021 DTaP,Tdap and Td Vac cines (8 - Td or Tdap) DTaP,Tdap and Td Vaccines (8 - Td or Tdap) [facility] Start: 02-09-2020 Screening for malign ant neoplasm of cervix Pap Smear [facility] Start: 2017 Adult BMI Follow Up Plan Adult BMI Follow Up Plan [facility] Cytology Cervical or vaginal smear or scraping study Pap Smear Pathology and Cytology Routine Well woman exam with routine gynecological exam Ordered: 05/11/2024 [facility] Work Phone: Comment on above: Ordered: 05/11/2024 Immunizations Immunization Date Immunization Notes Care Provider Colton jacob 09-08-2017 influenza, injectabl e, quadrivalent, preservative free [facility] 1 [facility] 09-08-2017 influenza virus vacc ine, unspecified formulation [facility] 1 [facility] 03-13-2016 influenza, injectabl e, quadrivalent, preservative free Pm 1 [facility] 03-13-2016 meningococcal oligosaccharide (groups A, C, Y and W-135) diphtheria toxoid conjugate vaccine (MCV4O) Pm 1 [facility] 02-13-2016 tuberculin skin test ; purified protein derivative solution, intradermal Pm 1 [facility] 05-12-2015 human papilloma viru s vaccine, quadrivalent Pm 1 [facility] 02-07-2015 influenza, injectabl e, madin giovanny canine kidney, preservative free Pmh 1 [facility] 02-07-2015 influenza, seasonal, injectable, preservative free P[facility] 1 [facility] 01-13-2015 tuberculin skin test ; purified protein derivative solution, intradermal Pmh 1 [facility] 11-01-2014 HPV, unspecified formulation P[facility] 1 [facility] 09-01-2014 HPV, unspecified formulation [facility] 1 [facility] 02-15-2014 influenza, seasonal, injectable P[facility] 1 [facility] 02-18-2011 diphtheria, tetanus toxoids and pertussis vaccine P[facility] 1 [facility] 02-18-2011 meningococcal polysaccharide (groups A, C, Y and W-135) diphtheria toxoid conjugate vaccine (MCV4P) [facility] 1 [facility] 02-18-2011 tetanus toxoid, redu wilton diphtheria toxoid, and acellular pertussis vaccine, adsorbed [facility] 1 [facility] 02-15-2004 diphtheria, tetanus toxoids and acellular pertussis vaccine P[facility] 1 [facility] 10-31-2003 measles, mumps and r ubella virus vaccine P[facility] 1 [facility] 10-31-2003 poliovirus vaccine, inactivated Pmh 1 [facility] 01-20-2002 hepatitis B vaccine, pediatric or pediatric/adolescent dosage Pmh 1 [facility] 11-04-2001 hepatitis B vaccine, pediatric or pediatric/adolescent dosage Pmh 1 [facility] 06-06-2000 diphtheria, tetanus toxoids and pertussis vaccine Pmh 1 [facility] 06-06-2000 haemophilus influenz ae type b vaccine, conjugate unspecified formulation P[facility] 1 [facility] 06-06-2000 hepatitis B vaccine, pediatric or pediatric/adolescent dosage Pmh 1 [facility] 06-06-2000 measles, mumps and r ubella virus vaccine P[facility] 1 [facility] 1999 diphtheria, tetanus toxoids and pertussis vaccine P[facility] 1 [facility] 1999 haemophilus influenz ae type b vaccine, conjugate unspecified formulation Pmh 1 [facility] 1999 poliovirus vaccine, inactivated Pmh 1 [facility] 1999 diphtheria, tetanus toxoids and pertussis vaccine [facility] 1 [facility] 1999 haemophilus influenz ae type b vaccine, conjugate unspecified formulation [facility] 1 [facility] 1999 poliovirus vaccine, inactivated [facility] 1 [facility] 1999 diphtheria, tetanus toxoids and pertussis vaccine [facility] 1 [facility] 1999 haemophilus influenz ae type b vaccine, conjugate unspecified formulation [facility] 1 [facility] 1999 poliovirus vaccine, inactivated [facility] 1 [facility] 1999 hepatitis B vaccine, adult dosage Pm 1 [facility] Payers Date Payer Category Payer Medicaid (Managed Care) [employer] [id number] 2020 Medicaid [id number] 2020 Medicaid HMO [employer] [id number] 1999 Unknown [id number] 2.16.840.1.903763.3.579.2. 593 1999 Unknown [id number] 2.16.840.1.554760.3.579.2. 593 1999 Unknown [id number] 2.16.840.1.818664.3.579.2. 1286 1999 Unknown [id number] 2.16.840.1.974688.3.579.2. 1286 1999 Unknown [id number] 2.16.840.1.827163.3.579.2. 1286 1999 Unknown [id number] 2.16.840.1.064083.3.579.2. 1286 1999 Unknown [id number] 2.16.840.1.384093.3.579.2. 1286 1999 Unknown [id number] 2.16.840.1.519526.3.579.2. 1286 1999 Unknown [id number] 2.16.840.1.092802.3.579.2. 1286 1999 Unknown [id number] 2.16.840.1.749929.3.579.2. 1286 1999 Unknown [id number] 2.16.840.1.636698.3.579.2. 1286 1999 Unknown [id number] 2.16.840.1.331062.3.579.2. 1286 1999 Unknown [id number] 2.16.840.1.203124.3.579.2. 9 1999 Unknown [id number] 2.16.840.1.540977.3.579.2. 1259 1959 Unknown [id number] Self-pay Self Pay [id number] Unknown Self Pay [id number] Social History Date Type Detail Facility Tobacco smoking stat [facility] Unknown if ever smoked [facility] Start: 2000 Sex Assigned At Female [facility] Tobacco smoking stat [facility] Tobacco smoking consumption unknown [facility] Start: 2000 Sex assigned at Not on file [facility] Start: 03-17-2023 End: 10-20-2023 Gender identity Not on file [facility] Start: 04-08-2022 Tobacco smoking status NHIS Ex-smoker [facility] History of tobacco use Current smoker [facility] Start: 04-08-2022 Tobacco use and exposure Smokeless tobacco non-user [facility] Start: 05-30-2023 End: 10-20-2023 Alcohol intake Current non-drinker of alcohol (finding) [facility] Start: 03-17-2023 End: 10-20-2023 History of Social function [facility] Do you belong to any clubs or organizations such as roman catholic groups, unions, fraternal or athletic groups, or school groups? No [facility] Are you now , , , , never or living with a partner? Never [facility] Frequency of Alcohol Consumption Never [facility] How hard is it for y ou to pay for the very basics like food, housing, medical care, and heating Not very hard [facility] Do you feel stress - tense, restless, nervous, or anxious, or unable to sleep at night because your mind is troubled all the time - these days [OSQ] To some extent [facility] Start: 04-27-2021 Gender identity Identifies as female gender (finding) [facility] Start: 04-27-2021 Sexual orientation Heterosexual (finding) [facility] [facility] Start: 01-10-2015 Sex Female (finding) [facility] Goals Date Patient Goal Desired Activity /State Clinical Notes 05-30-2023 to 03-03-2025 Telephone Encounter - Tish Regan CMA - 03/03/2025 9:17 AM EDTTelephone Encounter - Tish Regan CMA - 03/03/2025 9:17 AM Victoria Mcknight LPN - 05/11/2024 10:20 AM ESTPatient Instructions Note Date & Type Note Facility 03-03-2025 Miscellaneous Notes Care Coordination Outreach performed to coordinate overdue appointments, testing, and/or follow-up care: Yes Audit/Outreach Date: March 03, 2025 Reason: Well Person Method: Telephone and MyChart Outreach Attempt: First Outcome: Left Message and Letter Sent Next PCP Appointment: N/A Tests/Referrals Pended: N/A Resources/Education Provided: Additional Comments: Left message for patient to contact office to schedule yearly wellness visit. Letter sent. documented in this encounter [facility] 03-03-2025 Telephone encounter Note Care Coordination Outreach performed to coordinate overdue appointments, testing, and/or follow-up care: Yes Audit/Outreach Date: March 03, 2025 Reason: Well Person Method: Telephone and MyChart Outreach Attempt: First Outcome: Left Message and Letter Sent Next PCP Appointment: N/A Tests/Referrals Pended: N/A Resources/Education Provided: Additional Comments: Left message for patient to contact office to schedule yearly wellness visit. Letter sent. [facility] 05-11-2024 History of Presen t illness Narrative Reason for Appointment: Patient ID: Elisabet Martinez is a 24 y.o. female who presents for [facility] Visit Patient presents today for Annual Exam. MEDICATIONS Current Outpatient Medications Medication Instructions ARIPiprazole (Abilify) 10 MG tablet etonogestrel-ethinyl estradiol (Nuvaring) 0.12-0.015 MG/24HR vaginal ring 1 Ring, Vaginal, Every 28 days, Insert vaginal ring for 3 weeks, then remove for 1 week. lamoTRIgine (LaMICtal) 100 MG tablet traZODone (DESYREL) 50 mg, Nightly PRN ALLERGIES No Known Allergies PROBLEMS Active Ambulatory Problems Diagnosis Date Noted No Active Ambulatory Problems Resolved Ambulatory Problems Diagnosis Date Noted No Resolved Ambulatory Problems No Additional Past Medical History HISTORY PAST MEDICAL HISTORY SOCIAL HISTORY History reviewed. No pertinent past medical history. Social History Tobacco Use Smoking status: Not on file Smokeless tobacco: Not on file Substance Use Topics Alcohol use: Not on file Drug use: Not on file FAMILY HISTORY No family history on file. SURGICAL HISTORY Past Surgical History: Procedure Laterality Date SECTION, LOW TRANSVERSE CHOLECYSTECTOMY KNEE CARTILAGE SURGERY REVIEW OF SYSTEMS Review of Systems: Review of Systems Constitutional: Negative. HENT: Negative. Eyes: Negative. Respiratory: Negative. Cardiovascular: Negative. Gastrointestinal: Negative. Genitourinary: Negative. Musculoskeletal: Negative. Skin: Negative. Neurological: Negative. All other systems reviewed and are negative. Hematological: Negative. Endocrine: Negative. Allergic/Immunologic: Negative. OBJECTIVE Objective: Physical Exam Constitutional: Appearance: Normal appearance. She is well-developed. Genitourinary: Vulva normal. Breasts: Breasts are soft. Right: Normal. Left: Normal. Cardiovascular: Rate and Rhythm: Normal rate and regular rhythm. Pulmonary: Effort: Pulmonary effort is normal. Breath sounds: Normal breath sounds. Abdominal: General: Bowel sounds are normal. There is no distension. Palpations: Abdomen is soft. Tenderness: There is no abdominal tenderness. There is no guarding or rebound. Musculoskeletal: General: No swelling. Normal range of motion. Right lower leg: No edema. Left lower leg: No edema. Neurological: Mental Status: She is alert and oriented to person, place, and time. Skin: General: Skin is warm and dry. Psychiatric: Mood and Affect: Mood normal. Behavior: Behavior normal. Vitals and nursing note reviewed. Exam conducted with a forging roll operator present. Vitals: Estimated body mass index is 36.81 kg/m as calculated from the following: Height as of 01/26/24: 5' 8 . Weight as of this encounter: 242 lb 1.9 oz. BP: 100/58 Patient's last menstrual period was 04/14/2024. ASSESSMENT & PLAN ICD-10-CM 1. Well woman exam with routine gynecological exam Z01.419 Pap Smear Annual Exam: Patient presents today for an annual exam. Patient states she is doing well and has complaints of painful intercourse - rx for doxy faxed to pharmacy. . Pap was obtained without difficulty. No orders of the defined types were placed in this encounter. Follow Up: Patient is to return in one year for annual unless needed otherwise. Documented by Graciela Mcknight LPN on behalf of: Damian Nicholson DO documented in this encounter [facility] 01-26-2024 History of Presen t illness Narrative Associated Order(s): Insertion/Removal of Contraceptive Capsule Post-Procedure Diagnose(s): Irregular menstrual cycle; General counseling and advice on contraceptive management Reason for Appointment: Patient ID: Elisabet Martinez is a 23 y.o. female who presents for Contraception Patient presents today for a Nexplanon Removal appointment. MEDICATIONS Current Outpatient Medications Medication Instructions ARIPiprazole (Abilify) 10 MG tablet lamoTRIgine (LaMICtal) 100 MG tablet traZODone (DESYREL) 50 mg, Oral, Nightly PRN ALLERGIES No Known Allergies SURGICAL HISTORY Past Surgical History: Procedure Laterality Date SECTION, LOW TRANSVERSE CHOLECYSTECTOMY KNEE CARTILAGE SURGERY REVIEW OF SYSTEMS Review of Systems: Review of Systems All other systems reviewed and are negative. OBJECTIVE Objective: Physical Exam Constitutional: Appearance: Normal appearance. She is well-developed. Cardiovascular: Rate and Rhythm: Normal rate and regular rhythm. Pulmonary: Effort: Pulmonary effort is normal. Breath sounds: Normal breath sounds. Abdominal: General: Bowel sounds are normal. There is no distension. Palpations: Abdomen is soft. Tenderness: There is no abdominal tenderness. There is no guarding or rebound. Musculoskeletal: General: No swelling. Normal range of motion. Right lower leg: No edema. Left lower leg: No edema. Neurological: Mental Status: She is alert and oriented to person, place, and time. Skin: General: Skin is warm and dry. Psychiatric: Mood and Affect: Mood normal. Behavior: Behavior normal. Vitals and nursing note reviewed. Exam conducted with a forging roll operator present. Vitals: Estimated body mass index is 36.95 kg/m as calculated from the following: Height as of this encounter: 5' 8 . Weight as of this encounter: 243 lb. BP: 116/72 Patient's last menstrual period was 12/08/2023. ASSESSMENT & PLAN Assessment/Plan Encounter Diagnosis: No diagnosis found. Insertion/Removal of Contraceptive Capsule Date/Time: 01/26/2024 2:48 PM Performed by: Damian Nicholson DO Authorized by: Damian Nicholson DO Consent: Consent obtained: Written Consent given by: Patient Patient questions answered: yes Patient agrees, verbalizes understanding, and wants to proceed: yes Educational handouts given: yes Instructions and paperwork completed: yes Indication: Indication: Presence of non-biodegradable drug delivery implant Pre-procedure: Pre-procedure timeout performed: yes Prepped with: alcohol 70% Local anesthetic: Lidocaine without epinephrine The site was cleaned and prepped in a sterile fashion: yes Procedure: Procedure: Removal Small stab incision was made in arm: yes Left/right: Left Preloaded contraceptive capsule trocar was placed subdermally: no Visualization of implant was obtained: yes Contraceptive capsule was inserted and trocar removed: no Visualization of notch in stylet and palpation of device: no Palpation confirms placement by provider and patient: no Site was closed with steri-strips and pressure bandage applied: no Nexplanon Removal: Patient presents today for removal of Nexplanon. Written consent for procedure was obtained and patient was placed in supine position with left arm flexed at elbow. Skin was cleansed with alcohol/Betadine and 2cc of Lidocaine was injected underneath palpated Nexplanon at distal end. After allowing for sufficient time for numbing agent to take effect, the skin overlying the end of Nexplanon was incised with an 11inch blade scalpel. A 7.5in hemostat was inserted in the incision site to grab device and Nexplanon was released from tissue. Nexplanon implant was removed in its entirety and visualized by myself and patient. The skin was cleansed with alcohol and the incision was covered with gauze. Post-procedure care was reviewed and patient will continue with proposed plan of care. Patient was advised to call office with any questions or concerns. Follow Up: Patient is to return to the office as needed for any routine appointments. Documented by Alma Dominique LPN on behalf of: Damian Nicholson DO documented in this encounter [facility] 10-21-2023 Miscellaneous Notes ----- Message from ANDREA Scott sent at 10/21/2023 7:52 AM EDT ----- All your blood work looked good, blood sugar, kidney, liver function, thyroid function and no anemia. Let's work on hydration Left a message for the patient to call back Spoke with the patient and she understands documented in this encounter [facility] 10-21-2023 Telephone encounter Note ----- Message from ANDREA Scott sent at 10/21/2023 7:52 AM EDT ----- All your blood work looked good, blood sugar, kidney, liver function, thyroid function and no anemia. Let's work on hydration [facility] 10-21-2023 Telephone encounter Note Left a message for the patient to call back [facility] 10-21-2023 Telephone encounter Note Spoke with the patient and she understands [facility] 10-20-2023 History of Presen t illness Narrative Subjective Patient ID: Elisabet Martinez is a 23 y.o. female. She feels like she is getting a lot of migraines but she is getting a lightheadedness when she bends over that lasts for a few seconds It also occurs when she gets up too fast She is also feeling some racing heart with this and her face is really flushed Episodes last about 30 seconds She hasn't passed out but feels like she could She has the nexplanon for control - she is having irregular bleeding with it She has lost 50 lbs in the past 8 months - this has been thru diet and exercise At times she will have some heavy bleeding for 3-4 days The following portions of the patient's history were reviewed and updated as appropriate: allergies, current medications, past family history, past medical history, past social history, past surgical history, problem list, and medication reconciliation was completed including current medication and post discharge medication. Review of Systems Constitutional: Negative. HENT: Negative. Eyes: Negative. Respiratory: Negative. Cardiovascular: Positive for palpitations. Genitourinary: Positive for menstrual problem. Musculoskeletal: Negative. Skin: Negative. Neurological: Positive for dizziness. Hematological: Negative. Psychiatric/Behavioral: Negative. Objective Physical Exam Vitals and nursing note reviewed. Constitutional: General: She is not in acute distress. Appearance: She is obese. She is not ill-appearing. HENT: Head: Normocephalic. Eyes: Conjunctiva/sclera: Conjunctivae normal. Cardiovascular: Rate and Rhythm: Normal rate and regular rhythm. Pulses: Normal pulses. Heart sounds: Normal heart sounds. No murmur heard. Pulmonary: Effort: Pulmonary effort is normal. No respiratory distress. Breath sounds: Normal breath sounds. Musculoskeletal: Cervical back: Neck supple. No tenderness. Right lower leg: No edema. Left lower leg: No edema. Lymphadenopathy: Cervical: No cervical adenopathy. Skin: General: Skin is warm and dry. Capillary Refill: Capillary refill takes less than 2 seconds. Neurological: Mental Status: She is alert and oriented to person, place, and time. Psychiatric: Mood and Affect: Mood normal. Behavior: Behavior normal. Thought Content: Thought content normal. Judgment: Judgment normal. Assessment/Plan Elisabet was seen today for light headedness. Diagnoses and all orders for this visit: Episodic lightheadedness - Comprehensive metabolic panel; Future Irregular bleeding - Thyroid profile includes TSH FT4; Future - CBC auto differential; Future Lightheadedness could be multifactorial Discussed hydration status, her irregular bleeding could be problematic and cbc will be checked today, there is possibly a metabolic component and her cmp and thyroid are checked She has had steady and impressive weight loss over the past 8 months (50 lbs) so this may have affected nutritional status, again hydration Discussed appropriate water, protein intake Await labs for review ANDREA Scott 10/20/23 [id number] documented in this encounter [facility] 10-01-2023 Miscellaneous Notes Care Coordination Outreach performed to coordinate overdue appointments, testing, and/or follow-up care: Yes Audit/Outreach Date: October 01, 2023 Reason: Well Person Method: Telephone and MyChart Outreach Attempt: First Outcome: Left Message and letter sent Next PCP Appointment: N/A Tests/Referrals Pended: N/A Resources/Education Provided: Additional Comments: Unable to reach patient by telephone to schedule appointment. Letter sent. documented in this encounter [facility] 10-01-2023 Telephone encounter Note Care Coordination Outreach performed to coordinate overdue appointments, testing, and/or follow-up care: Yes Audit/Outreach Date: October 01, 2023 Reason: Well Person Method: Telephone and MyChart Outreach Attempt: First Outcome: Left Message and letter sent Next PCP Appointment: N/A Tests/Referrals Pended: N/A Resources/Education Provided: Additional Comments: Unable to reach patient by telephone to schedule appointment. Letter sent. [facility] 06-11-2023 Miscellaneous Notes Return the office [place] 4-6 weeks documented in this encounter [facility] 06-11-2023 Telephone encounter Note Return the office [place] 4-6 weeks [facility] 05-30-2023 Instructions Miriam Cool RN - 05/30/2023 2:15 PM EST Preoperative Education Checklist- General Surgery date: 06/11/23 Surgery time: 915a Arrival time: 715a 1. Bring a photo ID and your insurance card with you the day of surgery. You will check in at the main lobby of the [facility]- registration desk is straight ahead as soon as you walk in. Tell them you are here for surgery. 2. If you have a Living Will/Durable Power of Tool Worker for Health Care that is not on [...] after you have bathed. 5. NO nail citizen of [place]/acrylic on at least one finger. If you are having a hand, wrist or foot surgery then all nail citizen of [place] and artificial/acrylic nails must be removed from [...] please call the Preadmission Testing office at [phone], Mon.-Fri. 7 a.m.-3 p.m. Leave a voicemail if needed. Pre-Surgery Instructions: Medication Instructions acetaminophen (TYLENOL) 500 mg tablet Stop taking 0 days prior to procedure documented in this encounter [facility] Evaluation note Diagnosis Well woman exam with routine gynecological exam Routine gynecological examination Irregular menstrual cycle General counseling and advice on contraceptive management Other general counseling and advice for contraceptive management Cervicitis and endocervicitis [facility] Diagnosis Irregular menstrual cycle General counseling and advice on contraceptive management Other general counseling and advice for contraceptive management [facility] Diagnosis Episodic lightheadedness- Primary Irregular bleeding Irregular menstrual cycle documented in this encounter [facility] filedocumented in this encounter [facility]ructions[facility] on filedocumented in this encounter [facility] on filedocumented [facility] filed[facility] Summary Purpose Family History No Family [...] section and content) DATE CREATED AUTHOR 05/14/2019 [facility] DATE CREATED AUTHOR AUTHOR'S ORGANIZ ATION 09/19/2021 [facility] DATE CREATED AUTHOR AUTHOR'S ORGANIZ ATION 01/19/2022 [facility] DATE CREATED AUTHOR AUTHOR'S ORGANIZ ATION 04/15/2022 [facility] DATE CREATED AUTHOR AUTHOR'S ORGANIZ ATION 06/15/2023 [facility] DATE CREATED AUTHOR AUTHOR'S ORGANIZ ATION 10/22/2023 [facility] DATE CREATED AUTHOR AUTHOR'S ORGANIZ ATION 10/22/2023 [facility] DATE CREATED AUTHOR AUTHOR'S ORGANIZ ATION 05/13/2024 [facility] Care Teams (unrecognized sec tion and content) Early Childhood Lead Teacher Relationship Specialty Start Date End Date Mook Wang MD [address] [place] [address] PCP - General Family Medicine 10/28/22 Early Childhood Lead Teacher Relationship Specialty Start Date End Date Mook Wang MD [address], [place] [address] PCP - General Family Medicine 10/28/22 Early Childhood Lead Teacher Relationship Specialty Start Date End Date Mook Wang MD [address] [place] [address] PCP - General Family Medicine 10/28/22 Early Childhood Lead Teacher Relationship Specialty Start Date End Date Mook Wang MD [address] [place] [address] PCP - General Family Medicine 10/28/22 Early Childhood Lead Teacher Relationship Specialty Start Date End Date Mook Wang DO [address] [place] [address] PCP - General Family Medicine 04/17/21 Early Childhood Lead Teacher Relationship Specialty Start Date End Date Mook Wang DO [address] [place] [address] PCP - General Family Medicine 04/17/21 Early Childhood Lead Teacher Relationship Specialty Start Date End Date Mook Wang DO [address] [place] [address] PCP - General Family Medicine 04/17/21 Early Childhood Lead Teacher Relationship Specialty Start Date End Date Mook Wang DO [address] [place] [address] PCP - General Family Medicine 04/17/21 Reason for Visit (unrecogniz ed section and content) Reason Comments Well Women Visit Reason Comments Contraception Reason Onset Date Comments Appointment Due 10/01/2023 Reason Comments light headedness Reason Onset Date Comments Appointment 03/03/2025 FOR RECORDS PERTAINING TO PATIENTS WHO ARE [...] BE BASED ON THE PRIMARY CLINICAL RECORDS. [facility] [employer] [facility]. provides no warranty or guarantee of the accuracy or completeness of information in this document.
--- OUTSIDE RECORDS SUMMARY | 2025-03-13 14:00 | XMS_ITS | Patient Health Record ---
Author Organization [employer] [facility] Address [address] [place] [address] Care Team Providers Care Rehabilitation Liaison Name Role Phone Maria Isabel Kilgore Primary Care Provider Ellen Parker Unavailable [phone] Rk Matthews Unavailable Liliana Molina Unavailable [phone] Magy Sun Unavailable [phone] Zee Lemus Unavailable [phone] Martha Gillette Unavailable [phone] Allergies No Known Allergies Reason For Referral No Information Medications Medication SIG (Take, Route, Fr equency, Duration) Notes Start Date End Date Status lamoTRIgine 150 mg TAKE 1 TABLET orally daily Active Lurasidone HCl 40 MG 1 tablet in the moreno naomy with food Orally Once a day 06/10/2024 Active traZODone HCl 50 MG 1 tablet at bedtime as needed Orally Once a day 12/26/2023 Active Social History Tobacco Use: Social History Observation Description Date Details (start date - stop date) Never Smoker NA - NA DAST-10 (2020 Edition) Question Answer Notes 1. Have you used drugs other than those required for medical reasons? No 2. Do you abuse more than one drug at a time? No 3. Are you always able to stop using drugs when you want to? No 4. Have you had blackouts or flashbacks as a result of drug use? No 5. Do you ever feel bad or guilty about your perico g use? No 6. Does your spouse (or pare nts) ever complain about your involvement with drugs? No 7. Have you neglected your family because of you r use of drugs? No 8. Have you engaged in illegal activities in ord er to obtain drugs? No 9. Have you ever experienced withdrawal symptoms (felt sick) when you stopped taking drugs? No 10. Have you had medical pro blems as a result of your drug use (e.g., memory loss, hepatitis, convulsions, bleeding etc.)? No Results: 1 Interpretation of Score: Low level AUDIT-C (Standard) Question Answer Notes Did you have a drink contain ing alcohol in the past year? Yes How often did you have six o r more drinks on one occasion in the past year? Less than monthly (1 point) How many drinks did you have on a typical day when you were drinking in the past year? 1 or 2 drinks (0 point) How often did you have a dri nk containing alcohol in the past year? Monthly or less (1 point) Points 2 Interpretation Negative Tobacco Control (Standard) Question Answer Notes Tobacco use: Nonsmoker Additional Findings: Tobacco user e-cigarette Problems Problem Type SNOMED Code ICD Code Onset Dates Problem Status W/U Status Risk Notes Problem Posttraumatic stress disorder (91462454) PTSD (post-traumat ic stress disorder) (F43.10) Active confirmed Problem Mixed bipolar affective disorder, moderate (862159979) Bipolar mixed affective disorder, moderate (F31.62) Active confirmed Vital Signs Heart Rate 82 /min 05/12/2024 Blood pressure diastolic 80 mm Hg 05/12/2024 Oximetry 98 % 05/12/2024 Height 5'8'' in 05/12/2024 Blood pressure systolic 126 mm Hg 05/12/2024 Weight 242.0 lbs 05/12/2024 BMI 36.79 kg/m2 05/12/2024 Encounters Encounter Location Date Provider Diagnosis [facility] [address] [place] [address] 05/18/2024 Rk Matthews [facility] [address] [place] [address] 06/10/2024 Magy Sun [facility] [address] [place] [address] 07/06/2024 Ellen Parker Bipolar mixed affective disorder, moderate F31.62 [facility] [address] [place] [address] 08/09/2024 Martha Leta [facility] [address] [place] [address] 09/23/2024 Maria Isabel Kilgore [facility] [address] [place] [address] 03/22/2024 Rk Matthews Bipolar mixed affective disorder, moderate F31.62 [facility] [address] [place] [address] 04/19/2024 Rk Cassie Bipolar mixed affective disorder, moderate F31.62 [facility] [address] [place] [address] 06/07/2024 Martha Gillette Bipolar mixed affective disorder, moderate F31.62 [facility] [address] [place] [address] 07/19/2024 Martha Leta PTSD (post-traumatic stress disorder) F43.10 and Bipolar mixed affective disorder, moderate F31.62 [facility] [address] [place] [address] 03/22/2024 Zee Saric Dental caries on pit and fissure surface penetrating into dentin K02.52 [facility] [address] [place] [address] 08/16/2024 Zee Saric Dental caries on pit and fissure surface penetrating into dentin K02.52 [facility] [address] [place] [address] 05/12/2024 Ellen Parker Bipolar mixed affective disorder, moderate F31.62 and PTSD (post-traumatic stress disorder) F43.10 [facility] [address] [place] [address] 06/10/2024 Ellen Parker Bipolar mixed affective disorder, moderate F31.62 [facility] [address] [place] [address] 07/12/2024 Ellen Parker Bipolar mixed affective disorder, moderate F31.62 and PTSD (post-traumatic stress disorder) F43.10 [facility] [address] [place] [address] 04/13/2024 Ellen Parker Bipolar mixed affective disorder, moderate F31.62 Assessments Encounter Date Diagnosis (ICD Code) Assessment Notes Treatment Notes Treatment Clinical Notes Section Notes 04/13/2024 Bipolar mixed affective disorder, moderate (ICD-10 - F31.62) Recommended treatment for Bipolar disorder includes FDA approved and OFF label medications: second generation antipsychotics and mood stabilizers. Discussed life threatening side effect of Lamotrigine. Pt is to monitor for new skin rashes or sensation of a sunburn or itchiness or redness, mouth sores or sores in mucus membranes, and call provider immediately and or go to ER, and stop the medication. Second generation antipsychotic medications can cause headache, drowsiness, agitation, dizziness, nausea, or extrapyramidal symptoms such as tremors, muscle spasms, slowness of movement or jerking of muscles. The patient verbalizes understanding with all questions answered thoroughly and is in agreement with treatment plan. Continue current treatment. Patient encouraged to take medication as ordered. . Call for problems . GOALS: . Maintain medication regimen _Improve mood stability _Improve anxiety control _Improve social and interpersonal functioning Patient/Guardian will call sooner if symptoms worsen. Patient understands to go to ER if needed if symptoms become severe. Crisis Intervention plan was discussed and agreed upon. Patient/Guardian will call 911 in case of emergency. Emergency contact information was provided to the patient/guardian. follow up 1 month. Pharmacological management: . Alternative medication plans were discussed with the patient/guardian. All relevant side effects and potential adverse effects were discussed with the patient/guardian. Standard cautions and potential benefits were discussed. Patient/Guardian consented to the start/continuation of the treatment. 05/12/2024 Bipolar mixed affective disorder, moderate (ICD-10 - F31.62) Recommended treatment for Bipolar disorder includes FDA approved and OFF label medications: second generation antipsychotics and mood stabilizers. Discussed life threatening side effect of Lamotrigine. Pt is to monitor for new skin rashes or sensation of a sunburn or itchiness or redness, mouth sores or sores in mucus membranes, and call provider immediately and or go to ER, and stop the medication. Second generation antipsychotic medications can cause headache, drowsiness, agitation, dizziness, nausea, or extrapyramidal symptoms such as tremors, muscle spasms, slowness of movement or jerking of muscles. The patient verbalizes understanding with all questions answered thoroughly and is in agreement with treatment plan. Continue current treatment. Call for problems . GOALS: . Maintain medication regimen _Improve mood stability _Improve anxiety control _Improve social and interpersonal functioning Patient/Guardian will call sooner if symptoms worsen. Patient understands to go to ER if needed if symptoms become severe. Crisis Intervention plan was discussed and agreed upon. Patient/Guardian will call 911 in case of emergency. Emergency contact information was provided to the patient/guardian. follow up 3 months Pharmacological management: . Alternative medication plans were discussed with the patient/guardian. All relevant side effects and potential adverse effects were discussed with the patient/guardian. Standard cautions and potential benefits were discussed. Patient/Guardian consented to the start/continuation of the treatment. 07/12/2024 Bipolar mixed affective disorder, moderate (ICD-10 - F31.62) Recommended treatment for Bipolar disorder includes FDA approved and OFF label medications: second generation antipsychotics and mood stabilizers. Discussed life threatening side effect of Lamotrigine. Pt is to monitor for new skin rashes or sensation of a sunburn or itchiness or redness, mouth sores or sores in mucus membranes, and call provider immediately and or go to ER, and stop the medication. Second generation antipsychotic medications can cause headache, drowsiness, agitation, dizziness, nausea, or extrapyramidal symptoms such as tremors, muscle spasms, slowness of movement or jerking of muscles. The patient verbalizes understanding with all questions answered thoroughly and is in agreement with treatment plan. Continue current treatment. . Call for problems . GOALS: . Maintain medication regimen _Improve mood stability _Improve anxiety control _Improve social and interpersonal functioning Patient/Guardian will call sooner if symptoms worsen. Patient understands to go to ER if needed if symptoms become severe. Crisis Intervention plan was discussed and agreed upon. Patient/Guardian will call 911 in case of emergency. Emergency contact information was provided to the patient/guardian. follow up 2 months Pharmacological management: . Alternative medication plans were discussed with the patient/guardian. All relevant side effects and potential adverse effects were discussed with the patient/guardian. Standard cautions and potential benefits were discussed. Patient/Guardian consented to the start/continuation of the treatment. 06/10/2024 Bipolar mixed affective disorder, moderate (ICD-10 - F31.62) Recommended treatment for Bipolar disorder includes FDA approved and OFF label medications: second generation antipsychotics and mood stabilizers. Discussed life threatening side effect of Lamotrigine. Pt is to monitor for new skin rashes or sensation of a sunburn or itchiness or redness, mouth sores or sores in mucus membranes, and call provider immediately and or go to ER, and stop the medication. Second generation antipsychotic medications can cause headache, drowsiness, agitation, dizziness, nausea, or extrapyramidal symptoms such as tremors, muscle spasms, slowness of movement or jerking of muscles. The patient verbalizes understanding with all questions answered thoroughly and is in agreement with treatment plan. Continue current treatment. Call for problems . GOALS: . Maintain medication regimen _Improve mood stability _Improve anxiety control _Improve social and interpersonal functioning Patient/Guardian will call sooner if symptoms worsen. Patient understands to go to ER if needed if symptoms become severe. Crisis Intervention plan was discussed and agreed upon. Patient/Guardian will call 911 in case of emergency. Emergency contact information was provided to the patient/guardian. follow up 1 month Pharmacological management: . Alternative medication plans were discussed with the patient/guardian. All relevant side effects and potential adverse effects were discussed with the patient/guardian. Standard cautions and potential benefits were discussed. Patient/Guardian consented to the start/continuation of the treatment. 07/12/2024 PTSD (post-traumatic stress disorder) (ICD-10 - F43.10) 05/12/2024 PTSD (post-traumatic stress disorder) (ICD-10 - F43.10) 03/22/2024 Bipolar mixed affective disorder, moderate (ICD-10 - F31.62) 03/22/2024 Dental caries on pit and fissure surface penetrating into dentin (ICD-10 - K02.52) 08/16/2024 Dental caries on pit and fissure surface penetrating into dentin (ICD-10 - K02.52) 04/19/2024 Bipolar mixed affective disorder, moderate (ICD-10 - F31.62) 06/07/2024 Bipolar mixed affective disorder, moderate (ICD-10 - F31.62) 07/06/2024 Bipolar mixed affective disorder, moderate (ICD-10 - F31.62) 07/19/2024 PTSD (post-traumatic stress disorder) (ICD-10 - F43.10) 07/19/2024 Bipolar mixed affective disorder, moderate (ICD-10 - F31.62) Plan Of Treatment No Information Insurance Providers Payer Name Payer Address Payer Phone Subscriber Number Group Number Insured Name Patient Relationship to Insured Coverage Start Date Coverage End Date [employer] [place] [employer] [address] [place] [address] [id number] ELISABET TORRES Self - patient is the insured 2 [employer] [facility] [address] [place] [address] [phone] [id number] ELISABET TORRES Self - patient is the insured 2 [employer] [address] [address] [place] [address] [id number] ELISABET TORRES Self - patient is the insured 3 [employer] [facility] [address] [place] [address] [id number] ELISABET TORRES Self - patient is the insured 3 Medical (General) History Medical History History ICD Code Anxiety disorder chronic depression panic disorder PTSD Bipolar 1 Disorder Surgical History Surgery Date(Month/Year) 07/2020 tonsillectomy and adenoidectomy 2002 08/2021 Hospitalization History Reason Date(Month/Year) childbirth 07/2020 childbirth 07/2021
[2025-03-13 14:05] LABS: SARS-CoV-2 Ag NEGATIVE (NEGATIVE)
--- NOTE | 2025-03-13 14:41 | ED_ITS ---
HPI - URI/Sore Throat General Chief Complaint: Upper Respiratory Infection Stated Complaint: SORE THROAT, COUGH Time Seen by Provider: 03/13/25 14:05 Source: patient Limitations: no limitations History of Present Illness HPI Narrative: Patient presented to hospital 4 days with her daughter presenting with similar symptoms she is coming to us with sore throat as well as change in her voice and she also have right ear pain, the patient denies any difficulty breathing or other concerns she does have a history of smoking cigarettes but she quit few months ago Related Data Previous Rx's ?Medication ?Instructions ?Recorded ketorolac 10 mg tablet 10 mg PO TID PRN pain #10 ta bs 01/30/23 levofloxacin 750 mg tablet 750 mg PO DAILY 5 days #5 t abs 01/30/23 ondansetron 4 mg disintegrating 4 mg PO Q6H PRN nausea and 01/30/23 tablet vomiting #12 tabs phenazopyridine 200 mg tablet 200 mg PO Q8H 6 doses #6 tabs 01/30/23 (Pyridium) cephalexin 500 mg capsule 500 mg PO BID 5 days #10 cap s 03/19/24 ondansetron 4 mg disintegrating 4 mg PO Q6H PRN nausea and 04/21/24 tablet vomiting #12 tabs phenazopyridine 200 mg tablet 200 mg PO Q8H 2 days #6 tabs 04/21/24 (Pyridium) sulfamethoxazole 800 1 tab PO BID 7 days #14 tabs 04/21/24 mg-trimethoprim 160 mg tablet (Bactrim DS) amoxicillin 500 mg capsule 500 mg PO Q8H 5 days #15 ca ps 03/13/25 prednisone 20 mg tablet 40 mg (2 x 20 mg) PO DAILY 3 days 03/13/25 #6 tabs Allergies Allergy/AdvReac Type Severity Reaction Status Date / Time No Known Drug Allergies Allergy Verified 03/13/25 13:29 Review of Systems ROS Status of ROS 10 or more systems reviewed and unremark able except as noted in history and below [facility] Social History Smoking status: Current every day smoker Little interest or pleasure in doing things: not at all Feeling down, depressed, or hopeless: not at all Exam Narrative Exam Narrative: Nurses notes and vital signs reviewed and patient is not hypoxic. General: Well-appearing and in no apparent distress. Skin: Warm, dry, no pallor noted. No rash. Head: Normocephalic, atraumatic. Neck: Supple, non-tender. Eye: Pupils are equal, round and EOMI. No scleral icterus. Ears, Nose, Mouth, and Throat: Congestion of the right tympanic membrane as well as erythema behind i, oral mucosa is moist, no enlargement of the tonsils no erythema .uvula is mid-line Cardiovascular: Regular Rate and Rhythm without murmur, gallop or rub. Respiratory: No accessory muscle use or respiratory distress. Lungs are clear to auscultation, no wheezing, rales or rhonchi Chest Wall: no tenderness Back: No midline thoracic or lumbar vertebral tenderness. No CVA tenderness Musculoskeletal: normal ROM, no calf or popliteal tenderness, no lower extremity edema/swelling GI: Abdomen is soft, non-distended. Normal bowel sounds. No masses appreciated. No tenderness to palpation. No rebound, guarding, or rigidity noted. Neurological: A&O x4. No cranial nerve dysfunction observed. No truncal ataxia. Moves all extremities. Sensation intact. Psychiatric: Cooperative and interactive. Normal mood and affect. Constitutional Vital Signs, click to edit/add: Last Vital Signs Temp 98.7 F 03/13/25 13:29 Pulse 71 03/13/25 13:29 Resp 16 03/13/25 13:29 BP 110/60 03/13/25 13:29 Pulse Ox 98 03/13/25 13:29 O2 Del Method Room Air 03/13/25 13:29 Course Vital Signs Vital signs: Vital Signs Temperature 98.7 F 03/13/25 13:29 Pulse Rate 71 03/13/25 13:29 Respiratory Rate 16 03/13/25 13:29 Blood Pressure 110/60 03/13/25 13:29 Pulse Oximetry 98 03/13/25 13:29 Oxygen Delivery Method Room Air 03/13/25 13:29 Temperature 98.7 F 03/13/25 13:29 Pulse Rate 71 03/13/25 13:29 Respiratory Rate 16 03/13/25 13:29 Blood Pressure 110/60 03/13/25 13:29 Pulse Oximetry 98 03/13/25 13:29 Oxygen Delivery Method Room Air 03/13/25 13:29 MDM - URI/Sore Throat MDM Narrative Medical decision making narrative: The patient presents to us with picture of otitis media on the right ear that will be treated with amoxicillin In addition to laryngitis with change in her voice with no difficulty swallowing or any significant enlargement of the tonsils Patient will discharge home to continue supportive care The patient is to follow up with primary care physician in next 2-3 days or to return to the emergency department should any of the signs or symptoms worsen or new symptoms develop. The patient agrees with the following Diagnosis and Treatment plan and the patient will be discharged home. Lab Data Labs: Lab Results 03/13/25 Range/Units 13:38 SARS-CoV-2 Ag (CV2AG) Negative (NEGATIVE) Streptococcus Screen Negative Discharge Plan Discharge Chief Complaint: Upper Respiratory Infection Clinical Impression: Otitis media, Laryngitis Patient Disposition: Home, Self-Care Time of Disposition Decision: 14:42 Condition: Good Prescriptions / Home Meds: New amoxicillin 500 mg capsule 500 mg PO Q8H 5 Days Qty: 15 0RF prednisone 20 mg tablet 40 mg PO DAILY 3 Days Qty: 6 0RF No Action ketorolac 10 mg tablet 10 mg PO TID PRN (Reason: pain) Qty: 10 0RF levofloxacin 750 mg tablet 750 mg PO DAILY 5 Days Qty: 5 0RF ondansetron 4 mg tablet,disintegrating 4 mg PO Q6H PRN (Reason: nausea and vomiting) Qty: 12 0RF phenazopyridine [Pyridium] 200 mg tablet 200 mg PO Q8H Qty: 6 0RF cephalexin 500 mg capsule 500 mg PO BID 5 Days Qty: 10 0RF phenazopyridine [Pyridium] 200 mg tablet 200 mg PO Q8H 2 Days Qty: 6 0RF sulfamethoxazole-trimethoprim [Bactrim DS] 800-160 mg tablet 1 tab PO BID 7 Days Qty: 14 0RF ondansetron 4 mg tablet,disintegrating 4 mg PO Q6H PRN (Reason: nausea and vomiting) Qty: 12 0RF Print Language: Estonian Instructions: Laryngitis (ED), Ear Infection (ED) Referrals: LAMBERT RAMEY [Primary Care Provider, Family Practice] - 1 week Discharge Date/Time: 03/13/25 15:21
[2025-03-13] MEDS: PREDNISONE 20 MG TABLET 40 MG PO (15:14)
== END 2025-03-13 15:21 | disposition home or self-care (01) ==
PROVIDERS: Emergency Provider Emergency Medicine; PCP Family Medicine
DX: J04.0 Acute laryngitis (principal); H66.91 Otitis media, unspecified, right ear; Z87.891 Personal history of nicotine dependence
CPT/HCPCS: 87070; 87811; 87880; 99283; J7512

== ENCOUNTER 2025-05-14 15:57 | Emergency (ER) | payer OTHER, SELFPAY ==
--- OUTSIDE RECORDS SUMMARY | 2024-05-24 08:00 | XMS_ITS ---
Author Organization [facility] Address [address] [place] [address] Care Team Providers Care Mechanical Applications Engineer Name Role Phone MS. Maria Isabel Kilgore Primary Care Provider Ellen Parker Unavailable [phone] Zee Lemus Unavailable [phone] REASON FOR VISIT FILLING Encounters Encounter Location Date Provider Diagnosis [facility] [address] [place] [address] 05/24/2024 Zee Lemus Plan Of Treatment No Information Progress Notes * KAILEY TORRESDAINImmanuel LDOB:[birth year] (25 yo F)Acc No.[id number]:05/24/2024 Patient:?KAILEY TORRESDAINImmanuel Nimisha :?Zee LemusDOB:2000???Age:24 Y???Sex: FemaleDate:05/24/2024hone:[phone]:[address], [address] [place] [id number]:MS. Maria Isabel Kilgore Subjective: * Chief Complaints: * F ILLING * Electronic signature of Zee Lemus DMD on 05/14/2025 at 04:37 PM ESTSign off status: Pending * Provider: Denise Lemus Date: 1 07/25/2023 Generated for Printing/Faxing/eTransmitting on:?05/14/2025 04:37 PM EST
--- OUTSIDE RECORDS SUMMARY | 2024-06-21 08:00 | XMS_ITS ---
Author Organization [facility] Address [address] [place] [address] Care Team Providers Care Solutions Operator Name Role Phone MS. Maria Isabel Kilgore Primary Care Provider Ellen Parker Unavailable [phone] Martha Gillette Unavailable [phone] REASON FOR VISIT BH F/U Encounters Encounter Location Date Provider Diagnosis [facility] [address] [place] [address] 06/21/2024 Martha Gillette Plan Of Treatment No Information Progress Notes * KAILEY TORRESDAINImmanuel LDOB:[birth year] (25 yo F)Acc No.[id number]:06/21/2024 BH F/U - Patient Patient: ELISABET OLMEDO :?Martha CorteDOB:2000???Age:24 Y???Sex: FemaleDate:06/21/2024Phone:[phone]:[facility] [address] [place] [id number]:MS. Maria Isabel Kilgore Subjective: * Chief Complaints: * B H F/U Care Plan Details* * Electronic signature of Martha Gillette on 05/14/2025 at 04:37 PM ESTSign off status: Pending * Provider: Manny Baker Date: 0 06/21/2024 Generated for Printing/Faxing/eTransmitting on:?05/14/2025 04:37 PM EST
--- OUTSIDE RECORDS SUMMARY | 2024-08-23 06:00 | XMS_ITS ---
Author Organization [facility] Address [address] [place] [address] Care Team Providers Care Teacher Industrial Arts Name Role Phone MS. Maria Isabel Kilgore Primary Care Provider [phone] Ellen Parker Unavailable [phone] Martha Gillette Unavailable [phone] REASON FOR VISIT BH F/U Encounters Encounter Location Date Provider Diagnosis [facility] [address] [place] [address] 08/23/2024 Martha Gillette Plan Of Treatment No Information Progress Notes * KAILEY TORRESDAINImmanuel LDOB:[birth year] (25 yo F)Acc No.[id number]:08/23/2024 BH F/U - Patient Patient: ELISABET OLMEDO :?Martha CorteDOB:2000???Age:24 Y???Sex: FemaleDate:08/23/2024Phone:[phone]:[facility] [address] [place] [id number]:MS. Maria Isabel Kilgore Subjective: * Chief Complaints: * B H F/U Care Plan Details* * Electronic signature of Martha Gillette on 05/14/2025 at 04:36 PM ESTSign off status: Pending * Provider: Manny Baker Date: 0 08/23/2024 Generated for Printing/Faxing/eTransmitting on:?05/14/2025 04:36 PM EST
--- OUTSIDE RECORDS SUMMARY | 2024-09-20 04:00 | XMS_ITS ---
Author Organization [facility] Address [address] [place] [address] Care Team Providers Care Fish Filleter Name Role Phone MS. Maria Isabel Kilgore Primary Care Provider [phone] Ellen Parker [phone] REASON FOR VISIT transfer from [place]. Encounters Encounter Location Date Provider Diagnosis [facility] [address] [place] [address] 09/20/2024 Maria Isabel Kilgore Plan Of Treatment No Information Progress Notes * ELISABET TORRES LDOB:[birth year] (25 yo F)Acc No.[id number]:09/20/2024 F/U - Patient Patient: ELISABET OLMEDO :?Maria Isabel KilgoreCYNTHIAWDOB:2000???Age:24 Y ???Sex:FemaleDate:09/20/2024Phone:[phone]:[address], [address] [place], [id number] Subjective: * Chief Complaints: * t inder from [place]. Care Plan Details* * Electronic signature of MS. Maria Isabel Kilgore STEPHEN on 05/14/2025 at 04:37 PM EST Sign off status: Pending * Provider: STEPHEN Hood Date: 0 09/20/2024 Generated for Printing/Faxing/eTransmitting on:?05/14/2025 04:37 PM EST
--- OUTSIDE RECORDS SUMMARY | 2025-05-03 11:30 | XMS_ITS | Encounter Summary ---
Author Organization [facility] Address [address] [place] [address] Care Team Providers Care Technology Support Analyst Name Role Phone Mook Wang MD Primary Care Provider + [phone] Reason for Visit * ReasonCommentsGynecologic Exam Encounter Details DateTypeDepartmentCare Team (Latest Contact Info)Umaapqegttw49/25/2025 11:30 AM ESTOffice Visit [facility] [address] [place] [address] Keshawn Nicholson DO [address] [place], [facility] Abnormal uterine bleeding (AUB); Pelvic cramping Social History Tobacco UseTypesPacks/DayYears UsedDateSmoking Tobacco: Never Assessed CommentsNoSex and Gender InformationValueDate RecordedSex Assigned at BirthNot on fileLegal WknFbzczq90/15/2023 7:14 PM EDTGender IdentityNot on fileSexual OrientationNot on filedocumented as of this encounter Last Filed Vital Signs Vital SignReadingTime TakenCommentsBlood Vqggrzrf016/8405/03/2025 11:48 AM EST Pulse--Temperature--Respiratory Rate--Oxygen Saturation--Inhaled Oxygen Concentration--Atjeje528 kg (242 lb)05/03/2025 11:48 AM ESTHeight--Body Mass Index36.808 2:34 PM EDTdocumented in this encounter Progress Notes * Graciela Mcknight LPN - 05/03/2025 11:30 AM EST Reason for Appointment: Patient ID: Cesar Martinez is a 25 y.o. female who presents for Gynecologic Exam Patient presents today for Consult appointment. MEDICATIONS Current Outpatient Medications Medication Instructions amphetamine-dextroamphetamine (Adderall) 5 MG tablet Adderall ARIPiprazole (Abilify) 10 MG tablet etonogestrel-ethinyl estradiol (Nuvaring) 0.12-0.015 MG/24HR vaginal ring Insert vaginally and leave in place for 21 consecutive days (3 weeks), then remove. Wait for 7 days before inserting new ring. lamoTRIgine (LaMICtal) 100 MG tablet traZODone (DESYREL) 50 mg, Nightly PRN ALLERGIES No Known Allergies PROBLEMS Active Ambulatory Problems Diagnosis Date Noted No Active Ambulatory Problems Resolved Ambulatory Problems Diagnosis Date Noted No Resolved Ambulatory Problems No Additional Past Medical History HISTORY PAST MEDICAL HISTORY SOCIAL HISTORY No past medical history on file. Social History Tobacco Use Smoking status: Not [...] Respiratory: Negative. Cardiovascular: Negative. Gastrointestinal: Negative. Genitourinary: Positive for menstrual problem and pelvic pain. Musculoskeletal: Negative. Skin: Negative. Neurological: Negative. All other systems reviewed and are negative. Hematological: Negative. Endocrine: Negative. Allergic/Immunologic: Negative. OBJECTIVE Objective: Physical Exam Constitutional: Appearance: Normal appearance. She is well-developed. Genitourinary: Vulva normal. Cardiovascular: Rate and Rhythm: Normal rate [...] nursing note reviewed. Exam conducted with a senior ssis developer present. Vitals: Estimated body mass index is 36.8 kg/m?? as calculated from the following: Height as of 01/26/24: 5' 8 . Weight as of this encounter: 242 lb. BP: 128/84 No LMP recorded. Patient has had an implant. Assessment/Plan ICD-10-CM 1. Abnormal uterine bleeding (AUB) N93.9 Assessment/Plan Pt presents with hard lumps on cervix noticed when removing control. Pt has complaints of AUBand continuous cramping and pain. Pelvic exam performed small tiny nabothian cyst noted. Pt has cramping really bad one week prior to period and during period. Discussed ultrasound or dx lap with juanita box. Pt to return for preop exam/ annual. Documented by Graciela Mcknight LPN on behalf of: Keshawn Nicholson DO documented in this encounter Plan of Treatment DateTypeDepartmentCare Team (Latest Contact Info)Rngzxpfeyfr55/16/2025 11:00 AM ESTOffice Visit [facility] [address] [place] [phone] Keshawn Nicholson DO [address] [place] [address] 06/13/2025 10:00 AM ESTAncillary Procedure [facility] [address] [place] [address] [place] [phone] 06/13/2025 11:10 AM ESTConsult [facility] [address] [place] [phone] Keshawn Nicholson DO [address] [place] [address] NameTypePriorityAssociated DiagnosesOrder ScheduleUS Pelvis w/ TVImagingRoutine Abnormal uterine bleeding (AUB) Pelvic cramping Expected: 05/03/2025, Expires: 10/31/2025documented as of this encounter Visit Diagnoses Diagnosis Abnormal uterine bleeding (AUB) Pelvic cramping documented in this encounter Care Teams Team MemberRelationshipSpecialtyStart DateEnd Date Mook Wang MD [address] [facility], [place] [address] PCP - GeneralFamily Medicine10/28/22documented as of this encounter
--- OUTSIDE RECORDS SUMMARY | 2025-05-09 14:15 | XMS_ITS | Encounter Summary ---
Author Organization [facility] Address [id number] [address] [place] [address] Care Team Providers Care Archives Director Name Role Phone Mook Wang DO Primary Care Provider [phone] Reason for Referral * Medication Prior Authorization - ClosedSpecialtyDiagnoses / ProceduresReferred By ContactReferred To Contact Diagnoses Class 2 severe obesity due to excess calories with serious comorbidity and body mass index (BMI) of38.0 to 38.9 in adult Mook Wang DO [address], [facility] [address] Phone: tel: fax: Referral IDStatusReasonStart DateExpiration DateVisits RequestedVisits [id number] Reason for Visit * ReasonCommentsweight loss Encounter Details DateTypeDepartmentCare Team (Latest Contact Info)Dsqibxpljid67/01/2025 2:15 PM ESTOffice Visit [facility] [address] [place] [phone] Mook Wang DO [address], [facility] [place] [address] Class 2 severe obesity due to excess calories with serious comorbidity and body mass index (BMI) of38.0 to 38.9 in adult Social History Tobacco UseTypesPacks/DayYears UsedDateSmoking Tobacco: FormerSmokeless Tobacco: NeverAlcohol UseStandard Drinks/WeekCommentsNo0 (1 standard drink = 0.6 oz pure alcohol)Social Connection and Isolation PanelAnswerDate RecordedIn a typical week, how many times do you talk on the phone with family, friends, or neighbors?More than three times a week03/17/2023How often do you get together with friends or relatives?More than three times a week03/17/2023How often do you attend hinduism or episcopal services?Never03/17/2023o you belong to any clubs or organizations such as hinduism groups, unions, fraternal or athletic groups, or school groups?No03/17/2023How often do you attend meetings of the clubs or organizations you belong to?Never03/17/2023re you , , , , never , or living with a partner?Never yvukohn8103/17/2023HQ-2 AnswerDate RecordedTotal Erpji71106/11/2024[facility] [place] of Occupational Health - Occupational Stress QuestionnaireAnswerDate RecordedDo you feel stress - tense, restless, nervous, or anxious, or unable to sleep at night because your mind is troubled all the time - these days?To some lwfelv5803/17/2023UDIT-CAnswer Date RecordedQ1: How often do you have a drink containing alcohol?Monthly or less05/09/2025Q2: How many drinks containing alcohol do you have on a typical day when you are drinking?3 or Q3: How often do you have six or more drinks on one occasion?Never05/09/2025Overall Financial Resource Strain (CARDIA) AnswerDate RecordedHow hard is it for you to pay for the very basics like food, housing, medical care, and heating?Hard04/11/2025Exercise Vital SignAnswerDate RecordedOn average, how many days per week do you engage in moderate to strenuous exercise (like a brisk walk)?5 days05/09/2025On average, how many minutes do you engage in exercise at this level?20 min05/09/2025PRAPARE - TransportationAnswerDate RecordedIn the past 12 months, has lack of transportation kept you from medical appointments or from getting medications?No 04/11/2025In the past 12 months, has lack of transportation kept you from meetings, work, or from getting things needed for daily living?No04/11/2025HC UtilitiesAnswerDate RecordedIn the past 12 months has the electric, gas, oil, or water company threatened to shut off services in your home?No05/09/2025Housing InstabilityAnswerDate RecordedAre you worried or concerned that in the next two months you may not have stable housing that you own, rent or stay in as a part of a household?No04/11/2025hildcareAnswerDate RecordedDo problems getting child support specialist make it difficult for you to work or study?Yes03/17/2023EmploymentAnswer Date RecordedDo you need help finding a local career center and/or a training program?No03/17/2023Hunger ScreeningAnswerDate RecordedWithin the past 12 months we worried whether our food would run out before we got money to buy more.Never True04/11/2025Within the past 12 months the food we bought just didn't last and we didn't have money to get more.Never True04/11/2025Purpose - LifeAnswerDate RecordedI have a purpose and direction in my life.Strongly Agree03/17/2023 CommentsNoSex and Gender InformationValueDate RecordedSex Assigned at HclqvUeccko70/19/2021 2:12 AM ESTLegal JlaQifikm58/04/2015 12:01 PM EDTGender ThgdfkkuNfhaqf54/19/2021 2:12 AM ESTSexual EqfiytjmubqIkykbiwg64/19/2021 2:12 AM ESTdocumented as of this encounter Last Filed Vital Signs Vital SignReadingTime TakenCommentsBlood Mnsihleq087/6805/09/2025 2:11 PM EST Jqmjf06928/01/2025 2:11 PM STJSjtijexvjhi37.3 ??C (99.1 ??F)05/09/2025 2:11 PM ESTRespiratory Jbju930707/10/2024 2:11 PM ESTOxygen Lyygflgext55%05/09/2025 2:11 PM ESTInhaled Oxygen Concentration--Nqqxmk697.1 kg (240 lb 9.6 oz)05/09/2025 2:11 PM WHPCykzds077.2 cm (5' 7.01 )05/09/2025 2:11 PM ESTBody Mass Index37.67 05/09/2025 2:11 PM ESTdocumented in this encounter Functional Status * AUDIT-C ScoreAnswerDate of LogellrtbzVhkcja240/01/2025 2:29 PM Mook Padilla DO * QuestionAnswerDate of AssessmentAuthorQ1: How often do you have a drink containing alcohol?Monthly or less05/09/2025 2:29 PM Mook Padilla DO Q2: How many drinks containing alcohol do you have on a typical day when you are drinking?3 or 2:29 PM Mook Padilla DOQ3: How often do you have six or more drinks on one occasion?Never05/09/2025 2:29 PM EST Mook Wang DO documented as of this encounter Progress Notes * Mook Wang DO - 05/09/2025 2:15 PM EST Subjective Patient ID: Cesar Martinez is a 25 y.o. female. Cesar presents today for a weight recheck. She is taking the medication. She does not have any side effects. No palpitations or chest pain. She is exercising more. She does aerobic exercise 5 days aweek for 15-20 minutes. She is trying to get her children to exercise with her. It is helping to curb her appetite. The following portions of the patient's history were reviewed and updated as appropriate: allergies, current medications, past family history, past medical history, past social history, past surgicalhistory, problem list, and medication reconciliation was completed including current medication andpost discharge medication. Review of Systems Constitutional: Positive for activity change and appetite change. Respiratory: Negative. Cardiovascular: Negative. Psychiatric/Behavioral: Negative. Objective Physical Exam Vitals reviewed. Constitutional: General: She is not in acute distress. Appearance: She is obese. She is not ill-appearing. Cardiovascular: Rate and Rhythm: Normal rate and regular rhythm. Heart sounds: Normal heart sounds. No murmur heard. Pulmonary: Effort: Pulmonary effort is normal. No respiratory distress. Breath sounds: Normal breath sounds. No wheezing, rhonchi or rales. Neurological: General: No focal deficit present. Mental Status: She is alert and oriented to person, place, and time. Psychiatric: Attention and Perception: Attention normal. Mood and Affect: Mood and affect normal. Behavior: Behavior normal. Behavior is cooperative. Thought Content: Thought content normal. Judgment: Judgment normal. Assessment/Plan Cesar was seen today for weight loss. Diagnoses and all orders for this visit: Class 2 severe obesity due to excess calories with serious comorbidity and body mass index (BMI) of38.0 to 38.9 in adult - phentermine 15 MG capsule; Take 1 capsule (15 mg total) by mouth every morning. Cesar is using high risk medication with benefit. It is low-dose phentermine. She is losing weightwith it. She had a good start to her 1st 3 month regimen. We will continue it for another month stan. The OARRS/MAPPS database was reviewed today and found to be appropriate. No indication of medication diversion, or non compliance. documented in this encounter Plan of Treatment DateTypeDepartmentCare Team (Latest Contact Info)Lehfghrtjln28/05/2026 11:30 AM ESTOffice Visit [facility] [address] [place] [address] Mook Wang DO [address], [facility] [place] [address] documented as of this encounter Visit Diagnoses Diagnosis Class 2 severe obesity due to excess calories with serious comorbidity and body mass index (BMI) of38.0 to 38.9 in adult documented in this encounter Additional Health Concerns AssessmentNoted TimePHQ-9 Depression Total Score: 7106/11/2024 11:15 AM EST documented as of this encounter Care Teams Team MemberRelationshipSpecialtyStart DateEnd Date Mook Wang DO [address] [place] [address] PCP - GeneralFamily Fxyopfmm15/9/21documented as of this encounter
[2025-05-14 16:03] VITALS: BP 99/68; PULSE 92; TEMP 36.3; O2SAT 98; BMI 36.5
[2025-05-14 16:15] LABS: Glucose Urine UA NEGATIVE (NEGATIVE)
--- NOTE | 2025-05-14 16:15 | ED.FEMALEGU1 ---
HPI - Female Genitourinary General Chief complaint: Urogenital-Female Stated complaint: UTI Time Seen by Provider: 05/14/25 15:58 Source: patient Mode of arrival: walk-in Limitations: no limitations History of Present Illness HPI Narrative: Patient is a 25-year-old female presents to the ER with concerns of UTI symptoms for the past 4 days she has been trying to take Cystex for symptoms without relief. She reports some mild low back pain but no obvious fever she denies any nausea or vomiting. She reports a history of chronic UTIs and has seen urology her last UTI was approximately 2 months ago. She denies any abnormal vaginal discharge or pelvic pain she has 2 small children with her that she has occupying at the bedside. Patient appears in no distress. States she still been able to eat and drink. Patient cannot recall the last antibiotic she was treated with but prior urine cultures here at our facility have demonstrated E. coli with laguerre sensitivity. Patient appears nontoxic. + sexual activity with possibility of . MD elicited complaint: Reports UTI Pertinent past history: Reports recurrent UTIs; Denies pyelonephritis Severity: mild Consistency: Reports constant Exacerbating factors: Reports none Relieving factors: Reports none Associated symptoms: Reports denies other symptoms Treatment prior to arrival: Reports other (OTC meds. denies Vaginal discharge. ) Sexual activity: Reports Yes Possible : Reports unsure if Related Data Previous Rx's ?Medication ?Instructions ?Recorded ketorolac 10 mg tablet 10 mg PO TID PRN pain #10 tabs 01/30/23 levofloxacin 750 mg tablet 750 mg PO DAILY 5 days #5 tabs 01/30/23 ondansetron 4 mg disintegrating 4 mg PO Q6H PRN nausea and 01/30/23 tablet vomiting #12 tabs phenazopyridine 200 mg tablet 200 mg PO Q8H 6 doses #6 tabs 01/30/23 (Pyridium) cephalexin 500 mg capsule 500 mg PO BID 5 days #10 caps 03/19/24 ondansetron 4 mg disintegrating 4 mg PO Q6H PRN nausea and 04/21/24 tablet vomiting #12 tabs phenazopyridine 200 mg tablet 200 mg PO Q8H 2 days #6 tabs 04/21/24 (Pyridium) sulfamethoxazole 800 1 tab PO BID 7 days #14 tabs 04/21/24 mg-trimethoprim 160 mg tablet (Bactrim DS) amoxicillin 500 mg capsule 500 mg PO Q8H 5 days #15 caps 03/13/25 prednisone 20 mg tablet 40 mg (2 x 20 mg) PO DAILY 3 days 03/13/25 #6 tabs cephalexin 500 mg capsule 500 mg PO BID 5 days #10 caps 05/14/25 phenazopyridine 200 mg tablet 200 mg PO TID PRN pain 6 doses #6 05/14/25 (Pyridium) tabs Allergies Allergy/AdvReac Type Severity Reaction Status Date / Time No Known Drug Allergies Allergy Verified 05/14/25 16:09 Review of Systems ROS Constitutional Denies: fever or chills Eyes Denies: change in vision Ears, nose, mouth, and throat Denies: throat pain or neck pain Cardiovascular Denies: chest pain, palpitations or edema Respiratory Denies: shortness of breath or cough Gastrointestinal Denies: abdominal pain, nausea, vomiting or diarrhea Genitourinary Reports: painful urination, urinary frequency and urinary urgency Integumentary/Breast Denies: rash Neurological Denies: headache PFSH PFSH Social History Smoking status: Current every day smoker Little interest or pleasure in doing things: not at all Feeling down, depressed, or hopeless: not at all Exam Narrative Exam Narrative: Nurse's notes and vital signs reviewed and patient is not hypoxic. General: The patient appears well and in no apparent distress. Patient is resting comfortably in cart. Skin: Warm, dry, no pallor noted. Head: Normocephalic, atraumatic Neck: Supple, trachea midline, no tenderness, no lymphadenopathy Ears, nose, mouth, and throat: TMs are clear, normal light reflex, oral mucosa is moist, no posterior oropharynx erythema or hypertrophy, uvula is midline Cardiovascular: Regular rate and rhythm Respiratory: Patient is in no distress, no accessory muscle use, lungs are clear to auscultation, no wheezing, rales, or rhonchi. Back: Mild low back pain but no CVA tenderness on palpation, denies any radicular symptoms. Musculoskeletal: Normal ROM, no tenderness, no swelling GI: Normal bowel sounds, no tenderness to palpation, no masses appreciated. No rebound, guarding, or rigidity noted. Abdomen nonsurgical no suprapubic tenderness Neurological: Alert and oriented ?4 Psychiatric: Cooperative Constitutional Vital Signs, click to edit/add: Last Vital Signs Temp 97.4 F L 05/14/25 16:03 Pulse 92 H 05/14/25 16:03 Resp 18 05/14/25 16:03 BP 99/68 05/14/25 16:03 Pulse Ox 98 05/14/25 16:03 O2 Del Method Room Air 05/14/25 16:03 Course Vital Signs Vital signs: Vital Signs Temperature 97.4 F L 05/14/25 16:03 Pulse Rate 92 H 05/14/25 16:03 Respiratory Rate 18 05/14/25 16:03 Blood Pressure 99/68 05/14/25 16:03 Pulse Oximetry 98 05/14/25 16:03 Oxygen Delivery Method Room Air 05/14/25 16:03 Temperature 97.4 F L 05/14/25 16:03 Pulse Rate 92 H 05/14/25 16:03 Respiratory Rate 18 05/14/25 16:03 Blood Pressure 99/68 05/14/25 16:03 Pulse Oximetry 98 05/14/25 16:03 Oxygen Delivery Method Room Air 05/14/25 16:03 MDM - Female Genitourinary MDM Narrative Medical decision making narrative: Patient presents with history of recurrent UTI, she has had several visits to our ER with similar complaints over the past couple of years, urine cultures reviewed noted for E. coli. Patient states she has met with urology to discuss preventative measures given his frequency. She has not been on antibiotic in 2 months. She is agreeable to oral Keflex. Urine culture will be pending. We discussed the importance of p.o. fluids and Pyridium for discomfort. Common side effects reviewed. Should symptoms worsen or new symptoms develop she should return to the ER for reevaluation. Negative in and urinalysis discussed with the patient The patient is to followup with primary care physician in next 2-3 days or to return to the emergency department should any of the signs or symptoms worsen or new symptoms develop. Patient had questions answered. The patient agrees with the following Diagnosis and Treatment plan and the patient will be discharged home. Lab Data Labs: Lab Results 05/14/25 Range/Units 16:00 Urine Color Dk yellow (YELLOW) Urine Clarity Slightly cloudy A (CLEAR) Urine pH 5.5 (5.0-9.0) Ur Specific [place] >=1.030 A (1.005-1.025) Urine Protein 30 A (NEG/TRACE) mg/dL Urine Glucose (UA) Negative (NEGATIVE) mg/dL Urine Ketones Trace A (NEGATIVE) mg/dL Urine Occult Blood Trace-i (NEGATIVE) Urine Nitrite Negative (NEGATIVE) Urine Bilirubin Small A (NEGATIVE) Urine Urobilinogen 1.0 (0.2-1.0) EU/dL Ur Leukocyte Esterase Moderate A (NEGATIVE) Urine RBC 2-5 A (0-2) #/HPF Urine WBC 50-75 A (NONE SEEN) #/HPF Ur Squamous Epith Cells Few A (NONE/RARE) #/LPF Urine Crystals None seen (None Seen) #/HPF Urine Bacteria Trace A (NONE SEEN) #/HPF Urine Casts None seen (NONE SEEN) #/LPF Urine Mucus Small A (NONE SEEN) Ur Culture Indicated? Yes-[facility] Urine HCG, Qual Negative (NEGATIVE) Discharge Plan Discharge Chief Complaint: Urogenital-Female Clinical Impression: Dysuria, Urinary tract infection Patient Disposition: Home, Self-Care Time of Disposition Decision: 16:21 Condition: Good Prescriptions / Home Meds: New cephalexin 500 mg capsule 500 mg PO BID 5 Days Qty: 10 1RF phenazopyridine [Pyridium] 200 mg tablet 200 mg PO TID PRN (Reason: pain) Qty: 6 0RF No Action ketorolac 10 mg tablet 10 mg PO TID PRN (Reason: pain) Qty: 10 0RF levofloxacin 750 mg tablet 750 mg PO DAILY 5 Days Qty: 5 0RF ondansetron 4 mg tablet,disintegrating 4 mg PO Q6H PRN (Reason: nausea and vomiting) Qty: 12 0RF phenazopyridine [Pyridium] 200 mg tablet 200 mg PO Q8H Qty: 6 0RF cephalexin 500 mg capsule 500 mg PO BID 5 Days Qty: 10 0RF phenazopyridine [Pyridium] 200 mg tablet 200 mg PO Q8H 2 Days Qty: 6 0RF sulfamethoxazole-trimethoprim [Bactrim DS] 800-160 mg tablet 1 tab PO BID 7 Days Qty: 14 0RF ondansetron 4 mg tablet,disintegrating 4 mg PO Q6H PRN (Reason: nausea and vomiting) Qty: 12 0RF amoxicillin 500 mg capsule 500 mg PO Q8H 5 Days Qty: 15 0RF prednisone 20 mg tablet 40 mg PO DAILY 3 Days Qty: 6 0RF Print Language: Iranian Instructions: Urinary Tract Infection in Women (ED) Additional Instructions: Urine cult pending Refill on Keflex if needed. - Recommend follow up to Urology with recurrence. Return to ER if symptoms worsen or new symptoms develop Referrals: LAMBERT RAMEY [Primary Care Provider, Family Practice] - 1 week
[2025-05-14 16:17] LABS: HCG Qualitative Urine* NEGATIVE (NEGATIVE)
[2025-05-14 16:22] LABS: Cast Seen? NONE SEEN #/LPF (NONE SEEN); Crystals Seen? None Seen #/HPF (None Seen); Urine Culture Indicated YES-FRMC
[2025-05-14] MEDS: CEPHALEXIN 500 MG CAPSULE PO (16:29)
--- OUTSIDE RECORDS SUMMARY | 2025-05-14 16:36 | XMS_ITS | CCD ---
Author Organization [facility] Inform ion [facility] Care Team Providers Care Home Care Giver Name Role Phone Gregg London Attending Provider Mook Wang Primary Care Provider MARKER, DR RDE Admitting Unavailable MARKER, DR RED Attending Unavailable FURLONG, DR MOOK Ruiz Primary Care Unavailable MARKER, DR RED Consulting Unavailable ADONIS, PABLO Admitting Unavailable ADONIS, PABLO Attending Unavailable MISC, DR BARTLETT Primary Care Unavailable ADONIS, PABLO Consulting Unavailable YORDAN LOMBARDI Admitting Unavailable YORDAN LOMBARDI Attending Unavailable PRESTONLOCASSIE, MOOK Ruiz Primary Care Unavailable NIRU THOMASON Attending Unavailable MOOK WANG Primary Care Unavailable YORDAN LOMBARDI Attending Unavailable YORDAN LOMBARDI Referring Unavailable PRESTONLONG, MOOK Ruiz Primary Care Unavailable YORDAN LOMBARDI Attending Unavailable YORDAN LOMBARDI Referring Unavailable FURLONG, MOOK Ruiz Primary Care Unavailable PRESTONLONG, MOOK Ruiz Referring Unavailable FURLONG, MOOK Ruiz Primary Care Unavailable ELVIRA ZUNIGA Attending Unavailable ELVIRA ZUNIGA Referring Unavailable FURLONG, MOOK Ruiz Primary Care Unavailable YORDAN LOMBARDI Referring Unavailable FURLONG, MOOK Ruiz Primary Care Unavailable ROXANNA MARSH Referring Unavailable FURLONG, MOOK Ruiz Primary Care Unavailable Furlong Mook WHITLEY Primary Care Provider KESHAWN NICHOLSON Attending Unavailable KESHAWN NICHOLSON Attending Unavailable Prestonlong Mook HAMEED Primary Care Provider Mook Wang DO Primary Care Provider MOOK WANG Attending Unavailable MOOK WANG Referring Unavailable PRESTONLONGMOOK Primary Care Unavailable Furlong DO, Mook Ruiz Primary Care Provider [phone] Unavailable Unavailable Unavailable Medications Current Medications MedicationDrug Class(es)DatesSig (Normalized)Sig (Original)acetaminophen 500 mg oral tablet (7 sources)take 1 tablet by mouth every six hours as needed for pain acetaminophen (TYLENOL) 500 mg tablet Take 1 tablet (500 mg total) by mouth every 6 (six) hours as needed for pain (1-2 ORAL NEEDED). ActiveARIPiprazole 10 mg oral tablet (6 sources)Atypical AntipsychoticStart: 66-93-6096LREWmmpcscdz (Abilify) 10 MG tablet 01/24/2024 Activedoxycycline hyclate 100 mg oral capsule (3 sources)Tetracycline-class DrugStart: 05-11-2024 End: 48-53-0024gvecotvzire (Vibramycin) 100 MG capsule Indications: Cervicitis and endocervicitis Take 1 capsule (100 mg) by mouth in the morning and 1 capsule (100 mg) before bedtime. Take with at least 8 ounces (large glass) of water, do not lie down for 30 minutes after. 60 capsule 05/11/2024 06/10/2024 Jedjst52 day ethinyl estradiol 0.336160 mg/hr / etonogestrel 0.005 mg/hr vaginal system (9 sources)Progestin, EstrogenStart: 23-03-9364yavltpinmdxY-ethinyl estradioL (NUVARING) 0.12-0.015 mg/24 hr vaginal ring Insert vaginally and leave in place for 21 consecutive days (3 weeks), then remove. Wait for 7 days before inserting new ring. 04/06/2025 ActiveStart: 01-26-2024 End: 06-54-0087ilxucotigzdp-ethinyl estradiol (Nuvaring) 0.12-0.015 MG/24HR vaginal ring Indications: Irregular menstrual cycle , General counseling and advice on contraceptive management Insert 1 Ring into the vagina every 28 (twenty-eight) days Insert vaginal ring for 3 weeks, then remove for 1 week. 1 each 05/11/2024 05/11/2025 ActivelamoTRIgine 100 mg oral tablet (6 sources)Mood Stabilizer, Anti-epileptic AgentStart: 82-49-7859ykbsUZVtuhh (LaMICtal) 100 MG tablet 01/24/2024 Activephenazopyridine hydrochloride 100 mg oral tablet (1 source)Start: 06-11-2023 End: 98-39-6649uxvk 1 tablet by mouth three times dailyphenazopyridine (PYRIDIUM) 100 mg tablet Take 1 tablet (100 mg total) by mouth 3 (three) times a day for 6 doses. 6 tablet 0 06/11/2023 06/13/2023 Activephentermine hydrochloride 15 mg oral capsule (1 source)Sympathomimetic Amine AnorecticStart: 00-11-5290vqdp 38-38.9 capsules by mouth once daily in the morningphentermine 15 MG capsule Indications: Class 2 severe obesity due to excess calories with serious comorbidity and body mass index (BMI) of 38.0 to 38.9 in adult Take 1 capsule (15 mg total) by mouth every morning. 30 capsule 04/11/2025 Activeprenatal yg926-asgn-dzlgl acid () 29 mg iron- 1 mg tablet,chewable (4 sources) dn007-ukpn-swewr acid () 29 mg iron- 1 mg tablet,chewable Chew 1 tablet and swallow in the morning. ActivetraZODone hydrochloride 50 mg oral tablet (6 sources)Serotonin Reuptake InhibitorStart: 14-04-5989nymKFQmzu (Desyrel) 50 MG tablet Take 50 mg by mouth as needed at bedtime 12/26/2023 Active Problems Active Problems Problem ClassificationProblemDateDocumented DateEpisodic/ChronicAnxiety disorders (7 sources)Anxiety; Translations: [Anxiety disorder, unspecified]Onset: 455946-65-3925TiimbnlRuuxbbd dysrhythmias (7 sources)Supraventricular tachycardia; Translations: [Supraventricular tachycardia]Onset: 523283-68-2313AskqdiyYnsxtwikwi associated with dizziness or vertigo (2 sources)Dizziness and giddiness; Translations: [Lightheadedness]Onset: 909362-94-6879AlvkdzauSwhncypwvegaf and procreative management (4 sources)Patient encounter status; Translations: [Encounter for other general counseling and advice on contraception]87-90-8205WyielnnhTsdhhdxxnckv diseases of female pelvic organs (2 sources)Cervicitis and endocervicitis; Translations: [Inflammatory disease of cervix uteri]83-66-4190GpwmqkrgJrlkc disorders and dislocations; trauma-related (7 sources)Derangement of right knee; Translations: [Unspecified internal derangement of right knee]Onset: 595455-07-5140HnsbhknEotluvdqi disorders (6 sources)Irregular menstruation, unspecified; Translations: [Irregular periods]Onset: 771004-18-0194FefjuysKvsameinnoxnz mental health disorders (7 sources)Bulimia nervosa; Translations: [Bulimia nervosa]Onset: 08-18-2019 82-80-6226DbghdkpEhwb disorders (7 sources)Bipolar disorder; Translations: [Bipolar disorder, unspecified]Onset: 974330-69-3589IytffwpTrftz circulatory disease (1 source)Personal history of other diseases of the circulatory system; Translations: [Personal history of other diseases of the circulatory system] Onset: 40-37-1849RtmmwvtyVffxk ear and sense organ disorders (3 sources)Otalgia, right ear; Translations: [OTALGIA RIGHT EAR]Onset: 96-05-4414YulcbuxdYfijx nervous system disorders (7 sources)Chronic pain; Translations: [Other chronic pain]Onset: 03-15-2022 78-01-9414VxfxvksBbjjx nutritional; endocrine; and metabolic disorders (1 source)Body mass index (BMI) 40.0-44.9, adult; Translations: [BODY MASS INDEX BMI 40.0-44.9 ADULT]Onset: 32-98-9050CamwpdySbxmu nutritional; endocrine; and metabolic disorders (1 source)Morbid (severe) obesity due to excess calories; Translations: [Morbid (severe) obesity due to excess calories]Onset: 14-75-6742CtdqvdtMlzad nutritional; endocrine; and metabolic disorders (1 source)Body mass index (BMI) 38.0-38.9, adult; Translations: [Body mass index (BMI) 38.0-38.9, adult]Onset: 62-35-1552WusihxuIoqna nutritional; endocrine; and metabolic disorders (2 sources)Severe obesity; Translations: [Class 2 severe obesity due to excess calories with serious comorbidity and body mass index (BMI) of 38.0 to 38.9 in adult]76-25-6943VrzcywnKciyw nutritional; endocrine; and metabolic disorders (1 source)Overweight; Translations: [OVERWEIGHT]Onset: 98-04-7520MqtcobuoFnxfw upper respiratory infections (1 source)Acute upper respiratory infection, unspecified; Translations: [ACUTE UP RESPIRATORY INFECTION UNS]Onset: 24-36-3036MddvzlygHunfwr media and related conditions (1 source)Otitis media, unspecified, right ear; Translations: [OTITIS MEDIA UNSPECIFIED RIGHT EAR]Onset: 11-32-9173FgyqpymxFqyhjsapq-related disorders (1 source)Nicotine dependence, cigarettes, uncomplicated; Translations: [NICOTINE DEPEND CIGARETTES UNCOMP]Onset: 33-73-0984UhoteriIicxsvisieew (1 source)COUGH, UNSPECIFIED; Translations: [COUGH, UNSPECIFIED]Onset: 57-36-9934Bbgpilepqbez (1 source)CONTACT W/AND (SUSP) EXPOS COVID-19; Translations: [CONTACT W/AND (SUSP) EXPOS COVID-19]Onset: 47-30-5222Ummssjzgjjmm (1 source)Obesity, class 2; Translations: [Obesity, class 2]Onset: 04-11-2025 Unclassified (1 source)Annual ExamOnset: 04-11-2025 Past or Other Problems Problem ClassificationProblemDateDocumented DateEpisodic/ChronicBiliary tract disease (7 sources)Gallbladder calculus with acute cholecystitis and no obstruction; Translations: [Calculus of gallbladder with acute and chronic cholecystitis without obstruction]Onset: 701612-22-7564VlmuyaifSpuhzws dysrhythmias (11 sources)Palpitations; Translations: [Palpitations]Onset: 21-83-0587Xvpiykog Genitourinary symptoms and ill-defined conditions (7 sources)Urinary symptoms ; Translations: [Unspecified symptoms and signs involving the genitourinary system]Onset: 603995-86-4264GmcctdfpXpao disorders (7 sources)Mood disordersOnset: 03-17-2023 Resolved: Other complications of (7 sources)Maternal obesity complicating , childbirth and the puerperium, antepartum; Translations: [Obesity complicating , unspecified trimester]Onset: 04-17-2021 Resolved: 040012-94-8387MegteezCyfos complications of (7 sources)Bipolar disorder; Translations: [Other mental disorders complicating , unspecified trimester] Resolved: 442248-49-8514VwhfgaarHxapb complications of (5 sources)Anxiety in ; Translations: [Other mental disorders complicating , unspecified trimester]Onset: EpisodicOther complications of (7 sources)Finding of pattern of ; Translations: [Supervision of other high risk pregnancies, unspecified trimester]Onset: 04-17-2021 Resolved: 234389-04-3996JjvfzmqpSasfc complications of (7 sources)Disorder of cardiovascular system; Translations: [Diseases of the circulatory system complicating , unspecified trimester]Onset: 04-17-2021 Resolved: 408592-92-5401YjcnwrbwTxklj complications of (7 sources)RhD negative; Translations: [Other specified related conditions, unspecified trimester]Onset: 04-17-2021 Resolved: 488274-12-7345YxupcvfiSrutm complications of (2 sources)Other mental disorders complicating , unspecified trimester; Translations: [Mental disorders of mother, antepartum condition or complication] Onset: 04-17-2021 Resolved: 446221-07-3810DjvzfgevCktno female genital disorders (7 sources)Vaginal odor; Translations: [Other specified noninflammatory disorders of vagina]Onset: 03-15-2022 Resolved: 454395-48-6295XhvgstcePerbp nutritional; endocrine; and metabolic disorders (7 sources)Morbid obesity; Translations: [Morbid (severe) obesity due to excess calories]Onset: 03-17-2023 Resolved: 355367-47-8323FyridhmXklowwmq (7 sources); Translations: [Maternal care for unspecified type scar from previous delivery]Onset: 04-17-2021 Resolved: 117532-18-7920GlgzgzbjLcnnscw tract infections (9 sources)Recurrent urinary tract infection; Translations: [Urinary tract infection, site not specified]Onset: 515159-61-2242Zltmwqrm Results Test NameValueInterpretationReference RangeFacilityCOMPREHENSIVE METABOLIC PANEL on 66-77-4953Nqwkbut [Mass/Vol]4.2 g/dLNormal3.2-5.3PRegency Hospital Company Ambulatory PPGComment on above:Performed By: #### CMP #### [facility] ([facility]) [address] [place] [address] VIRALP [Catalytic activity/Vol]33 U/YMmr96-989YflCcffyq Hospital Ambulatory PPGComment on above:Performed By: #### CMP #### [facility] ([facility]) [address] [place] [address] VIRALT [Catalytic activity/Vol]13 U/LNormal<=31PRegency Hospital Company Ambulatory PPGComment on above:Performed By: #### CMP #### [facility] ([facility]) [address] [place] [address] VIRAnion gap [Moles/Vol]9 mmol/LNormal5-15[facility] Ambulatory PPGComment on above:Performed By: #### CMP #### [facility] ([facility]) [address] [place] [address] VIRAST [Catalytic activity/Vol]12 U/LNormal<=41[facility] Ambulatory PPGComment on above:Performed By: #### CMP #### [facility] ([facility]) [address] [place] [address] VIRBilirubin [Mass/Vol]0.6 mg/dLNormal0.3-1.2PRegency Hospital Company Ambulatory PPGComment on above:Performed By: #### CMP #### [facility] ([facility]) [address] [place] [address] VIRCalcium [Mass/Vol]9.0 mg/dLNormal8.5-10.5PRegency Hospital Company Ambulatory PPGComment on above:Performed By: #### CMP #### [facility] ([facility]) [address] [place] [address] VIRChloride [Moles/Vol]108 mmol/AQrhcnb68-198XwbSozjyn Hospital Ambulatory PPGComment on above:Performed By: #### CMP #### [facility] ([facility]) [address] [place] [address] VIRCO2 [Moles/Vol]23 mmol/ZZzfrba74-24RpaUyfqgp Hospital Ambulatory PPGComment on above:Performed By: #### CMP #### [facility] ([facility]) [address] [place] [address] VIRCreatinine [Mass/Vol]0.72 mg/dLNormal0.40-1.00[facility] Ambulatory PPGComment on above:Result Comment: METHOD TRACEABLE TO IDMS STANDARDPerformed By: #### CMP #### [facility] ([facility]) [address] [place] [address] VIREGFR (CKD-EPI) NON-RACE DEPENDENT>^90Normal>=60[facility] Ambulatory PPGComment on above:Result Comment: Reported eGFR is based on the CKD-EPI 2020 equation that does not use a race coefficient.Performed By: #### CMP #### [facility] ([facility]) [address] [place] [address] VIRGlucose [Mass/Vol]91 mg/zAZelysu83-15FdsCjizwn Hospital Ambulatory PPGComment on above:Performed By: #### CMP #### [facility] ([facility]) [address] [place] [address] VIRPotassium [Moles/Vol]4.1 mmol/LNormal3.5-5.0[facility] Ambulatory PPGComment on above:Performed By: #### CMP #### [facility] ([facility]) [address] [place] [address] VIRProtein [Mass/Vol]6.8 g/dLNormal6.0-8.0[facility] Ambulatory PPGComment on above:Performed By: #### CMP #### [facility] ([facility]) [address] [place] [address] VIRSodium [Moles/Vol]140 mmol/SCwraar907-129DmzZosdde Hospital Ambulatory PPGComment on above:Performed By: #### CMP #### [facility] ([facility]) [address] [place] [address] VIRUrea nitrogen [Mass/Vol]14 mg/dLNormal5-23[facility] Ambulatory PPGComment on above:Performed By: #### CMP #### [facility] ([facility]) [address] [place] [address] VIRLIPID PROFILEon 75-79-4303Afukrgeafoj [Mass/Vol]192 mg/dL Bpukow056-684JwgTqvdju Hospital Ambulatory PPGComment on above:Performed By: #### LIPR #### [facility] ([facility]) [address] [place] [address] VIRCholesterol in HDL [Mass/Vol]53 mg/dLNormal>39[facility] Ambulatory PPGComment on above:Result Comment: HDL <40 mg/dL - High Risk HDL > or = 40mg/dL- Desirable HDL >60 mg/dL - Negative RiskPerformed By: #### LIPR #### [facility] ([facility]) [address] [place] [address] VIRCholesterol in LDL [Mass/Vol]125 mg/dLNormal<130[facility] Ambulatory PPGComment on above:Result Comment: LDL <100 mg/dL - Desirable LDL >160 mg/dL - High RiskPerformed By: #### LIPR #### [facility] ([facility]) [address] [place] [address] VIRCHOLESTEROL:HDL3.2Vdgkvw4.0-5.0[facility] Ambulatory PPGComment on above:Performed By: #### LIPR #### [facility] ([facility]) [address] [place] [address] VIRTriglyceride [Mass/Vol]70 mg/zXGvlylw44-584IgnXrmtle Hospital Ambulatory PPGComment on above:Performed By: #### LIPR #### [facility] ([facility]) [address] [place] [address] VIRVERY LOW UHCLKJAFOXT40 mg/dLNormal0-30[facility] Ambulatory PPGComment on above:Performed By: #### LIPR #### [facility] ([facility]) [address] [place] [address] VIRIGP,APTIMA HPV,AGE GDLNon 37-79-3181LHV GDLN ACOG TESTING Note.NOMS HealthcareComment on above:TESTS RESULT FLAG UNITS REF RANGE LAB Clinician Provided Cytology Information Source.............Cervix;Endocervix No. of containers..01 ThinPrep Vial Age Algo ACOG Ni... -07 07 FLAG LEGEND: L-Low Normal,H-High Normal,LL-Alert Low,HH-Alert High <-Panic Low,>-Panic High,A-Abnormal,AA-Critical Abnormal Performed at: 01 =[facility] [address] [place] [address] Billie Hearn MD, IGP, RFX APTIMA HPV ASCUNote.NOMS HealthcareComment on above:TESTS RESULT FLAG UNITS REF RANGE LAB DIAGNOSIS: 02 NEGATIVE FOR INTRAEPITHELIAL LESION OR MALIGNANCY. Specimen adequacy: 02 Satisfactory for evaluation. Endocervical and/or squamous metaplastic cells (endocervical component) are present. Performed by: 02 Darcy Zafar General Expeditor (ASC) . 02 Note: Note 02 The Pap [...] <-Panic Low,>-Panic High,A-Abnormal,AA-Critical Abnormal Performed at: 02 [facility] [address] [place] [address] Billie Hearn MD, Performed at: =G - [facility] [address], [place] [id number] Business Mail Entry Clerk: Billie Hearn MD, Phone: [phone] Performed at: [address] [id number] Business Mail Entry Clerk: iBllie Hearn MD, Phone: [phone] BRUSH-SPATULA CERVIX ENDOCERVIX [facility] Informationon 67-72-6383Qalsl Spitler, NUCLEAR CONTROL OPERATOR 01/28/2024 11:07 AM Insertion/Removal of Contraceptive Capsule Date/Time: 01/26/2024 2:48 PM Performed by: Keshawn Nicholson DO Authorized by: Keshawn Nicholson DO Consent: Consent obtained: Written Consent [...] closed with steri-strips and pressure bandage applied: [facility] auto differentialon 95-45-8589Zxujlyyed (Bld) [#/Vol]0.1 10*3/[facility] CenterBasophils/100 WBC (Bld)1.0 %[facility] HospitalEosinophils (Bld) [#/Vol]0.1 10*3/[facility] Eosinophils/100 WBC (Bld)2.3 %[facility] HospitalErythrocyte distribution width (RBC) [Ratio]12.6 %11.5 - 15.0 %[facility] HospitalHematocrit (Bld) [Volume fraction]40.5 %35 - 47 %[facility] HospitalHemoglobin (Bld) [Mass/Vol]13.5 g/dL11.7 - 15.5 g/dLGenesis HospitalLymphocytes (Bld) [#/Vol]2.6 10*3/uLGenesis HospitalLymphocytes/100 WBC (Bld)50.5 % [facility] HospitalH (RBC) [Entitic mass]29.1 pg27 - 34 pgPChillicothe HospitalMCHC (RBC) [Mass/Vol]33.5 g/dL32 - 36 g/dLGenesis HospitalMCV (RBC) [Entitic vol]87 fL80 - 100 [facility] Medical CenterMonocytes (Bld) [#/Vol]0.3 10*3/uLGenesis HospitalMonocytes/100 WBC (Bld)6.6 %[facility] HospitalNeutrophils (Bld) [#/Vol]2.0 10*3/uLGenesis HospitalNeutrophils/100 WBC (Bld)39.6 %[facility] HospitalPlatelet mean volume (Bld) [Entitic vol] 9.7 fL7 - 12 fLPChillicothe HospitalPlatelets (Bld) [#/Vol]234 10*3/uL [facility] HospitalRBC (Bld) [#/Vol]4.66 10*6/uLGenesis HospitalWBC corrected for nucl RBC Auto (Bld) [#/Vol]5.1PForbes HospitalComprehensive metabolic panelon 10-27-5713Sfndpsl [Mass/Vol]4.6 g/dL3.2 - 5.3 g/dLKettering Health Washington Township SystemALP [Catalytic activity/Vol]40 U/L39 - 130 U/[facility] SystemALT No additional P-5'-P [Catalytic activity/Vol] 13 U/L0 - 31 U/[facility] SystemAnion gap [Moles/Vol]8 mmol/L5 - 15 mmol/LProMedica Health SystemAST [Catalytic activity/Vol]14 U/L0 - 41 U/L [facility] HospitalBilirubin [Mass/Vol]0.7 mg/dL0.3 - 1.2 mg/dLKettering Health Washington Township SystemCalcium [Mass/Vol]9.5 mg/dL8.5 - 10.5 mg/dLGenesis Hospital Chloride [Moles/Vol]107 mmol/L98 - 109 mmol/[facility] SystemCO2 [Moles/Vol]26 mmol/L22 - 32 mmol/[facility] HospitalCreatinine [Mass/Vol] 0.82 mg/dL0.40 - 1.00 mg/dLGenesis HospitalComment on above:METHOD TRACEABLE TO IDIN STANDARDeGFR (CKD-EPI)non-race dependent- Cumberland HospitalComment on above: Reported eGFR is based on the CKD-EPI 2020 equation that does not use a race coefficient. Glucose [Mass/Vol]91 mg/dL65 - 99 mg/dLGenesis HospitalPotassium [Moles/Vol]4.4 mmol/L3.5 - 5.0 mmol/[facility] HospitalProtein [Mass/Vol] 7.0 g/dL6.0 - 8.0 g/dLCape Fear Valley Hoke Hospitalodium [Moles/Vol]141 mmol/L134 - 146 mmol/[facility] Private HospitalUrea nitrogen [Mass/Vol]15 mg/dL5 - 23 mg/dL [facility] PittsburghThyroid profile includes TSH FT4on 52-63-9399Kbko T4 [Mass/Vol]0.83 ng/dL0.61 - 1.60 ng/dLGenesis Hospital TSH Qn0.80 m[IU]/[facility] HospitalCBC AND AUTO DIFFon 32-59-1822KYPRUNQA BASOPHIL0.1 X10E9/LNormal0.0-0.2PVan Wert County HospitalComment on above:Performed By: #### CBCA, CMP, THYR #### [facility] ([id number]) [address] [place], [place] [address]SFTQOMBU NEUTROPHIL2.0 X10E9/LNormal1.5-6.6Ohio [facility] Harding HospitalComment on above:Performed By: #### CBCA, CMP, THYR #### [facility] ([id number]) [address] [place], [place] [address]Zatobhspw/100 WBC (Bld)1.0 %NormalOhio State Harding Hospital Comment on above:Performed By: #### CBCA, CMP, THYR #### [facility] ([id number]) [address] [address] [place], [place] [address]Isuybevazyy (Bld) [#/Vol]0.1 10*3/uLNormal0.0-0.4ProMiddletown Hospital HospitalComment on above:Performed By: #### CBCA, CMP, THYR #### [facility] ([id number]) [address] [address] [place], [place] [address]Xirnqnmuers/100 WBC (Bld)2.3 %NormalOhio State Harding Hospital Comment on above:Performed By: #### CBCA, CMP, THYR #### [facility] ([id number]) [address] [address] [place], [place] [address]Qkbwvxbkewn distribution width (RBC) [Ratio]12.6 %Normal 11.5-15.0ProMiddletown Hospital HospitalComment on above:Performed By: #### CBCA, CMP, THYR #### [facility] ([id number]) [address] [address]Cpekxykrrc (Bld) [Volume fraction]40.5 %Ufctec23-74EtcHawknv Toledo HospitalComment on above:Performed By: #### CBCA, CMP, THYR #### [facility] ([id number]) [address] [address] [place], [place] [address]Mqrgxhjczx (Bld) [Mass/Vol]13.5 g/xYIzyrbs22.7-15.5PLake Charles Memorial Hospitalica Las Vegas HospitalComment on above:Performed By: #### CBCA, CMP, THYR #### [facility] ([id number]) [address] [address] [place], [place] [address]Xkbtdxohune (Bld) [#/Vol]2.6 10*3/uLNormal1.0-3.5ProMedica Las Vegas HospitalComment on above:Performed By: #### CBCA, CMP, THYR #### [facility] ([id number]) [address], [address] [place], [place] [address]Cegyxecgaks/100 WBC (Bld)50.5 %NormalOhio State Harding Hospital Comment on above:Performed By: #### CBCA, CMP, THYR #### [facility] ([id number]) [address], [address] [place], [place] [address]SMS (RBC) [Entitic mass]29.1 cuNirwmk24-80NwfXvoeag [place] HospitalComment on above:Performed By: #### CBCA, CMP, THYR #### [facility] ([id number]) [address], [address] [place], [place] [address]KNVN (RBC) [Mass/Vol]33.5 g/fGZzplmf12-48TivHnsdud [place] HospitalComment on above:Performed By: #### CBCA, CMP, THYR #### [facility] ([id number]) [address], [address] [place], [place] [address]MQG (RBC) [Entitic vol]87 gPLhsvuv58-759QvrXqtfrw [place] HospitalComment on above:Performed By: #### CBCA, CMP, THYR #### [facility] ([id number]) [address], [address] [place], [place] [address]Masohuycr (Bld) [#/Vol]0.3 10*3/uLNormal0-0.9ProMiddletown Hospital HospitalComment on above:Performed By: #### CBCA, CMP, THYR #### [facility] ([id number]) [address], [address] [place], [place] [address]Rgjyzftfu/100 WBC (Bld)6.6 %NormalOhio State Harding Hospital Comment on above:Performed By: #### CBCA, CMP, THYR #### [facility] ([id number]) [address], [address] [place], [place] [address]Bihgjjudgzf/100 WBC (Bld)39.6 %NormalOhio State Harding Hospital Comment on above:Performed By: #### CBCA, CMP, THYR #### [facility] ([id number]) [address], [address] [place], [place] [address]Drzylhmp mean volume (Bld) [Entitic vol]9.7 fLNormal7-[address] Mary HospitalComment on above:Performed By: #### CBCA, CMP, THYR #### [facility] ([id number]) [address], [address] [place], [place] [address]Kfyovxkua (Bld) [#/Vol]234 10*3/lCHqehnc029-695EayUwifrk [place] HospitalComment on above:Performed By: #### CBCA, CMP, THYR #### [facility] ([id number]) [address], [address] [place], [place] [address]EOU COUNT4.66 X10E12/LNormal3.80-5.20[facility] Comment on above:Performed By: #### CBCA, CMP, THYR #### [facility] ([id number]) [address], [address] [place], [place] [address]BMK (Bld) [#/Vol]5.1 10*3/uLNormal4.0-11.0[facility] State Harding HospitalComment on above:Performed By: #### CBCA, CMP, THYR #### [facility] ([id number]) [address], [address] [place], [place] [address]KCVDMWKPTQBUX METABOLIC PANELon 42-28-1289Svrdibm [Mass/Vol]4.6 g/dLNormal3.2-5.3Pro[facility] HospitalComment on above:Performed By: #### CBCA, CMP, THYR #### [facility] ([id number]) [address], [address] [place], [place] [address]YMI [Catalytic activity/Vol]40 U/HDreouf55-709VxwSqvofy [place] HospitalComment on above:Performed By: #### CBCA, CMP, THYR #### [facility] ([id number]) [address], [address] [place], [place] [address]CCE [Catalytic activity/Vol]13 U/LNormal0-31Pro[facility] [place] HospitalComment on above:Performed By: #### CBCA, CMP, THYR #### [facility] ([id number]) [address], [address] [place], [place] [address]Jbsfr gap [Moles/Vol]8 mmol/LNormal5-15[facility] Comment on above:Performed By: #### CBCA, CMP, THYR #### [facility] ([id number]) [address], [address] [place], [place] [address]XDU [Catalytic activity/Vol]14 U/LNormal0-41Pro[facility]ica [place] HospitalComment on above:Performed By: #### CBCA, CMP, THYR #### [facility] ([id number]) [address], [address] [place], [place] [address]Xqxeqrveh [Mass/Vol]0.7 mg/dLNormal0.3-1.2Pro[facility]ica [place] HospitalComment on above:Performed By: #### CBCA, CMP, THYR #### [facility] ([id number]) [address], [address] [place], [place] [address]Bzjgjpu [Mass/Vol]9.5 mg/dLNormal8.5-10.5ProMedica [place] HospitalComment on above:Performed By: #### CBCA, CMP, THYR #### [facility] ([id number]) [address], [address] [place], [place] [address]Gffnyckp [Moles/Vol]107 mmol/OTtusqv91-586DvkRpjdpn [place] HospitalComment on above:Performed By: #### THOMPSON TAN, THYR #### [facility] ([id number]) [address], [address] [place], [place] [address]QW4 [Moles/Vol]26 mmol/TTpgjyr27-06OjcKxixsz [facility] Comment on above:Performed By: #### THOMPSON TAN, THYR #### [facility] ([id number]) [address], [address] [place], [place] [address]Vzcsmruxrb [Mass/Vol]0.82 mg/dLNormal0.40-1.00ProTrinity Health System Twin City Medical CenterComment on above:Result Comment: METHOD TRACEABLE TO IDMS STANDARD Performed By: #### THOMPSON TAN, THYR #### [facility] ([id number]) [address], [address] [place], [place] [address]fVPL (CKD-EPI) NON-RACE DEPENDENT>90Normal>59ProTrinity Health System Twin City Medical CenterComment on above:Result Comment: Reported eGFR is based on the CKD-EPI 1 equation that does not use a race coefficient.Performed By: #### THOMPSON TAN, THYR #### [facility] ([id number]) [address], [address] [place], [place] [address]Wakjybx [Mass/Vol]91 mg/gZWdadxh82-13HvuYyeivt [facility] Comment on above:Performed By: #### THOMPSON TAN, THYR #### [facility] ([id number]) [address] [address] [place], [place] [address]Znglzerbj [Moles/Vol]4.4 mmol/LNormal3.5-5.0ProTrinity Health System Twin City Medical CenterComment on above:Performed By: #### THOMPSON TAN, THYR #### [facility] ([id number]) [address], [address] [place], [place] [address]Qhoznlz [Mass/Vol]7.0 g/dLNormal6.0-8.0ProMiddletown Hospital Hospital Comment on above:Performed By: #### CBCA, CMP, THYR #### [facility] ([id number]) [address], [address] [place], [place] [address]Oqikcx [Moles/Vol]141 mmol/FEounej981-160WgmMcfjwl [place] HospitalComment on above:Performed By: #### CBCA, CMP, THYR #### [facility] ([id number]) [address], [address] [place], [place] [address]Hrix nitrogen [Mass/Vol]15 mg/dLNormal5-23ProMiddletown Hospital HospitalComment on above:Performed By: #### CBCA, CMP, THYR #### [facility] ([id number]) [address], [address] [place], [place] [address]PPYFRPA PROFILEon 10-69-7440Dxix T4 [Mass/Vol]0.83 ng/dLNormal 0.61-1.60ProMiddletown Hospital HospitalComment on above:Performed By: #### CBCA, CMP, THYR #### [facility] ([id number]) [address], [facility] [address] [place], [place] [address]LLW5.80 uIU/mLNormal0.49-4.67ProMiddletown Hospital HospitalComment on above:Performed By: #### CBCA, CMP, THYR #### [facility] ([id number]) [address], [address] [place], [place] [address]TPA ( test) Ql (U)on 52-66-4474Bdmd HCG ( test) Ql (U)NegativeNormalNEGProSt. Joseph Medical CenterComment on above: Performed By: #### 2106-3 #### [facility] ([id number]) [address] [place], [place] [address], [place] [address]KGNEM METABOLIC PANLon 44-98-7567Tpaat gap [Moles/Vol]8 mmol/L Normal5-15J.[facility] Ruby Memorial HospitalComment on above:Performed By: #### BMP #### [facility] ([id number]) [address], [address] [place] [address]Bfwnvqt [Mass/Vol]9.1 mg/dLNormal8.5-10.5POhio Valley HospitalComment on above:Performed By: #### BMP #### [facility] ([id number]) [address], [address] [place], [place] [address]Zfhopmnd [Moles/Vol]105 mmol/NAvkhoi10-882FbwEcmrnsSt. Joseph Medical CenterComment on above:Performed By: #### BMP #### [facility] ([id number]) [address], [address] [place], [place] [address]YR8 [Moles/Vol]24 mmol/KGukqya58-07HbmHbauqjOhio Valley Hospital Comment on above:Performed By: #### BMP #### [facility] ([id number]) [address], [address] [place], [place] [address]Gudxnajqhx [Mass/Vol]0.79 mg/dLNormal0.40-1.00J.W. Ruby Memorial HospitalComment on above:Result Comment: METHOD TRACEABLE TO IDMS STANDARD Performed By: #### BMP #### [facility] ([id number]) [address], [address] [place], [place] [address]sXHM (CKD-EPI) NON-RACE DEPENDENT>90Normal>59ProSt. Joseph Medical CenterComment on above:Result Comment: Reported eGFR is based on the CKD-EPI 2020 equation that does not use a race coefficient.Performed By: #### BMP #### [facility] ([id number]) [address], [address] [place], [place] [address]Wdhnyal [Mass/Vol]91 mg/eQPihhhp06-16GyiBkdsegJ.W. Ruby Memorial Hospital Comment on above:Performed By: #### BMP #### [facility] ([id number]) [address], [address] [place], [place] [address]Uyzcbhbit [Moles/Vol]3.7 mmol/LNormal3.5-5.0J.W. Ruby Memorial HospitalComment on above:Performed By: #### BMP #### [facility] ([id number]) [address] [place], [place] [address]Uambdc [Moles/Vol]137 mmol/WGyjnot233-075PmmYswsta [place] HospitalComment on above:Performed By: #### BMP #### [facility] ([id number]) [address], [address] [place], [place] [address]Bfjh nitrogen [Mass/Vol]13 mg/dLNormal5-23ProSt. Joseph Medical CenterComment on above:Performed By: #### BMP #### [facility] ([id number]) [address], [address] [place], [place] [address]CNZCDOPDFUtn 23-34-6369Xdpbvbata Ql (U)NegativeNormalNEG [facility] HospitalBLOOD/HGBNegativeNormalNEGJ.W. Ruby Memorial Hospital Color (U)YELLOWNormalYELLOWJ.W. Ruby Memorial HospitalGlucose Ql (U)Negative NormalNEGProSt. Joseph Medical CenterKetones Ql (U)NegativeNormalNEGJ.W. Ruby Memorial HospitalLeukocyte esterase Test strip Ql (U)NegativeNormalNEGJ.W. Ruby Memorial HospitalNitrite Ql (U)NegativeNormalNEGJ.W. Ruby Memorial HospitalpH (U) 5.5 [pH]Normal5.0-8.5ProMedica [facility] Medical CenterProtein Ql (U)NegativeNormalNEG [facility] Hospital - Westpecific gravity (U) [Rel density]1.026Normal 1.003-1.035J.[facility]. [facility] Memorial HospitalTURBIDITYCLEARNormalCLEARProSt. Joseph Medical CenterUrobilinogen (U) [Mass/Vol]mg/dLNormal<1.1POhio Valley Hospital URINE CULTUREon 36-69-8990Fvsijffm identified Cx Nom (U)CULTURE RESULTS <10,000 ORGANISMS/ML NORMAL URO GENITAL FLORANoalJ.W. Ruby Memorial Hospital Comment on above:Performed By: #### 630-4 #### [facility] ([id number]) [address] [place] [address], [address] [place], [place] [address]Ujxcn-53 PCR (CVDTB)on 35-75-2394FVDD-CoV-2 (COVID-19) RNA ADELIA+probe Ql (Unsp spec)Not detectedNormalNOT DETECTEDLake County Memorial Hospital - West Comment on above:Result Comment: When diagnostic testing is negative, the [...] for this test is supported by the [place] of Health and Human Service's declaration that circumstances exist to justify the emergency use of in vitro diagnostics for the detection and/or diagnosis of the virus that causes COVID-19. This EUA will remain in effect for the duration of the COVID-19 declaration justifying emergency of IVDs, unless it is terminated or revoked by the FDA (after which the test may no longer be used).Performed By: #### CVDTBH #### [facility] [address] [place] [address] Dr. Bony KamGROUP A STREP CULTUREon 04-12-2022. pyogenes Ag Ql (Unsp spec) Culture Observations: Negative for Group A StreptococcusNoOhioHealth Berger HospitalComment on above: Performed By: #### SSCRN, GRASTCX #### [facility] [address] [place], [place] [address] Dr[address] Bony KamSTREPT SCREENon 71-18-4838KHAKM SCREEN ANegativeNormalNEGATIVELake County Memorial Hospital - WestComment on above:Performed By: #### SSCRN, GRASTCX #### [facility] [address] [place] [address] [address] Bony KamCOMPREHENSIVE METABOLIC PANELon 75-94-8575Ffixmjw [Mass/Vol]4.6 g/dLNormal3.6-5.1Quest DiagnosticsComment on above:Performed By: #### 46603, 39678, 7600 #### [facility] of [place] [address] Fitness Coordinator: Luiz Brink MDAlbumin/Globulin [Mass ratio]1.9 {ratio}Normal 1.0-2.5Quest DiagnosticsComment on above:Performed By: #### 66267, 20940, 7600 #### [facility] [place] [address] Fitness Coordinator: Luiz Brink MDALP [Catalytic activity/Vol]41 U/HTdwzih26-926 Quest DiagnosticsComment on above:Performed By: #### 14015, 99516, 7600 #### [facility] [place] [address] Fitness Coordinator: Luiz Brink MDALT [Catalytic activity/Vol]16 U/LNormal6-29 Quest DiagnosticsComment on above:Performed By: #### 20068, 56643, 7600 #### [facility] [place] [address] Fitness Coordinator: Luiz Brink MDAST [Catalytic activity/Vol]12 U/QTesyyh46-65 Quest DiagnosticsComment on above:Performed By: #### 46225, 04629, 7600 #### [facility] of [place] [address] Fitness Coordinator: Luiz Brink MDBilirubin [Mass/Vol]0.9 mg/dLNormal0.2-1.2 Quest DiagnosticsComment on above:Performed By: #### 63179, 19788, 7600 #### [facility] of [address], [address] [place] [address] Fitness Coordinator: Luiz Brink MDBUN/CREATININE RATIONOT APPLICABLENormal6-22 Quest DiagnosticsComment on above:Performed By: #### 01597, 15130, 7600 #### [facility] of [address], [address] [place] [address] Fitness Coordinator: Luiz Brink MDCalcium [Mass/Vol]9.4 mg/dLNormal8.6-10.2Quest DiagnosticsComment on above:Performed By: #### 32620, 09459, 7600 #### [facility] of [address], [address] [place] [address] Fitness Coordinator: Luiz Brink MDChloride [Moles/Vol]107 mmol/QGgyxse67-591 Quest DiagnosticsComment on above:Performed By: #### 19976, 15390, 7600 #### [facility] of [address], [address] [place] [address] Fitness Coordinator: Luiz Brink MDCO2 [Moles/Vol]22 mmol/SOgglpt93-12Oqoor DiagnosticsComment on above:Performed By: #### 02553, 63271, 7600 #### [facility] of [address], [address] [place] [address] Fitness Coordinator: Luiz Brink MDCreatinine [Mass/Vol]0.87 mg/dLNormal0.50-0.96 Quest DiagnosticsComment on above:Performed By: #### 14404, 99526, 7600 #### [facility] [place] [address] Fitness Coordinator: Luiz Brink MDGFR/1.73 sq M.predicted among non-blacks MDRD (S/P/Bld) [Vol rate/Area]97 mL/min/{1.73_m2}Normal> OR = 60[facility] Comment on above:Result Comment: The eGFR is based on the CKD-EPI 2020 equation. To calculate the new eGFR from a previous Creatinine or Cystatin C result, go to https://www.kidney.org/professionals/ kdoqi/gfr%5FcalculatorPerformed By: #### 26902, 22802, 7600 #### [facility] [address], [address] [place] [address] Fitness Coordinator: Luiz Brink MDGlobulin (S) [Mass/Vol]2.4 g/dLNormal1.9-3.7 Quest DiagnosticsComment on above:Performed By: #### 78046, 87646, 7600 #### [facility] [place] [address] Fitness Coordinator: Luiz Brink MDGlucose [Mass/Vol]96 mg/fJRcuctv35-47Nfgcf DiagnosticsComment on above:Result Comment: Fasting reference intervalPerformed By: #### 92101, 61623, 7600 #### [facility] [address], [address] [place] [address] Fitness Coordinator: Luiz Brink MDPotassium [Moles/Vol]4.0 mmol/LNormal3.5-5.3 Quest DiagnosticsComment on above:Performed By: #### 50624, 19175, 7600 #### [facility] [place] [address] Fitness Coordinator: Luiz Brink MDProtein [Mass/Vol]7.0 g/dLNormal6.1-8.1Quest DiagnosticsComment on above:Performed By: #### 07738, 43502, 7600 #### [facility] [place] [address] Fitness Coordinator: Luiz Brink MDSodium [Moles/Vol]140 mmol/MFajult259-863Wwojb DiagnosticsComment on above:Performed By: #### 44734, 39302, 7600 #### [facility] [address], [address] [place] [address] Fitness Coordinator: Luiz Brink MDUrea nitrogen [Mass/Vol]14 mg/dLNormal7-25 Quest DiagnosticsComment on above:Performed By: #### 51307, 65959, 7600 #### [facility] [address], [address] [place] [address] Fitness Coordinator: Luiz Brink MDLIPID PANEL, STANDARD 33-56-3663Ifzoqaicuuq [Mass/Vol]171 mg/dLNormal<200Quest DiagnosticsComment on above:Performed By: #### 92419, 78095, 7600 #### [facility] [address], [address] [place] [address] Fitness Coordinator: Luiz Brink MDCholesterol in HDL [Mass/Vol]45 mg/dLLow> OR = 50Quest DiagnosticsComment on above:Performed By: #### 46466, 61559, 0 #### [facility] [address], [address] [place] [address] Fitness Coordinator: Luiz Brink MDCholesterol in LDL [Mass/Vol]104 mg/dLHigh Quest DiagnosticsComment on above:Result Comment: Reference range: <100 Desirable range <100 mg/dL for primary prevention; <70 mg/dL for patients with CHD or diabetic patients with > or = 2 CHD risk factors. LDL-C is now calculated using the Sherley calculation, which is a validated novel method providing better accuracy than the Friedewald equation in the estimation of LDL-C. Elie PANCHAL et al. FLORI. 2013;310(19): 5001-0061 (http://education.Liveclubs.SeekSherpa/faq/QCT536)Performed By: #### 84694, 48031, 7600 #### [facility] [address], [address] [place] [address] Fitness Coordinator: Luiz Brink MDCholesteroparag.total/Cholesterol in HDL [Mass ratio]3.8 {ratio}Normal<5.0Quest DiagnosticsComment on above:Performed By: #### 81935, 54369, 7600 #### [facility] [address], [address] [place] [address] Fitness Coordinator: Luiz PINK HDL RHUDKBBSHZO425 mg/dL (calc)Normal<130 Quest DiagnosticsComment on above:Result Comment: For patients with diabetes plus 1 major ASCVD risk factor, treating to a non-HDL-C goal of <100 mg/dL (LDL-C of <70 mg/dL) is considered a therapeutic option.Performed By: #### 95708, 88083, 0 #### [facility] [address], [address] [place] [address] Fitness Coordinator: Luiz Brink MDTriglyceride [Mass/Vol]121 mg/dLNormal<150 Quest DiagnosticsComment on above:Performed By: #### 17391, 68561, 0 #### [facility] [place] [address] Fitness Coordinator: Luiz LEONE+FREE T4on 43-29-2552Wohe T4 [Mass/Vol]1.1 ng/dLNormal0.8-1.8Quest DiagnosticsComment on above:Performed By: #### 09658, 62751, 0 #### [facility] of [place] [address] Fitness Coordinator: Luiz LEONE Qn1.05 m[IU]/LNormalQuest [facility] Comment on above:Result Comment: Reference Range > or = 20 Years 0.40-4.50 Ranges First trimester 0.26-2.66 Second trimester 0.55-2.73 Third trimester 0.43-2.91Performed By: #### 73731, 09680, 0 #### [facility] [place] [address] Fitness Coordinator: Luiz Brink MDComplete Blood Count Auto Diffon 08-30-2021 Basophils (Bld) [#/Vol]0.0 10*3/uLNormal0.0-0.2[facility] Comment on above:Result Comment: PERFORMED BY: [place] [address] PATHOLOGIST HARM REDUCTION WORKER KAMLESH DENNISON M.D.Performed By: #### HH, [id number] #### [place] [address] USABasophils/100 WBC (Bld)0.2 %Normal.[facility] County HospitalComment on above:Performed By: #### HH, [id number] #### [place] [address] USAEosinophils (Bld) [#/Vol]0.0 10*3/uLNormal0.0-0.45 [facility] HospitalComment on above:Performed By: #### HH, [id number] #### [place] [address] USAEosinophils/100 WBC (Bld)0.5 %Normal.[facility] County HospitalComment on above:Performed By: #### HH, [id number] #### [place] [address] USAErythrocyte distribution width (RBC) [Ratio]13.1 %Normal 11.9-15.3FCleveland Clinic Hillcrest HospitalComment on above:Performed By: #### HH, [id number] #### [place] [address] USAHematocrit (Bld) [Volume fraction]28.2 %Low34.0-46.4 [facility] HospitalComment on above:Performed By: #### HH, [id number] #### [place] [address] USAHemoglobin (Bld) [Mass/Vol]9.6 g/dLLow11.8-15.4FCleveland Clinic Hillcrest HospitalComment on above:Performed By: #### HH, [id number] #### [place] [address] USALymphocytes (Bld) [#/Vol]2.3 10*3/uLNormal1.00-4.8 [facility] HospitalComment on above:Performed By: #### RADHA, [id number] #### [facility] [address] [place] [address] USALymphocytes/100 WBC (Bld)24.1 %Normal.[facility] County HospitalComment on above:Performed By: #### RADHA, [id number] #### [facility] [address] [place], [place] [address]H (RBC) [Entitic mass]30.1 wsOynflc92.7-34.3FCleveland Clinic Hillcrest HospitalComment on above:Performed By: #### RADHA, [id number] #### [facility] [address] [place] [address] USAV (RBC) [Entitic vol]88.8 wHSrcrfq43-555KvdkjrhexAdams County HospitalComment on above:Performed By: #### RADHA, [id number] #### [facility] [address] [place] [address] USAMean Corpuscular HGB Conc34.0 g/gJDjwfhe20.0-35.0[facility] HospitalComment on above:Performed By: #### RADHA, [id number] #### [place] [address] USAMonocytes (Bld) [#/Vol]0.7 10*3/uLNormal0.0-0.8[facility] HospitalComment on above:Performed By: #### RADHA, [id number] #### [facility] [address] [place] [address] USAMonocytes/100 WBC (Bld)7.2 %Normal.[facility] HospitalComment on above:Performed By: #### HH, [id number] #### [place] [address] USANeutrophils (Bld) [#/Vol]6.3 10*3/uLNormal1.8-7.7FCleveland Clinic Hillcrest HospitalComment on above:Performed By: #### HH, [id number] #### [facility] [address] [place] [address] USANeutrophils/100 WBC (Bld)68.0 %Normal.[facility] HospitalComment on above:Performed By: #### RADHA, [id number] #### [facility] [address] [place] [address] USANucleated RBC/100 WBC (Bld) [Ratio]0.1 %Normal0-0.5 [facility] HospitalComment on above:Performed By: #### RADHA, [id number] #### [place] [address] USAPlatelet mean volume (Bld) [Entitic vol]9.5 fLNormal 6.3-10.7FCleveland Clinic Hillcrest HospitalComment on above:Performed By: #### RADHA, [id number] #### [place] [address] USAPlatelets (Bld) [#/Vol]163 10*3/vYTtedxy223-929IrjaqfbhqAdams County HospitalComment on above:Performed By: #### RADHA, [id number] #### [facility] [address] [place] [address] USARBC (Bld) [#/Vol]3.18 10*6/uLLow3.60-5.00[facility] HospitalComment on above:Performed By: #### RADHA, [id number] #### [place] [address] USAWBC (Bld) [#/Vol]9.3 10*3/uLNormal4.5-11.0Ad[facility] HospitalComment on above:Performed By: #### RADHA, [id number] #### [place] [address] USACOVID-19 Antigenon [id number]- AntigenHealthcare Worker?: Jared Bourgeois Reference Isabell Reference Negative SARS-CoV+SARS-CoV-2 (COVID-19) Ag [...] its performance Isabell Disclaimer characteristic determined by [employer] and Isabell Disclaimer validated at [facility]. This Isabell Disclaimer test has not [...] is terminated or revoked sooner. PERFORMED BY: [place] [address] PATHOLOGIST HARM REDUCTION WORKER KAMLESH DENNISON M.D.[facility] HospitalComment on above: Performed By: #### COVID-19 ISABELL, [id number] #### [place] [address] USAComplete Blood Count Auto Diffon 06-04-1337Wsparkhsw (Bld) [#/Vol]0.0 10*3/uLNormal0.0-0.2FCleveland Clinic Hill[facility]st HospitalComment on above:Result Comment: PERFORMED BY: [place] [address] PATHOLOGIST HARM REDUCTION WORKER KAMLESH DENNISON M.D.Performed By: #### CBC #### [place] [address] USABasophils/100 WBC (Bld)0.3 %Normal.[facility] HospitalComment on above:Performed By: #### CBC #### [place] [address] USAEosinophils (Bld) [#/Vol]0.1 10*3/uLNormal0.0-0.45 [facility] HospitalComment on above:Performed By: #### CBC #### [address] [place] [address] USAEosinophils/100 WBC (Bld)0.6 %Normal.[facility] County HospitalComment on above:Performed By: #### CBC #### [facility] [address] [place] [address] USAErythrocyte distribution width (RBC) [Ratio]12.8 %Normal 11.9-15.3FCleveland Clinic Hillcrest HospitalComment on above:Performed By: #### CBC #### [facility] [address] [place] [address] USAHematocrit (Bld) [Volume fraction]35.2 %Nbaipw96.0-46.4 [facility] HospitalComment on above:Performed By: #### CBC #### [place] [address] USAHemoglobin (Bld) [Mass/Vol]11.8 g/iPKjvmkk91.8-15.4 [facility] HospitalComment on above:Performed By: #### CBC #### [place] [address] USALymphocytes (Bld) [#/Vol]2.8 10*3/uLNormal1.00-4.8 [facility] HospitalComment on above:Performed By: #### CBC #### [place] [address] USALymphocytes/100 WBC (Bld)27.4 %Normal.[facility] County HospitalComment on above:Performed By: #### CBC #### [place] [address] USAMCH (RBC) [Entitic mass]29.5 lsUhpksg37.7-34.3FCleveland Clinic Hillcrest HospitalComment on above:Performed By: #### CBC #### [place] [address] USAMCV (RBC) [Entitic vol]87.8 kIRaotvf36-898WavwvcwwiAdams County HospitalComment on above:Performed By: #### CBC #### [address] [place] [address] USAMean Corpuscular HGB Conc33.6 g/rUAuahoi08.0-35.0Ad[facility] County HospitalComment on above:Performed By: #### CBC #### [facility] [address] [place] [address] USAMonocytes (Bld) [#/Vol]0.8 10*3/uLNormal0.0-0.8Ad[facility] County HospitalComment on above:Performed By: #### CBC #### [facility] [address] [place] [address] USAMonocytes/100 WBC (Bld)7.5 %Normal.[facility] County HospitalComment on above:Performed By: #### CBC #### [facility] [address] [place] [address] USANeutrophils (Bld) [#/Vol]6.6 10*3/uLNormal1.8-7.7FCleveland Clinic Hillcrest HospitalComment on above:Performed By: #### CBC #### [facility] [address] [place] [address] USANeutrophils/100 WBC (Bld)64.2 %Normal.[facility] County HospitalComment on above:Performed By: #### CBC #### [facility] [address] [place] [address] USANucleated RBC/100 WBC (Bld) [Ratio]0.0 %Normal0-0.5 [facility] HospitalComment on above:Performed By: #### CBC #### [facility] [address] [place] [address] USAPlatelet mean volume (Bld) [Entitic vol]9.4 fLNormal 6.3-10.7FCleveland Clinic Hillcrest HospitalComment on above:Performed By: #### CBC #### [facility] [address] [place] [id number] USAPlatelets (Bld) [#/Vol]203 10*3/eHCuukte901-818OtadzcyesAdams County HospitalComment on above:Performed By: #### CBC #### [facility] [address] [place] [id number] USARBC (Bld) [#/Vol]4.01 10*6/uLNormal3.60-5.00Ad[facility] County HospitalComment on above:Performed By: #### CBC #### [facility] [address] [place] [address] USAWBC (Bld) [#/Vol]10.2 10*3/uLNormal4.5-11.0Ad[facility] County HospitalComment on above:Performed By: #### CBC #### [facility] [address] [place] [address] USADipstick and Microscopicon 20-85-2257Ozhgypnvxt (U)Clear NormalCleUC West Chester HospitalComment on above:Order Comment: Name Collection Type:: VoidedPerformed By: #### ADDONUAPLUS #### [place] [address] USABacteria,UrineNone SeenNormalNone SeenAdams County HospitalComment on above:Order Comment: Name Collection Type:: Voided Performed By: #### ADDONUAPLUS #### [place] [address] USABilirubin,UrineNegativeNormalNegativeAdams County HospitalComment on above:Order Comment: Name Collection Type:: Voided Performed By: #### ADDONUAPLUS #### [place] [address] USAColor (U)YellowNormalYellowAdams County HospitalComment on above:Order Comment: Name Collection Type:: VoidedPerformed By: #### ADDONUAPLUS #### [place] [address] USAGlucose Ql (U)NormalNormalNormGenesis HospitalComment on above:Order Comment: Name Collection Type:: VoidedPerformed By: #### ADDONUAPLUS #### [place] [address] USAHyaline Casts,Tnrap4-3Jslvsf4-5ZhpwqvcwkCleveland Clinic Hillcrest HospitalComment on above:Order Comment: Name Collection Type:: VoidedResult Comment: PERFORMED BY: [place] [address] PATHOLOGIST HARM REDUCTION WORKER KAMLESH DENNISON M.D.Performed By: #### ADDONUAPLUS #### [facility] [address] [place] [address] USAKetones Ql (U)TraceHighNegZanesville City HospitalComment on above:Order Comment: Name Collection Type:: VoidedPerformed By: #### ADDONUAPLUS #### [place] [address] USALeukocyte esterase Test strip Ql (U)NegativeNormalWhite HospitalComhawthorn center on above:Order Comment: Name Collection Type:: VoidedPerformed By: #### ADDONUAPLUS #### [place] [address] USANitrite,UrineNegativeNormalNegZanesville City HospitalComment on above:Order Comment: Name Collection Type:: Voided Performed By: #### ADDONUAPLUS #### [place] [address] USAOccult Blood,UrineNegativeNormalNegZanesville City HospitalComment on above:Order Comment: Name Collection Type:: Voided Result Comment: PERFORMED BY: [place] [address] PATHOLOGIST HARM REDUCTION WORKER KAMLESH DENNISON M.D.Performed By: #### ADDONUAPLUS #### [place] [address] USApH (U)6.5 [pH]Normal5.0-9.0Ad[facility] HospitalComhawthorn center on above:Order Comment: Name Collection Type:: VoidedPerformed By: #### ADDONUAPLUS #### [place] [address] USAProtein,UrineTraceHighNegZanesville City HospitalComment on above:Order Comment: Name Collection Type:: VoidedPerformed By: #### ADDONUAPLUS #### [place] [address] USARBC LM.HPF (Urine sed) [#/Area]0 /[HPF]Normal0-4FCleveland Clinic Hillcrest HospitalComment on above:Order Comment: Name Collection Type:: VoidedPerformed By: #### ADDONUAPLUS #### [place] [address] USASpecificy Logan,Urine1.364Rdwk3.001-1.030Ad[facility] County HospitalComment on above:Order Comment: Name Collection Type:: VoidedPerformed By: #### ADDONUAPLUS #### [place] [address] USASquamous Epithelial Cell,Wbwxx38-03Uerm8-3AkoetwtrxCleveland Clinic Hillcrest HospitalComment on above:Order Comment: Name Collection Type:: VoidedPerformed By: #### ADDONUAPLUS #### [place] [address] USAUrobilinogen,UrineNormalNormalNormGenesis HospitalComment on above:Order Comment: Name Collection Type:: Voided Performed By: #### ADDONUAPLUS #### [place] [address] USAWBC,Hxznk5-6Gxbt3-9DuqceglmzCleveland Clinic Hillcrest Hospital Comment on above:Order Comment: Name Collection Type:: VoidedPerformed By: #### ADDONUAPLUS #### [place] [address] USAOB Urine Drug Screen (NO THC)on 74-02-8320Yntyawidkwo Screen,UrineNegativeNormalNegativeAdams County HospitalComment on above:Performed By: #### RPR W RFX #### [facility] , #### OBUDS #### [place] [address] USABarbiturate Screen,UrineNegativeNormalNegativeFirelands Regional Medical CenterComment on above:Performed By: #### RPR W RFX #### [facility] , #### OBUDS #### [facility] [address] [place] [address] USABenzodiazepines Screen,UrineNegativeNormalNegative [facility] HospitalComment on above:Performed By: #### RPR W RFX #### [facility] , #### OBUDS #### [facility] [address] [place] [address] USACocaine Screen,UrineNegativeNormalNegativeAdams County HospitalComment on above:Performed By: #### RPR W RFX #### [facility] , #### OBUDS #### [place] [address] USAOpiate Screen,UrineNegativeNormalNegativeAdams County HospitalComment on above:Performed By: #### RPR W RFX #### [facility] , #### OBUDS #### [facility] [address] [place] [address] USAPhencyclidine Screen, UrineNegativeNormalNegativeAdams County HospitalComment on above:Result Comment: These are unconfirmed results and should not be used for legal purposes. Drug Cut-Off Concentration: AMPH 1000 ng/mL NATANAEL 200 ng/mL RYLEY 200 ng/mL COCM 300 ng/mL OP 300 ng/mL PCP 25 ng/mL PERFORMED BY: [place] [address] PATHOLOGIST HARM REDUCTION WORKER KAMLESH DENNISON M.D.Performed By: #### RPR W RFX #### [facility] , #### OBUDS #### [facility] [address] [place] [address] USARPR w/rfx to Quant TP Abson 42-43-3577LWX, Rfx Quant RPR Non-ReactiveNormalNon ReactiveAdams County HospitalComment on above: Result Comment: Performed at: - [facility] [address], [place], [place] [id number] Business Mail Entry Clerk: Jose Ramon Maxwell PhD, Phone: [phone] PERFORMED BY: [place] [address] PATHOLOGIST HARM REDUCTION WORKER KAMLESH DENNISON M.D.Performed By: #### RPR W RFX #### [facility] , #### OBUDS #### [place] [address] USASofia Ag Negativeon 30-06-8114Lhbsn Ag NegativeNegative NormalNegativeAdams County HospitalComment on above:Result Comment: This is a duplicate Isabell SARS Antigen (CLAUDIA) result to be used for statistical tracking purpose only. PERFORMED BY: [place] [address] PATHOLOGIST HARM REDUCTION WORKER KAMLESH DENNISON M.D.Performed By: #### COVID-19 ISABELL, SOFIANEG #### [place] [address] USAType and Screenon 24-74-8948UWL and Rh group Nom (Bld) Blood group A Rh(D) negativeNormalAdams County HospitalComment on above:Result Comment: PERFORMED BY: [place] [address] PATHOLOGIST HARM REDUCTION WORKER KAMLESH DENNISON M.D.Strep B Cultureon 15-49-7288Klrlx B CultureReason for Exam 35 weeks gestation of ; screening for stre Vaginal/Rectal No Group B Beta Streptococcus Isolated 3 Days PERFORMED BY: [place] [address] PATHOLOGIST HARM REDUCTION WORKER KAMLESH DENNISON M.D.[facility] HospitalComment on above: Performed By: #### CUSTB #### [place] [address] USAGlucose,1 Hour PP 50gm Doseon 30-97-0026Zxsvajb [Mass/Vol] 102 mg/lTIkdflp67-149VtgfsnbdgAdams County HospitalComment on above:Order Comment: Reason for Exam 25 weeks gestation of ;Diabetes mellitus screening Comment needs rhogamResult Comment: PERFORMED BY: [place] [address] PATHOLOGIST HARM REDUCTION WORKER KAMLESH DENNISON M.D.Performed By: #### HH, [id number] #### [facility] [address] [place], [place] [address] USAHemoglobin and Hematocriton 02-57-2683Gwnbjevkmb (Bld) [Volume fraction]32.4 %Low34.0-46.4FCleveland Clinic Hillcrest HospitalComment on above:Order Comment: Reason for Exam 25 weeks gestation of ;Diabetes mellitus screening Comment needs rhogamResult Comment: PERFORMED BY: [place] [address] PATHOLOGIST HARM REDUCTION WORKER KAMLESH DENNISON M.D.Performed By: #### HH, [id number] #### [place] [id number] USAHemoglobin (Bld) [Mass/Vol]11.2 g/dLLow11.8-15.4FCleveland Clinic Hillcrest HospitalComment on above:Order Comment: Reason for Exam 25 weeks gestation of ;Diabetes mellitus screening Comment needs rhogamPerformed By: #### HH, [id number] #### [facility] [address] [place], [place] [address] USARhogam Workupon 97-26-8193Ocmgak CandidateYesSelect Medical Ohiohealth Rehabilitation HospitalComment on above:Order Comment: Reason for Exam 25 weeks gestation of ;Blood typing encounter Comment needs rhogamPerformed By: #### HH, [id number] #### [facility] [address] [place], [place] [address] USARHOGAM DOSEANTENATALMiddletown HospitalComment on above:Order Comment: Reason for Exam 25 weeks gestation of ;Blood typing encounter Comment needs rhogamResult Comment: 1 dose(300mcg)of RhoGAM indicated PERFORMED BY: [place] [address] PATHOLOGIST HARM REDUCTION WORKER KAMLESH DENNISON M.D.Performed By: #### RADHA, [id number] #### [facility] [address] [place] [address] USAABO and Rh group Nom (Bld)Blood group A Rh(D) negative NormalAdams County HospitalComment on above:Order Comment: Reason for Exam 25 weeks gestation of ;Blood typing encounter Comment needs rhogamResult Comment: PERFORMED BY: [facility] [address] [place] [id number] PATHOLOGIST HARM REDUCTION WORKER KAMLESH DENNISON M.D.Performed By: #### RADHA, [id number] #### [place] [id number] USACOVID-19 Positive/Negativeon 89-90-3853PVMFB-19 Positive/NegativeNegativeNegativeUniversity Hospitals Health System CtrComment on above: Reference: NegativeTesting for SARS-CoV-2 by RT-PCRThis test was developed and its performance characteristics determined by [employer] ([employer]) and validated at the [facility]. This test has not been FDA cleared or approved. This test has been authorized by FDA under an Emergency Use Authorization (EUA). This test has been validated in accordance with the [facility]'s Guidance Document (Policy for Diagnostics Testing in Laboratories Certified to Perform High Complexity Testing under CLIA prior to Emergency Use Authorization for Coronavirus Disease-2019 duringthe Public Health Emergency) issued on September 09, 2019. This test is only authorized for the durationof time the declaration that circumstances exist justifying the authorization of the emergency use of in vitro diagnostic tests for detection of SARS-CoV-2 virus and/or diagnosis of COVID-19 infection under section 564(b)(1) of the Act, 21 U.S.C. 360bbb-3(b)(1), unless the authorization is terminated or revoked sooner. Otheron 94-46-6890Mazoiounhco 2019 PCR Inter/[facility] Coding Summary.on 84-38-8748Mkvmue Summary.CODING DATE: 08/28/2018 [facility] STATUS: Home (Routine DC) PAYOR: Commercial Insurance [...] By: Martha Patel Date Saved: 08/28/2018 03:28 pmNJoint Township District Memorial HospitalMain OR Intraoperative Recordon [id number] OR Intraoperative RecordIntraOp Document Type FTURO Summary Primary Physician: Jeff De La O Jr., MD Finalized Date/Time: 08/27/18 15:42:01 Pt. Name: ELISABET MARTINEZ/Sex: 2000 Female Med Rec #: [id number] Physician: Jeff De La O Jr., MD Financial #: [id number] Pt. Type: O Room/Bed: / Admit/Disch: 08/27/18 15:26:03 - Institution: Case Times FTURO Entry 1 Patient Times In Room 08/27/18 15:33:00 Out Room 08/27/18 15:44:00 Procedure Times Start 08/27/18 15:37:00 Stop 08/27/18 15:40:00 Anesthesia Times Last Modified By: Kandy DUFF, Rosemarie TANG 08/27/18 15:40:25 Case Attendance FTURO Entry 1 Entry 2 Entry 3 Case Attendee Jairon Rutledge MD, Jeff Gaitan RN, DAVIDOR, Marvin NICK, Alana Houston Role Performed Surgeon - Primary It Security Specialist - Primary Scrub - Primary Time In 08/27/18 15:33:00 08/27/18 15:33:00 08/27/18 15:33:00 Time Out 08/27/18 15:44:00 08/27/18 15:44:00 08/27/18 15:44:00 Procedure CYSTOSCOPY LOCAL WITH CYSTOSCOPY LOCAL WITH CYSTOSCOPY LOCAL WITH URETHRAL DILATION(.) URETHRAL DILATION(.) URETHRAL DILATION(.) Comments Last Modified By: Kandy DUFF, CNOR, Kandy DUFF, DAVIDOR, Kandy DUFF, DAVIDOR, Rosemarie 08/27/18 Rosemarie 08/27/18 Rosemarie 08/27/18 15:40:27 15:40:27 15:40:27 Surgical Procedures FTURO Entry 1 Procedure Description Procedure CYSTOSCOPY LOCAL WITH Modifiers . URETHRAL DILATION Surgeon Description CYSTO UD Primary Procedure Yes Primary Surgeon Jairon Rutledge MD, Jeff Bansal Start 08/27/18 15:37:00 Stop 08/27/18 15:40:00 Anesthesia [...] stricture Outcomes Met? Yes Last Modified By: Kandy DUFF, DAVIDOR, Rosemarie 08/27/18 15:39:53 Post-Care Text: The patient is [...] Rutledge MD, Jeff Bansal, Verified (If Participants Kandy DUFF, CNOR, Applicable) Marvin Houston BEHAVIORAL HEALTH THERAPIST, Alana Time Out Complete 08/27/18 15:35:00 Allergies [...] 08/27/18 15:40 CLYDE Gaitan RN, Ruthann 08/27/18 15:42[facility] HospitalMain OR Preoperative Recordon [id number] OR Preoperative RecordHolding Area Document Type FTURO Summary Primary Physician: Jeff De La O Jr., MD Finalized Date/Time: 08/27/18 15:35:34 Pt. Name: ELISABET MARTINEZ/Sex: 2000 Female Med Rec #: [id number] Physician: Jeff De La O Jr., MD Financial #: [id number] Pt. Type: O Room/Bed: / Admit/Disch: 08/27/18 [...] or her perioperative plan of care The patient'sright to privacy is maintained Surgery Checklist FTURO Entry 1 Patient Birthday, ID Band Procedure History and Physical, Identification: Check, Patient Verification: Surgical Consent, With Participation Patient NPO after Midnight: n/a Personal Items: Jewelry Personal Items earrings, lip ring, Complaints of Pain: No Comment: nose ring, belly button ring, ring Skin Integrity Intact, [place], Warm, & Dry Vitals - EU Blood Pressure 112/63 Pulse 85 bpm Respirations 18 br/min SPO2 RN Reviewed Yes Last Modified By: CLYDE Gaitan RN, Ruthann 08/27/18 15:35:32 Finalized By: CLYDE Gaitan RN, Ruthann Document Signatures Signed By: Keshawn RHOADESMelody 08/27/18 15:31 CLYDE Gaitan RN, Ruthann 08/27/18 15:35NormUniversity [facility] Operative Reporton [id number] ReportPatient: ELISABET MARTINEZ Age: 18 years Sex: Female : 2000 Associated Diagnoses: None Author: Jeff De La O Jr., MD Procedure Operative Information Details: Date/ Time: 08/27/18 15:41:00. Pre-Op Dx: Urgency Incontinence - N39.41, Frequency - R35.0, Urgency - R39.15, Urethral Stricture -Female Post Trauma Urethral Stricture Female - N35.028. Post-Op Dx: Same. Anesthesia Type: Local. Procedure: Local Cystoscopy with Urethral Dilation. Complications: None. Risks/Benefits/Informed Consent: Surgical risks, benefits, details of the [...] urine. The Urethra was dilated to: 28 Venezuelan w/ sounds. Devices Implanted: None. Removal: Cystoscope is removed, The patient tolerated it well. Postoperative Information Discharge: Patient is discharged home with antibiotic coverage, Follow up arranged.[facility] HospitalComment on above:Result Comment: Electronically Signed By: Jeff De La O Jr., MD\.br\Date and Time Signed: 08/27/1914:42 EDT Vital Signs Date TimeVital SignValuePerforming SnyegzjohImtwbpgn73-74-6949 11:17-0500Body hygnph874.2 cmMook Johnstonlong DO Work Phone: [facility]11-03-2025 11:17-0500Body mass index (BMI) [Ratio]38.65 kg/i9Uyngkc Furlong DO Work Phone: [facility]11-03-2025 11:17-0500Body tuwxysjfhie16.81 [degF]Mook Johnstonlong DO Work Phone: [facility]11-03-2025 11:17-0500Body .95 kgDenrani Johnstonlong DO Work Phone: [facility]11-03-2025 11:17-0500Diastolic blood exuyzerk50 mm[Hg]Mook Johnstonlong DO Work Phone: [facility]11-03-2025 11:17-0500Heart rate 94 /Arielleis Prestonlong DO Work Phone: [facility]11-03-2025 11:17-0500 Respiratory rate18 /minDanaliliais Furlong DO Work Phone: [facility]11-03-2025 11:17-0500Systolic blood mm[Hg]Mook Johnstonlong DO Work Phone: [facility]12-03-2024 10:40-0500Body mass index (BMI) [Ratio]36.81 kg/v1Dizql Lyn DO Work Phone: [facility] CenterEweebtrebb24-51-7288 10:40-0500Body gabdgu209.83 kgAtify Lyn DO Work Phone: [facility] CenterZjobwynsit73-85-8517 10:40-0500Diastolic blood edejthex00 mm[Hg]Keshawn Lyn DO Work Phone: [facility] CenterNyfvreogkv79-54-9906 10:40-0500Systolic blood mm[Hg]Keshawn Lyn DO Work Phone: [facility] CenterJwoeajlivy35-79-3894 14:34-0400Body oifoej631.7 cmCorey Lyn DO Work Phone: [phone] [place], [place] [address]Xqewnrarwf64-44-2669 14:34-0400Body mass index (BMI) [Ratio]36.95 kg/i1Asnnj Lyn DO Work Phone: [phone] Health CenterTbowibospc22-14-9079 14:34-0400Body .22 kgCorey Lyn DO Work Phone: [phone])[facility] [place] [address]-19-2024 14:34-0400Diastolic blood hvunkuwe33 mm[Hg]Keshawn Lyn DO Work Phone: [phone] [place] [address]-19-2024 14:34-0400Systolic blood mm[Hg]Keshawn Luceroo DO Work Phone: [phone] [place], [place] [address]Zmkgtwnipb16-64-8845 13:43-0400Body .2 cmRoxanna Marsh LEADED GLASS INSTALLER-PSYCHIATRIC SECURITY NURSE Work Phone: [facility]05-13-2024 13:43-0400Body mass index (BMI) [Ratio]37.81 kg/m2Roxanna Marsh LEADED GLASS INSTALLER-PSYCHIATRIC SECURITY NURSE Work Phone: [facility]05-13-2024 13:43-0400Body pwruvsgqcbe06.81 [degF]Roxanna Marsh LEADED GLASS INSTALLER-PSYCHIATRIC SECURITY NURSE Work Phone: [facility]05-13-2024 13:43-0400Body zgkxol187.5 kgRoxanna Marsh LEADED GLASS INSTALLER-PSYCHIATRIC SECURITY NURSE Work Phone: [facility]05-13-2024 13:43-0400Diastolic blood mm[Hg]Roxanna Marsh APRN-PSYCHIATRIC SECURITY NURSE Work Phone: [facility]05-13-2024 13:43-0400Heart rate 81 /minRoxanna Marsh LEADED GLASS INSTALLER-PSYCHIATRIC SECURITY NURSE Work Phone: [facility]05-13-2024 13:43-4048ZyX8% (BldA) [Mass fraction]98 %Roxanna Marsh LEADED GLASS INSTALLER-PSYCHIATRIC SECURITY NURSE Work Phone: [facility]05-13-2024 13:43-0400Systolic blood xseddxvr294 mm[Hg]Roxanna Marsh LEADED GLASS INSTALLER-PSYCHIATRIC SECURITY NURSE Work Phone: [facility]12-22-2023 13:52-0500Body qfyjjo172.[address]12-22-2023 13:52-0500Body mass index (BMI) [Ratio]40.45 kg/m2Pmh [address] [place], [place] [address]12-22-2023 13:52-0500Body rjpaol377.[address] [place] [address] Encounters Encounter DateEncounter TypeCare ProviderFacilityStart: 04-11-2025 End: 81-67-8486Nwjqpmu encounter statusAspen Valley Hospitalrani Johnstoncassie 72xuan Work Phone: [facility] SystemStart: 04-11-2025 End: 50-86-1357Vehlxgyn preventive med est patient 18-39 yrsDenrani Wang DO Work Phone: [facility] - Family MedicineComment on above:Well adult exam (Primary Dx); Class 2 severe obesity due to excess calories with serious comorbidity and body mass index (BMI) of38.0 to 38.9 in adultStart: 04-11-2025 End: 89-93-0231baccgbbvcpIRQGDDParkview Medical Center Ambulatory PPGStart: 43-12-0253Dzrkkijkc for general adult medical examination without abnormal findingsParkview Medical Center Ambulatory PPGStart: 03-03-2025 End: 52-45-9408Hcdjcxvew encounterTish Regan CMAProMediwi Physicians Internal Medicine - Family MedicineComment on above:AppointmentStart: 05-11-2024 End: 91-29-7162Ryhdug flowsheetCorey Lyn DO Work Phone: [facility] BCP OBStart: 05-11-2024 End: 71-59-6775Evzkml flowsheetCorey Lyn DO Work Phone: [facility] BCP OBStart: 05-11-2024 End: 60-67-3685Icyqprmer Result EncounterCorey Lyn DO Work Phone: [facility] External Department UnsolicitedStart: 05-11-2024 End: 38-09-9729Dxqcvrf encounter procedureCorey Lyn DO Work Phone: [facility] Work Phone: Start: 05-11-2024 End: 91-06-0951Ndohtnrs preventive med est patient 18-39 yrsCorey Lyn DO Work Phone: [facility] BCP OBComment on above:Well woman exam with routine gynecological exam; Irregular menstrual cycle; General counseling and advice on contraceptive management; Cervicitis and endocervicitisStart: 05-11-2024 End: 74-24-3918pitmczyglmSAOTZ FAZIONot AvailableStart: 01-26-2024 End: 61-71-5939Tqxkouk encounter procedureCorey Lyn DO Work Phone: [facility] BCP OBComment on above:Irregular menstrual cycle; General counseling and advice on contraceptive managementStart: 01-26-2024 End: 77-47-9466srefrxouufECVAB FAZIONot AvailableStart: 10-21-2023 End: 65-68-4371Lynmatzrl encounterLena Horta [facility]ITALProMedica [facility]icians Internal Medicine - Family MedicineStart: 10-21-2023 End: 07-01-7940qictpvdebvABDJ ROSE KUNCommunity Regional Medical Centertart: 10-20-2023 End: 35-81-7549Cgoref outpatient visit 15 minutesRoxanna Marsh LEADED GLASS INSTALLER-PSYCHIATRIC SECURITY NURSE Work Phone: [facility] Medicine - Family MedicineComment on above:Episodic lightheadedness (Primary Dx); Irregular bleedingStart: 10-01-2023 End: 24-71-4887Mctvtyvdz encounterTish Regan [facility]PITALProMedica [facility]icians Internal Medicine - Family MedicineComment on above:Appointment DueStart: 06-12-2023 End: 20-45-2831Tuedwgvcdu and management of inpatientVERN D REYNOLDSProMedica Turner HospitalStart: 96-69-7230Rwsspjdxk encounterYordan Lombardi MD Work Phone: [facility] Genito-Urinary SurgeonsStart: 06-11-2023 End: 72-85-8493Rlltftutyn and management of inpatientYORDAN LOMBARDILake County Memorial Hospital - Westtart: 06-11-2023 End: 45-18-7240Qzgdplckij and management of inpatientYORDAN LOMBARDIFisher-Titus Medical Center HospitalStart: 63-74-3270Somvtdggp for other preprocedural examination ELVIRA ZUNIGALake [facility]: 05-30-2023 End: 24-23-8747pjztfwjtymHOPVEDG G. RASHIDLake County [facility] Westtart: 05-30-2023 End: 73-17-2474Rsjnsyj encounter procedurePm Pre-Admission Testing [facility] - Pre AdmitStart: 04-12-2022 End: 11-87-7245fkfqdeunlsXX TEOFILO MARKERFacility:C1Nqcod: 01-23-2022 End: 21-48-6865ehonatqwhhHQTNTR RAUCHFacility:U6Nvtqn: 09-07-2020 End: 05-29-4241Ywzuufc encounter procedurePaul Qdkrku-Hbr-Hnihwifo Testing Procedures DateProcedureProcedure DetailPerforming ClinicianStart: 31-07-5823Arade depression screening assessmentDennis Furlong DO Work Phone: Start: 63-04-6768UKW,APTIMA HPV,AGE GDLNCorey Lyn DO Work Phone: Start: 28-55-4805SWD INSERTION/REMOVAL OF CONTRACEPTIVE CAPSULECorey Lyn DO Work Phone: Start: 38-85-4548Kymqj depression screening assessment [facility] 1Start: 33-80-0166Xpgkjoic screenComment on above:Result Comment: PERFORMED BY: [facility] [address] PATHOLOGIST HARM REDUCTION WORKER KAMLESH DENNISON M.D.Start: 89-24-2840Crzhoqqa screenComment on above:Order Comment: Reason for Exam 25 weeks gestation of ;Blood typing encounter Comment needs rhogamResult Comment: PERFORMED BY: [address]RAYMONKAT[address] [place] [id number] PATHOLOGIST HARM REDUCTION WORKER KAMLESH DENNISON M.D.Performed By: #### HH, [id number] #### [place] [id number] [facility] Plan of Treatment DateCare ActivityDetailAuthorStart: 87-28-9689Twqed BMI ScreeningAdult BMI ScreeningProBaptist Medical Center East Health SystemStart: 93-17-6683Acznkcanea ScreeningDepression ScreeningProDiley Ridge Medical Center SystemStart: 11-52-3777Hiumhrh ScreeningTobacco ScreeningProDiley Ridge Medical Center SystemStart: 94-52-7590Puyowsepj vaccinationInfluenza VaccineKettering Health Washington Township SystemComment on above:Postponed from 02/07/2025 (Patient Refused)Start: 05-24-2025 End: 62-44-1343Nkmgbgt encounter fduwzkykc18/16/2025 11:00 AM EST Office Visit [facility] [address] [place] [phone] Keshawn Nicholson DO [address] [place] [address] [facility] OBStart: 05-09-2025 End: 77-67-3691Lltfbxb encounter zozlbkrwo94/01/2025 2:15 PM EST Office Visit [facility] [address] [place] [address] Mook Wang, DO [address] [place] [address] [facility] MedicineStart: 04-11-2025 End: 43-34-1408Xvpvzxr encounter pzaubgcvd37/03/2025 11:15 AM EST Office Visit [facility] [address] [place] [address] Mook Wang, DO [address] [facility] [place] [address] [facility] Family MedicineStart: 45-00-7057Nfmrgullg vaccinationInfluenza VaccineKettering Health Washington Township SystemStart: 71-65-7854Pakxm BMI ScreeningAdult BMI ScreeningKettering Health Washington Township SystemStart: 50-33-5134Otnzrfe ScreeningTobacco ScreeningKettering Health Washington Township SystemStart: 93-38-9986Iunfo BMI ScreeningAdult BMI ScreeningKettering Health Washington Township SystemStart: 63-01-2713Yziawha ScreeningTobacco ScreeningKettering Health Washington Township SystemStart: 73-88-3002Bcjgp BMI ScreeningAdult BMI ScreeningKettering Health Washington Township SystemStart: 58-32-2245Yylgrvl ScreeningTobacco ScreeningKettering Health Washington Township SystemStart: 05-11-2024 End: 73-16-6988Foknlud encounter procedureNOMS BCP OBComment on above:Arrived Start: 74-05-5809Qrjcpqepup ScreeningDepression ScreeningKettering Health Washington Township System Start: 37-98-4943Mkaztyhzi vaccinationInfluenza VaccineKettering Health Washington Township System Start: 78-06-7892Mepmqmfsj for Chlamydia trachomatisChlamydia ScreeningKettering Health Washington Township SystemStart: 06-11-2023 End: 50-92-8238Eledlastl to same day surgery eafims9306/11/2023 9:15 AM EST - 06/11/2023 10:00 AM EST Surgery [facility] [address] [place] [address] Yordan Lombardi MD [address] [place] [address] CYSTOSCOPY RETROGRADE PYELOGRAM WITH [facility] BLADDER SOLUTION AND BLADDER IRRIGATION [27863 ([facility] )][facility] - SurgeryComment on above:CYSTOSCOPY RETROGRADE PYELOGRAM WITH [facility] BLADDER SOLUTION AND BLADDER IRRIGATION [82600 ([facility] )]Start: 06-11-2023 End: 30-34-5365Qtadxgjqal nqunujbjlkfo97/03/2024 9:15 AM EST Anesthesia Event [facility] [address] [place] [address] Niru Thomason, DO [address] [place], [place] [id number] [facility] - SurgeryStart: 06-11-2023 End: 14-19-6456Ujjwx bladder w/ureteral catheterizationFREMONT SURGERYStart: 34-45-9749Xxjhgiynyv hospital visit by xlimwrckr89/03/2024 9:15 AM EST Hospital Encounter [facility] [address] [place] [address] Yordan Lombardi MD [address] [place] [address] [phone] (Work) [facility] HospitalStart: 86-53-4710Yppogibkf vaccinationInfluenza Vaccine [facility] Hospitaltart: 62-38-6999FAhL,Tdap and Td Vaccines (8 - Td or Tdap)DTaP,Tdap and Td Vaccines (8 - Td or Tdap)[facility] SystemStart: 51-47-6868Eolstzktg for malignant neoplasm of cervixPap SmearKettering Health Washington Township SystemStart: 68-12-1788Xfuje BMI Follow Up PlanAdult BMI Follow Up PlanKettering Health Washington Township System End: 38-55-4786Ofqygptejyarb metabolic 2000 panel - Serum or PlasmaComprehensive metabolic panel Lab Routine Well adult exam 1 Occurrences starting 04/11/2025 until 04/11/2026[facility] Work Phone: Comment on above:1 Occurrences starting 04/11/2025 until 04/11/2026omprehensive metabolic 2000 panel - Serum or Plasma Comprehensive metabolic panel Lab Routine Well adult exam 04/11/2025 11:57 AM [facility] Cervical or vaginal smear or scraping study Pap Smear Pathology and Cytology Routine Well woman exam with routine gynecological exam Ordered: 05/11/2024[facility] Work Phone: comment on above:Ordered: 05/11/2024 End: 88-16-7429Yatbo 1995 panel - Serum or PlasmaLipid profile Lab Routine Well adult exam 1 Occurrences starting 04/11/2025 until 04/11/2026Gen[facility] HospitalComment on above:1 Occurrences starting 04/11/2025 until 04/11/2026Lipid 1995 panel - Serum or PlasmaLipid profile Lab Routine Well adult exam 04/11/2025 11:57 AM [facility] Immunizations Immunization DateImmunizationNotesCare WdhznlayKsbwzvzd35-27-3748livqlzgrx, injectable, quadrivalent, preservative free[address] 03-01-4064zvhvwnvzj virus vaccine, unspecified formulation[address]10-05-2016influenza, injectable, quadrivalent, preservative freeSt. [facility] Hospital 1 Genesis HospitalJshmeo85-37-9292jiuaerirsevxv oligosaccharide (groups A, C, Y and W-135) diphtheria toxoid conjugate vaccine (MCV4O)[address]09-06-2016tuberculin skin test; purified protein derivative solution, intradermal[address]12-04-2015human papilloma virus vaccine, quadrivalent[address]09-01-2015influenza, injectable, madin giovanny canine kidney, preservative free[address]09-01-2015 influenza, seasonal, injectable, preservative free[address] 08-27-8746crfthvkbav skin test; purified protein derivative solution, intradermal[address]05-26-2015HPV, unspecified formulation[address]03-26-2015HPV, unspecified formulation[address]09-09-2014influenza, seasonal, injectable[address]09-12-2011diphtheria, tetanus toxoids and pertussis vaccine06 [address] StreetWxgwon83-63-3374kxuxealdeuvmd polysaccharide (groups A, C, Y and W-135) diphtheria toxoid conjugate vaccine (MCV4P)[address] 20-08-5399tzqwuwv toxoid, reduced diphtheria toxoid, and acellular pertussis vaccine, adsorbed[address]09-08-2004diphtheria, tetanus toxoids and acellular pertussis vaccine[address]05-24-2004 measles, mumps and rubella virus vaccine[address]05-24-2004 poliovirus vaccine, inactivated[address]08-14-2002hepatitis B vaccine, pediatric or pediatric/adolescent dosage[address] 09-37-1651kyxkxklql B vaccine, pediatric or pediatric/adolescent dosage[address]12-29-2000diphtheria, tetanus toxoids and pertussis vaccine[address]12-29-2000haemophilus influenzae type b vaccine, conjugate unspecified formulation[address]12-29-2000 hepatitis B vaccine, pediatric or pediatric/adolescent dosage[address]12-29-2000measles, mumps and rubella virus vaccine[address]07-13-2000diphtheria, tetanus toxoids and pertussis vaccine[address]07-13-2000haemophilus influenzae type b vaccine, conjugate unspecified formulation[address]07-13-2000 poliovirus vaccine, inactivated[address]02-29-2000diphtheria, tetanus toxoids and pertussis vaccine[address]02-29-2000 haemophilus influenzae type b vaccine, conjugate unspecified formulation[address]02-29-2000poliovirus vaccine, inactivated[address]1999diphtheria, tetanus toxoids and pertussis vaccine[address]1999haemophilus influenzae type b vaccine, conjugate unspecified formulation[address] poliovirus vaccine, inactivated[address]1999hepatitis B vaccine, adult dosage[address] Payers DatePayer CategoryPayerPolicy [id number] (Managed Care)[facility] MEDICAID [id number] 2020Medicaid [id number] 2020Medicaid [place] [id number] 2..1.844641.3.57[id number] 2.0.1.032459.3.57[id number] 2.0.1.879191.3.57[id number] 2.0.1.816634.3.57[id number] 2.0.1.996134.3.57[id number] 2.16.840.1.647874.3.57[id number] 2.16.840.1.563696.3.57[id number] 2.16.840.1.004416.3.57[id number] 2.16.840.1.108264.3.57[id number] 2.16.840.1.552950.3.57[id number] 2.16840.1.516743.3.57[id number] 2.0.1.248735.3.57[id number] 2.16840.1.732897.3.57[id number] 2.16840.1.532951.3.57[id number]-lugUlpi Pay [id number]-[id number]-[id number] [id number] Social History DateTypeDetailFacilityTobacco smoking status NHISUnknown if ever smokedUniversity Hospitals Health System CtrStart: 76-06-7195Lng Assigned At BirthFeSelect Medical OhioHealth Rehabilitation HospitalTobacco smoking status NHISTobacco smoking consumption unknownINTERMOUNTAIN [facility]ALTHCARE HealthcareStart: 18-35-3062Xnn assigned at birthNot on fileNOMS HealthcareStart: 03-17-2023 End: 26-54-7536Tbicnz identityNot on fileKettering Health Washington Township SystemStart: 83-68-2486Uxltlcg smoking status NHISEx-smokerKettering Health Washington Township SystemHistory of tobacco useCurrent smokerCape Fear Valley Hoke Hospitaltart: 96-77-5178Dehaitx use and exposureSmokeless tobacco non-userKettering Health Washington Township SystemStart: 05-30-2023 End: 94-77-4932Cmzeywb intakeCurrent non-drinker of alcohol (finding)[facility] SystemStart: 03-17-2023 End: 90-97-5938Fxzbupk of Social functionKettering Health Washington Township SystemDo you belong to any clubs or organizations such as alevism groups, unions, fraToywheel or athletic groups, or school groups?NoProMeddekalb regional medical center Health SystemAre you now , , , , never or living with a partner?Never Genesis HospitalFrequency of Alcohol ConsumptionNeverKettering Health Washington Township SystemHow hard is it for you to pay for the very basics like food, housing, medical care, and heatingNot very hardKettering Health Washington Township SystemDo you feel stress - tense, restless, nervous, or anxious, or unable to sleep at night because your mind is troubled all the time - these days [OSQ]To some extentCape Fear Valley Hoke Hospitaltart: 15-39-4982Xnwdoc identityIdentifies as female gender (finding) [facility] Hospitaltart: 29-58-7924Bauzfh orientationHeterosexual (finding) [facility] SystemStart: 47-35-9426NdjKiepjn (finding)Gen[facility] HospitalHow often do you have a drink containing alcohol?NeverGenesis HospitalHow hard is it for you to pay for the very basics like food, housing, medical care, and heatingHardKettering Health Washington Township System Goals DatePatient GoalDesired Activity/State Clinical Notes 05-30-2023 to 04-11-2025 Note Date & ZzpeBgotGnbmsliz26-06-1131 History of Present illness Narrative* Mook Wang, DO - 04/11/2025 11:15 AM EST Subjective Patient ID: Elisabet Martinez is a 25 y.o. female. Elisabet presents for her annual wellness exam. She has no new problems to report. She did not try compounded semaglutide for weight loss but it did not work. Did cause constipation though. She used phentermine in the past but it was at the higher dose and it caused her to zone out. She did not have any palpitations or other side effects with the medication. The following portions of the patient's history were reviewed and updated as appropriate: allergies, current medications, past family history, past medical history, past social history, past surgicalhistory, problem list, and medication reconciliation was completed including current medication andpost discharge medication. Review of Systems Constitutional: Negative. HENT: Negative. Eyes: Negative. Respiratory: Negative. Cardiovascular: Negative. Gastrointestinal: Negative. Endocrine: Negative. Genitourinary: Negative. Musculoskeletal: Negative. Skin: Negative. Allergic/Immunologic: Negative. Neurological: Negative. Hematological: Negative. Psychiatric/Behavioral: Negative. Objective Physical Exam Vitals reviewed. Constitutional: General: She is not in acute distress. Appearance: She is obese. She is not ill-appearing. HENT: Head: Normocephalic. Right Ear: Tympanic membrane, ear canal and external ear normal. Left Ear: Tympanic membrane, ear canal and external ear normal. Nose: Nose normal. Mouth/Throat: Lips: [place]. Mouth: Mucous membranes are moist. Pharynx: Oropharynx is clear. Eyes: General: No scleral icterus. Extraocular Movements: Extraocular movements intact. Conjunctiva/sclera: Conjunctivae normal. Cardiovascular: Rate and Rhythm: Normal rate and regular rhythm. Heart sounds: Normal heart sounds. No murmur heard. No friction rub. Pulmonary: Effort: Pulmonary effort is normal. No respiratory distress. Breath sounds: Normal breath sounds. No wheezing, rhonchi or rales. Abdominal: General: Bowel sounds are normal. Tenderness: There is no abdominal tenderness. Musculoskeletal: Cervical back: Neck supple. Lymphadenopathy: Cervical: No cervical adenopathy. Skin: General: Skin is warm and dry. Findings: No lesion or rash. Neurological: General: No focal deficit present. Mental Status: She is alert and oriented to person, place, and time. Cranial Nerves: Cranial nerves 2-12 are intact. Gait: Gait is intact. Psychiatric: Attention and Perception: Attention normal. Mood and Affect: Mood and affect normal. Speech: Speech normal. Behavior: Behavior normal. Behavior is cooperative. Thought Content: Thought content normal. Cognition and Memory: Cognition normal. Judgment: Judgment normal. Assessment/Plan Elisabet was seen today for annual exam. Diagnoses and all orders for this visit: Well adult exam - Comprehensive metabolic panel; Future - Lipid profile; Future - Lipid profile - Comprehensive metabolic panel Health maintenance discussed. Check CMP and lipids. She declined vaccines. Class 2 severe obesity due to excess calories with serious comorbidity and body mass index (BMI) of38.0 to 38.9 in adult - phentermine 15 MG capsule; Take 1 capsule (15 mg total) by mouth every morning. She is obese. She would benefit from weight loss. Diet, exercise and weight loss discussed and encouraged. We will try weight loss medication. Try low-dose of phentermine 15 mg daily. documented in this encounterGenesis Hospital09-25-2025 Miscellaneous Notes* Telephone Encounter - Tish Regan CMA - 03/03/2025 9:17 AM EDT Care Coordination Outreach performed to coordinate overdue appointments, testing, and/or follow-up care: Yes Audit/Outreach Date: March 03, 2025 Reason: Well Person Method: Telephone and MyChart Outreach Attempt: First Outcome: Left Message and Letter Sent Next PCP Appointment: N/A Tests/Referrals Pended: N/A Resources/Education Provided: Additional Comments: Left message for patient to contact office to schedule yearly wellness visit. Letter sent. documented in this [facility]09-25-2025 Telephone encounter Note* Telephone Encounter - Tish Regan CMA - 03/03/2025 9:17 AM EDT Care Coordination Outreach performed to coordinate overdue appointments, testing, and/or follow-up care: Yes Audit/Outreach Date: March 03, 2025 Reason: Well Person Method: Telephone and MyChart Outreach Attempt: First Outcome: Left Message and Letter Sent Next PCP Appointment: N/A Tests/Referrals Pended: N/A Resources/Education Provided: Additional Comments: Left message for patient to contact office to schedule yearly wellness visit. Letter sent. [facility] [employer] Pkjucl35-29-1511 History of Present illness Narrative* Graciela Mcknight, JF - 05/11/2024 10:20 AM EST Reason for Appointment: Patient ID: Elisabet Martinez is a 24 y.o. female who presents for Well Women Visit Patient presents today for Annual Exam. MEDICATIONS Current Outpatient Medications Medication Instructions ARIPiprazole (Abilify) 10 MG tablet etonogestrel-ethinyl estradiol (Nuvaring) 0.12-0.015 MG/24HR vaginal ring 1 Ring, Vaginal, Every 28days, Insert vaginal ring for 3 weeks, then [...] note reviewed. Exam conducted with a senior media buyer present. Vitals: Estimated body mass index is [...] of: Keshawn Nicholson DO documented in this encounterLafayette Regional Health CenterIkligbjnrq56-89-7761 History of Present illness Narrative* Alma Dominique LPN - 01/26/2024 2:30 PM EDTAssociated Order(s): Insertion/Removal of Contraceptive Capsule Post-Procedure Diagnose(s): [...] note reviewed. Exam conducted with a senior media buyer present. Vitals: Estimated body mass index is 36.95 kg/m as calculated from the following: Height as of this encounter: 5' 8 . Weight as of this encounter: 243 lb. BP: 116/72 Patient's last menstrual period was 12/08/2023. ASSESSMENT & PLAN Assessment/Plan Encounter Diagnosis: No diagnosis found. Insertion/Removal of Contraceptive Capsule Date/Time: 01/26/2024 2:48 PM Performed by: Keshawn Nicholson DO Authorized by: Keshawn Nicholson DO Consent: Consent obtained: Written Consent [...] and the incision was covered with gauze. Post- procedure care was reviewed and patient will continue with proposed plan of care. Patient wasadvised to call office with any questions or concerns. Follow Up: Patient is to return to the office as needed for any routine appointments. Documented by Alma Dominique LPN on behalf of: Keshawn Nicholson DO documented in this encounterLafayette Regional Health CenterIgayoyguvn52-42-7045 Miscellaneous Notes* Telephone Encounter - Lena Horta CMA - 10/21/2023 8:52 AM EDT ----- Message from ANDREA Scott sent at 10/21/2023 7:52 AM EDT ----- All your blood work looked good, blood sugar, kidney, liver function, thyroid function and no anemia. Let's work on hydration * Telephone Encounter - Lena Horta CMA - 10/21/2023 8:52 AM EDT Left a message for the patient to call back * Telephone Encounter - Lena Horta CMA - 10/21/2023 8:52 AM EDT Spoke with the patient and she understands documented in this encounterGenesis Hospital05-14-2024 Telephone encounter Note* Telephone Encounter - Lena Horta CMA - 10/21/2023 8:52 AM EDT ----- Message from ANDREA Scott sent at 10/21/2023 7:52 AM EDT ----- All your blood work looked good, blood sugar, kidney, liver function, thyroid function and no anemia. Let's work on hydration [facility]05-14-2024 Telephone encounter Note* Telephone Encounter - Lena Horta CMA - 10/21/2023 8:52 AM EDT Left a message for the patient to call back [facility]05-14-2024 Telephone encounter Note* Telephone Encounter - Lena Horta CMA - 10/21/2023 8:52 AM EDT Spoke with the patient and she understands [facility]05-13-2024 History of Present illness Narrative* ANDREA Scott - 10/20/2023 1:40 PM EDT Subjective Patient ID: Elisabet Martinez is a [...] andpost discharge medication. Review of Systems Constitutional: Negative. [...] Await labs for review ANDREA Scott 10/20/23 6668 documented in this [facility]04-24-2024 Miscellaneous Notes* Telephone Encounter - Tish Regan CMA - 10/01/2023 11:25 AM EDT Care Coordination Outreach performed to coordinate overdue appointments, testing, and/or follow-up care: Yes Audit/Outreach Date: October 01, 2023 Reason: Well Person Method: Telephone and MyChart Outreach Attempt: First Outcome: Left Message and letter sent Next PCP Appointment: N/A Tests/Referrals Pended: N/A Resources/Education Provided: Additional Comments: Unable to reach patient by telephone to schedule appointment. Letter sent. documented in this [facility]04-24-2024 Telephone encounter Note* Telephone Encounter - Tish Regan CMA - 10/01/2023 11:25 AM EDT Care Coordination Outreach performed to coordinate overdue appointments, testing, and/or follow-up care: Yes Audit/Outreach Date: October 01, 2023 Reason: Well Person Method: Telephone and MyChart Outreach Attempt: First Outcome: Left Message and letter sent Next PCP Appointment: N/A Tests/Referrals Pended: N/A Resources/Education Provided: Additional Comments: Unable to reach patient by telephone to schedule appointment. Letter sent. [facility]01-03-2024 Miscellaneous Notes* Telephone Encounter - Yordan Lombardi MD - 06/11/2023 10:03 AM EST Return the office Turner 4-6 weeks documented in this [facility]01-03-2024 Telephone encounter Note* Telephone Encounter - Yordan Lombardi MD - 06/11/2023 10:03 AM EST Return the office Turner 4-6 weeks Narrative Nmqods35-10-1930 Instructions* Patient Instructions* Miriam Cool RN - 05/30/2023 2:15 PM EST Preoperative Education Checklist- General Surgery date: 06/11/23 Surgery time: 915a Arrival time: 715a 1. Bring a photo ID and your insurance card with you the day of surgery. You will check in at the main lobby of the [facility]- registration desk is straight ahead as soon as you walk in. Tell them you are here for surgery. 2. If you have a Living Will/Durable Power of Procedures Rn for Health Care that is not on [...] after you have bathed. 5. NO nail turkish/acrylic on at least one finger. If you are having a hand, wrist or foot surgery then all nail turkish and artificial/acrylic nails must be removed from [...] least 8 hours and marijuana for 24 hoursprior to arrival for your surgery. 16. If [...] please call the Preadmission Testing office at [phone], Mon.-Fri. 7 a.m.-3 p.m. Leave a voicemail if needed. Pre-Surgery Instructions: Medication Instructions acetaminophen (TYLENOL) 500 mg tablet Stop taking 0 days prior to procedure documented in this encounterKettering Health Washington Township SystemEvaluation note* Diagnosis Well woman exam with routine gynecological exam Routine gynecological examination Irregular menstrual cycle General counseling and advice on contraceptive management Other general counseling and advice for contraceptive management Cervicitis and endocervicitis documented in this encounter [facility] HealthcareEvaluation note* Diagnosis Irregular menstrual cycle General counseling and advice on contraceptive management Other general counseling and advice for contraceptive management documented in this encounter [facility] HealthcareEvaluation note* Diagnosis Episodic lightheadedness- Primary Irregular bleeding Irregular menstrual cycle [facility]* Diagnosis Urinary tract infection symptoms- Primary Dysuria Recurrent urinary tract infection Urinary tract infection, site not specified Well adult exam- Primary Routine general medical examination at a health care facility Class 2 severe obesity due to excess calories with serious comorbidity and body mass index (BMI) of38.0 to 38.9 in adult documented [facility] this [facility]ructions[facility] on filedocumented in this encounter [facility]ructionsNot on filedocumented in this encounter [facility] on filedocumented in this encounter [facility] on filedocumented in this encounter [facility]ructionsNot on filedocumented in this encounter [facility]Not on filedocumented in this encounter [facility] Summary Purpose Family History No [...] section and content) DATE CREATED AUTHOR 05/14/2019 [facility] DATE CREATED AUTHOR AUTHOR'S ORGANIZ ATION 09/19/2021 [facility] DATE CREATED AUTHOR AUTHOR'S ORGANIZ ATION 01/19/2022 [facility] DATE CREATED AUTHOR AUTHOR'S ORGANIZ ATION 04/15/2022 [facility] DATE CREATED AUTHOR AUTHOR'S ORGANIZ ATION 06/15/2023 [facility] DATE CREATED AUTHOR AUTHOR'S ORGANIZ ATION 10/22/2023 [facility] DATE CREATED AUTHOR AUTHOR'S ORGANIZ ATION 05/13/2024 [facility] DATE CREATED AUTHOR AUTHOR'S ORGANIZ ATION 04/12/2025 [facility] Care Teams (unrecognized sec tion and content) Team MemberRelationshipSpecialtyStart DateEnd Date Mook Wang MD [address], [place] [address] PCP - GeneralFamily Medicine10/28/22Team MemberRelationshipSpecialtyStart DateEnd Date Mook Wang MD [address], [place] [address] PCP - GeneralFamily Medicine10/28/22Team MemberRelationshipSpecialtyStart DateEnd Date Mook Wang MD [address], [place] [address] PCP - GeneralFamily Medicine10/28/22Team MemberRelationshipSpecialtyStart DateEnd Date Mook Wang MD [address], [place] [address] PCP - GeneralFamily Medicine10/28/22Team MemberRelationshipSpecialtyStart DateEnd Date Mook Wang DO [address], [place] [address] PCP - GeneralFamily Xasmbkbb81/9/21Team MemberRelationshipSpecialtyStart DateEnd Date Mook Wang DO [address], [place] [address] PCP - GeneralFamily Rrwbpyos40/9/21Team MemberRelationshipSpecialtyStart DateEnd Date Mook Wang DO [address], [place] [address] PCP - GeneralFamily Gndccsew13/9/21Team MemberRelationshipSpecialtyStart DateEnd Date Mook Wang DO [address], [place] [address] PCP - Generalmi Tjlnigtr15/9/21Team MemberRelationshipSpecialtyStart DateEnd Date Mook Wang DO [address], [place] [address] PCP - [facility] Xbgkicwa68/9/21 Reason for Visit (unrecogniz ed section and content) ReasonCommentsWell Women VisitReasonCommentsContraceptionReasonOnset Date CommentsAppointment Due4ReasonCommentslight headednessReasonOnset Date RjbwegasKsgtpzdqrtm21/25/2025ReasonCommentsAnnual Exam FOR RECORDS PERTAINING TO PATIENTS WHO ARE [...] BE BASED ON THE PRIMARY CLINICAL RECORDS. [facility]. provides no warranty or guarantee of the accuracy or completeness of information in this document.
--- OUTSIDE RECORDS SUMMARY | 2025-05-14 16:37 | XMS_ITS | Encounter Summary ---
Author Organization [employer] s tem Address [id number] [address] [place] [address] Care Team Providers Care Blow Machine Tender Starch Spraying Name Role Phone Felipe Mook Ruiz DO Primary Care Provider + [phone] Encounter Details DateTypeDepartmentCare Team (Latest Contact Info)Vfxqtyyzfck70/01/2025Travel Social History Tobacco UseTypesPacks/DayYears UsedDateSmoking Tobacco: FormerSmokeless [...] times a week03/17/2023How often do you attend taoism or religion services?Never3Do you belong to any clubs or organizations such as taoism groups, unions, fraternal or athletic groups, or school groups?No03/17/2023How often do you attend meetings of the clubs or organizations you belong to?Never03/17/2023re you , , , , never , or living with a partner?Never osxvwsc7203/17/2023HQ-2 AnswerDate RecordedTotal Ylmwc73406/11/2024[facility] of Occupational Health - Occupational Stress QuestionnaireAnswerDate RecordedDo you feel stress - tense, restless, nervous, or anxious, or unable to sleep at night because your mind is troubled all the time - these days?To some uqtnut3703/17/2023UDIT-CAnswer Date RecordedQ1: How often do you have [...] RecordedIn the past 12 months has the [employer], gas, oil, or water [employer] threatened to shut off services in your home?No05/09/2025Housing InstabilityAnswerDate RecordedAre you worried or concerned that in the next two months you may not have stable housing that you own, rent or stay in as a part of a household?No04/11/2025hildcareAnswerDate RecordedDo problems getting director maternal child make it difficult for you to work [...] CommentsNoSex and Gender InformationValueDate RecordedSex Assigned at YzkfjCamsln79/19/2021 2:12 AM ESTLegal MxeXiyfij25/04/2015 12:01 PM EDTGender FqdqernyYrmryk09/19/2021 2:12 AM ESTSexual MqbtmcfgiovJutnjmli06/19/2021 2:12 AM ESTdocumented as of this encounter Functional Status * AUDIT-C ScoreAnswerDate of PodfsmwcytZgezrw722/01/2025 2:29 PM Mook Padilla, * QuestionAnswerDate of AssessmentAuthorQ1: How often do you have a drink containing alcohol?Monthly or less05/09/2025 2:29 PM Mook Padilla, Q2: How many drinks containing alcohol do you have on a typical day when you are drinking?3 or 412 2:29 PM Mook Padilla, Q3: How often do you have six or more drinks on one occasion?Never05/09/2025 2:29 PM EST Mook Wang DO documented as of this encounter Plan of Treatment DateTypeDepartmentCare Team (Latest Contact Info)Iswuqfphafc69/05/2026 11:30 AM ESTOffice Visit [facility] [address] [place] [address] Mook Wang DO [address] [place] [address] documented as of this encounter Visit Diagnoses Not on filedocumented in this encounter Additional Health Concerns AssessmentNoted TimePHQ-9 Depression Total Score: 7106/11/2024 11:15 AM EST documented as of this encounter Care Teams Team MemberRelationshipSpecialtyStart DateEnd Date Mook Wang DO [address] [place] [address] PCP - GeneralFalaly Hguztfws13/9/21documented as of this encounter
--- OUTSIDE RECORDS SUMMARY | 2025-05-14 16:37 | XMS_ITS | Clinical Summary ---
Author Organization [employer] tem Address [id number] [address] [place] [address] Care Team Providers Care Citrix Engineer Name Role Phone Mook Wang DO Primary Care Provider + [phone] Allergies No known active allergies Medications MedicationSigDispense QuantityRefillsLast FilledStart DateEnd DateStatus acetaminophen (TYLENOL) 500 mg tablet Take 1 tablet (500 mg total) by mouth every 6 (six) hours as needed for pain (1- 2 ORAL NEEDED).Active pt284-fplw-gbqdo acid () 29 mg iron- 1 mg tablet,chewable Chew 1 tablet and swallow in the morning.Active etonogestreL-ethinyl estradioL (NUVARING) 0.12-0.015 mg/24 hr vaginal ring Insert vaginally and leave in place for 21 consecutive days (3 weeks), then remove. Wait for 7 daysbefore inserting new ring.5Active lamoTRIgine (LaMICtal) 150 mg tablet Take 1 tablet (150 mg total) by mouth in the morning.Active phentermine 15 MG capsule Indications:Class 2 severe obesity due to excess calories with serious comorbidity and body mass index (BMI) of38.0 to 38.9 in adultTake 1 capsule (15 mg total) by mouth every morning. 30 capsule 5Active phentermine 15 MG capsule Indications:Class 2 severe obesity due to excess calories with serious comorbidity and body mass index (BMI) of38.0 to 38.9 in adultTake 1 capsule (15 mg total) by mouth every morning. 30 capsule Discontinued(Reorder) Active Problems ProblemNoted DateDiagnosed DateRecurrent urinary tract xsjjlwlme10/13/2023 Overview (04/21/2023): ==== 04/21/2023 ==== history over many years including apparently childhood of lower urinary tract symptomatology. UTI. Uncomplicated. No fever no hospitalization. Has had prior workup per report last workup more than 5 years ago. She had a CT scan done outside institution have the report availablefor review. No hydronephrosis no stones. Plan: Standing order urine culture cystoscopy [facility] bladder solution. Assessment & Plan (04/21/2023 2:04 PM EST): Mac anesthesia per patient preference. Ncphkrvpuqxa74/01/2022alculus of gallbladder with acute on chronic cholecystitis without kqzgmexvoxh90/07/2022hronic pain03/15/2022Internal derangement of right knee03/15/2022Urinary tract infection kchdyrbq85/07/2022 Bipolar ezpxjhiz43/01/2021upraventricular aqqycuzoniz37/17/2020Anxiety 03/22/2020Bulimia ezeibhs7708/18/2019 Resolved Problems ProblemNoted DateDiagnosed DateResolved DateMorbid hgztgub10/08/2024 Vaginal odor/4Anxiety disorder affecting , antepartum /08/2024Short interval between pregnancies complicating , /09/202111/08/2024Maternal cardiovascular disease affecting , rtlqkcqeib75/09/202111/08/2024 Overview (04/17/2021): Palpitations- see media- eval by [facility] Cardiology- not felt to be POTS. ECG and echo wnl. Holter (2020) with one episode of 30 sec of AF and otherwise rare random ectopy with history of section, ccipygeapi98/09/202111/08/2024 Obesity affecting jwalijden70/08/2024Rh negative status during zfhokgnto62/5Bipolar disease during vogkoyjfu01/03/2025 Encounters DateTypeDepartmentCare QdehVafbbfvewhv80/06/2024 2:15 PM ESTOffice Visit [facility] [address] [place] [address] Mook Wang, DO Class 2 severe obesity due to excess calories with serious comorbidity and body mass index (BMI) of38.0 to 38.9 in adult05/09/20258969Okusbi33/04/2025Results Follow-Up [facility] [address] [place] [address] Mook Wang, DO Lipid profile, Comprehensive metabolic panel04/11/2025 11:15 AM ESTOffice Visit [facility] [address] [place] [address] Mook Wang, DO Well adult exam (Primary Dx); Class 2 severe obesity due to excess calories with serious comorbidity and body mass index (BMI) of38.0 to 38.9 in adult04/11/20251625Bideyb71/25/2025Telephone [facility] [address] [place] [address] Tish Regan, [facility] Appointmentfrom Last 3 Months Immunizations ImmunizationAdministration DatesNext HedHIW0002/18/2011,06/06/2000,1999, 1999,1999DTaP02/15/2004HPV Ggsqkvhrioym81/04/2015HPV, Unspecified 11/01/2014,09/01/2014Hep B, Adolescent or Enywthmzl88/14/2002,11/04/2001, 06/06/2000Hepatitis B002/09/1999HiB06/06/2000,1999,1999,1999IPV 10/31/2003,1999,1999,1999Influenza (IM) Preservative Free 02/07/2015Influenza, Im Flucelvax (Pf)02/07/2015Influenza, Im Trivalent Eywfgpsotbaf81/09/2014Influenza, Injectable, quadrivalent (PF)09/08/2017, 03/13/2016MMR10/31/2003,06/06/2000Meningococcal Zpkghryiy68/05/2016Meningococcal IZW5E3102/18/2011PPD Test02/13/2016,01/13/2015Tdap02/18/2011 Family History Medical HistoryRelationNameCommentsADD / ADHDBrotherXavierAsthmaBrotherXavier Congenital heart diseaseBrotherXavierDepressionBrotherXavierHeart defectBrother XavierMental illnessBrotherXavierSupraventricular tachycardiaBrotherXavier CholecystitisFatherBrentDepressionFatherBrentDiabetesFatherBrentHeart disease FatherBrentHypertensionFatherBrentMental illnessFatherBrentMigrainesFatherBrent ObesityFatherBrentAlcohol abuseMaternal GrandfatherFloydDrug abuseMaternal GrandfatherFloydLung cancerMaternal GrandfatherFloydMental illnessMaternal GrandfatherFloydArthritisMaternal GrandmotherKathy longDepressionMaternal GrandmotherKathy longHyperlipidemiaMaternal GrandmotherKathy longMental illness Maternal GrandmotherKathy longRheum arthritisMaternal GrandmotherKathy long Alcohol abuseMaternal UncleJoeDrug abuseMaternal UncleJoeAnemiaMotherJaime corbinArthritisMotherJaime corbinDegenerative discAsthmaMotherJaime marita Congenital heart diseaseMotherJaime corbinDepressionMotherJaime corbinDrug abuse MotherJaime corbinRecovered 20+ yearsHeart defectMotherJaime corbinMental illnessMotherJaime corbinMiscarriages / StillbirthsMotherJaime marita Supraventricular tachycardiaMotherJaime corbinThyroid IssuesMotherJaime marita Early deathPaternal GrandfatherJamesDads biological. Failed heart transplant Kidney diseasePaternal GrandfatherJamesDiabetesPaternal GrandmotherMary HypertensionPaternal GrandmotherMaryOvarian cancerPaternal GrandmotherMary Uterine cancerPaternal GrandmotherMaryDepressionSisterAdriannaMental illness SisterAdriannaRelationNameStatusCommentsBrotherXavierFatherBrentMaternal GrandfatherFloydMaternal GrandmotherKathy longMaternal UncleJoeMotherJaime corbinPaternal GrandfatherJamesPaternal GrandmotherMarySisterAdrianna Social History Tobacco UseTypesPacks/DayYears UsedDateSmoking Tobacco: FormerSmokeless Tobacco: Never Tobacco Cessation:Counseling Given: Not Answered Alcohol UseStandard Drinks/WeekCommentsNo0 (1 standard drink = 0.6 oz pure alcohol)Social Connection and Isolation PanelAnswerDate RecordedIn a typical week, how many times do you talk on the phone with family, friends, or neighbors?More than three times a week03/17/2023How often do you get together with friends or relatives?More than three times a week03/17/2023How often do you attend holiness or caodaism services?Never03/17/2023o you belong to any clubs or organizations such as holiness groups, unions, fraternal or athletic groups, or school groups?No03/17/2023How often do you attend meetings of the clubs or organizations you belong to?Never03/17/2023re you , , , , never , or living with a partner?Never curxkbi2503/17/2023HQ-2 AnswerDate RecordedTotal Frezo64906/11/2024[facility] [place] of Occupational Health - Occupational Stress QuestionnaireAnswerDate RecordedDo you feel stress - tense, restless, nervous, or anxious, or unable to sleep at night because your mind is troubled all the time - these days?To some nlfxpv7403/17/2023UDIT-CAnswer Date RecordedQ1: How often do you have [...] of a household?No04/11/2025hildcareAnswerDate RecordedDo problems getting child protection specialist make it difficult for you to [...] CommentsNoSex and Gender InformationValueDate RecordedSex Assigned at GudfuOebkzc95/19/2021 2:12 AM ESTLegal UfcEhjpmw50/04/2015 12:01 PM EDTGender SpumppqtWsqwmp40/19/2021 2:12 AM ESTSexual SffssbhngcmNjufbiik44/19/2021 2:12 AM EST Last Filed Vital Signs Vital SignReadingTime TakenCommentsBlood Wlbwgovi893/6805/09/2025 2:11 PM EST Hhnwe73021/01/2025 2:11 PM SZSLpcqjqomrjn36.3 ??C (99.1 ??F)05/09/2025 2:11 PM ESTRespiratory Cfya152207/10/2024 2:11 PM ESTOxygen Kbjvilfoxq45%05/09/2025 2:11 PM ESTInhaled Oxygen Concentration--Upfruy348.1 kg (240 lb 9.6 oz)05/09/2025 2:11 PM ZZVKcoswa119.2 cm (5' 7.01 )05/09/2025 2:11 PM ESTBody Mass Index37.67 05/09/2025 2:11 PM EST Plan of Treatment DateTypeDepartmentCare Team (Latest Contact Info)Bqcygbighnd59/05/2026 11:30 AM ESTOffice Visit [facility] [address] [place] [address] Mook Wang DO [address], [facility] [place] [address] Health MaintenanceDue DateLast DoneCommentsAdult BMI Follow Up Plan2017Pap Smear02/09/2020DTaP,Tdap and Td Vaccines (8 - Td or Tdap), 02/18/2011, 02/15/2004, Additional history existsInfluenza Ttowcms1109/06/2025 09/08/2017, 03/13/2016, 02/07/2015, Additional history existsPostponed from 02/07/2025 (Patient Refused)Depression Jcomabylh37/dult BMI Gjtqcwstl57Tobacco Auqxblggi00 Medical Devices Not on file Procedures Procedure NamePriorityDate/TimeAssociated DiagnosisCommentsCOMPREHENSIVE METABOLIC UHZJZJeleedw53/03/2025 11:57 AM EST Well adult exam LIPID ERYGROCOgulzrr18/03/2025 11:57 AM EST Well adult exam from Last 3 Months Results * Lipid profile (04/11/2025 11:57 AM EST)ComponentValueRef RangeTest Method Analysis TimePerformed AtPathologist CnbgaazjzOCLCZINMXXT090041 - 200 mg/dL 04/11/2025 6:33 PM [facility] TQOYKERYTCOVUFLZSDQLIY7898 - 150 mg/dL04/11/2025 6:33 PM [facility] LABORATORYHDL FFVOJTUUWAF93>39 mg/dL04/11/2025 6:33 PM [facility] LABORATORYComment: HDL <40 mg/dL - High Risk HDL > or = 40mg/dL- Desirable HDL >60 mg/dL - Negative Risk LDL (CALC)125<130 mg/dL04/11/2025 6:33 PM [facility] Comment: LDL <100 mg/dL - Desirable LDL >160 mg/dL - High Risk CHOLESTEROL:HDL3.61.0 - 5.011 6:33 PM [facility] LABORATORYVERY LOW RNTHCMGUWAN395 - 30 mg/dL04/11/2025 6:33 PM [facility] LABORATORYSpecimen (Source)Anatomical Location / Laterality Collection Method / VolumeCollection TimeReceived TimeBloodVenous blood / Svmvtzj0304/11/2025 11:57 AM EST04/11/2025 11:57 AM EST Narrative Authorizing ProviderResult TypeResult StatusDennis G Furlong DOLAB BLOOD ORDERABLESFinal ResultPerforming OrganizationAddressCity/State/ZIP CodePhone Number [facility] [address] [place] [id number], * (ABNORMAL) Comprehensive metabolic panel (04/11/2025 11:57 AM EST)Component ValueRef RangeTest MethodAnalysis TimePerformed AtPathologist SignatureSODIUM 917589 - 146 mmol/L106/11/2024 6:33 PM [facility] POTASSIUM4.13.5 - 5.0 mmol/L106/11/2024 6:33 PM [facility] SYNKMUOTFKCHPHTICW63261 - 109 mmol/L106/11/2024 6:33 PM [facility] LABORATORYCARBON UVKBEPK8162 - 32 mmol/L106/11/2024 6:33 PM [facility] LABORATORYANION GAP95 - 15 mmol/L106/11/2024 6:33 PM [facility] LABORATORYBLOOD UREA ARZFRJIM649 - 23 mg/dL04/11/2025 6:33 PM [facility] LABORATORYCREATININE0.720.40 - 1.00 mg/dL 04/11/2025 6:33 PM [facility] LABORATORYComment:METHOD TRACEABLE TO [facility] ABOPWGHTPJAXLND0654 - 99 mg/dL04/11/2025 6:33 PM [facility] LABORATORYCALCIUM9.08.5 - 10.5 mg/dL04/11/2025 6:33 PM [facility] LABORATORYTOTAL PROTEIN6.86.0 - 8.0 g/dL04/11/2025 6:33 PM [facility] LABORATORYALBUMIN4.23.2 - 5.3 g/dL 04/11/2025 6:33 PM [facility] LABORATORYALKALINE PHOSPHATASE 33(L)39 - 130 U/L106/11/2024 6:33 PM [facility] LABORATORYAST 12<=41 U/L106/11/2024 6:33 PM [facility] WWSKABZQYOHDB52<=31 U/L106/11/2024 6:33 PM [facility] LABORATORYBILIRUBIN,TOTAL0.6 0.3 - 1.2 mg/dL04/11/2025 6:33 PM [facility] LABOR[facility]ORYEGFR Non-Race Dependent>90>=60 ml/min/1.73sq.m106/11/2024 6:33 PM [facility] LABORATORYComment: Reported eGFR is based on the CKD-EPI 2020 equation that does not use a race coefficient. Specimen (Source)Anatomical Location / LateralityCollection Method / Volume Collection TimeReceived TimeBloodVenous blood / Ztacqdt2504/11/2025 11:57 AM EST 04/11/2025 11:57 AM EST Narrative Authorizing ProviderResult TypeResult StatusDennis G Furlong DOLAB BLOOD ORDERABLESFinal ResultPerforming OrganizationAddressCity/State/ZIP CodePhone Number [facility] [address] [place] [address], [place] [phone] from Last 3 Months Insurance Care Teams Team MemberRelationshipSpecialtyStart DateEnd Date Mook Wang DO [address], [place] [address] PCP - GeneralFamily Fegtgsvj51/9/21
--- OUTSIDE RECORDS SUMMARY | 2025-05-14 16:37 | XMS_ITS | Clinical Summary ---
Author Organization [facility] Address [address] [place] [address] Care Team Providers Care Champion Of Sustainable Design Name Role Phone Mook Wang MD Primary Care Provider + [phone] Allergies No known active allergies Medications MedicationSigDispense QuantityRefillsLast FilledStart DateEnd DateStatus ARIPiprazole (Abilify) 10 MG tablet 01/24/2024ctive lamoTRIgine (LaMICtal) 100 MG tablet 01/24/2024ctive traZODone (Desyrel) 50 MG tablet Take 50 mg by mouth as needed at dwnhtkx0712/26/2023ctive etonogestrel-ethinyl estradiol (Nuvaring) 0.12-0.015 MG/24HR vaginal ring Indications:Irregular menstrual cycle,General counseling and advice on contraceptive managementInsert vaginally and leave in place for 21 consecutive days (3 weeks), then remove. Wait for 7 daysbefore inserting new ring. 1 each 5Active amphetamine-dextroamphetamine (Adderall) 5 MG tablet AdderallActive Encounters DateTypeDepartmentCare JucjTlbhyqwupae90/25/2025 11:30 AM ESTOffice Visit [facility] [address] [place] [address] Keshawn Nicholson DO Abnormal uterine bleeding (AUB); Pelvic xqsuvelg16/25/2025amboo flowsheet [facility] [address] [address] [place] [address] Keshawn Nicholson DO 04/06/2025Refill [facility] [address] [place] [id number] Jenelle Morales LPN Irregular menstrual cycle; General counseling and advice on contraceptive managementfrom Last 3 Months Social History Tobacco UseTypesPacks/DayYears UsedDateSmoking Tobacco: Never Assessed CommentsNoSex and Gender InformationValueDate RecordedSex Assigned at BirthNot on fileLegal AurNgxyti37/15/2023 7:14 PM EDTGender IdentityNot on fileSexual OrientationNot on file Last Filed Vital Signs Vital SignReadingTime TakenCommentsBlood Qhvekxpj652/8405/03/2025 11:48 AM EST Pulse--Temperature--Respiratory Rate--Oxygen Saturation--Inhaled Oxygen Concentration--Jnlhfq205 kg (242 lb)05/03/2025 11:48 AM FBTGdpdoy391.7 cm (5' 8 )01/26/2024 2:34 PM EDTBody Mass Index36.808 2:34 PM EDT Plan of Treatment DateTypeDepartmentCare Team (Latest Contact Info)Erxmstfhbmg25/16/2025 11:00 AM ESTOffice Visit [facility] [address] [place] [address] [place] [phone] Keshawn Nicholson DO [address] [place] [address] [place] [address] 06/13/2025 10:00 AM ESTAncillary Procedure [facility] [address] [place] [address] [place] [phone] 06/13/2025 11:10 AM ESTConsult [facility] [address] [place] [address] [place] [address] Keshawn Nicholson DO [address] [place] [address] [address] [place], [place] [id number] Insurance Care Teams Team MemberRelationshipSpecialtyStart DateEnd Date Mook Wang MD [address], [place] [address] PCP - GeneralFamily Medicine10/28/22
--- OUTSIDE RECORDS SUMMARY | 2025-05-14 16:37 | XMS_ITS | Clinical Summary ---
Author Organization [facility] Address [address] [place] [address] Care Team Providers Care Field Education Coordinator Name Role Phone Unavailable Primary Care Provider Unavailabl e Social History Tobacco UseTypesPacks/DayYears UsedDateSmoking Tobacco: Never Assessed CommentsUnknownSex and Gender InformationValueDate RecordedSex Assigned at Not on fileLegal KgbIwskzs38/30/2022 12:31 AM EDTGender IdentityNot on file Sexual OrientationNot on file Last Filed Vital Signs Vital SignReadingTime TakenCommentsBlood Ukybpicb863/6108 2:05 PM EDT Pulse--Temperature--Respiratory Rate--Oxygen Kkfjkezctk51%01/19/2021 11:25 AM EDTInhaled Oxygen Concentration--Fkbtlb180 kg (240 lb)02/07/2021 11:07 AM EDT Gewkjr208.7 cm (5' 8 )02/07/2021 11:07 AM EDTBody Mass Index36.4909 11:07 AM EDT Plan of Treatment Not on file
--- OUTSIDE RECORDS SUMMARY | 2025-05-14 16:37 | XMS_ITS | Patient Health Record ---
Author Organization [employer] [facility] iDoneThis es Address [address] [place] [address] Care Team Providers Care Manager Strategic Alliances Name Role Phone MS. Maria Isabel Kilgore Primary Care Provider Ellen Parker Unavailable [phone] Rk Matthews Unavailable [phone] Magy Sun Unavailable [phone] Zee Lemus Unavailable [phone] Martha Gillette Unavailable [phone] Allergies No Known Allergies Reason For Referral No Information Medications Medication SIG (Take, Route, Frequency, Duration) Notes Start Date End Date Status lamoTRIgine 150 mg Tablet TAKE 1 TABLET orally d aily ActiveLurasidone HCl 40 MG Tablet1 tablet in the evening with food Orally Once a day5ActivetraZODone HCl 50 MG Tablet1 tablet at bedtime as needed Orally Once a day4Active Social History Tobacco Use: Social History Observation Description Date Details (start date - stop date) Never Smoker NA - NA Social History Sexual HistorySocial InfoQuestionAnswerNotesSexual HistoryWhat is your gender identity?FemaleDrug/Alcohol:Social InfoQuestionAnswerNotesAUDIT-C (Standard)Did you have a drink containing alcohol in the past year?Yes? How often did you have six or more drinks on one occasion in the past year?Less than monthly (1 point)? How many drinks did you have on a typical day when you were drinking in the past year?1 or 2 drinks (0 point)? How often did you have a drink containing alcohol in the past year?Monthly or less (1 point)Ytatbo3QaseemcuvhvqimYimextzcVLTI-20 (2020 Edition)1. Have you used drugs other than those required for medical reasons?No2. Do you abuse more than one drug at a time?No3. Are you always able to stop using drugs when you want to?No4. Have you had blackouts or flashbacks as a result of drug use?No5. Do you ever feel bad or guilty about your drug use?No6. Does your spouse (or parents) ever complain about your involvement with drugs?No7. Have you neglected your family because of your use of drugs?No8. Have you engaged in illegal activities in order to obtain drugs?No 9. Have you ever experienced withdrawal symptoms (felt sick) when you stopped taking drugs?No10. Have you had medical problems as a result of your drug use (e.g., memory loss, hepatitis, convulsions, bleeding etc.)?NoResults:1 Interpretation of Score:Low levelTobacco Use:Social InfoQuestionAnswerNotes Tobacco Control (Standard)Tobacco use:NonsmokerAdditional Findings: Tobacco user e-cigarette Problems Problem Type SNOMED Code ICD Code Onset Dates Problem Status W/U Status Risk Notes Problem Posttraumatic stress disorder (48754612) PTSD (post-traumatic stress disorder) (F43.10) ActiveconfirmedProblemMixed bipolar affective disorder, moderate (245756984) Bipolar mixed affective disorder, moderate (F31.62)Activeconfirmed Encounters Encounter Location Date Provider Diagnosis [facility] [address] [place] [address] 05/18/[address] [facility] [address] [place] [address]/07/[facility] [facility] [address] [place] [address]/hristy CoxBipolar mixed affective disorder, moderate F31.62 [facility] [address] [place] [address]/08/2024 [facility] [address] [place] [address]/suri KilgoreSt[facility] [address] [place] [address]/lexandra zzzCorteBipolar mixed affective disorder, moderate F31.62[facility] [place] [address]/lexandra zzzCortePTSD (post-traumatic stress disorder) F43.10 and Bipolar mixed affective disorder, moderate F31.62[facility] [place] [address]/03/2025Tellymesfin Durándebbie Dental caries on pit and fissure surface penetrating into dentin [address] [place] [address]/hristy CoxBipolar mixed affective disorder, moderate F31.62[facility] [place] [address]/hristy CoxBipolar mixed affective disorder, moderate F31.62 and PTSD (post-traumatic stress disorder) F43.10 Assessments Encounter Date Diagnosis (ICD Code) Assessment Notes Treatment Notes Treatment Clinical Notes Section Notes 06/10/2024 Bipolar mixed affective disorder , moderate (ICD-10 - F31.62) Recommended treatment for [...] tremors, muscle spasms, slowness of movement or jerkingof muscles. The patient verbalizes understanding with all [...] consented to the start/continuation of the treatment. 07/12/2024ipolar mixed affective disorder, moderate (ICD-10 - F31.62) [...] tremors, muscle spasms, slowness of movement or jerkingof muscles. The patient verbalizes understanding with all [...] consented to the start/continuation of the treatment. 07/19/2024PTSD (post-traumatic stress disorder) (ICD-10 - F43.10)08/16/2024 Dental caries on pit and fissure surface penetrating into dentin (ICD-10 - K02.52)01/28/2025Bipolar mixed affective disorder, moderate (ICD-10 - F31.62) 07/12/2024PTSD (post-traumatic stress disorder) (ICD-10 - F43.10)06/07/2024 Bipolar mixed affective disorder, moderate (ICD-10 - F31.62)07/19/2024ipolar mixed affective disorder, moderate (ICD-10 - F31.62) Plan Of Treatment No Information Insurance Providers Payer Name Payer Address Payer Phone Subscriber Number Group Number Insured Name Patient Relationship to Insured Coverage Start Date Coverage End Date [employer] [place] [place] [employer] [address] [facility] [place] [address] [id number] Shai TORRES - patient is the uymxbgk68/21/2022[employer] [facility] [address] [place] [id number], LAYNEESelf - patient is the pzuomwz41/21/20[facility] EnvolvePO [address] [address] [place] [id number], LAYNEESelf - patient is the insured [employer] [facility] [address] [place] [phone] [id number], LAYDAINESeparagf - patient is the xlqocyd42 2022 Medical (General) History Medical History History ICD Code Anxiety disorder chronic depressionpanic disorderPTSDBipolar 1 DisorderSurgical History Surgery Date(Month/Year) 07/2020 tonsillectomy and adenoidectomy 2002 08/2021 Hospitalization History Reason Date(Month/Year) childbirth 07/2020 childbirth 07/2021
--- OUTSIDE RECORDS SUMMARY | 2025-05-14 16:38 | XMS_ITS | Encounter Summary ---
Author Organization [facility] Address [address] [facility] [place] [address] Care Team Providers Care Gate Attendant Name Role Phone Mook Wang MD Primary Care Provider + [phone] Encounter Details DateTypeDepartmentCare Team (Latest Contact Info)Aytzafznadl31/25/2025amboo flowsheet [facility] Janett PALAFOX [address] [facility] [place] [address] Keshawn Nicholson DO [address] [place] [address] Alondra [place], [facility]11 Social History Tobacco UseTypesPacks/DayYears UsedDateSmoking Tobacco: Never Assessed CommentsNoSex and Gender InformationValueDate RecordedSex Assigned at BirthNot on fileLegal EroHwpbpn38/15/2023 7:14 PM EDTGender IdentityNot on fileSexual OrientationNot on filedocumented as of this encounter Plan of Treatment DateTypeDepartmentCare Team (Latest Contact Info)Jmnksrgfgdj86/16/2025 11:00 AM ESTOffice Visit [facility] Janett PALAFOX [address] [facility] [place] [address] Keshawn Nicholson DO [address] [place] [address] 06/13/2025 10:00 AM ESTAncillary Procedure [facility] Janett [address]X [address] [place] [address] 06/13/2025 11:10 AM ESTConsult [facility] Janett PALAFOX [address] [facility] [place] [address] Keshawn Nicholson DO [address] [facility] [place] [address] documented as of this encounter Visit Diagnoses Not on filedocumented in this encounter Care Teams Team MemberRelationshipSpecialtyStart DateEnd Date Mook Wang MD [address] [place] [address] PCP - GeneralFamily Medicine10/28/22documented as of this encounter
== END 2025-05-14 16:43 | disposition home or self-care (01) ==
PROVIDERS: Personal Emergency Response Attendant; Emergency Provider Emergency Medicine; PCP Family Medicine
DX: N39.0 Urinary tract infection, site not specified (principal); R30.0 Dysuria; Z87.440 Personal history of urinary (tract) infections; F17.200 Nicotine dependence, unspecified, uncomplicated
CPT/HCPCS: 81001; 84703; 87086; 87088; 87186; 99283

== ENCOUNTER 2025-05-24 18:52 | Outpatient (REF) | payer OTHER, SELFPAY ==
--- OUTSIDE RECORDS SUMMARY | 2024-05-24 08:00 | XMS_ITS ---
Author Organization [facility] Address [address] [place] [address] Care Team Providers Care Application Technician Name Role Phone MS. Maria Isabel Kilgore Primary Care Provider Ellen Parker Unavailable [phone] Zee Lemus Unavailable [phone] REASON FOR VISIT FILLING Encounters Encounter Location Date Provider Diagnosis [facility] [address] [place] [address] 05/24/2024 Zee Lemus Plan Of Treatment No Information Progress Notes * KAILEY TORRESDAINImmanuel LDOB:[birth year] (25 yo F)Acc No.[id number]:05/24/2024 Patient:?KAILEY TORRESDAINImmanuel Nimisha :?Zee LemusDOB:2000???Age:24 Y???Sex: FemaleDate:05/24/2024hone:[phone]:[address], [address] [place] [id number]:MS. Maria Isabel Kilgore Subjective: * Chief Complaints: * F ILLING * Electronic signature of Zee Lemus DMD on 05/24/2025 at 10:55 AM ESTSign off status: Pending * Provider: Denise Lemus Date: 1 07/25/2023 Generated for Printing/Faxing/eTransmitting on:?05/24/2025 10:55 AM EST
--- OUTSIDE RECORDS SUMMARY | 2024-06-21 08:00 | XMS_ITS ---
Author Organization [facility] Address [address] [place] [address] Care Team Providers Care Mix Mill Tender Name Role Phone MS. Maria Isabel Kilgore Primary Care Provider Ellen Parker Unavailable [phone] Martha Gillette Unavailable [phone] REASON FOR VISIT BH F/U Encounters Encounter Location Date Provider Diagnosis [facility] [address] [place] [address] 06/21/2024 Martha Gillette Plan Of Treatment No Information Progress Notes * KAILEY TORRESDAINImmanuel LDOB:[birth year] (25 yo F)Acc No.[id number]:06/21/2024 BH F/U - Patient Patient: ELISABET OLMEDO :?Martha CorteDOB:2000???Age:24 Y???Sex: FemaleDate:06/21/2024Phone:[phone]:[facility] [place] [place] [place] [id number]:MS. Maria Isabel Kilgore Subjective: * Chief Complaints: * B H F/U Care Plan Details* * Electronic signature of Martha Gillette on 05/24/2025 at 10:55 AM ESTSign off status: Pending * Provider: Manny Baker Date: 0 06/21/2024 Generated for Printing/Faxing/eTransmitting on:?05/24/2025 10:55 AM EST
--- OUTSIDE RECORDS SUMMARY | 2024-08-23 06:00 | XMS_ITS ---
Author Organization [facility] Address [address] [place] [address] Care Team Providers Care Business Applications Manager Name Role Phone MS. Maria Isabel Kilgore Primary Care Provider [phone] Ellen Parker Unavailable [phone] Martha Gillette Unavailable [phone] REASON FOR VISIT BH F/U Encounters Encounter Location Date Provider Diagnosis [facility] [address] [place] [address] 08/23/2024 Martha Gillette Plan Of Treatment No Information Progress Notes * KAILEY TORRESDAINImmanuel LDOB:[birth year] (25 yo F)Acc No.[id number]:08/23/2024 BH F/U - Patient Patient: ELISABET OLMEDO :?Martha CorteDOB:2000???Age:24 Y???Sex: FemaleDate:08/23/2024Phone:[phone]:[facility] [place] [address] [place] [id number]:MS. Maria Isabel Kilgore Subjective: * Chief Complaints: * B H F/U Care Plan Details* * Electronic signature of Martha Gillette on 05/24/2025 at 10:55 AM ESTSign off status: Pending * Provider: Manny Baker Date: 0 08/23/2024 Generated for Printing/Faxing/eTransmitting on:?05/24/2025 10:55 AM EST
--- OUTSIDE RECORDS SUMMARY | 2024-09-20 04:00 | XMS_ITS ---
Author Organization [facility] Address [address] [place] [address] Care Team Providers Care Metal Buildings Assembler Name Role Phone MS. Maria Isabel Kilgore Primary Care Provider Ellen Parker [phone] REASON FOR VISIT transfer from [place]. Encounters Encounter Location Date Provider Diagnosis [facility] [address] [place] [address] 09/20/2024 Maria Isabel Kilgore Plan Of Treatment No Information Progress Notes * ELISABET TORRES LDOB:[birth year] (25 yo F)Acc No.[id number]:09/20/2024 F/U - Patient Patient: ELISABET OLMEDO :?Maria Isabel KilgoreCYNTHIAWDOB:2000???Age:24 Y ???Sex:FemaleDate:09/20/2024Phone:[phone]:[address], [address] [place], [id number] Subjective: * Chief Complaints: * t inder from [place]. Care Plan Details* * Electronic signature of MS. Maria Isabel Kilgore STEPHEN on 05/24/2025 at 10:55 AM EST Sign off status: Pending * Provider: STEPHNE Hood Date: 0 09/20/2024 Generated for Printing/Faxing/eTransmitting on:?05/24/2025 10:55 AM EST
--- OUTSIDE RECORDS SUMMARY | 2024-09-20 05:30 | XMS_ITS ---
Author Organization [facility] Address [address] [place] [address] Care Team Providers Care Automatic Embroidery Machine Tender Name Role Phone MS. Maria Isabel Kilgore Primary Care Provider Ellen Parker [phone] REASON FOR VISIT 1 month f/u Encounters Encounter Location Date Provider Diagnosis [facility] [address] [place] [address] 09/20/2024 Ellen Parker Plan Of Treatment No Information Progress Notes * ELISABET MARTINEZ LDOB:[birth year] (25 yo F)Acc No.[id number]:09/20/2024 Behavioral Health Patient: ELISABET OLMEDO :Catie ParkerDOB:2000???Age:24 Y???Sex:Female Date:09/20/2024Phone:[phone]:[address], [place], [id number]:Davis Rockie Manny Kilgore Subjective: * Chief Complaints: * 1 month f/u Billing Information: * Procedure Codes: * Electronic signature of OLGA Peters on 05/24/2025 at 10:55 AM ESTSign off status: Pending * Provider: Mario Parker Date: 0 09/20/2024 Generated for Printing/Faxing/eTransmitting on:?05/24/2025 10:55 AM EST
--- OUTSIDE RECORDS SUMMARY | 2025-05-14 19:12 | XMS_ITS | Continuity of Care Document ---
Author Organization [facility] Address [address] [place] [address] Phone Care Team Providers Care Mirror Polisher Name Role Phone Erich Decker PA-C Attending Provider Care Teams Patient Care Team Team Status: Active Member Role/Relationship Status Dates Mook Wang DO Primary Care Provider Active Patient Care Team Team Status: Inactive Member Role/Relationship Status Dates Erich Decker PA-C Attending Provider Active Start: May 14, 2025 End: May 14, 2025 Allergies, Adverse Reactions, Alerts Allergen Type Severity Reaction Last Updated Verified Status No Known Allergies Allergy Unknown September 11, 2020 7:19amYesActive Social History Smoking Status Status Start Date End Date Date of Observa tion Never smoked tobacco (finding) August 29, 2021 6:23pm Observation Status Observation Response Date of Response Legal Sex Female (finding) Sex [facility]igned [facility] 1999 Family History Relationship Condition Age at Onset Recorded Date/T sonia father Diabetes mellitus Unknown HypertensionUnknown Problems Active Problems Problem Diagnosis/Recorded Date Onset Date Stat us delivery delivered September 11, 2020 7:30am Unk nown Active Calculus of gallbladder with cholecystitis September 11, 2020 9:25am Unknown Active Medications Medication Status Dose Units Route Directions Qty Days Refills S tart Date Stop Date End Date Reason(s) Instructions Adherence Oxycodone-Acetaminophen (Percocet) 5-325 mg tablet Discontinued 2 TAB PO Q 6H as needed for pain 30 7 0 September 11, 2020 August 31, 2021 12:42pmCalculus of gallbladder with cholecystitis Calculus of gallbladder with chronic cholecystitis without obstruction1-2 tabs po q 6 hours prn painDocusate Sodium (Colace) 100 mg oioxqvwThrnkp399DPYOWdqcj52 0March 2021 11:00pmUnknownIbuprofen 800 mg szbkdcValwmv243NPJZakytw 6 to 8 hours as needed for oeix383Morzs 2021 11:00pmUnknownHydrocodone- Acetaminophen 5-325 mg oqgovnOigmqx8LLACFM5R as needed for zjiu8587Naxht esarean delivery delivered Encounter for delivery without indicationUnknown Procedures Procedure Date Performed Status Urine Culture May 14, 2025 active Advance Directives Advance Directive Response Recorded Date/ Time Advance Directives No June 12, 2021 12:16pm Insurance Providers Guarantor Cesar Martinez Address [address] [phone] Info.Home Phone: Payer Group Member ID Coverage Type Subscriber Relationship to Subscriber Effective Date Expiration Date [place] [employer] ECI Id: [id number] K L Corbin Id: [id number] [address] [facility] [address] Home Phone: Email: [email or web address] [facility] [place] Medicaid ECI Id: [id number] K L Corbin Id: [id number] [address] [facility] [address] Home Phone: Email: [email or web address] Encounters Encounter Location(s) Arrival/Admit Date Discharge/Departure Date Discharge/Departure Disposition Provider(s) Departed Referred -[facility] May 14, 2025 4:00pm May 14, 2025 4:01pm Discharged to home care or self care (routine discharge) Erich Decker PA-C Plan of Treatment Future Tests Future scheduled test information is unavailable Pending Tests Test Name Ordered Date Scheduled Date Urine Culture May 14, 2025 4:00pm Future Visits Future appointment information is unavailable Future Procedures Procedure Name Ordered Date Scheduled Date Urine Culture May 14, 2025 8:46pm Dece er 2024 4:00pm Future Medications Future medication information is unavailable Patient Instructions Patient instructions are unavailable
--- OUTSIDE RECORDS SUMMARY | 2025-05-24 11:00 | XMS_ITS | Encounter Summary ---
Author Organization [facility] Address [address] [place] [address] Care Team Providers Care Mohel Name Role Phone Mook Wang MD Primary Care Provider + [phone] Reason for Visit * ReasonCommentsGynecologic Exam Encounter Details DateTypeDepartmentCare Team (Latest Contact Info)Roibosnqgga75/16/2025 11:00 AM ESTOffice Visit [facility] Janett OBGYN [address] [facility] [place] [address] Keshawn Nicholson DO [address] [facility] [address] [place], [facility]11 Well woman exam with routine gynecological exam; Urinary tract infection without hematuria, site unspecified; Cervicitis and endocervicitis Social History Tobacco UseTypesPacks/DayYears UsedDateSmoking Tobacco: Never Assessed CommentsNoSex and Gender InformationValueDate RecordedSex Assigned at BirthNot on fileLegal DgcLvrzrw61/15/2023 7:14 PM EDTGender IdentityNot on fileSexual OrientationNot on filedocumented as of this encounter Last Filed Vital Signs Vital SignReadingTime TakenCommentsBlood Hgbwpbys219/7005/24/2025 11:18 AM EST Pulse--Temperature--Respiratory Rate--Oxygen Saturation--Inhaled Oxygen Concentration--Ffprxh712 kg (243 lb)05/24/2025 11:18 AM ESTHeight--Body Mass Index36.9508 2:34 PM EDTdocumented in this encounter Progress Notes * Graciela Mcknight LPN - 05/24/2025 11:00 AM EST Reason for Appointment: Patient ID: Cesar Martinez is a 25 y.o. female who presents for Gynecologic Exam Patient presents today for Annual Exam. MEDICATIONS Current Outpatient Medications Medication Instructions amphetamine-dextroamphetamine [...] nursing note reviewed. Exam conducted with a yarn salvager present. Vitals: Estimated body mass index is 36.95 kg/m?? as calculated from the following: Height as of 01/26/24: 5' 8 . Weight as of this encounter: 243 lb. BP: 106/70 Patient's last menstrual period was 03/22/2025 (approximate). ASSESSMENT & PLAN ICD-10-CM 1. Well woman exam with routine gynecological exam Z01.419 Pap Smear POCT , urine manually resulted 2. Urinary tract infection without hematuria, site unspecified N39.0 POCT urinalysis dipstick manually resulted Orders Placed This Encounter Procedures POCT urinalysis dipstick manually resulted POCT , urine manually resulted Annual Wellness Exam: Patient presents today for routine annual exam. Patient states she has no current complaints. Patients vitals were reviewed and within normal limits. Growth and development is noted to be appropriate for age. Menstrual history is noted to be regular with no concerns reported. No mental health concerns was expressed. Pt states cervix is tender, discussed zpack rx faxed Pap Smear: Speculum was inserted into the vagina and pap was obtained without difficulty. No HPV testing was performed per age guideline. Patient was advised that pap results could take anywhere from 7 to 10 days to receive and our office will reach out to the patient with those once we have them. Patient canalso view results via [employer]. I reinforced importance of condom use for STI prevention. Patient declined cultures to be performed with today's visit. Breast Exam: Upon examination, clinical breast exam was noted to be normal. Patient was counseled on breast self-awareness, including the importance of knowing what is normal for her own breasts and promptly reporting any changes such as new lumps, skin dimpling, nipple discharge, or pain. Screening mammogram recommended annually beginning at age 40 or earlier if risk factors are present. Discussed signs and symptoms of breast cancer and when to seek medical attention. Answered all patient questions. Contraceptive Counseling (if applicable): Patient is currently using NuvaRing as a form of contraceptive. Follow Up: Patient is to return to our office in one year for annual exam unless needed otherwise. Documented by Graciela Mcknight LPN on behalf of: Keshawn Nicholson DO documented in this encounter Plan of Treatment DateTypeDepartmentCare Team (Latest Contact Info)Avrkhriygtb90/05/2026 10:00 AM ESTAncillary Procedure [facility] Janett LAGUNASGYN [address] [facility] [place] [address] 06/13/2025 11:10 AM ESTConsult NOMDenys RAMACHANDRANN [address] [facility] [place] [address] Keshawn Nicholson, DO [address] [facility] [address] [place] [place], [place] [address] 05/29/2026 11:00 AM ESTProcedure Visit NOMDenys PALAFOX [address] [facility] [place] [address] Keshawn Nicholson, DO [address] [facility] [address] [place], [place] [address] NameTypePriorityAssociated DiagnosesOrder SchedulePap SmearPathology and CytologyRoutine Well woman exam with routine gynecological exam Ordered: 05/24/2025documented as of this encounter Procedures Procedure NamePriorityDate/TimeAssociated DiagnosisCommentsPOCT , URINE Vfqiuqu8605/24/2025 11:35 AM EST Well woman exam with routine gynecological exam POCT URINALYSIS XLRXSIMRBszvhso70/16/2025 11:32 AM EST Urinary tract infection without hematuria, site unspecified documented in this encounter Results * POCT , urine manually resulted (05/24/2025 11:35 AM EST)Component ValueRef RangeTest MethodAnalysis TimePerformed AtPathologist SignaturePreg Test, UrNegativeNegativeSpecimen (Source)Anatomical Location / Laterality Collection Method / VolumeCollection TimeReceived AbceXfalu73/16/2025 11:35 AM EST Narrative Authorizing ProviderResult TypeResult StatusCorey Lyn DOPOINT OF CARE TEST ENTER/EDIT ORDERABLESFinal Result * (ABNORMAL) POCT urinalysis dipstick manually resulted (05/24/2025 11:32 AM EST)ComponentValueRef RangeTest MethodAnalysis TimePerformed AtPathologist SignatureColor, UAYellowClarity, UAClearGlucose, UANegativeNegative - 1999(110) ++++ mg/dLBilirubin, UANegativeNegative - 4(70) +++ mg/dLKetones, UA NegativeNegative - 160(16) ++++ mg/dLSpec Grav, UA1.0251 - 1.03Blood, UA NegativeNegative - 50 Tyler/mcLpH, UA6.05 - 9Protein, UATraceNegative - 1999(20) ++++ mg/dLUrobilinogen, UA0.20.2 - 12 mg/dLLeukocytes, UANegativeNegative - 500+++ Avelino/mcLNitrite, UANegativeNegative - PositiveSpecimen (Source) Anatomical Location / LateralityCollection Method / VolumeCollection Time Received WfvuVgblk25/16/2025 11:32 AM EST Narrative Authorizing ProviderResult TypeResult StatusCorey Lyn DOPOINT OF CARE TEST ENTER/EDIT ORDERABLESFinal Result documented in this encounter Visit Diagnoses Diagnosis Well woman exam with routine gynecological exam Routine gynecological examination Urinary tract infection without hematuria, site unspecified Cervicitis and endocervicitis documented in this encounter Care Teams Team MemberRelationshipSpecialtyStart DateEnd Date Mook Wang MD [address] [facility], [facility] [address] PCP - GeneralFamily Medicine10/28/22documented as of this encounter
--- OUTSIDE RECORDS SUMMARY | 2025-05-24 18:56 | XMS_ITS | Encounter Summary ---
Author Organization [facility] Address [address] [place] [address] Care Team Providers Care Champagne Maker Name Role Phone Mook Wang MD Primary Care Provider + [phone] Encounter Details DateTypeDepartmentCare Team (Latest Contact Info)Potnurqbzpa38/09/2025Results Follow-Up [facility] [address] [place] [address] Erich Decker PA [address] [place] [address] Urine culture, AEROBIC JUSTIN CHARGE ([id number]) Social History Tobacco UseTypesPacks/DayYears UsedDateSmoking Tobacco: Never Assessed CommentsNoSex and Gender InformationValueDate RecordedSex Assigned at BirthNot on fileLegal BuaAaykdo41/15/2023 7:14 PM EDTGender IdentityNot on fileSexual OrientationNot on filedocumented as of this encounter Plan of Treatment DateTypeDepartmentCare Team (Latest Contact Info)Taytkrmzkdq63/05/2026 10:00 AM ESTAncillary Procedure [facility] Janett PALAFOX [address] [place] [address] 06/13/2025 11:10 AM ESTConsult NOMDenys PALAFOX [address] [place] [address] Keshawn Nicholson DO [address] [place] [address] 05/29/2026 11:00 AM ESTProcedure Visit [facility] Janett PALAFOX [address] [facility] [place] [address] Keshawn Nicholson DO [address] [facility] [address] [place], [place] [address] documented as of this encounter Visit Diagnoses Not on filedocumented in this encounter Care Teams Team MemberRelationshipSpecialtyStart DateEnd Date Mook Wang MD [address] [facility] [place] [address] PCP - GeneralFamily Medicine10/28/22documented as of this encounter
--- OUTSIDE RECORDS SUMMARY | 2025-05-24 18:56 | XMS_ITS | Encounter Summary ---
Author Organization [facility] Address [address] [place] [address] Care Team Providers Care Spot Welder Name Role Phone Mook Wang MD Primary Care Provider + [phone] Encounter Details DateTypeDepartmentCare Team (Latest Contact Info)Nosixcdvcqs85/06/2025linisync Result Encounter [facility] External Department Unsolicited Erich Decker, YANNI [address] [place] [address] Social History Tobacco UseTypesPacks/DayYears UsedDateSmoking Tobacco: Never Assessed CommentsNoSex and Gender InformationValueDate RecordedSex Assigned at BirthNot on fileLegal PplByupjt34/15/2023 7:14 PM EDTGender IdentityNot on fileSexual OrientationNot on filedocumented as of this encounter Plan of Treatment DateTypeDepartmentCare Team (Latest Contact Info)Szlopvwolrr11/05/2026 10:00 AM ESTAncillary Procedure [facility] Janett PALAFOX [address] [place] [address] 06/13/2025 11:10 AM ESTConsult [facility] Janett PALAFOX [address] [place] [address] Keshawn Nicholson DO [address] [place], [place] [address] 05/29/2026 11:00 AM ESTProcedure Visit [facility] Janett PALAFOX [address] [facility] [place] [address] Keshawn Nicholson, [address] [facility] [place] [address] documented as of this encounter Procedures Procedure NamePriorityDate/TimeAssociated DiagnosisCommentsURINE CULTURE - [facility] Hfpfcvn1905/14/2025 4:00 PM EST documented in this encounter Results * (ABNORMAL) URINE CULTURE - [facility] (05/14/2025 4:00 PM EST)ComponentValueRef RangeTest MethodAnalysis TimePerformed AtPathologist SignatureURINE CULTURE - [facility] ??Urine Culture - [facility] SEEFR FR RESULT^FR RESULT (A)TBHURINE CULTURE - [facility] SEE SCANNED REPORT, ABNORMAL^SEE SCANNED REPORT, ABNORMAL(A)TBHSpecimen (Source)Anatomical Location / LateralityCollection Method / VolumeCollection TimeReceived Time05/14/2025 4:00 PM EST05/14/2025 4:11 PM EST Narrative [facility] - 05/16/2025 9:44 AM EST Authorizing ProviderResult TypeResult StatusMattfloyd Decker [facility] BLOOD ORDERABLESFinal ResultPerforming OrganizationAddressCity/State/ZIP CodePhone Number [facility] documented in this encounter Visit Diagnoses Not on filedocumented in this encounter Care Teams Team MemberRelationshipSpecialtyStart DateEnd Date Mook Wang MD [address] [place] [address] PCP - GeneralFamily Medicine10/28/22documented as of this encounter
--- OUTSIDE RECORDS SUMMARY | 2025-05-24 18:56 | XMS_ITS | Patient Health Record ---
Author Organization [facility] es Address [address] [place] [address] Care Team Providers Care Security Operations Manager Name Role Phone MS. Maria Isabel Kilgore Primary Care Provider [phone] Ellen Parker Unavailable [phone] Magy Sun Unavailable Zee Lemus Unavailable [phone] Marhta Gillette Unavailable [phone] Allergies No Known Allergies Reason For Referral [...] in the past year?Monthly or less (1 point)Uhcusi7HkkrlqzsuostogGqlnsmacTCMT-05 (2020 Edition)1. Have you used drugs other [...] Status Risk Notes Problem Posttraumatic stress disorder (00694607) PTSD (post-traumatic stress disorder) (F43.10) ActiveconfirmedProblemMixed bipolar affective disorder, moderate (898959339) Bipolar mixed affective disorder, moderate (F31.62)Activeconfirmed Encounters Encounter Location Date Provider Diagnosis [facility] [address] [place] [address] 06/10/2024 Magy Sun [facility] [place] [address] Ellen CoxBipolar mixed affective disorder, moderate F31.62[facility] [place] [address]jerzy [place] [facility] [place] [address] [facility] [place] [address] 4Alexandra zzzCorteBipolar mixed affective disorder, moderate F31.62 [facility] [address] [place] [address]/10/2025 Martha zzzCortePTSD (post-traumatic stress disorder) F43.10 and Bipolar mixed affective disorder, moderate F31.62[facility] [place] [address]/10/2025Jasmina SaricDental caries on pit and fissure surface penetrating into dentin K02.52[facility] [place] [address]/02/2025Christy CoxBipolar mixed affective disorder, moderate F31.62[facility] [place] [address] 07/12/2024hristy CoxBipolar mixed affective disorder, moderate F31.62 and [...] fissure surface penetrating into dentin (ICD-10 - K02.52)5Bipolar mixed affective disorder, moderate (ICD-10 - F31.62) 07/12/2024PTSD (post-traumatic stress disorder) (ICD-10 - F43.10)06/07/2024 Bipolar mixed affective disorder, moderate (ICD-10 - F31.62)5Bipolar mixed affective disorder, moderate (ICD-10 - F31.62) Plan Of Treatment No Information Insurance Providers Payer Name Payer Address Payer Phone Subscriber Number Group Number Insured Name Patient Relationship to Insured Coverage Start Date Coverage End Date [employer] [place] [employer] [address] [place] [address] [id number] Shai TORRES - patient is the [id number] 2022 [employer] [facility] [address] [place] [id number], LAYNEESelf - patient is the [id number] [facility] EnvolvePO [address] [address] [place] [id number], LAYNEESelf - patient is the insured [facility] [address] [place] [phone] [id number], LAYNEESelf - patient is the [id number] 2022 Medical (General) History Medical History History ICD Code Anxiety disorder chronic depressionpanic disorderPTSDBipolar 1 DisorderSurgical History Surgery Date(Month/Year) 07/2020 tonsillectomy and adenoidectomy 2002 08/2021 Hospitalization History Reason Date(Month/Year) childbirth 07/2020 childbirth 07/2021
--- OUTSIDE RECORDS SUMMARY | 2025-05-24 18:56 | XMS_ITS | Clinical Summary ---
Author Organization [facility] Address [address] [place] [address] Care Team Providers Care Salvage Machine Operator Name Role Phone Mook Wang MD Primary Care Provider + [phone] Allergies No known active allergies Medications MedicationSigDispense QuantityRefillsLast FilledStart DateEnd DateStatus ARIPiprazole (Abilify) 10 MG tablet 01/24/2024ctive lamoTRIgine (LaMICtal) 100 MG tablet 01/24/2024ctive traZODone (Desyrel) 50 MG tablet Take 50 mg by mouth as needed at oawbtan83/19/2024Active etonogestrel-ethinyl estradiol (Nuvaring) 0.12-0.015 MG/24HR vaginal ring Indications:Irregular menstrual cycle,General counseling and advice on contraceptive managementInsert vaginally and leave in place for 21 consecutive days (3 weeks), then remove. Wait for 7 daysbefore inserting new ring. 1 each 5Active amphetamine-dextroamphetamine (Adderall) 5 MG tablet AdderallActive azithromycin (Zithromax Z-Alexis) 250 MG tablet Indications:Cervicitis and endocervicitisAs directed 6 tablet 5Active Encounters DateTypeDepartmentCare JmktGxxdqlmvdiv77/16/2025 11:00 AM ESTOffice Visit [facility] [address] [place] [address] [place] [address] Keshawn Nicholson, DO Well woman exam with routine gynecological exam; Urinary tract infection without hematuria, site unspecified; Cervicitis and hnpeezqvldzfpw19/16/2025amboo flowsheet [facility] RAMACHANDR[facility] [address] [place] [address] Keshawn Nicholson DO 05/17/2025Results Follow-Up [facility] [address] [place] [address] Erich Decker PA Urine culture, AEROBIC JUSTIN CHARGE (NMIC56)05/17/2025Results Follow-Up [facility] [address] [place] [address] Erich Decker PA [facility] [place] [facility] [place]/14/2025External Result Encounter NOM[facility] External Department Unsolicited Erich Decker PA 05/14/2025linisync Result Encounter NOMS External Department Unsolicited Erich Decker PA 05/03/2025 11:30 AM ESTOffice Visit [facility] LAGUNASGYN [address] [place] [address] Keshawn Nicholson DO Abnormal uterine bleeding (AUB); Pelvic fjqushli67/25/2025amboo flowsheet [facility] [address] [place] [address] Keshawn Nicholson DO 04/06/2025Refill [facility] [address] [place] [address] Jenelle Morales LPN Irregular menstrual cycle; General counseling and advice on contraceptive managementfrom Last 3 Months Social History Tobacco UseTypesPacks/DayYears UsedDateSmoking Tobacco: Never Assessed CommentsNoSex and Gender InformationValueDate RecordedSex Assigned at BirthNot on fileLegal WkoJxffhq26/15/2023 7:14 PM EDTGender IdentityNot on fileSexual OrientationNot on file Last Filed Vital Signs Vital SignReadingTime TakenCommentsBlood Ocelilnx497/7005/24/2025 11:18 AM EST Pulse--Temperature--Respiratory Rate--Oxygen Saturation--Inhaled Oxygen Concentration--Whyzlh389 kg (243 lb)05/24/2025 11:18 AM ODJNkqjmm975.7 cm (5' 8 )01/26/2024 2:34 PM EDTBody Mass Index36.95001/26/2024 2:34 PM EDT Plan of Treatment DateTypeDepartmentCare Team (Latest Contact Info)Skkbapmnwdh41/05/2026 10:00 AM ESTAncillary Procedure [facility]ett LAGUNASN [address] [place] [address] [place] [address] 06/13/2025 11:10 AM ESTConsult [facility] [address] [place] [address] [place] [address] Keshawn Nicholson, [address] [place] [address] 05/29/2026 11:00 AM ESTProcedure Visit [facility] [address] [place] [address] [place] [address] Keshawn Nicholson, [address] [place] [address] Procedures Procedure NamePriorityDate/TimeAssociated DiagnosisCommentsPOCT , URINE Ubusuwh7505/24/2025 11:35 AM EST Well woman exam with routine gynecological exam POCT URINALYSIS LDVLKCVVJzofagj78/16/2025 11:32 AM EST Urinary tract infection without hematuria, site unspecified AEROBIC JUSTIN CHARGE (NMIC56)Rpteumj2105/14/2025 4:00 PM EST URINE CULTURE - BCKPAfavqgv74/06/2025 4:00 PM EST CULTURE, URINE, ZWPRMRXRgacbhh36/06/2025 4:00 PM EST from Last 3 Months Results * POCT , urine manually resulted (05/24/2025 11:35 AM EST)Component ValueRef RangeTest MethodAnalysis TimePerformed AtPathologist SignaturePreg Test, UrNegativeNegativeSpecimen (Source)Anatomical Location / Laterality Collection Method / VolumeCollection TimeReceived GyrmSdqlg57/16/2025 11:35 AM EST Narrative Authorizing ProviderResult TypeResult StatusCorey [facility] HospitalOINT OF CARE TEST ENTER/EDIT ORDERABLESFinal Result * (ABNORMAL) POCT urinalysis dipstick manually resulted (05/24/2025 11:32 AM EST)ComponentValueRef RangeTest MethodAnalysis TimePerformed AtPathologist SignatureColor, UAYellowClarity, UAClearGlucose, UANegativeNegative - 2000(110) ++++ mg/dLBilirubin, UANegativeNegative - 4(70) +++ mg/dLKetones, UA NegativeNegative - 160(16) ++++ mg/dLSpec Grav, UA1.0251 - 1.03Blood, UA NegativeNegative - 50 Tyler/mcLpH, UA6.05 - 9Protein, UATraceNegative - 2000(20) ++++ mg/dLUrobilinogen, UA0.20.2 - 12 mg/dLLeukocytes, UANegativeNegative - 500+++ Avelino/mcLNitrite, UANegativeNegative - PositiveSpecimen (Source) Anatomical Location / LateralityCollection Method / VolumeCollection Time Received DlzoUjqgu65/16/2025 11:32 AM EST Narrative Authorizing ProviderResult TypeResult StatusCorey [facility] DOPOINT OF CARE TEST ENTER/EDIT ORDERABLESFinal Result * (ABNORMAL) URINE CULTURE - [facility] (05/14/2025 4:00 PM EST)ComponentValueRef RangeTest MethodAnalysis TimePerformed AtPathologist SignatureURINE CULTURE - [facility] ??Urine Culture - [facility] SEE[facility]MC [facility] RESULT^[facility] RESULT (A)TBHURINE CULTURE - [facility]MCSEEA SEE SCANNED REPORT, ABNORMAL^SEE SCANNED REPORT, ABNORMAL(A)TBHSpecimen (Source)Anatomical Location / LateralityCollection Method / VolumeCollection TimeReceived Time05/14/2025 4:00 PM EST05/14/2025 4:11 PM EST Narrative [facility] - 05/16/2025 9:44 AM EST Authorizing ProviderResult TypeResult StatusMatthew Denise [facility] BLOOD ORDERABLESFinal ResultPerforming OrganizationAddressCity/State/ZIP CodePhone Number [facility] * (ABNORMAL) AEROBIC JUSTIN CHARGE (NMIC56) (05/14/2025 4:00 PM EST)ComponentValue Ref RangeTest MethodAnalysis TimePerformed AtPathologist SignatureAMIKACIN<16 (S)05/16/2025 8:20 AM [facility] CtrAMOXACILLIN/K CLAVULANATE<8/4(S)05/16/2025 8:20 AM [facility]tr AMPICILLIN>16(R)05/16/2025 8:20 AM [facility]tr AMPICILLIN/BKGLQCUJV18/8(I)05/16/2025 8:20 AM [facility] CtrAZTREONAM<4(S)05/16/2025 8:20 AM [facility] CtrCEFAZOLIN <2(S)05/16/2025 8:20 AM [facility] CtrCEFEPIME<2(S) 05/16/2025 8:20 AM [facility] CtrCEFTAZIDIME<1(S)05/16/2025 8:20 AM [facility] CtrCEFTAZIDIME/AVIBACTAM<4(S)05/16/2025 8:20 AM [facility] CtrCEFTOLOZANE/TAZOBACTAM<2(S)05/16/2025 8:20 AM [facility] CtrCEFTRIAXONE<1(S)05/16/2025 8:20 AM [facility] CtrCEFUROXIME<4(S)05/16/2025 8:20 AM [facility] CtrCIPROFLOXACIN<0.25(S)05/16/2025 8:20 AM [facility] CtrERTAPENEM<0.5(S)05/16/2025 8:20 AM [facility] CtrGENTAMICIN<2(S)05/16/2025 8:20 AM [facility]Fire[facility] CtrLEVOFLOXACIN<0.5(S)05/16/2025 8:20 AM [facility] CtrMEROPENEM<1(S)05/16/2025 8:20 AM [facility] Ctr MEROPENEM/VABORBACTAM<2(S)05/16/2025 8:20 AM [facility] Ctr NITROFURANTOIN<32(S)05/16/2025 8:20 AM [facility]tr PIPERACILLIN/TAZOBACTAM<8(S)05/16/2025 8:20 AM [facility] CtrTETRACYCLINE<4(S)05/16/2025 8:20 AM [facility]tr TIGECYCLINE<2(S)05/16/2025 8:20 AM [facility] CtrTOBRAMYCIN <2(S)05/16/2025 8:20 AM [facility]tr TRIMETHOPRIM/SULFAMETHOXAZOLE<0.5/9.5(S)05/16/2025 8:20 AM [facility] CtrSpecimen (Source)Anatomical Location / Laterality Collection Method / VolumeCollection TimeReceived TimeClean-Voided Midstream (Clean Void Midstream)05/14/2025 4:00 PM EST05/14/2025 8:46 PM EST Narrative Authorizing ProviderResult TypeResult StatusMatthejoaquín Decker PAFIRELANDSFinal ResultPerforming OrganizationAddressCity/State/ZIP CodePhone Number [facility] [address] [place] [address], [facility] [address] [place] [address] * Urine culture (05/14/2025 4:00 PM EST)ComponentValueRef RangeTest Method Analysis TimePerformed AtPathologist SignatureFRMC ORGANISMEscherichia coli 05/16/2025 8:20 AM [facility] CtrCOLONY COUNT>100,000 05/16/2025 8:20 AM [facility] CtrSpecimen (Source) Anatomical Location / LateralityCollection Method / VolumeCollection Time Received TimeClean-Voided Midstream (Clean Void Midstream)05/14/2025 4:00 PM EST05/14/2025 8:46 PM EST Narrative [facility] - 05/16/2025 8:21 AM EST Diagnosis: UTI Comment: Authorizing ProviderResult TypeResult StatusMattfloyd THOMAS MICROBIOLOGY - GENERAL ORDERABLESFinal ResultPerforming OrganizationAddressCity/State/ZIP Code Phone Number [facility] [address] [place] [address], [facility] [address] [facility] [place] [address] from Last 3 Months Insurance Care Teams Team MemberRelationshipSpecialtyStart DateEnd Date Mook Wang MD [address], [facility] [place] [address] PCP - GeneralFamily Medicine10/28/22
--- OUTSIDE RECORDS SUMMARY | 2025-05-24 18:56 | XMS_ITS | Encounter Summary ---
Author Organization [facility] Address [address] [place] [address] Care Team Providers Care Windows Desktop Engineer Name Role Phone Mook Wang MD Primary Care Provider + [phone] Encounter Details DateTypeDepartmentCare Team (Latest Contact Info)Fdqwjygyozv85/09/2025Results Follow-Up [facility] [address] [place] [address] Erich Decker PA [address] [place] [address] [place] - [facility] [place] Social History Tobacco UseTypesPacks/DayYears UsedDateSmoking Tobacco: Never Assessed CommentsNoSex and Gender InformationValueDate RecordedSex Assigned at BirthNot on fileLegal EogDurfkm04/15/2023 7:14 PM EDTGender IdentityNot on fileSexual OrientationNot on filedocumented as of this encounter Plan of Treatment DateTypeDepartmentCare Team (Latest Contact Info)Rlrocfyvpgg59/05/2026 10:00 AM ESTAncillary Procedure [facility] [address] [place] [address] 06/13/2025 11:10 AM ESTConsult [facility] Jan[facility] OBKENNEY [address] [place] [address] Keshawn Nicholson DO [address] [place], [place] [address] 05/29/2026 11:00 AM ESTProcedure Visit [facility] [address] [facility] [place] [address] Keshawn Nicholson DO [address] [facility] [place] [address] documented as of this encounter Visit Diagnoses Not on filedocumented in this encounter Care Teams Team MemberRelationshipSpecialtyStart DateEnd Date Mook Wang MD [address] [place] [address] PCP - GeneralFamily Medicine10/28/22documented as of this encounter
--- OUTSIDE RECORDS SUMMARY | 2025-05-24 18:56 | XMS_ITS | Clinical Summary ---
Author Organization [employer] tem Address [id number] [address] [place] [address] Care Team Providers Care Catalogue Illustrator Name Role Phone Mook Wang DO Primary Care Provider + [phone] Allergies No known active allergies Medications MedicationSigDispense QuantityRefillsLast FilledStart DateEnd DateStatus acetaminophen (TYLENOL) 500 mg tablet Take 1 tablet (500 mg total) by mouth every 6 (six) hours as needed for pain (1- 2 ORAL NEEDED).Active mv187-tuzo-fbzhy acid () 29 mg iron- 1 mg [...] Active Problems ProblemNoted DateDiagnosed DateRecurrent urinary tract xnkjkspva39/13/2023 Overview (04/21/2023): ==== 04/21/2023 ==== history over many years including apparently childhood of lower urinary tract symptomatology. UTI. Uncomplicated. No fever no hospitalization. Has had prior workup per report last workup more than 5 years ago. She had a CT scan done outside institution have the report availablefor review. No hydronephrosis no stones. Plan: Standing order urine culture cystoscopy [facility] bladder solution. Assessment & Plan (04/21/2023 2:04 PM EST): Mac anesthesia per patient preference. Fyaigkeclgbd83/01/2022alculus of gallbladder with acute on chronic cholecystitis without jajznjblkfa15/07/2022hronic pain03/15/2022Internal derangement of right knee03/15/2022Urinary tract infection qzurtujk04/07/2022 Bipolar fdrwholr38/01/2021upraventricular lhrdtzvohev50/17/2020Anxiety 03/22/2020Bulimia dhrhypd3808/18/2019 Resolved Problems ProblemNoted DateDiagnosed DateResolved DateMorbid nykwksi27/08/2024 Vaginal odor/4Anxiety disorder affecting , antepartum /08/2024Short interval between pregnancies complicating , qtoozndovv15/09/202111/08/2024Maternal cardiovascular disease affecting , /09/202111/08/2024 Overview (04/17/2021): Palpitations- see media- eval by [facility] Cardiology- not felt to be POTS. ECG and echo wnl. Holter (2020) with one episode of 30 sec of AF and otherwise rare random ectopy with history of section, bqecktogor45/09/202111/08/2024 Obesity affecting xgixeygap44/08/2024Rh negative status during hlicrglnl21/5Bipolar disease during sydlnuxfb11/03/2025 Encounters DateTypeDepartmentCare KsdiZtwdkvbonuk79/06/2024 2:15 PM ESTOffice Visit [facility] [address] [place] [address] Mook Wang, DO Class 2 severe obesity due to excess calories with serious comorbidity and body mass index (BMI) of38.0 to 38.9 in adult05/09/20258986Mhummk15/04/2025Results Follow-Up [facility] [address] [place] [address] Mook Wang, DO Lipid profile, Comprehensive metabolic panel04/11/2025 11:15 AM ESTOffice Visit [facility] [address] [place] [address] Mook Wang, DO Well adult exam (Primary Dx); Class 2 severe obesity due to excess calories with serious comorbidity and body mass index (BMI) of38.0 to 38.9 in adult04/11/20252324Iqibcr80/25/2025Telephone [facility] [address] [place] [address] Tish Regan, [facility] Appointmentfrom Last 3 Months Immunizations ImmunizationAdministration DatesNext YkjEEH7002/18/2011,06/06/2000,1999, 1999,1999DTaP02/15/2004HPV Wisvxpliinbl67/04/2015HPV, Unspecified 11/01/2014,09/01/2014Hep B, Adolescent or Rdnoyjedw44/14/2002,11/04/2001, 06/06/2000Hepatitis B002/09/1999HiB06/06/2000,1999,1999,1999IPV 10/31/2003,1999,1999,1999Influenza (IM) Preservative Free 02/07/2015Influenza, Im Flucelvax (Pf)02/07/2015Influenza, Im Trivalent Nxelmxikhzau40/09/2014Influenza, Injectable, quadrivalent (PF)09/08/2017, 03/13/2016MMR10/31/2003,06/06/2000Meningococcal Itwwejjge98/05/2016Meningococcal MUE7B8602/18/2011PPD Test02/13/2016,01/13/2015Tdap02/18/2011 Family History Medical HistoryRelationNameCommentsADD / ADHDBrotherXavierAsthmaBrotherXavier [...] times a week03/17/2023How often do you attend latter-day or restorationism services?Never03/17/2023o you belong to any clubs or organizations such as latter-day groups, unions, fraternal or athletic groups, or school groups?No03/17/2023How often do you attend meetings of the clubs or organizations you belong to?Never03/17/2023re you , , , , never , or living with a partner?Never fqekawh8603/17/2023HQ-2 AnswerDate RecordedTotal Jqbnh91006/11/2024[facility] [place] [facility] Occup[facility] - Occupational Stress QuestionnaireAnswerDate RecordedDo you feel stress - tense, restless, nervous, or anxious, or unable to sleep at night because your mind is troubled all the time - these days?To some kvedmm1203/17/2023UDIT-CAnswer Date RecordedQ1: How often do you have [...] part of a household?No04/11/2025hildcareAnswerDate RecordedDo problems getting attendant child activity make it difficult for you to work [...] CommentsNoSex and Gender InformationValueDate RecordedSex Assigned at YpqncSpzhpo75/19/2021 2:12 AM ESTLegal ZzjFjqihh58/04/2015 12:01 PM EDTGender OwnikipmJwebfs87/19/2021 2:12 AM ESTSexual UmypxfiiajoJwdelbbq95/19/2021 2:12 AM EST Last Filed Vital Signs Vital SignReadingTime TakenCommentsBlood Sxocaozb877/6805/09/2025 2:11 PM EST Uemrj85396/01/2025 2:11 PM IBIPghaxzvopha01.3 ??C (99.1 ??F)05/09/2025 2:11 PM ESTRespiratory Nmyk293407/10/2024 2:11 PM ESTOxygen Yzkmhxhrgo31%05/09/2025 2:11 PM ESTInhaled Oxygen Concentration--Udstxj757.1 kg (240 lb 9.6 oz)05/09/2025 2:11 PM VTINdhygc950.2 cm (5' 7.01 )05/09/2025 2:11 PM ESTBody Mass Index37.67 05/09/2025 2:11 PM EST Plan of Treatment DateTypeDepartmentCare Team (Latest Contact Info)Wwfscthcdmh85/05/2026 11:30 AM ESTOffice Visit [facility] [address] [place] [address] Mook Wang DO [address], [facility] [place] [address] Health MaintenanceDue DateLast DoneCommentsAdult BMI Follow Up Plan2017Pap Smear02/09/2020DTaP,Tdap and Td Vaccines (8 - Td or Tdap), 02/18/2011, 02/15/2004, Additional history existsInfluenza Eiftqmg8509/06/2025 09/08/2017, 03/13/2016, 02/07/2015, Additional history existsPostponed from 02/07/2025 (Patient Refused)Depression Ndsadvxir74/dult BMI Dyswnvlxp86Tobacco Shruuswlo65 Medical Devices Not on file Procedures Procedure NamePriorityDate/TimeAssociated DiagnosisCommentsCOMPREHENSIVE METABOLIC SEHDTBjppqwi75/03/2025 11:57 AM EST Well adult exam LIPID ZOGCXLWYfmexzn00/03/2025 11:57 AM EST Well adult exam from Last 3 Months Results * Lipid profile (04/11/2025 11:57 AM EST)ComponentValueRef RangeTest Method Analysis TimePerformed AtPathologist IswkqxzwhKCRWKHRMXKM632547 - 200 mg/dL 04/11/2025 6:33 PM [facility] FSOLCRTUMDRYBGPCXCEVQQ8652 - 150 mg/dL04/11/2025 6:33 PM [facility] LABORATORYHDL NMDJEUEFJHF03>39 mg/dL04/11/2025 6:33 PM [facility] LABORATORYComment: HDL <40 mg/dL - High Risk HDL > or = 40mg/dL- Desirable HDL >60 mg/dL - Negative Risk LDL (CALC)125<130 mg/dL04/11/2025 6:33 PM [facility] Comment: LDL <100 mg/dL - Desirable LDL >160 mg/dL - High Risk CHOLESTEROL:HDL3.61.0 - 5.011 6:33 PM [facility] LABORATORYVERY LOW WQASBMGTQKT087 - 30 mg/dL04/11/2025 6:33 PM [facility] LABORATORYSpecimen (Source)Anatomical Location / Laterality Collection Method / VolumeCollection TimeReceived TimeBloodVenous blood / Yopgzfe5104/11/2025 11:57 AM EST04/11/2025 11:57 AM EST Narrative Authorizing ProviderResult TypeResult StatusDennis G Furlong DOLAB BLOOD ORDERABLESFinal ResultPerforming OrganizationAddressCity/State/ZIP CodePhone Number [facility] [address] [place] [phone], * (ABNORMAL) Comprehensive metabolic panel (04/11/2025 11:57 AM EST)Component ValueRef RangeTest MethodAnalysis TimePerformed AtPathologist SignatureSODIUM 341049 - 146 mmol/L106/11/2024 6:33 PM [facility] POTASSIUM4.13.5 - 5.0 mmol/L106/11/2024 6:33 PM [facility] IPABSHDFHEXVSEXLXE79460 - 109 mmol/L106/11/2024 6:33 PM [facility] LABORATORYCARBON LUGOWDF8178 - 32 mmol/L106/11/2024 6:33 PM [facility] LABORATORYANION GAP95 - 15 mmol/L106/11/2024 6:33 PM [facility] LABORATORYBLOOD UREA IYPTDALO714 - 23 mg/dL04/11/2025 6:33 PM [facility] LABORATORYCREATININE0.720.40 - 1.00 mg/dL 04/11/2025 6:33 PM [facility] LABORATORYComment:METHOD TRACEABLE TO [facility] SBAXAZGFTRERBPA8946 - 99 mg/dL04/11/2025 6:33 PM [facility] LABORATORYCALCIUM9.08.5 - 10.5 mg/dL04/11/2025 6:33 PM [facility] LABORATORYTOTAL PROTEIN6.86.0 - 8.0 g/dL04/11/2025 6:33 PM [facility] LABORATORYALBUMIN4.23.2 - 5.3 g/dL 04/11/2025 6:33 PM [facility] LABORATORYALKALINE PHOSPHATASE 33(L)39 - 130 U/L106/11/2024 6:33 PM [facility] LABORATORYAST 12<=41 U/L106/11/2024 6:33 PM [facility] XQIDGYJOTDLIA06<=31 U/L106/11/2024 6:33 PM [facility] LABORATORYBILIRUBIN,TOTAL0.6 0.3 - 1.2 mg/dL04/11/2025 6:33 PM [facility] LABORATORYEGFR Non-Race Dependent>90>=60 ml/min/1.73sq.m106/11/2024 6:33 PM [facility] LABORATORYComment: Reported eGFR is based on the CKD-EPI 2020 equation that does not use a race coefficient. Specimen (Source)Anatomical Location / LateralityCollection Method / Volume Collection TimeReceived TimeBloodVenous blood / Gahconv1204/11/2025 11:57 AM EST 04/11/2025 11:57 AM EST Narrative Authorizing ProviderResult TypeResult StatusDennis G Furlong DOLAB BLOOD ORDERABLESFinal ResultPerforming OrganizationAddressCity/State/ZIP CodePhone Number [facility] [address] [place] [address], [place] [phone] from Last 3 Months Insurance Care Teams Team MemberRelationshipSpecialtyStart DateEnd Date Mook Wang DO [address], [place] [address] PCP - GeneralFamily Nmfmuhvq62/9/21
--- OUTSIDE RECORDS SUMMARY | 2025-05-24 18:56 | XMS_ITS | Encounter Summary ---
Author Organization [facility] Address [address] [facility] [place] [address] Care Team Providers Care Staff Radiologist Name Role Phone Mook Wang MD Primary Care Provider + [phone] Encounter Details DateTypeDepartmentCare Team (Latest Contact Info)Bgejxizpcsx19/16/2025amboo flowsheet [facility] [address] [place] [address] Keshawn Nicholson DO [address] [place] [address] [address], [facility] Social History Tobacco UseTypesPacks/DayYears UsedDateSmoking Tobacco: Never Assessed CommentsNoSex and Gender InformationValueDate RecordedSex Assigned at BirthNot on fileLegal QpkLmnsyv28/15/2023 7:14 PM EDTGender IdentityNot on fileSexual OrientationNot on filedocumented as of this encounter Plan of Treatment DateTypeDepartmentCare Team (Latest Contact Info)Opsbwmuvfnc29/05/2026 10:00 AM ESTAncillary Procedure [facility] [address] [place] [address] 06/13/2025 11:10 AM ESTConsult [facility] [address] [place] [address] Keshawn Nicholson DO [address] [place] [address] 05/29/2026 11:00 AM ESTProcedure Visit [facility] [address] [facility] [place] [address] Keshawn Nicholson DO [address] [facility] [place] [address] documented as of this encounter Visit Diagnoses Not on filedocumented in this encounter Care Teams Team MemberRelationshipSpecialtyStart DateEnd Date Mook Wang MD [address] [place] [address] PCP - GeneralFamily Medicine10/28/22documented as of this encounter
--- OUTSIDE RECORDS SUMMARY | 2025-05-24 18:56 | XMS_ITS | Clinical Summary ---
Author Organization [facility] Address [address] [place] [address] Care Team Providers Care Arc Welding Machine Operator Name Role Phone Unavailable Primary Care Provider Unavailabl e Social History Tobacco UseTypesPacks/DayYears UsedDateSmoking Tobacco: Never Assessed CommentsUnknownSex and Gender InformationValueDate RecordedSex Assigned at Not on fileLegal ZilGwtglb83/30/2022 12:31 AM EDTGender IdentityNot on file Sexual OrientationNot on file Last Filed Vital Signs Vital SignReadingTime TakenCommentsBlood Ufrvjtvp302/6108 2:05 PM EDT Pulse--Temperature--Respiratory Rate--Oxygen Amqxfypqjv13%01/19/2021 11:25 AM EDTInhaled Oxygen Concentration--Mcugyj484 kg (240 lb)02/07/2021 11:07 AM EDT Juwdtw933.7 cm (5' 8 )02/07/2021 11:07 AM EDTBody Mass Index36.4909 11:07 AM EDT Plan of Treatment Not on file
--- OUTSIDE RECORDS SUMMARY | 2025-05-24 18:56 | XMS_ITS | Encounter Summary ---
Author Organization [facility] Address [address] [place] [address] Care Team Providers Care X Ray Nurse Name Role Phone Mook Wang MD Primary Care Provider + [phone] Encounter Details DateTypeDepartmentCare Team (Latest Contact Info)Wpwldrtxmvg99/06/2025External Result Encounter [facility] Unsolicited Erich Decker, YANNI [address] [place] [address] Social History Tobacco UseTypesPacks/DayYears UsedDateSmoking Tobacco: Never Assessed CommentsNoSex and Gender InformationValueDate RecordedSex Assigned at BirthNot on fileLegal FvhKovnor49/15/2023 7:14 PM EDTGender IdentityNot on fileSexual OrientationNot on filedocumented as of this encounter Plan of Treatment DateTypeDepartmentCare Team (Latest Contact Info)Eurlwzezlyt88/05/2026 10:00 AM ESTAncillary Procedure [facility] [address] [place] [address] 06/13/2025 11:10 AM ESTConsult [facility] [address] [place] [address] Keshawn Nicholson DO [address] [facility] [address] [place], [place] [id number] 05/29/2026 11:00 AM ESTProcedure Visit [facility] [address] [place] [address] Keshawn Nihcolson, DO [address] [facility] [place] [address] documented as of this encounter Procedures Procedure NamePriorityDate/TimeAssociated DiagnosisCommentsAEROBIC JUSTIN CHARGE (NMIC56)Ynmvnmh0705/14/2025 4:00 PM EST CULTURE, URINE, TYCGNTQWilaxez29/06/2025 4:00 PM EST documented in this encounter Results * (ABNORMAL) AEROBIC JUSTIN CHARGE (NMIC56) (05/14/2025 4:00 PM EST)ComponentValue Ref RangeTest MethodAnalysis TimePerformed AtPathologist SignatureAMIKACIN<16 (S)05/16/2025 8:20 AM [facility] CtrAMOXACILLIN/K CLAVULANATE<8/4(S)05/16/2025 8:20 AM [facility] Ctr AMPICILLIN>16(R)05/16/2025 8:20 AM [facility] Ctr AMPICILLIN/GBWYGGBHC66/8(I)05/16/2025 8:20 AM [facility] CtrAZTREONAM<4(S)05/16/2025 8:20 AM [facility] CtrCEFAZOLIN <2(S)05/16/2025 8:20 AM [facility] CtrCEFEPIME<2(S) 05/16/2025 8:20 AM [facility] CtrCEFTAZIDIME<1(S)05/16/2025 8:20 AM [facility] CtrCEFTAZIDIME/AVIBACTAM<4(S)05/16/2025 8:20 AM [facility] CtrCEFTOLOZANE/TAZOBACTAM<2(S)05/16/2025 8:20 AM [facility] CtrCEFTRIAXONE<1(S)05/16/2025 8:20 AM [facility] CtrCEFUROXIME<4(S)05/16/2025 8:20 AM [facility] CtrCIPROFLOXACIN<0.25(S)05/16/2025 8:20 AM [facility] CtrERTAPENEM<0.5(S)05/16/2025 8:20 AM [facility] CtrGENTAMICIN<2(S)05/16/2025 8:20 AM [facility] CtrLEVOFLOXACIN<0.5(S)05/16/2025 8:20 AM [facility] CtrMEROPENEM<1(S)05/16/2025 8:20 AM [facility] Ctr MEROPENEM/VABORBACTAM<2(S)05/16/2025 8:20 AM [facility] Ctr NITROFURANTOIN<32(S)05/16/2025 8:20 AM [facility] Ctr PIPERACILLIN/TAZOBACTAM<8(S)05/16/2025 8:20 AM [facility] CtrTETRACYCLINE<4(S)05/16/2025 8:20 AM [facility] Ctr TIGECYCLINE<2(S)05/16/2025 8:20 AM [facility] CtrTOBRAMYCIN <2(S)05/16/2025 8:20 AM [facility] Ctr TRIMETHOPRIM/SULFAMETHOXAZOLE<0.5/9.5(S)05/16/2025 8:20 AM [facility] CtrSpecimen (Source)Anatomical Location / Laterality Collection Method / VolumeCollection TimeReceived TimeClean-Voided Midstream (Clean Void Midstream)05/14/2025 4:00 PM EST05/14/2025 8:46 PM EST Narrative Authorizing ProviderResult TypeResult StatusMattfloyd Decker PAFIRELANDSFinal ResultPerforming OrganizationAddressCity/State/ZIP CodePhone Number [facility] [address] [place] [address], [facility] [address] [place] [address] * Urine culture (05/14/2025 4:00 PM EST)ComponentValueRef RangeTest Method Analysis TimePerformed AtPathologist SignatureFR ORGANISMEscherichia coli 05/16/2025 8:20 AM [facility] CtrCOLONY COUNT>100,000 05/16/2025 8:20 AM [facility] CtrSpecimen (Source) Anatomical Location / LateralityCollection Method / VolumeCollection Time Received TimeClean-Voided Midstream (Clean Void Midstream)05/14/2025 4:00 PM EST05/14/2025 8:46 PM EST [facility] 05/16/2025 8:21 AM EST Diagnosis: UTI Comment: Authorizing ProviderResult TypeResult StatusMattfloyd Decker PAL MICROBIOLOGY - GENERAL ORDERABLESFinal ResultPerforming OrganizationAddressCity/State/ZIP Code Phone Number [facility] [address] [place] [address], [facility] [address] [place] [address] documented in this encounter Visit Diagnoses Not on filedocumented in this encounter Care Teams Team MemberRelationshipSpecialtyStart DateEnd Date Mook Wang MD [address] [facility], [place] [place] [address] PCP - GeneralFamily Medicine10/28/22documented as of this encounter
== END 2025-05-24 18:53 | disposition home or self-care (01) ==
LOC: LAB 18:52
PROVIDERS: PCP Family Medicine; Visit Provider Obstetrics & Gynecology
DX: Z01.419 Encounter for gynecological examination (general) (routine) without abnormal findings (principal)
CPT/HCPCS: 88175